=== PATIENT | male | born 1990 | race Caucasian/White ===

== ENCOUNTER 2017-10-03 15:22 | Emergency (ER) | payer OTHER ==
[~2017-10-03] VITALS: Ht 177.8 cm; Wt 64.4 kg
[~2017-10-03 15:22] MED LIST: AMOXICILLIN875 MG PO; AUGMENTIN 875-1 EACH PO; BACTRIM DS TAB1 EACH PO; CLINDAMYCIN HC300 MG PO; IBUPROFEN800 MG PO; KEFLEX500 MG PO; NORCO 5-325 TA1 EACH PO; OMEPRAZOLE20 MG PO; PAXIL20 MG PO
== END 2017-10-03 18:40 | disposition home or self-care (01) ==
LOC: ED 15:22
DX: R44.0 Auditory hallucinations (principal); F15.10 Other stimulant abuse, uncomplicated; F17.200 Nicotine dependence, unspecified, uncomplicated; Z86.19 Personal history of other infectious and parasitic diseases
CPT/HCPCS: 99282

== ENCOUNTER 2018-03-13 03:12 | Emergency (ER) | payer OTHER ==
[~2018-03-13] VITALS: Ht 177.8 cm; Wt 64.4 kg
== END 2018-03-13 04:35 | disposition home or self-care (01) ==
LOC: ED 03:12
DX: L29.9 Pruritus, unspecified (principal); S30.811A Abrasion of abdominal wall, initial encounter; S20.319A Abrasion of unspecified front wall of thorax, initial encounter; S80.812A Abrasion, left lower leg, initial encounter; S80.811A Abrasion, right lower leg, initial encounter; S40.812A Abrasion of left upper arm, initial encounter; S40.811A Abrasion of right upper arm, initial encounter; S30.810A Abrasion of lower back and pelvis, initial encounter; F17.200 Nicotine dependence, unspecified, uncomplicated; W19.XXXA Unspecified fall, initial encounter; Y93.89 Activity, other specified
CPT/HCPCS: 96372; 99282; J1200

== ENCOUNTER 2018-06-21 14:27 | Emergency (ER) | payer OTHER ==
[~2018-06-21] VITALS: Ht 177.8 cm; Wt 58.1 kg
--- OUTSIDE RECORDS SUMMARY | 2018-06-21 15:32 | XMS | Clinical Summary ---
Demographics + + + | Address | [address] | | | [place] [address] | + + + | Home Phone | | + + + | Preferred Language | Unknown | + + + | Marital Status | Single | + + + | Scientology Affiliation | Unknown | + + + | Race | Unknown | + + + | Ethnic Group | Unknown | + + + Author + + + | Author | [facility] | + + + | Organization | [facility] | + + + | Address | Unknown | + + + | Phone | Unavailable | + + + Support + + +---------+ + | Name | Relationship | Address | Phone | + + +---------+ + | Lynne Burrell | ECON | Unknown | | + + +---------+ + Care Team Providers + +------+ + | Care Delivery Rn Name | Role | Phone | + +------+ + | Chelle Nelson VALUE ANALYST | PP | Unavailable | + +------+ + Allergies No Known Allergies Current Medications + + +--------+---------+------+------+-------+ | Prescription | Sig. | Disp. | Refills | Star | End | Statu | | | | | | t | Date | s | | | | | | Date | | | + + +--------+---------+------+------+-------+ | risperiDONE | Take 1 tablet by | 60 | 0 | 06/2 | | Activ | | (RISPERDAL) 0.5 MG | mouth 2 (two) times | tablet | | 2/20 | | e | | tablet | daily. | | | 15 | | | + + +--------+---------+------+------+-------+ Active Problems + + + | Problem | Noted Date | + + + | Chronic hepatitis C virus infection (HCC) | 11/07/2015 | + + + | Elevated liver enzymes | 11/05/2015 | + + + | Substance abuse (HCC) | 11/05/2015 | + + + | Substance induced mood disorder (HCC) | 03/11/2015 | + + + | Substance-induced anxiety disorder | 03/11/2015 | + + + | Drug overdose, intentional, Suicide Attempt | 03/08/2015 | + + + | Depression | 03/08/2015 | + + + | Chronic Alcoholism | 03/08/2015 | + + + | Chronic Polysubstance Abuse, Meth, MJ, Opiates, Benzos | 03/08/2015 | + + + | Acute respiratory failure (HCC) | 03/08/2015 | + + + Resolved Problems + + + + | Problem | Noted | Resolved | | | Date | Date | + + + + | Septic shock (HCC) | 11/04/19 | | | | 16 | 6 | + + + + | NSAID overdose | 03/11/20 | | | | 15 | 5 | + + + + | Tricyclic overdose | 03/08/20 | | | | 15 | 5 | + + + + Immunizations + + + + | Name | Dates Previously Given | Next Due | + + + + | Pneumococcal | 03/11/2015 | | | Polysaccharide | | | | 23-valent | | | + + + + Family History + + +------+ + | Medical History | Relation | Name | Comments | + + +------+ + | Alcohol abuse | Father | | | + + +------+ + | Cancer | Maternal | | | | | Grandfath | | | | | er | | | + + +------+ + | Cancer | Maternal | | | | | Grandmoth | | | | | er | | | + + +------+ + | Alcohol abuse | Mother | | | + + +------+ + + +------+--------+ + | Relation | Name | Status | Comments | + +------+--------+ + | Father | | | | + +------+--------+ + | Maternal Grandfather | | | | + +------+--------+ + | Maternal Grandmother | | | | + +------+--------+ + | Mother | | | | + +------+--------+ + Social History + + + +--------+------+ | Tobacco Use | Types | Packs/Day | Years | Date | | | | | Used | | + + + +--------+------+ | Current Every Day | Cigarettes | 0.5 | 12 | | | Smoker | | | | | + + + +--------+------+ + +---+---+---+ | Smokeless Tobacco: | | | | | Former User | | | | + +---+---+---+ + + | Tobacco Cessation: Ready to Quit: No; Counseling Given: Yes | + + + + +---------+ + | Alcohol Use | Drinks/We | oz/Week | Comments | | | ek | | | + + +---------+ + | Yes | | | "drinks alot of hard alchocol every day" | | | | | per sister | + + +---------+ + + + + | Sex Assigned at | Date Recorded | | | | + + + | Not on file | | + + + Last Filed Vital Signs + + + + | Vital Sign | Reading | Time Taken | + + + + | Blood Pressure | 124/79 | 11/07/2015 3:13 PM PST | + + + + | Pulse | 57 | 11/07/2015 3:13 PM PST | + + + + | Temperature | 36.6 C (97.8 F) | 11/07/2015 3:13 PM PST | + + + + | Respiratory Rate | 16 | 11/07/2015 3:13 PM PST | + + + + | Oxygen Saturation | 98% | 11/07/2015 3:13 PM PST | + + + + | Inhaled Oxygen | - | - | | Concentration | | | + + + + | Weight | 63.5 kg (140 lb) | 11/07/2015 5:03 AM PST | + + + + | Height | 177.8 cm (5' 10") | 11/05/2015 12:15 PM PST | + + + + | Body Mass Index | 20.09 | 11/07/2015 5:03 AM PST | + + + + Plan of Treatment Not on file Results Not on filefrom Last 3 Months Insurance + +--------+ +------+-------+ + | Payer | Benefi | Subscriber | Type | Phone | Address | | | t Plan | ID | | | | | | / | | | | | | | Group | | | | | + +--------+ +------+-------+ + | MEDICAID | [employer] | [id number] | | | [address] | | | N | | | | [place] | | | [place] | | | | [phone] | | | MANAGER INVENTORY MANAGEMENT | | | | | + +--------+ +------+-------+ + + +--------+ +--------+ + + | Guarantor Name | Accoun | Relation to | Date | Phone | Billing Address | | | t Type | Patient | of | | | | | | | | | | + +--------+ +--------+ + + | JASON UBRRELL | Person | Self [birth year] | Home: | [address] | | | [place] | | 1989 | [phone] | [place] | | | [place] | | | [phone] | + +--------+ +--------+ + +
--- OUTSIDE RECORDS SUMMARY | 2018-06-21 15:32 | XMS | Clinical Summary ---
Demographics + + + | Address | [address] | | | [place] [address] | + + + | Home Phone | [email or web address] | + + + | Preferred Language | Unknown | + + + | Marital Status | Single | + + + | Zoroastrian Affiliation | Unknown | + + + | Race | Unknown | + + + | Ethnic Group | Unknown | + + + Author + + + | Author | [facility] | | | and [place] | + + + | Organization | [facility] | | | and [place] | + + + | Address | Unknown | + + + | Phone | Unavailable | + + + Support + + +---------+ + | Name | Relationship | Address | Phone | + + +---------+ + | None,Provided | ECON | Unknown | | + + +---------+ + Care Team Providers + +------+ + | Care Quarryman Name | Role | Phone | + +------+ + | No, Physician | PP | Unavailable | + +------+ + Allergies No Known Allergies Current Medications + + + +---------+------+------+-------+ | Prescription | Sig. | Disp. | Refills | Star | End | Statu | | | | | | t | Date | s | | | | | | Date | | | + + + +---------+------+------+-------+ | benzoyl | Apply to affected | 46.6 g | 5 | 11/0 | | Activ | | peroxide-erythromyci | skin twice daily | | | 3/20 | | e | | n (BENZAMYCIN) | | | | 14 | | | | gelIndications: Acne | | | | | | | + + + +---------+------+------+-------+ | tretinoin | Apply to affected | 45 g | 5 | 11/0 | | Activ | | (RETIN-A) 0.025 % | area nightly | | | 3/20 | | e | | gelIndications: Acne | | | | 14 | | | + + + +---------+------+------+-------+ | triamcinolone | Apply to affected | 30 g | 2 | 11/0 | | Activ | | (KENALOG) 0.1% | skin on hands and | | | 3/20 | | e | | creamIndications: | knees twice daily | | | 14 | | | | Hand dermatitis | | | | | | | + + + +---------+------+------+-------+ Active Problems No known active problems Social History + + + +--------+------+ | Tobacco Use | Types | Packs/Day | Years | Date | | | | | Used | | + + + +--------+------+ | Current Every Day | Cigarettes | 1 | | | | Smoker | | | | | + + + +--------+------+ + + + | Sex Assigned at | Date Recorded | | | | + + + | Not on file | | + + + Last Filed Vital Signs + + + + | Vital Sign | Reading | Time Taken | + + + + | Blood Pressure | 136/76 | 07/23/20141050 PST | + + + + | Pulse | 103 | 07/23/20141050 PST | + + + + | Temperature | 36.2 C (97.2 F) | 07/23/20141050 PST | + + + + | Respiratory Rate | 16 | 07/23/20141050 PST | + + + + | Oxygen Saturation | 100% | 07/23/20141050 PST | + + + + | Inhaled Oxygen | - | - | | Concentration | | | + + + + | Weight | 62 kg (136 lb 11.2 | 07/23/20141050 PST | | | oz) | | + + + + | Height | 177.8 cm (5' 10") | 07/23/20141050 PST | + + + + | Body Mass Index | 19.61 | 07/23/2014 1051 PST | + + + + Plan of Treatment + + + + + | Health Maintenance | Due Date | Last Done | Comments | + + + + + | Vaccine: | | | | | Dtap/Tdap/Td (1 - | 9 | | | | Tdap) | | | | + + + + + | Vaccine: Influenza | | | | | (#1) | 8 | | | + + + + + Results Not on filefrom Last 3 Months
--- OUTSIDE RECORDS SUMMARY | 2018-06-21 15:32 | XMS | Clinical Summary ---
Demographics + + + | Address | [address] | | | [place] [address] | + + + | Home Phone | | + + + | Preferred Language | Unknown | + + + | Marital Status | Single | + + + | Catholic Affiliation | Unknown | + + + | Race | Unknown | + + + | Ethnic Group | Unknown | + + + Author + + + | Author | [facility] | + + + | Organization | [facility] | + + + | Address | Unknown | + + + | Phone | Unavailable | + + + Support + + +---------+ + | Name | Relationship | Address | Phone | + + +---------+ + | Lynne Burrell | ECON | Unknown | | + + +---------+ + Care Team Providers + +------+ + | Care Irrigation District Manager Name | Role | Phone | + +------+ + | Chelle Nelson MIME ARTIST | PP | Unavailable | + +------+ [...] +------+-------+ + | MEDICAID | [employer] | [id number] | | | [address] | | | N | | | | [place] | | | [place] | | | | [phone] | | | RFID SYSTEMS ENGINEER | | | | | + +--------+ +------+-------+ + + +--------+ +--------+ + + | Guarantor Name | Accoun | Relation to | Date | Phone | Billing Address | | | t Type | Patient | of | | | | | | | | | | + +--------+ +--------+ + + | JASON BURRELL | Person | Self | [birth year] | Home: | [address] | | | [place] | | 1989 | [phone] | [place] | | | [place] | | | [phone] | + +--------+ +--------+ + +
--- OUTSIDE RECORDS SUMMARY | 2018-06-21 15:32 | XMS | Clinical Summary ---
Demographics + + + | Address | [address] | | | [place] [address] | + + + | Home Phone | [email or web address] | + + + | Preferred Language | Unknown | + + + | Marital Status | Single | + + + | Voodoo Affiliation | Unknown | + + + | Race | Unknown | + + + | Ethnic Group | Unknown | + + + Author + + + | Author | [facility] | | | and [place] | + + + | Organization | [facility] | | | and [place] | [...] Team Providers + +------+ + | Care Construction Site Manager Name | Role | Phone | [...]
--- OUTSIDE RECORDS SUMMARY | 2018-06-21 17:25 | XMS ---
PreManage Notification: JASON GOODRICH Security Assembly Loader Events No recent Security Events currently on file CRITERIA MET - Group Notification CARE PROVIDERS There are no care providers on record at this time. [place] has no Care Guidelines for this patient. [place] V[facility] COUNT (12 MO.) [facility]Y [facility] TOTAL 4 NOTE: Visits indicate total known visits. ED/[facility] VISIT TRACKING (12 MO.) 06/21/2018 14:27 ARY Regal[place] TYPE: Emergency COMPLAINT: - EAR LACERATION 03/13/2018 03:13 [facility] [place] TYPE: Emergency COMPLAINT: - SKIN PROBLEM DIAGNOSES: - Abrasion of abdominal wall, initial encounter - Activity, other specified - Pruritus, unspecified - Nicotine dependence, unspecified, uncomplicated - Abrasion, right lower leg, initial encounter - Abrasion of right upper arm, initial encounter - Abrasion of left upper arm, initial encounter - Abrasion of unspecified front wall of thorax, initial encounter - Unspecified fall, initial encounter - Abrasion, left lower leg, initial encounter - Abrasion of lower back and pelvis, initial encounter 10/03/2017 15:23 AR[facility] [place] TYPE: Emergency COMPLAINT: - FEVER,ABD PAIN DIAGNOSES: - Other stimulant abuse, uncomplicated - Unspecified abdominal pain - Personal history of other infectious and parasitic diseases - Nicotine dependence, unspecified, uncomplicated - Auditory hallucinations 08/28/2017 15:10 Nikki OLIVA [place] TYPE: Emergency COMPLAINT: - PT STATES SCABIES INPATIENT VISIT TRACKING (12 MO.) No inpatient visits to display in this time frame [email or web address]
== END 2018-06-21 17:25 | disposition home or self-care (01) ==
LOC: ED 14:27
PROC: 0HQ2XZZ Repair Right Ear Skin, External Approach (ICD-10-PCS; principal; 2018-06-21)
DX: S01.311A Laceration without foreign body of right ear, initial encounter (principal); Y04.8XXA Assault by other bodily force, initial encounter
CPT/HCPCS: 12011; 70450; 90471; 90715; 99283; 99406

== ENCOUNTER 2019-09-01 11:13 | Emergency (ER) | payer OTHER ==
[~2019-09-01] VITALS: Ht 177.8 cm; Wt 58.1 kg
--- OUTSIDE RECORDS SUMMARY | ~2019-09-01 | XMS | Encounter Summary ---
Demographics + + + | Address | [address] | | | [place] [address] | + + + | Home Phone | [email or web address] | + + + | Preferred Language | Unknown | + + + | Marital Status | Single | + + + | Roman Catholic Affiliation | Unknown | + + + | Race | Unknown | + + + | Ethnic Group | Unknown | + + + Author + + + | Author | [facility] | | | and [place] | + + + | Organization | [facility] | | | and [place] | + + + | Address | Unknown | + + + | Phone | Unavailable | + + + Support + + +---------+ + | Name | Relationship | Address | Phone | + + +---------+ + | Provided None | ECON | Unknown | | + + +---------+ + Care Team Providers + +------+ + | Care Wafer Production Worker Name | Role | Phone | + +------+ + | No, Physician | PCP | Unavailable | + +------+ + Reason for Visit +--------+ + | Reason | Comments | +--------+ + | Rash | exam 4/ BILAT KNEES/LEFT HAND/BACK X YEARS | +--------+ + Encounter Details +--------+---------+ + + + | Date | Type | Department | Care Team | Description | +--------+---------+ + + + | 07/23/ | Office | [facility] | Everardo Lopez | Acne (Primary Dx); | | 2013 | Visit | CARE [address] | Ziggy Rodriguez MD | Hand dermatitis | | | | [place] | [address] | | | | | [phone] | [place] | | | | | [phone] | [address] | | | | | | | | +--------+---------+ + + + Social History + + + +--------+------+ | Tobacco Use | Types | Packs/Day | Years | Date | | | | | Used | | + + + +--------+------+ | Current Every Day | Cigarettes | 1 | | | | Smoker | | | | | + + + +--------+------+ + + +---------+ + | Alcohol Use | Drinks/Week | oz/Week | Comments | + + +---------+ + | Not Asked | | | | + + +---------+ + + + + | Sex Assigned at | Date Recorded | | | | + + + | Not on file | | + + + + + + + | Job Start Date | Occupation | Industry | + + + + | Not on file | Not on file | Not on file | + + + + + + + + | Travel History | Travel Start | Travel End | + + + + + + | No recent travel history available. | + + documented as of this encounter Last Filed Vital Signs + + + + + | Vital Sign | Reading | Time Taken | Comments | + + + + + | Blood Pressure | 136/76 | 07/23/2014 10:51 AM | | | | | PST | | + + + + + | Pulse | 103 | 07/23/2014 10:51 AM | | | | | PST | | + + + + + | Temperature | 36.2 C (97.2 F) | 07/23/2014 10:51 AM | | | | | PST | | + + + + + | Respiratory Rate | 16 | 07/23/2014 10:51 AM | | | | | PST | | + + + + + | Oxygen Saturation | 100% | 07/23/2014 10:51 AM | | | | | PST | | + + + + + | Inhaled Oxygen | - | - | | | Concentration | | | | + + + + + | Weight | 62 kg (136 lb 11.2 | 07/23/2014 10:51 AM | | | | oz) | PST | | + + + + + | Height | 177.8 cm (5' 10") | 07/23/2014 10:51 AM | | | | | PST | | + + + + + | Body Mass Index | 19.61 | 07/23/2014 10:51 AM | | | | | PST | | + + + + + documented in this encounter Patient Instructions Patient Instructions Everardo Lopez Jr., MD - 07/23/2014 11:34 AM PSTCall tomorrow for blood results Use medication as directed Recheck in 3 weeks if no improvement documented in this encounter Progress Notes Frieda Andrade RN - 07/23/2014 1:48 PM PSTVenipuncture to LAC x 1 with 23 gauge butter fly used. Patient tolerated well.Electronically signed by Frieda Andrade RN at 1:53 PM Everardo Ribera Jr., MD - 07/23/2014 12:48 PM PSTTravis Per Roy resebenezer with a long history of acne on his face and upper back. He was treated with tetracy [place] for over a year orally without any benefit. He has not been on any other prescription medication. He has had intermittent problems with a rash on his kneecap areas as well as t he dorsum of his hands. He is concerned that he may have some internal problem to cause the problems. He has no family history of psoriasis. He has no history of joint pains or kidn ey difficulty. He has not had difficulty with his eyes. Physical exam: No acute distress Face and posterior upper back: Pustular acne with some scarring and pitting Knees: Slight hyperkeratosis and scaling over the kneecaps Hands: Erythema without other lesions of the MCP joints of both hands symmetrically CBC and sed rate: Pending Diagnosis: Acne, hyperkeratosis of the knees documente d in this encounter Plan of Treatment Not on filedocumented as of this encounter Procedures + +--------+ + + + | Procedure Name | Priori | Date/Time | Associated Diagnosis | Comments | | | ty | | | | + +--------+ + + + | SEDIMENTATION RATE | Routin | 07/23/2014 | Hand dermatitis | Results for this | | | e | 11:47 AM | | procedure are in the | | | | PST | | results section. | + +--------+ + + + | CBC WITH | Routin | 07/23/2014 | Acne Hand | Results for this | | DIFFERENTIAL | e | 11:47 AM | dermatitis | procedure are in the | | | | PST | | results section. | + +--------+ + + + documented in this encounter Results Sedimentation Rate (07/23/2014 11:47 AM PST) + +-------+ + + + | Component | Value | Ref Range | Performed | Pathologist | | | | | At | Signature | + +-------+ + + + | ESR | 12 | <15 mm/hr | [facility] | [facility] | | | [facility] - | | | | | | LABORATORY | | + +-------+ + + + + + | Specimen | + + | Blood | + + + + + + + | Performing | Address | City/State/Zipcode | Phone Number | | Organization | | | | + + + + + | [facility] | [address] | [place] | [phone] | | [facility] | | [address] | | | - LABORATORY | | | | + + + + + | [facility] | [address] | [place] | | | [facility] | | [address] | | | - LABORATORY | | | | + + + + + CBC with Differential (07/23/2014 11:47 AM PST) + + + + + + | Component | Value | Ref Range | Performed | Pathologist | | | | | At | Signature | + + + + + + | WBC | 8.1 | 4.0 - 11.0 K/uL | [facility] | | | | | | [facility] | | | | | | [facility] | | | | | | [facility] - | | | | | | LABORATORY | | + + + + + + | RBC | 4.49 | 4.30 - 5.70 | [facility] | | | | | M/uL | [facility] | | | | | | [facility] | | | | | | C[facility] - | | | | | | LABORATORY | | + + + + + + | Hemoglobin | 13.4 (L) | 13.5 - 18.0 | [facility] | | | | | g/dL | [facility] | | | | | | [facility] | | | | | | C[facility] - | | | | | | LABORATORY | | + + + + + + | Hematocrit | 41.1 | 40.0 - 51.0 % | [facility] | | | | | | [facility] | | | | | | [facility] | | | | | | [facility] - | | | | | | LABORATORY | | + + + + + + | MCV | 91.7 | 83.0 - 101.0 fL | [facility] | | | | | | [facility] | | | | | | [facility] | | | | | | [facility] - | | | | | | LABORATORY | | + + + + + + | MCH | 30.0 | 28.0 - 35.0 pg | [facility] | | | | | | [facility] | | | | | | [facility] | | | | | | [facility] - | | | | | | LABORATORY | | + + + + + + | MCHC | 32.7 | 32.0 - 36.0 | [facility] | | | | | g/dL | [facility] | | | | | | [facility] | | | | | | C[facility] - | | | | | | LABORATORY | | + + + + + + | RDW-CV | 13.6 | <15.0 % | [facility] | | | | | | [facility] | | | | | | [facility] | | | | | | [facility] - | | | | | | LABORATORY | | + + + + + + | Platelet | 210 | 140 - 440 K/uL | [facility] | | | Count | | | [facility] | | | | | | [facility]ICAL | | | | | | CENTER - | | | | | | LABORATORY | | + + + + + + | MPV | 7.0 | fL | [facility] | | | | | | [facility] | | | | | | [facility] | | | | | | CENTER - | | | | | | LABORATORY | | + + + + + + | % | 66.0 | 45.0 - 82.0 % | [facility] | | | Neutrophils | | | [facility] | | | | | | MEDICAL | | | | | | CENTER - | | | | | | LABORATORY | | + + + + + + | % | 21.2 | 20.0 - 45.0 % | [facility] | | | Lymphocytes | | | [facility] | | | | | | [facility] | | | | | | CENTER - | | | | | | LABORATORY | | + + + + + + | % Monocytes | 10.1 | 4.0 - 12.0 % | [facility] | | | | | | [facility] | | | | | | [facility]ICAL | | | | | | CENTER - | | | | | | LABORATORY | | + + + + + + | % | 2.1 | 0.0 - 5.0 % | [facility] | | | Eosinophils | | | [facility] | | | | | | [facility] | | | | | | CENTER - | | | | | | LABORATORY | | + + + + + + | % Basophils | 0.6 | 0.0 - 1.0 % | [facility] | | | | | | [facility] | | | | | | [facility]ICAL | | | | | | CENTER - | | | | | | LABORATORY | | + + + + + + | Absolute | 5.30 | 1.80 - 8.50 | [facility] | | | Neutrophils | | K/uL | [facility] | | | | | | [facility]ICAL | | | | | | CENTER - | | | | | | LABORATORY | | + + + + + + | Absolute | 1.70 | 0.60 - 3.20 | [facility] | | | Lymphocytes | | K/uL | [facility] | | | | | | [facility]ICAL | | | | | | CENTER - | | | | | | LABORATORY | | + + + + + + | Absolute | 0.80 | 0.00 - 1.00 | [facility] | | | Monocytes | | K/uL | [facility] | | | | | | [facility]ICAL | | | | | | CENTER - | | | | | | LABORATORY | | + + + + + + | Absolute | 0.20 | 0.00 - 0.40 | [facility] | | | Eosinophils | | K/uL | [facility] | | | | | | [facility]ICAL | | | | | | CENTER - | | | | | | LABORATORY | | + + + + + + | Absolute | 0.00 | 0.00 - 0.10 | [facility] | | | Basophils | | K/uL | [facility] | | | | | | [facility]ICAL | | | | | | CENTER - | | | | | | LABORATORY | | + + + + + + + + | Specimen | + + | Blood | + + + + + + + | Performing | Address | City/State/Zipcode | Phone Number | | Organization | | | | + + + + + | [facility] | [address] | [place] | [phone] | | [facility] | | [address] | | | - LABORATORY | | | | + + + + + | [facility] | [address] | [place] | | | [facility] | | [address] | | | - LABORATORY | | | | + + + + + documented in this encounter Visit Diagnoses + + | Diagnosis | + + | Acne - Primary Other acne | + + | Hand dermatitis Contact dermatitis and other eczema, due to unspecified cause | + + documented in this encounter
--- OUTSIDE RECORDS SUMMARY | ~2019-09-01 | XMS | Clinical Summary ---
Demographics + + + | Address | [address] | | | [place] [address] | + + + | Home Phone | | + + + | Preferred Language | Unknown | + + + | Marital Status | Single | + + + | Mormon Affiliation | Unknown | + + + | Race | Unknown | + + + | Ethnic Group | Unknown | + + + Author + + + | Author | [facility] (Historical as of | | | 05-06-19) | + + + | Organization | [facility] (Historical as of | | | 05-06-19) | + + + | Address | Unknown | + + + | Phone | Unavailable | + + + Support + + +---------+ + | Name | Relationship | Address | Phone | + + +---------+ + | Lynne Burrell | ECON | Unknown | | + + +---------+ + Care Team Providers + +------+ + | Care Environmental Inspector Name | Role | Phone | + +------+ + | Chelle NelsonP | PP | Unavailable | + +------+ [...] +------+-------+ + | MEDICAID | [place] | [id number] | | | [address] | | | N | | | | [place] | | | [place] | | | | [phone] | | | [employer]ING OFFICER | | | | | + +--------+ [...] | [address] | | | al/Matt | | 1989 | [phone] [place] | | | [place] | | | [phone] | + +--------+ +--------+ + +
--- OUTSIDE RECORDS SUMMARY | ~2019-09-01 | XMS | Clinical Summary ---
Demographics + + + | Address | [address] | | | [place] [address] | + + + | Home Phone | | + + + | Preferred Language | Unknown | + + + | Marital Status | Single | + + + | Adventist Affiliation | Unknown | + + + | Race | Unknown | + + + | Ethnic Group | Unknown | + + + Author + + + | Author | [facility] (Historical as of | | | 05-06-19) | + + + | Organization | [facility] (Historical as of | | | 05-06-19) [...] Team Providers + +------+ + | Care Senior Tax Manager Name | Role | Phone | [...] +------+-------+ + | MEDICAID | [place] | [id number] | | | [address] | | | N | | | | [place] | | | [place] | | | | [phone] | | | [employer]FORMING [employer] | | | | | + +--------+ [...] | [place] | | | [phone] | [phone] | + +--------+ +--------+ + +
--- OUTSIDE RECORDS SUMMARY | ~2019-09-01 | XMS | Encounter Summary ---
Demographics + + + | Address | [address] | | | [place] [address] | + + + | Home Phone | [email or web address] | + + + | Preferred Language | Unknown | + + + | Marital Status | Single | + + + | Advent Affiliation | Unknown | + + + | Race | Unknown | + + + | Ethnic Group | Unknown | + + + Author + + + | Author | [facility] | | | and [place] | + + + | Organization | [facility] | | | and [place] [...] Team Providers + +------+ + | Care Carpenter Mate Name | Role | Phone | + +------+ + | No, Physician | PCP | Unavailable | + +------+ + Encounter Details +--------+ + + + + | Date | Type | Department | Care Team | Description | +--------+ + + + + | 11/03/ | Hospital | [facility] | Arnulfo Torres, | Transaminasemia; | | 2016 - | Encounter | [facility]ENTER | MD Luis GIL[place]TTE | Septic shock (HCC); | | | | CLINICAL DECISION | [facility] [place] [address] | Acute renal failure, | | 11/07/ | | [address] | [phone] | unspecified acute | | 2016 | | [place] | | renal failure type | | | | [id number] | | (HCC); Lactic | | | | [phone] | | acidosis; | | | | | | Leukocytosis; RUQ | | | | | | abdominal pain | +--------+ + + + + Social History + + + +--------+------+ | Tobacco Use | Types | Packs/Day | Years | Date | | | | | Used | | + + + +--------+------+ | Current Every Day | Cigarettes | 0.5 | | | | Smoker | | | | | + + + +--------+------+ + + +---------+ + | Alcohol Use | Drinks/Week | oz/Week | Comments | + + +---------+ + | Not Asked | | | Alcoholic | | | | | Drinks/day: "drinks | | | | | alot of hard | | | | | alchocol every day" | | | | [...] | Blood Pressure | 124/79 | 11/07/2015 3:14 PM | | | | | PST | | + + + + + | Pulse | 57 | 11/07/2015 3:14 PM | | | | | PST | | + + + + + | Temperature | 36.6 C (97.8 F) | 11/07/2015 3:14 PM | | | | | PST | | + + + + + | Respiratory Rate | 16 | 11/07/2015 3:14 PM | | | | | PST | | + + + + + | Oxygen Saturation | - | - | | + + + + + | Inhaled Oxygen | - | - | | | Concentration | | | | + + + + + | Weight | 63.5 kg (140 lb) | 11/07/2015 3:14 PM | | | | | PST | | + + + + + | Height | 177.8 cm (5' 10") | 11/07/2015 3:14 PM | | | | | PST | | + + + + + | Body Mass Index | 20.09 | 11/07/2015 3:14 PM | | | | | PST | | + + + + + documented in this encounter Discharge Summaries Isaiah Powell MD - 11/07/2015 12:20 PM PSTFormatting of this note might be different fr om the original. Discharge Summaries by Isaiah Powell MD at 11/07/15 1220 Author: Isaiah Powell MD Service: Hospitalist Author Type: Physician Filed: 11/07/15 6730 Date of Service: 11/07/15 1220 Status: Addendum Architectural Administrative Assistant: Isaiah Powell MD (Physician) Related Notes: Original Note by Isaiah Powell MD (Physician) filed at 11/07/15 1556 [facility] Service: Hospitalist Discharge Summary Date of Admission: 11/03/2015 Date of Discharge: 11/07/15 Discharge Provider: Isaiah Powell MD Treatment Team: Admitting Provider: Arnulfo Torres MD Final Diagnoses: Septic shock, unclear etiology/IV drug abuse/hepatitis C infection Procedures: * No surgery found * Significant Diagnostic Studies: Xr Chest 1 View 11/04/2015 1. Right IJ central venous catheter placement without pneumothorax. Domi grimaldo signed by Cayden Garrison DO on 11/04/2015 7:07 AM Ultrasound Abdomen Limited 11/06/2015 1. Severe diffuse gallbladder wall thickening and striations, similar to the p rior study. This could indicate acute cholecystitis. See differential diagnosis above. 2. N o evidence of bile duct dilatation. 3. Trace ascites and minimal right pleural effusion not ed. Nm Hepatobiliary With Cck 11/04/2015 1. No evidence of cystic duct obstruction. Gallbladder ejection fraction is 68 %. F HISTORY OF PRESENTATION: Jason Burrell is a 25 y.o. male who HOSPITAL COURSE: DISCHARGE DIAGNOSES 1. Septic shock, of unclear etiology, possibly secondary to cotton fever (using cotton swab s during intravenous drug use). 2. Chronic hepatitis C infection. 3. Intravenous drug abuse. HOSPITAL COURSE Mr. Burrell is a 25-year-old male with a history of chronic drug and alcohol abuse. The pat ient was transferred to our facility on November 03, 2015, from [facility] emergency department. The patient indicates that he had been injecting IV methamphetamine a nd had obtained the drug from a new provider. Approximately 4 hours after, he began feeling unwell. He consumed some alcohol, approximately 1 third of a bottle of whisky, then began de veloping generalized myalgias, shivers, shakes, and abdominal discomfort. He presented to [facility] emergency department. He was noted to be hypotensive with systoli c blood pressures in the 70s, leukocytosis, concern for septic shock. He was aggressively hy drated, empirically started on IV antibiotics. Blood cultures were obtained and he was trans ferred to our facility. He was initially admitted to the intensive care unit. Repeat blood cultures were obtained. A procalcitonin level was elevated at greater than 200, elevated serum lactic acid level. He did require initial pressor support, and then over the next 24 hours he had significant imp rovement of his symptoms. Initial concern for sepsis was possibly gallbladder/cholecystitis. He did have CT of the abdomen which shows gallbladder wall thickening, though no stones wer e noted. Initially, general surgery was consulted, recommending a HIDA scan which was negati ve, making cholecystitis less likely. In light of also the patient's dramatic improvement ov er the first 24 hours with improved leukocytosis. Blood cultures continued to be negative. The patient was subsequently transferred to the hospitalist service for further management. The patient's LFTs were elevated. This was thought probably secondary for the patient's und erlying alcoholism. Hepatitis panel was obtained which came back positive for hepatitis C. S ubsequent hepatitis C viral load and genome were sent and are pending at the time of dictati on. The patient was monitored an additional 72 hours. He continued to do well, afebrile, res olved leukocytosis. Procalcitonin level also came down. There was no clear source of his sep sis. The case was discussed over the phone with ID director international, being that there is no source th e cause/differential diagnosis of the patient's acute sepsis and elevated procalcitonin brittany gonzalez may have been related to cotton fever which can occur when IV drugs are filtered through a cotton swab. The patient did confirm using cotton and he was familiar with this term, segun n fever, and indicates that he has had episodes of cotton fever in the past with muscle ache s, chills, though never this extreme. It was felt it would be prudent to continue Augmentin for an additional 7 days in order to finish a total of 10 days antibiotics empirically though no clear source of infection was fo und. On the day of discharge, the patient was doing well. Physical examination was benign. T here was no liver tenderness. Regarding the patient's newly diagnosed hepatitis C, he was st rongly encouraged to stop IV drug use and alcohol which he indicates he is very intent to. Maury quiroz was interested in treatment options for his newly diagnosed hepatitis C. I explained that he needs to be clean from drugs and alcohol prior to being evaluated for a candidate for int erferon treatment. He was instructed to follow up with his PCP and subsequently could schedu le a referral to [facility] ID for evaluation. He again understood that he would need to be clean prior to beginning treatment. He was given information on hepatitis C. He was instructed to return back to the emergency department if he develops worsening symptoms including fevers, chills, worsening weakness, o r any other concerns. At time of D/C pt requested Ativan x his anxiety and assistance for his withdrawal, he inte nds to stop drinking and using drugs. Principal Problem (Resolved): Septic shock (HCC) Active Problems: Chronic Alcoholism Substance-induced anxiety disorder (HCC) Elevated liver enzymes Substance abuse Chronic hepatitis C virus infection (HCC) Past Medical History Diagnosis Date Alcohol abuse Current smoker Drug abuse and dependence (HCC) meth, MJ, opiates, benzo's Hemorrhage of gastrointestinal tract, unspecified Chronic hepatitis C virus infection (HCC) 11/07/2015 History reviewed. No pertinent past surgical history. No Known Allergies Prescriptions prior to admission Medication Sig Dispense Refill Last Dose risperiDONE (RISPERDAL) 0.5 MG tablet Take 1 tablet by mouth 2 (two) times daily. 60 ta blet 0 DISCHARGE EXAM Vital Signs: BP 124/79 mmHg | Pulse 57 | Temp(Src) 97.8 F (36.6 C) (Oral) | Resp 16 | Ht 1.778 m (5' 10") | Wt 63.504 kg (140 lb) | BMI 20.09 kg/m2 | SpO2 98% Temp: [97.8 F (36.6 C)-98.3 F (36.8 C)] 97.8 F (36.6 C) (11/07 1512) BP: (117-124)/(68-81) 124/79 mmHg (11/07 1512) Heart Rate: [51-76] 57 (11/07 1512) Resp: [16] 16 (11/07 1512) SpO2: [97 %-98 %] 98 % (11/07 1512) Weight: [63.504 kg (140 lb)] 63.504 kg (140 lb) (11/07 502) Physical Exam Constitutional: He is oriented to person, place, and time. He appears well-developed and we ll-nourished. No distress. Patient awake, alert, looks well, and living in the hallway. Smiling, pleasant HENT: Mouth/Throat: No oropharyngeal exudate. Cardiovascular: Normal rate and regular rhythm. Pulmonary/Chest: Effort normal and breath sounds normal. Abdominal: Soft. Bowel sounds are normal. He exhibits no distension. There is no tenderness . There is no rebound and no guarding. Abdomen is benign to examination, no right upper quadrant tenderness and noted Musculoskeletal: He exhibits no edema. Neurological: He is alert and oriented to person, place, and time. No cranial nerve deficit . Skin: Skin is warm. No rash noted. He is not diaphoretic. No erythema. Psychiatric: He has a normal mood and affect. His behavior is normal. Nursing note and vitals reviewed. DATA CBC: Lab Results Component Value Date WBC 5.28 11/07/2015 RBC 4.58 11/07/2015 HGB 13.6 11/07/2015 HCT 39.6 11/07/2015 MCV 86.5 11/07/2015 MCH 29.7 11/07/2015 MCHC 34.3 11/07/2015 RDW 41.6 11/07/2015 PLT 161 11/07/2015 MPV 7.3 11/07/2015 DIFFTYPE AUTOMATED 11/07/2015 WBC: Lab Results Component Value Date WBC 5.28 11/07/2015 NEUTABSMAN 15.35* 11/03/2015 NEUTROABS 3.48 11/07/2015 NEUTROMAN 80 11/03/2015 LYMPHOABS 1.53 11/03/2015 LYMPHOMAN 8 11/03/2015 LYMPHSABS 1.23 11/07/2015 LYMPHOPCT 23.19 11/07/2015 MONOABSMAN 0.96* 11/03/2015 MONOMAN 5 11/03/2015 MONOPCT 8.43 11/07/2015 EOSABS 0.08 11/07/2015 EOSPCT 1.53 11/07/2015 BASOSABS 0.05 11/07/2015 BASOPCT 0.87 11/07/2015 PLTEST ADEQUATE 11/03/2015 BANDSPCT 7 11/03/2015 Hepatic Function Panel: Lab Results Component Value Date PROT 6.2* 11/07/2015 ALB 2.8* 11/07/2015 BILITOT 2.4* 11/07/2015 BILIDIR 1.5* 11/07/2015 ALP 111 11/07/2015 AST 240* 11/07/2015 ALT 383* 11/07/2015 Results Procedure Component Value Units Date/Time Blood Culture Set 2 [[id number]] Collected: 11/03/152158 Specimen Information: Blood / Blood Updated: 11/05/15 07 Specimen Description BLOOD SPECIAL REQUESTS LAC SPECIAL REQUESTS Result: Testing performed at [facility];[address] [place] [address] CULTURE NO GROWTH AT THIS TIME Result: Testing performed at [facility], [address] [place] [address] Blood Culture Set 1 [[id number]] Collected: 11/03/152021 Specimen Information: Blood / Blood Updated: 11/05/15 0703 Specimen Description BLOOD SPECIAL REQUESTS RAC SPECIAL REQUESTS Result: Testing performed at [facility];[address] [facility];[place] [address] CULTURE NO GROWTH 2 DAYS Result: Testing performed at [facility], [address] [place] [address] Urine culture [[id number]] Collected: 11/03/152008 Specimen Information: Urine / Urine, Clean Catch Updated: 11/04/151925 Specimen Description URINE,CLEAN CATCH CULTURE NO GROWTH Result: Testing performed at [facility], [address] [place] [address] Disposition: Home Condition: Stable Code Status: Full Code No discharge procedures on file. Follow up: Chelle Nelson, STEPHANIE [address] [place] [address] Follow-up with your family doctor for hepatitis C ( for future referral to [facility] for tr eatment) Medication List START taking these medications amoxicillin-clavulanate 875-125 MG per tablet QTY: 14 tablet Refills: 0 Commonly known as: AUGMENTIN Take 1 tablet by mouth 2 (two) times daily. LORazepam 0.5 MG tablet QTY: 10 tablet Refills: 0 Commonly known as: ATIVAN Take 1 tablet by mouth every 6 (six) hours as needed for Anxiety. CONTINUE taking these medications risperidone 0.5 MG tablet QTY: 60 tablet Refills: 0 Commonly known as: RisperDAL Take 1 tablet by mouth 2 (two) times daily. Notes to Patient: Continue home schedule Where to Get Your Medications These are the prescriptions that you need to burr picker. You may get the following medications from any pharmacy - amoxicillin-clavulanate 875-125 MG per tablet - LORazepam 0.5 MG tablet Discharge took 40 minutes, to include final examination, discussion of admission, and prep aration of prescriptions, instructions for on-going care, follow-up and documentation of dis charge summary. Isaiah Powell MD 11/07/2015 documented in this encounter Medications at Time of Discharge + + + +---------+ + + | Medication | Sig | Dispensed | Refills | Start | End Date | | | | | | Date | | + + + +---------+ + + | benzoyl | Apply to affected | 46.6 g | 5 | 07/23/20 | | | peroxide-erythromyci | skin twice daily | | | 14 | | | n (BENZAMYCIN) | | | | | | | gelIndications: Acne | | | | | | + + + +---------+ + + | tretinoin | Apply to affected | 45 g | 5 | 07/23/20 | | | (RETIN-A) 0.025 % | area nightly | | | 14 | | | gelIndications: Acne | | | | | | + + + +---------+ + + | triamcinolone | Apply to affected | 30 g | 2 | 07/23/20 | | | (KENALOG) 0.1% | skin on hands and | | | 14 | | | creamIndications: | knees twice daily | | | | | | Hand dermatitis | | | | | | + + + +---------+ + + documented as of this encounter Progress Notes Conversion Transaction, Provider Unknown - 11/08/2015 11:15 AM PSTFormatting of this note m ight be different from the original. Progress Notes by Corine Uribe RN at 11/08/15 1115 Author: Corine Uribe RN Service: (none) Author Type: Registered Nurse Filed: 11/08/15 1117 Date of Service: 11/08/15 1115 Status: Signed Architectural Administrative Assistant: Corine Uribe RN (Registered Nurse) Patient case HCV reported to [facility]. Positive serology 11-06-15 onver misty Transaction, Provider Unknown - 11/07/2015 12:32 PM PST Nurse Progress Note by Tamika Ramirez RN at 11/07/15 1232 Author: Tamika Ramirez RN Service: (none) Author Type: Registered Nurse Filed: 11/07/15 1232 Date of Service: 11/07/15 1232 Status: Signed Architectural Administrative Assistant: Tamika Ramirez RN (Registered Nurse) Pt appears stable and ready for discharge. Tamika Calhoun onver misty Transaction, Provider Unknown - 11/06/2015 12:49 PM PST Case Management by Michaela Mckenzie RN at 11/06/15 1355 Author: Michaela Mckenzie RN Service: (none) Author Type: Registered Nurse Filed: 11/06/15 0777 Date of Service: 11/06/15 4709 Status: Signed Architectural Administrative Assistant: Michaela Mckenzie RN (Registered Nurse) Met with patient regarding drug and ETOH cessation and rehab facility resources. Patient s tates he has information regarding rehab facilities and declines additional information at t his time but is aware CM is available if needed. Patient denies additional discharge needs, stating family will provided transportation at d ischarge home to [place]. Isaiah Leung MD - 11/06/2015 12:40 PM PST Progress Notes by Isaiah Powell MD at 11/06/15 1240 Author: Isaiah Powell MD Service: Hospitalist Author Type: Physician Filed: 11/06/15 0313 Date of Service: 11/06/15 1243 Status: Signed Architectural Administrative Assistant: Isaiah Powell MD (Physician) Related Notes: Original Note by Isaiah Powell MD (Physician) filed at 11/06/15 9861 [facility] Service: Hospitalist Progress Note Hospital Day: LOS: 3 days Post-Op Day: * No surgery found * SUBJECTIVE Patient Summary: Per ICUH&P "The patient is a 25 y.o. male with significant past med ical history of Polysubstance abuse (alcohol, cocaine and IV methamphetamine use) presents with abdominal pain radiating to back and right shoulder, accompanied with nausea and vomiti ng. At [facility]'s ED he was afebrile but hypotensive (SBP 70-80) despite 8 liters of IVF. A CT of the abdomen showed periportal fluid and gallbladder fluid collection. An US With com plex fluid collection measuring 15 mm in thickness with multiple septations with concerns fo r infection. The gallbladder wall is mildly thickened and echogenic.Images reviewed with rad iologist director international at [facility]. At outside ED he received 8 liters of fluid and was started on norepinephrine, I was called to evaluate patient, becoming hypotensive with withdrawal of vasopressors. Remarkably labs showed elevated Tbili 1.9, ALT 415, AST 197, AlkP 91, lactate of 2.4 and Cr of 1.4, all whic h represent elevation from previous labs" Events Overnight: Patient seen and examined,denies CP or SOB or abdominal pain,tolera ting his diet,improving LFTs,stable VS, so far negative blood cx. He admits to alcohol abuse and polysubstance abuse. Mr. Burrell is a 25-year-old male with a past medical history of polysubstance abuse, alcoh ol and IV methamphetamine use. He was hospitalized back in February after intentional overdose o f antidepressants and ibuprofen. The patient was transferred from [facility] emergency department on . Limited records are available from [facility]. The patient indicates that he had been clean for approximately 1 to 2 weeks and then on November 03, 2015, he had injected methamphetamine IV. Then a few hours after he began feeling ill, he described the illness a s nausea, lower back pain, chills. He then presented to [facility] emergency depar tment where he was found to be hypotensive with systolic blood pressures in the 70s and 80s. He was aggressively hydrated and subsequently required intubation and pressors. Imaging tomas dies included CT of the abdomen which showed possible periportal fluid and gallbladder fluid collections. As a result he was transferred to our facility to the ICU. Dr. Talley general surgery evaluated the patient recommending a HIDA scan which was negative. The patient did well after the first 48 hours off pressors. Blood cultures from our facilit y did not show any growth. The cause of the patient's sepsis is unclear. No present infectious etiology was noted. Of note he did have a significantly elevated procalcitonin level. Presently the patient is being seen at the bedside. He indicates feeling well. No nausea, n o emesis, no back pain, no abdominal pain. Blood work indicates positive hepatitis C virus. This was shared with the patient. At this point it is unclear the cause of the patient's shock. May have been related to the IV methamphetamine that he used. He did indicate that he had received the methamphetamine fr om an unknown source. He denies any suicide ideation. Scheduled Medications ampicillin-sulbactam 3 g Intravenous Q6H famotidine 20 mg Oral BID heparin (porcine) 5000 unit/0.5mL 5,000 Units Subcutaneous Q12H influenza vaccine quadrivalent 0.5 mL Intramuscular Once Immunization nicotine 1 patch Transdermal Daily multivitamin & minerals w iron/FA 1 tablet Oral Q24H sodium chloride 10 mL Intravenous Q8H thiamine 100 mg Oral Q24H Continuous Infusions lactated ringers 50 mL/hr at 11/06/15 1239 PRN Medications docusate sodium OR docusate, lip moisturizer, LORazepam, magnesium sulfate OR magne sium sulfate OR magnesium sulfate, nystatin, nystatin, ondansetron OR ondansetron, p etrolatum, phosphorus OR sodium phosphate IVPB 15 mmol OR sodium phosphate IVPB 30 m mol, potassium chloride OR potassium chloride OR potassium chloride, traMADol OBJECTIVE Vital Signs: BP 127/60 mmHg | Pulse 59 | Temp(Src) 97.8 F (36.6 C) (Oral) | Resp 16 | Ht 1.778 m (5' 10") | Wt 63.322 kg (139 lb 9.6 oz) | BMI 20.03 kg/m2 | SpO2 98% GEN: awake, alert, oriented x3, NAD NEURO: PERRLA, EOMI, no facial asymmetry, moves all extremities well HEENT: sclerae clear, nonicteric, oral mmm, pink, no exudates NECK: supple, trachea midline HEART: tachycardic, S1/S2, no murmur, rub or gallop LUNGS: clear b/l, no wheezing, rales or rhonchi, symmetric chest expansion, even/unlabored respirations ABD: soft,no tenderness,positive BS EXTR: no edema, clubbing or cyanosis DATA CBC: Lab Results Component Value Date WBC 9.54 11/06/2015 RBC 4.19* 11/06/2015 HGB 12.5* 11/06/2015 HCT 37.1* 11/06/2015 MCV 88.5 11/06/2015 MCH 29.9 11/06/2015 MCHC 33.8 11/06/2015 RDW 42.4 11/06/2015 PLT 111* 11/06/2015 MPV 7.9 11/06/2015 DIFFTYPE AUTOMATED 11/06/2015 CMP: Lab Results Component Value Date NA 138 11/06/2015 K 3.4* 11/06/2015 CL 108 11/06/2015 CO2 24 11/06/2015 ANIONGAP 9 11/06/2015 GLUF 90 11/06/2015 BUN 4* 11/06/2015 CREATININE 0.69* 11/06/2015 BCR 6 11/06/2015 CA 8.1* 11/06/2015 PROT 5.3* 11/06/2015 ALB 3.0* 11/06/2015 GLOB 2.7 11/03/2015 BILITOT 2.2* 11/06/2015 ALP 81 11/06/2015 AST 93* 11/06/2015 ALT 214* 11/06/2015 EGFR >60 11/06/2015 Results for JASON BURRELL ( ) as of 11/05/2015 14:21 Ref. Range 11/04/2015 14:11 Lactate, Levar Latest Range: 0.4-2.0 mmol/L 1.0 Recent Labs Lab 11/06/15 0325 MG 1.5* Lab Results Component Value Date PHOS 3.8 11/06/2015 HIDA scan Impression: 1. No evidence of cystic duct obstruction. Gallbladder ejection fraction is 68%. LEM LIST Principal Problem: Septic shock (HCC) Active Problems: Chronic Alcoholism Substance-induced anxiety disorder (HCC) Elevated liver enzymes Substance abuse ASSESSMENT & PLAN 1. Septic shock of unclear etiology. Initially concern for possible acute cholecystitis tho ugh negative HIDA scan. The patient did present with elevated procalcitonin levels. Presentl y no infectious etiology noted. We will attempt to obtain blood cultures from [facility]. At this point we will empirically continue IV Unasyn. We will recheck a procalcitoni n level in the morning. On the differential diagnosis it may be related to IV drug abuse. Th e patient had injected IV methamphetamine which may have precipitated these episodes. 2. Elevated LFTs. Underlying history of alcoholism and recently diagnosed hepatitis C virus . We will check a hepatitis genome and viral load. The patient also agreeable to HIV testing , history of polysubstance abuse, IV drug abuse. 3. History of alcohol abuse. Presently no active signs of withdrawal. Continue thiamine and folic acid. Disposition: Admitted Code Status: Full Code Isaiah Powell MD 11/06/2015 onversion Transact ion, Provider Unknown - 11/06/2015 7:33 AM PSTFormatting of this note might be different fr om the original. Nurse Progress Note by Graciela Bowie RN at 11/06/1595 Author: Graciela Bowie RN Service: (none) Author Type: Registered Nurse Filed: 11/06/1535 Date of Service: 11/06/15732 Status: Signed Architectural Administrative Assistant: Graciela Bowie RN (Registered Nurse) Patient resting in bed. Vital signs have been stable. He has been afebrile. Patient medicat ed for nausea and pain per MAR, x 1. Phos replaced. No acute changes from previous assessm ent. Patient does not appears open to drug abuse rehab at this time stating 'it doesn't help ". Patient visualized hourly and needs addressed. Graciela Bowie RN 11/06/2015 7:35 AM Azam Boland MD - 11/05/2015 2:08 PM PSTFormatting of this note might be different from the origi nal. Progress Notes by Azam Avilez MD at 11/05/15 1138 Author: Azam Avilez MD Service: Hospitalist Author Type: Physician Filed: 11/05/15 143 Date of Service: 11/05/151407 Status: Addendum Architectural Administrative Assistant: Azam Avilez MD (Physician) Related Notes: Original Note by Azam Avilez MD (Physician) filed at 11/05/15 1432 [facility] Service: Hospitalist Progress Note Hospital Day: LOS: 2 days Post-Op Day: * No surgery found * SUBJECTIVE Patient Summary: Per H&P "The patient is a 25 y.o. male with significant past medical history of Polysubstance abuse (alcohol, cocaine and IV methamphetamine use) presents with abdominal pain radiating to back and right shoulder, accompanied with nausea and vomiting. At [facility] ED he was afebrile but hypotensive (SBP 70-80) despite 8 liters of IVF. A CT of the abdomen showed periportal fluid and gallbladder fluid collection. An US With complex fluid collection measuring 15 mm in thickness with multiple septations with concerns for in fection. The gallbladder wall is mildly thickened and echogenic.Images reviewed with radiolo gist director international at [facility]. At outside ED he received 8 liters of fluid and was started on norepinephrine, I was called to evaluate patient, becoming hypotensive with withdrawal of vasopressors. Remarkably labs showed elevated Tbili 1.9, ALT 415, AST 197, AlkP 91, lactate of 2.4 and Cr of 1.4, all whic h represent elevation from previous labs" Events Overnight: Patient seen and examined,denies CP or SOB or abdominal pain,tolera ting his diet,improving LFTs,stable VS, so far negative blood cx. He admits to alcohol abuse and polysubstance abuse. Scheduled Medications ampicillin-sulbactam 3 g Intravenous Q6H famotidine 20 mg Oral BID folic acid (FOLVITE) IVPB 1 mg Intravenous Q24H heparin (porcine) 5000 unit/0.5mL 5,000 Units Subcutaneous Q12H influenza vaccine quadrivalent 0.5 mL Intramuscular Once Immunization nicotine 1 patch Transdermal Daily sodium chloride 10 mL Intravenous Q8H thiamine (VITAMIN B1) IVPB 100 mg Intravenous Q24H Continuous Infusions lactated ringers 75 mL/hr at 11/05/15 1356 PRN Medications docusate sodium OR docusate, lip moisturizer, magnesium sulfate OR magnesium sulfat e OR magnesium sulfate, nystatin, nystatin, ondansetron OR ondansetron, petrolatum, phosphorus OR sodium phosphate IVPB 15 mmol OR sodium phosphate IVPB 30 mmol, potass ium chloride OR potassium chloride OR potassium chloride OBJECTIVE Vital Signs: BP 115/65 mmHg | Pulse 60 | Temp(Src) 98.1 F (36.7 C) (Oral) | Resp 20 | Ht 1.778 m (5' 10") | Wt 61.4 kg (135 lb 5.8 oz) | BMI 19.42 kg/m2 | SpO2 99% GEN: awake, alert, oriented x3, NAD NEURO: PERRLA, EOMI, no facial asymmetry, moves all extremities well HEENT: sclerae clear, nonicteric, oral mmm, pink, no exudates NECK: supple, trachea midline HEART: tachycardic, S1/S2, no murmur, rub or gallop LUNGS: clear b/l, no wheezing, rales or rhonchi, symmetric chest expansion, even/unlabored respirations ABD: soft,no tenderness,positive BS EXTR: no edema, clubbing or cyanosis DATA CBC: Lab Results Component Value Date WBC 15.90* 11/05/2015 RBC 4.23 11/05/2015 HGB 12.6* 11/05/2015 HCT 37.5* 11/05/2015 MCV 88.6 11/05/2015 MCH 29.6 11/05/2015 MCHC 33.4 11/05/2015 RDW 42.0 11/05/2015 PLT 111* 11/05/2015 MPV 8.0 11/05/2015 DIFFTYPE AUTOMATED 11/05/2015 CMP: Lab Results Component Value Date NA 136 11/05/2015 K 3.4* 11/05/2015 CL 107 11/05/2015 CO2 22* 11/05/2015 ANIONGAP 10 11/05/2015 GLUF 79 11/05/2015 BUN 9 11/05/2015 CREATININE 0.81 11/05/2015 BCR 11 11/05/2015 CA 8.2* 11/05/2015 PROT 5.3* 11/05/2015 ALB 3.0* 11/05/2015 GLOB 2.7 11/03/2015 BILITOT 2.9* 11/05/2015 ALP 88 11/05/2015 AST 128* 11/05/2015 ALT 268* 11/05/2015 EGFR >60 11/05/2015 Results for JASON BURRELL ( ) as of 11/05/2015 14:21 Ref. Range 11/04/2015 14:11 Lactate, Levar Latest Range: 0.4-2.0 mmol/L 1.0 Recent Labs Lab 11/05/15 0345 MG 1.9 Lab Results Component Value Date PHOS 1.7* 11/05/2015 HIDA scan Impression: 1. No evidence of cystic duct obstruction. Gallbladder ejection fraction is 68%. LEM LIST Principal Problem: Septic shock (HCC) Active Problems: Chronic Alcoholism Substance-induced anxiety disorder (HCC) Elevated liver enzymes Substance abuse ASSESSMENT & PLAN Septic shock initially thought due to acute cholecystitis but he had a negative HIDA scan d/w does not feel patient needs surgery should abdominal pain recur he is availabl e to consult.monitor LFTs ,will change abx to IV Unasyn.improving wbc,continue to monitor wb c/fever as well as blood cx.will check hepatitis panel. Acute Kidney injury secondary to septic shock and hypotension decrease IVF,this is improvin g ,avoid nephrotoxins and NSAID's Multiple electrolyte abnormalities replete via electrolyte protocol and monitor Substance abuse per patient he uses anything he can get his hands on and he also IVDU. He i s counseled on cessation Alcohol abuse he denies active alcohol withdrawal will monitor continue folate and thiamine ,counseled on cessation Tobacco use disorder counseled on cessation,nicotine patch offered DVT px HSC and SCDs,monitor PLTs GI px pepcid Remove central line Disposition: Admitted Code Status: Full Code Azam Avilez MD 11/05/2015 onversion Transaction, Provider Unknown - 11/05/2015 12:10 PM PSTFormatting of this note might be different from th e original. Progress Notes by Valerie Cunningham RN at 11/05/15 1210 Author: Valerie Cunningham RN Service: (none) Author Type: Registered Nurse Filed: 11/05/15 1243 Date of Service: 11/05/150 Status: Signed Architectural Administrative Assistant: Valerie Cunningham RN (Registered Nurse) Report called to Lead RN on 3OP. Assessment unchanged at this time. No c/o pain or discomf ort at this time. Pt transferred to [facility] via w/c and accompanied by HUMAN FACTORS ERGONOMIST. VALERIE CUNNINGHAM RN onver misty Transaction, Provider Unknown - 11/05/2015 8:04 AM PST Progress Notes by Rebeca Galindo RPH at 11/05/15 0804 Author: Rebeca Galindo RPH Service: (none) Author Type: Pharmacist Filed: 11/05/15803 Date of Service: 11/05/15803 Status: Signed Architectural Administrative Assistant: Rebeca Galindo RPH (Pharmacist) vancomcyin day 3. Trough before this dose = 8.5. Will increase the dose from 750 mg tid to 1000 mg tid, and we will check a daily level for a patient who is getting vancomycin q8h. SCr improved = 0.8, WBC decreasing = 15.9. Rebeca Galindo onver misty Transaction, Provider Unknown - 11/04/2015 12:50 PM PST Progress Notes by Alexia Harkins RN at 11/04/15 1250 Author: Alexia Harkins RN Service: (none) Author Type: Registered Nurse Filed: 11/04/15 3568 Date of Service: 11/04/151249 Status: Signed Architectural Administrative Assistant: Alexia Harkins RN (Registered Nurse) Currently in nuclear medicine completing hyda scan. Patient's VSS. Levo weaned off at this time. onver misty Transaction, Provider Unknown - 11/04/2015 4:25 AM PST Progress Notes by Freddy Villalpando RPH at 11/04/15424 Author: Freddy Villalpando RPH Service: (none) Author Type: Pharmacist Filed: 11/04/15424 Date of Service: 11/04/15424 Status: Signed Architectural Administrative Assistant: Freddy Villalpando RPH (Pharmacist) Pharmacy vancomycin note 25yo male 63.9kg scr 1.4 ccl 72.9ml/min Received 1000mg 11/03 23 00 Will begin 750mg q8h 0700 and trough prior to dose #5 Am 11/05 Note goal 15-20 for seps is Per protocol and pharmacy will follow rdc 0425 onver misty Transaction, Provider Unknown - 11/04/2015 12:23 AM PST Progress Notes by Freddy Villalpando RPH at 11/04/1522 Author: Freddy Villalpando RPH Service: (none) Author Type: Pharmacist Filed: 11/04/1522 Date of Service: 11/04/1522 Status: Signed Architectural Administrative Assistant: Freddy Villalpando RPH (Pharmacist) Note ccl 72.9ml/min meds reviewed Pharmacy will follow rdc 0023 onver misty Transaction, Provider Unknown - 11/04/2015 12:21 AM PST Progress Notes by Freddy Villalpando RPH at 11/04/1520 Author: Freddy Villalpando RPH Service: (none) Author Type: Pharmacist Filed: 11/04/1520 Date of Service: 11/04/1520 Status: Signed Architectural Administrative Assistant: Freddy Villalpando RPH (Pharmacist) Zosyn Extended Infusion Initial Consult Jason Burrell 25 y.o. male Estimated Creatinine Clearance: 72.9 mL/min (by C-G formula based on Cr of 1.4). NEUTROPHILS ABS Date Value Ref Range Status 03/11/2015 3.72 1.90 - 7.40 K/uL Final Comment: Testing performed at [facility], [address] [place] [address] CREATININE Date Value Ref Range Status 11/03/2015 1.4* 0.70 - 1.30 mg/dL Final Comment: Testing performed at [facility];[address] [facility];[place] [address] Zosyn extended Infusion loading and maintenance dose guidelines Loading Dose 4.5 g IV Over 30 minutes CrCl >20 ml/min 3.375 g IV Q 8 hours Over 4 hours CrCl 10-20 ml/min 3.375 g IV Q 12 hours Over 4 hours CrCl <10, HD, PD Follow [facility] Dosage Adjustments in Renal Dysfunction Protocol Plan per pharmacy protocol: Zosyn 4.5 g IVPB Loading dose over 30 minutes followed by Zosyn 3.375 g IVPB extended infusion over 4 hours Q 8 hours Pharmacy will continue monitoring patient for appropriate dosing per renal function. 11/04/2015 12:21 AM Pharmacist: FREDDY VILLALPANDO onver misty Transaction, Provider Unknown - 11/03/2015 10:10 PM PST Case Management by WOODY Barrow LICSW at 11/03/152209 Author: WOODY Barrow LICSW Service: (none) Author Type: Home Economist Consumer Service Filed: 11/03/152213 Date of Service: 11/03/152209 Status: Signed Architectural Administrative Assistant: WOODY Barrow, RN DOCUMENTATION (Home Economist Consumer Service) 11/03/152206 Discharge Planning Evaluation Admitting Diagnosis Transaminasemia,Septic shock, Acute renal failure, unspecified acute r enal failure type, Lactic acidosis, Leukocytosis Readmission No Living Arrangements Family members Support Systems Family members Type of Residence Private residence House type House-1 story Independent with ADL's Yes Independent with Mobility Yes Home Care Services No Caregiver after Discharge No Mental Status Oriented Power of Personnel Worker No Anticipated Discharge Plan Post Acute Care Needs None at this time Plan communicated to patient/family Yes Resources Financial concerns No Transportation issues No Prescription Plan Yes Name of Pharmacy [facility] in [place] Anticipated Disposition Facility Type Home Met with: patient and discussed discharge planning, Pt is a 25 y.o., male who was life flig hted into [facility] for emergent care. Lynne Burrell, , Patient's PCP is: Chelle Nelson Patient's [place] Coverage concerns:none expressed for medical, but he is concerned about the Life Flight. Medication coverage/concerns:none expressed [facility] Bedside Delivery: Community resources utilized / needed: [facility] Assistance in transportation: No Identification of any specific education / training: TBD Barriers to Discharge / Alternative housing needed: No Anticipated DCP: Home. Jocy Vann docume nted in this encounter Plan of Treatment Not on filedocumented as of this encounter Procedures + +--------+ + + + | Procedure Name | Priori | Date/Time | Associated Diagnosis | Comments | | | ty | | | | + +--------+ + + + | VANCOMYCIN, TROUGH | Routin | 11/07/2015 | | Results for this | | | e | 8:21 AM | | procedure are in the | | | | PST | | results section. | + +--------+ + + + | EXTERNAL LAB: CBC | Routin | 11/07/2015 | | Results for this | | | e | 6:22 AM | | procedure are in the | | | | PST | | results section. | + +--------+ + + + | PROCALCITONIN, SERUM | Routin | 11/07/2015 | | Results for this | | | e | 6:22 AM | | procedure are in the | | | | PST | | results section. | + +--------+ + + + | PHOSPHORUS | Routin | 11/07/2015 | | Results for this | | | e | 6:22 AM | | procedure are in the | | | | PST | | results section. | + +--------+ + + + | MAGNESIUM | Routin | 11/07/2015 | | Results for this | | | e | 6:22 AM | | procedure are in the | | | | PST | | results section. | + +--------+ + + + | HEPATIC FUNCTION | Routin | 11/07/2015 | | Results for this | | PANEL | e | 6:22 AM | | procedure are in the | | | | PST | | results section. | + +--------+ + + + | BASIC METABOLIC | Routin | 11/07/2015 | | Results for this | | PANEL | e | 6:22 AM | | procedure are in the | | | | PST | | results section. | + +--------+ + + + | POTASSIUM | Routin | 11/06/2015 | | Results for this | | | e | 7:49 PM | | procedure are in the | | | | PST | | results section. | + +--------+ + + + | MAGNESIUM | Routin | 11/06/2015 | | Results for this | | | e | 7:49 PM | | procedure are in the | | | | PST | | results section. | + +--------+ + + + | US ABDOMEN LIMITED | Routin | 11/06/2015 | | Results for this | | | e | 6:43 PM | | procedure are in the | | | | PST | | results section. | + +--------+ + + + | HIV 1 TIFFANIE ZULETA | Routin | 11/06/2015 | | Results for this | | | e | 12:33 PM | | procedure are in the | | | | PST | | results section. | + +--------+ + + + | HEPATITIS C | Routin | 11/06/2015 | | Results for this | | GENOTYPING | e | 12:33 PM | | procedure are in the | | | | PST | | results section. | + +--------+ + + + | HEPATITIS C | Routin | 11/06/2015 | | Results for this | | RNA,QUANTITATIVE,PCR | e | 12:33 PM | | procedure are in the | | | | PST | | results section. | + +--------+ + + + | VANCOMYCIN, TROUGH | Routin | 11/06/2015 | | Results for this | | | e | 8:37 AM | | procedure are in the | | | | PST | | results section. | + +--------+ + + + | EXTERNAL LAB: CBC | Routin | 11/06/2015 | | Results for this | | | e | 3:25 AM | | procedure are in the | | | | PST | | results section. | + +--------+ + + + | HEPATITIS PANEL, | Routin | 11/06/2015 | | Results for this | | ACUTE | e | 3:25 AM | | procedure are in the | | | | PST | | results section. | + +--------+ + + + | PHOSPHORUS | Routin | 11/06/2015 | | Results for this | | | e | 3:25 AM | | procedure are in the | | | | PST | | results section. | + +--------+ + + + | MAGNESIUM | Routin | 11/06/2015 | | Results for this | | | e | 3:25 AM | | procedure are in the | | | | PST | | results section. | + +--------+ + + + | HEPATIC FUNCTION | Routin | 11/06/2015 | | Results for this | | PANEL | e | 3:25 AM | | procedure are in the | | | | PST | | results section. | + +--------+ + + + | BASIC METABOLIC | Routin | 11/06/2015 | | Results for this | | PANEL | e | 3:25 AM | | procedure are in the | | | | PST | | results section. | + +--------+ + + + | POTASSIUM | Routin | 11/05/2015 | | Results for this | | | e | 1:24 PM | | procedure are in the | | | | PST | | results section. | + +--------+ + + + | PHOSPHORUS | Routin | 11/05/2015 | | Results for this | | | e | 1:24 PM | | procedure are in the | | | | PST | | results section. | + +--------+ + + + | MAGNESIUM | Routin | 11/05/2015 | | Results for this | | | e | 1:24 PM | | procedure are in the | | | | PST | | results section. | + +--------+ + + + | SOCO BAIG | Routin | 11/05/2015 | | Results for this | | | e | 6:39 AM | | procedure are in the | | | | PST | | results section. | + +--------+ + + + | EXTERNAL LAB: CBC | Routin | 11/05/2015 | | Results for this | | | e | 3:45 AM | | procedure are in the | | | | PST | | results section. | + +--------+ + + + | PHOSPHORUS | Routin | 11/05/2015 | | Results for this | | | e | 3:45 AM | | procedure are in the | | | | PST | | results section. | + +--------+ + + + | MAGNESIUM | Routin | 11/05/2015 | | Results for this | | | e | 3:45 AM | | procedure are in the | | | | PST | | results section. | + +--------+ + + + | HEPATIC FUNCTION | Routin | 11/05/2015 | | Results for this | | PANEL | e | 3:45 AM | | procedure are in the | | | | PST | | results section. | + +--------+ + + + | BASIC METABOLIC | Routin | 11/05/2015 | | Results for this | | PANEL | e | 3:45 AM | | procedure are in the | | | | PST | | results section. | + +--------+ + + + | LACTIC ACID | Routin | 11/04/2015 | | Results for this | | | e | 2:11 PM | | procedure are in the | | | | PST | | results section. | + +--------+ + + + | NM HEPATOBILIARY W | Routin | 11/04/2015 | | Results for this | | CCK | e | 1:28 PM | | procedure are in the | | | | PST | | results section. | + +--------+ + + + | LACTIC ACID | Routin | 11/04/2015 | | Results for this | | | e | 10:10 AM | | procedure are in the | | | | PST | | results section. | + +--------+ + + + | LACTIC ACID | Routin | 11/04/2015 | | Results for this | | | e | 5:32 AM | | procedure are in the | | | | PST | | results section. | + +--------+ + + + | PROTIME INR | Routin | 11/04/2015 | | Results for this | | | e | 5:31 AM | | procedure are in the | | | | PST | | results section. | + +--------+ + + + | PHOSPHORUS | Routin | 11/04/2015 | | Results for this | | | e | 5:31 AM | | procedure are in the | | | | PST | | results section. | + +--------+ + + + | MAGNESIUM | Routin | 11/04/2015 | | Results for this | | | e | 5:31 AM | | procedure are in the | | | | PST | | results section. | + +--------+ + + + | HEPATIC FUNCTION | Routin | 11/04/2015 | | Results for this | | PANEL | e | 5:31 AM | | procedure are in the | | | | PST | | results section. | + +--------+ + + + | LACTIC ACID | Routin | 11/04/2015 | | Results for this | | | e | 2:47 AM | | procedure are in the | | | | PST | | results section. | + +--------+ + + + | XR CHEST 1 VIEW | Routin | 11/04/2015 | | Results for this | | | e | 1:37 AM | | procedure are in the | | | | PST | | results section. | + +--------+ + + + | MRSA NAAT | Timed | 11/03/2015 | | Results for this | | | | 10:00 PM | | procedure are in the | | | | PST | | results section. | + +--------+ + + + | CULTURE, BLOOD, 2ND | STAT | 11/03/2015 | | Results for this | | SPECIMEN (NON-ORD) | | 9:59 PM | | procedure are in the | | | | PST | | results section. | + +--------+ + + + | HISTORICAL LAB PANEL | Routin | 11/03/2015 | | Results for this | | RESULT | e | 8:22 PM | | procedure are in the | | | | PST | | results section. | + +--------+ + + + | PROCALCITONIN, SERUM | Routin | 11/03/2015 | | Results for this | | | e | 8:22 PM | | procedure are in the | | | | PST | | results section. | + +--------+ + + + | CULTURE, BLOOD | STAT | 11/03/2015 | | Results for this | | | | 8:22 PM | | procedure are in the | | | | PST | | results section. | + +--------+ + + + | PHOSPHORUS | Routin | 11/03/2015 | | Results for this | | | e | 8:22 PM | | procedure are in the | | | | PST | | results section. | + +--------+ + + + | MAGNESIUM | Routin | 11/03/2015 | | Results for this | | | e | 8:22 PM | | procedure are in the | | | | PST | | results section. | + +--------+ + + + | LIPASE | Routin | 11/03/2015 | | Results for this | | | e | 8:22 PM | | procedure are in the | | | | PST | | results section. | + +--------+ + + + | LACTIC ACID | Routin | 11/03/2015 | | Results for this | | | e | 8:22 PM | | procedure are in the | | | | PST | | results section. | + +--------+ + + + | CARBOXYHEMOGLOBIN | Routin | 11/03/2015 | | Results for this | | | e | 8:22 PM | | procedure are in the | | | | PST | | results section. | + +--------+ + + + | URINALYSIS, REFLEX | Routin | 11/03/2015 | | Results for this | | MICROSCOPIC AND/OR | e | 8:09 PM | | procedure are in the | | CULTURE | | PST | | results section. | + +--------+ + + + | CULTURE, URINE | STAT | 11/03/2015 | | Results for this | | | | 8:09 PM | | procedure are in the | | | | PST | | results section. | + +--------+ + + + | US ABDOMEN LIMITED | Routin | 11/03/2015 | | Results for this | | | e | 7:54 PM | | procedure are in the | | | | PST | | results section. | + +--------+ + + + | CT ABDOMEN PELVIS W | Routin | 11/03/2015 | | Results for this | | CONTRAST | e | 7:54 PM | | procedure are in the | | | | PST | | results section. | + +--------+ + + + documented in this encounter Results Vancomycin, Trough (11/07/2015 8:21 AM PST) + + + + + + | Component | Value | Ref Range | Performed | Pathologist | | | | | At | Signature | + + + + + + | Vancomycin | <0.8 (L)Comment: 15 to | 10 - 20 ug/mL | EXTERNAL | | | Trough | 20 ug/mL for meningitis, | | LAB | | | | osteomyelitis, | | | | | | endocarditis, sepsis, or | | | | | | healthcare associated | | | | | | pneumonia, or an LATONIA | | | | | | equal to or greater than | | | | | | 1.0 ug/mLTesting | | | | | | performed at [facility] | | | | | | [facility];[place], [place] | | | | | | [id number] | | | | + + + + + + + + | Specimen | + + | Blood specimen | | (specimen) | + + + +---------+ + + | Performing | Address | City/State/Zipcode | Phone Number | | Organization | | | | + +---------+ + + | EXTERNAL LAB | | | | + +---------+ + + Procalcitonin (11/07/2015 6:22 AM PST) + + + + + + | Component | Value | Ref Range | Performed | Pathologist | | | | | At | Signature | + + + + + + | PROCALCITON | 27.70 (H)Comment: | ng/mL | EXTERNAL | | | IN | INTERPRETIVE | | LAB | | | | INFORMATION: | | | | | | PROCALCITONIN PCT <= | | | | | | 0.5 ng/mL: Low risk | | | | | | for progression to | | | | | | severe systemic | | | | | | bacterial infection | | | | | | (severe sepsis/septic | | | | | | shock). Does not | | | | | | exclude an infection, | | | | | | because localized | | | | | | infections may be | | | | | | associated with such low | | | | | | levels. If PCT is | | | | | | measured very early | | | | | | after bacterial | | | | | | challenge (usually <6 | | | | | | hours), results may | | | | | | still be low and | | | | | | should re-assess PCT | | | | | | 6-24 hours later. PCT | | | | | | >0.5 and <= 2 ng/mL: | | | | | | Moderate risk for | | | | | | progression to severe | | | | | | systemic infection | | | | | | (severe sepsis/septic | | | | | | shock). Other | | | | | | conditions are known | | | | | | to elevate PCT, patient | | | | | | should be closely | | | | | | monitored both | | | | | | clinically and by | | | | | | re-assessing PCT | | | | | | within 6-24 hours. PCT > | | | | | | 2 ng/mL: High | | | | | | likelihood for | | | | | | progression to severe | | | | | | systemic bacterial | | | | | | infection (severe | | | | | | sepsis/septic shock). | | | | | | PCT >= 10 ng/mL: | | | | | | High likelihood of | | | | | | severe sepsis or septic | | | | | | shock.Testing performed | | | | | | at [facility];[address] [place] [address] | | | | | | [facility];[place] [address] | | | | + + + + + + + + | Specimen | + + | | + + + +---------+ + + | Performing | Address | City/State/Zipcode | Phone Number | | Organization | | | | + +---------+ + + | EXTERNAL LAB | | | | + +---------+ + + External Lab: CBC (11/07/2015 6:22 AM PST) + + + + + + | Component | Value | Ref Range | Performed | Pathologist | | | | | At | Signature | + + + + + + | WBC | 5.28Comment: Testing | 3.80 - 11.00 | EXTERNAL | | | | performed at [facility];[address] | K/uL | LAB | | | | [address];[place] | | | | | | [address] | | | | + + + + + + | RED CELL | 4.58Comment: Testing | 4.20 - 5.70 | EXTERNAL | | | COUNT | performed at [facility];[address] | M/uL | LAB | | | | [address];[place] | | | | | | [address] | | | | + + + + + + | Hgb | 13.6Comment: Testing | 13.2 - 17.0 | EXTERNAL | | | | performed at [facility];[address] | g/dL | LAB | | | | [address];[place] | | | | | | [address] | | | | + + + + + + | Hematocrit, | 39.6Comment: Testing | 39.0 - 50.0 % | EXTERNAL | | | POC | performed at [facility];[address] | | LAB | | | | [address];[place] | | | | | | [address] | | | | + + + + + + | MCV | 86.5Comment: Testing | 80.0 - 100.0 fl | EXTERNAL | | | | performed at [facility];[address] | | LAB | | | | [address];[place] | | | | | | [address] | | | | + + + + + + | MCH | 29.7Comment: Testing | 27.0 - 34.0 pg | EXTERNAL | | | | performed at [facility];[address] | | LAB | | | | [address];[place] | | | | | | [address] | | | | + + + + + + | MCHC | 34.3Comment: Testing | 32.0 - 35.5 | EXTERNAL | | | | performed at [facility];[address] | g/dL | LAB | | | | [address];[place] | | | | | | [address] | | | | + + + + + + | RDW-CV | 41.6Comment: Testing | 37 - 53 fl | EXTERNAL | | | | performed at [facility];[address] | | LAB | | | | [address];[place] | | | | | | [address] | | | | + + + + + + | Platelet | 161Comment: Testing | 150 - 400 K/uL | EXTERNAL | | | Count | performed at [facility];[address] | | LAB | | | Plasma | [address];[place] | | | | | | [address] | | | | + + + + + + | MPV | 7.3Comment: Testing | fl | EXTERNAL | | | | performed at [facility];[address] | | LAB | | | | [address];[place] | | | | | | [address] | | | | + + + + + + | Differentia | AUTOMATEDComment: | | EXTERNAL | | | l Type | Testing performed at | | LAB | | | | [facility];[address] | | [address];[place] [address] | | | | + + + + + + | % Segmented | 65.98Comment: Testing | % | EXTERNAL | | | | performed at [facility];[address] | | LAB | | | Neutrophils | [address];[place] | | | | | | [address] | | | | + + + + + + | % | 23.19Comment: Testing | % | EXTERNAL | | | Lymphocytes | performed at [facility];[address] | | LAB | | | | [address];[place] | | | | | | [address] | | | | + + + + + + | % Monocytes | 8.43Comment: Testing | % | EXTERNAL | | | | performed at [facility];[address] | | LAB | | | | [address];[place] | | | | | | [address] | | | | + + + + + + | % | 1.53Comment: Testing | % | EXTERNAL | | | Eosinophils | performed at [facility];[address] | | LAB | | | | [address];[place] | | | | | | [address] | | | | + + + + + + | % Basophils | 0.87Comment: Testing | % | EXTERNAL | | | | performed at [facility];[address] | | LAB | | | | [address];[place] | | | | | | [address] | | | | + + + + + + | Absolute | 3.48Comment: Testing | 1.90 - 7.40 | EXTERNAL | | | Segmented | performed at [facility];[address] | K/uL | LAB | | | Neutrophils | [address];[place] | | | | | | [address] | | | | + + + + + + | Absolute | 1.23Comment: Testing | 1.00 - 3.90 | EXTERNAL | | | Lymphocytes | performed at [facility];[address] | K/uL | LAB | | | | [address];[place] | | | | | | [address] | | | | + + + + + + | Absolute | 0.45Comment: Testing | 0.00 - 0.80 | EXTERNAL | | | Monocytes | performed at [facility];[address] | K/uL | LAB | | | | [address];[place] | | | | | | [address] | | | | + + + + + + | Absolute | 0.08Comment: Testing | 0.00 - 0.50 | EXTERNAL | | | Eosinophils | performed at [facility];[address] | K/uL | LAB | | | | [address];[place] | | | | | | [address] | | | | + + + + + + | Absolute | 0.05Comment: Testing | 0.00 - 0.10 | EXTERNAL | | | Basophils | performed at [facility];[address] | K/uL | LAB | | | | [address];[place] | | | | | | [address] | | | | + + + + + + + + | Specimen | + + | Blood specimen | | (specimen) | + + + +---------+ + + | Performing | Address | City/State/Zipcode | Phone Number | | Organization | | | | + +---------+ + + | EXTERNAL LAB | | | | + +---------+ + + Phosphorus (11/07/2015 6:22 AM PST) + + + + + + | Component | Value | Ref Range | Performed | Pathologist | | | | | At | Signature | + + + + + + | PHOSPHORUS | 3.3Comment: Testing | 2.3 - 4.8 mg/dL | EXTERNAL | | | | performed at [facility];[address] | | LAB | | | | [address];[place], [place] | | | | | | [address] | | | | + + + + + + + + | Specimen | + + | Blood specimen | | (specimen) | + + + +---------+ + + | Performing | Address | City/State/Zipcode | Phone Number | | Organization | | | | + +---------+ + + | EXTERNAL LAB | | | | + +---------+ + + Magnesium (11/07/2015 6:22 AM PST) + + + + + + | Component | Value | Ref Range | Performed | Pathologist | | | | | At | Signature | + + + + + + | Magnesium | 1.8Comment: Testing | 1.7 - 2.4 mg/dL | EXTERNAL | | | | performed at [facility];[address] | | LAB | | | | [address];[place], [place] | | | | | | [address] | | | | + + + + + + + + | Specimen | + + | Blood specimen | | (specimen) | + + + +---------+ + + | Performing | Address | City/State/Zipcode | Phone Number | | Organization | | | | + +---------+ + + | EXTERNAL LAB | | | | + +---------+ + + Hepatic Function Panel (11/07/2015 6:22 AM PST) + + + + + + | Component | Value | Ref Range | Performed | Pathologist | | | | | At | Signature | + + + + + + | Protein, | 6.2 (L)Comment: Testing | 6.3 - 8.2 g/dL | EXTERNAL | | | Total | performed at [facility];[address] | | LAB | | | | [address];[place] | | | | | | [address] | | | | + + + + + + | Albumin | 2.8 (L)Comment: Testing | 3.6 - 5.0 g/dL | EXTERNAL | | | | performed at [facility];[address] | | LAB | | | | [address];[place] | | | | | | [address] | | | | + + + + + + | Bilirubin | 2.4 (H)Comment: Testing | 0.1 - 1.5 mg/dL | EXTERNAL | | | Total | performed at [facility];[address] | | LAB | | | | [address];[place] | | | | | | [address] | | | | + + + + + + | Bilirubin | 1.5 (H)Comment: Testing | 0.0 - 0.3 mg/dL | EXTERNAL | | | Direct | performed at [facility];[address] | | LAB | | | | [address];[place] | | | | | | [address] | | | | + + + + + + | ALP, | 111Comment: Testing | 35 - 115 U/L | EXTERNAL | | | External | performed at [facility];[address] | | LAB | | | | [address];[place] | | | | | | [address] | | | | + + + + + + | AST | 240 (H)Comment: Testing | 10 - 45 U/L | EXTERNAL | | | | performed at [facility];[address] | | LAB | | | | [address];[place] | | | | | | [address] | | | | + + + + + + | ALT | 383 (H)Comment: Testing | 10 - 65 U/L | EXTERNAL | | | | performed at [facility];[address] | | LAB | | | | [address];[place], [place] | | | | | | [address] | | | | + + + + + + + + | Specimen | + + | | + + + +---------+ + + | Performing | Address | City/State/Zipcode | Phone Number | | Organization | | | | + +---------+ + + | EXTERNAL LAB | | | | + +---------+ + + Basic Metabolic Panel (11/07/2015 6:22 AM PST) + + + + + + | Component | Value | Ref Range | Performed | Pathologist | | | | | At | Signature | + + + + + + | Na | 140Comment: Testing | 135 - 143 | EXTERNAL | | | | performed at [facility];[address] | mmol/L | LAB | | | | [address];[place] | | | | | | [address] | | | | + + + + + + | K | 3.6Comment: Testing | 3.5 - 4.9 | EXTERNAL | | | | performed at [facility];[address] | mmol/L | LAB | | | | [address];[place] | | | | | | [address] | | | | + + + + + + | Cl | 106Comment: Testing | 99 - 109 mmol/L | EXTERNAL | | | | performed at [facility];[address] | | LAB | | | | [address];[place] | | | | | | [address] | | | | + + + + + + | CO2 | 27Comment: Testing | 23 - 32 mmol/L | EXTERNAL | | | | performed at [facility];[address] | | LAB | | | | [address];[place] | | | | | | [address] | | | | + + + + + + | Anion Gap | 11Comment: Testing | 5 - 20 mmol/L | EXTERNAL | | | | performed at [facility];[address] | | LAB | | | | [address];[place] | | | | | | [address] | | | | + + + + + + | Glucose, | 100 (H)Comment: Testing | 65 - 99 mg/dL | EXTERNAL | | | Fasting | performed at [facility];[address] | | LAB | | | | [address];[place] | | | | | | [address] | | | | + + + + + + | BUN | 5 (L)Comment: Testing | 8 - 25 mg/dL | EXTERNAL | | | | performed at [facility];[address] | | LAB | | | | [address];[place] | | | | | | [address] | | | | + + + + + + | Creatinine | 0.75Comment: Testing | 0.70 - 1.30 | EXTERNAL | | | | performed at [facility];[address] | mg/dL | LAB | | | | [address];[place] | | | | | | [address] | | | | + + + + + + | BUN/Creatin | 6Comment: Testing | | EXTERNAL | | | ine Ratio | performed at [facility];[address] | | LAB | | | | [address];[place] | | | | | | [address] | | | | + + + + + + | Calcium | 7.9 (L)Comment: Testing | 8.5 - 10.5 | EXTERNAL | | | | performed at [facility];[address] | mg/dL | LAB | | | | [address];[place], [place] | | | | | | [address] | | | | + + + + + + | Estimated | >60Comment: GFR <60: | mL/min/1.73m2 | EXTERNAL | | | GFR | CHRONIC KIDNEY DISEASE, | | LAB | | | | IF FOUND OVER A 3 MONTH | | | | | | PERIOD.GFR <15: KIDNEY | | | | | | FAILURE.FOR | | | | | | AMERICANS, MULTIPLY THE | | | | | | CALCULATED GFR BY | | | | | | 1.210.Testing performed | | | | | | at [facility];[address] [place] [address] | | | | | | Blvd;[place] [address] | | | | + + + + + + + + | Specimen | + + | Blood specimen | | (specimen) | + + + +---------+ + + | Performing | Address | City/State/Zipcode | Phone Number | | Organization | | | | + +---------+ + + | EXTERNAL LAB | | | | + +---------+ + + Potassium (11/06/2015 7:49 PM PST) + + + + + + | Component | Value | Ref Range | Performed | Pathologist | | | | | At | Signature | + + + + + + | K | 3.6Comment: Testing | 3.5 - 4.9 | EXTERNAL | | | | performed at [facility], [address] | mmol/L | LAB | | | | [address], | | | | | | [place] [address] | | | | + + + + + + + + | Specimen | + + | Blood specimen | | (specimen) | + + + +---------+ + + | Performing | Address | City/State/Zipcode | Phone Number | | Organization | | | | + +---------+ + + | EXTERNAL LAB | | | | + +---------+ + + Magnesium (11/06/2015 7:49 PM PST) + + + + + + | Component | Value | Ref Range | Performed | Pathologist | | | | | At | Signature | + + + + + + | Magnesium | 1.6 (L)Comment: Testing | 1.7 - 2.4 mg/dL | EXTERNAL | | | | performed at [facility], [address] | | LAB | | | | [address], | | | | | | [place], [place] [address] | | | | + + + + + + + + | Specimen | + + | Blood specimen | | (specimen) | + + + +---------+ + + | Performing | Address | City/State/Zipcode | Phone Number | | Organization | | | | + +---------+ + + | EXTERNAL LAB | | | | + +---------+ + + Abdomen Limited (11/06/2015 6:43 PM PST) + + | Specimen | + + | | + + + + + | Impressions | Performed At | + + + | 1. Severe diffuse gallbladder wall thickening and striations, | | | similar to the prior study. This could indicate acute cholecystitis. | | | See differential diagnosis above. 2. No evidence of bile duct | | | dilatation. 3. Trace ascites and minimal right pleural effusion | | | noted. Electronically signed by Wong Wood MD on | | | 11/06/2015 6:48 PM | | + + + + + + | Narrative | Performed At | + + + | JASON BURRELL US ABDOMEN LIMITED 11/06/2015 6:43 PM HISTORY: | | | Elevated LFTs and right upper quadrant abdominal pain. TECHNIQUE: | | | A right upper quadrant abdominal ultrasound was performed. | | | FINDINGS: Compared with 11/03/2015. No focal liver lesions are | | | identified. Portal vein is patent. Again demonstrated is severe | | | diffuse gallbladder wall thickening with striations. Gallbladder wall | | | thickness is 5.8 mm. No echogenic shadowing gallstones are seen. No | | | sonographic Calhoun sign could be elicited. Differential diagnosis | | | for gallbladder wall thickening includes cholecystitis, low serum | | | protein, CHF, ascites, chronic liver disease. No bile duct dilatation. | | | The CBD diameter is 3.1 mm. Pancreas appeared unremarkable to this | | | technique. There is a trace amount of ascites in the right upper | | | quadrant. Minimal right pleural effusion. | | + + + + + | Procedure Note | + + | Marino, Rad Conversion - 05/04/2019 2:10 PM PDT JASON PORRAS ABDOMEN | | LIMITED11/06/2015 6:43 PM HISTORY:Elevated LFTs and right upper quadrant abdominal pain. | | TECHNIQUE:A right upper quadrant abdominal ultrasound was performed. FINDINGS:Compared | | with 11/03/2015. No focal liver lesions are identified. Portal vein is patent. Again | | demonstrated is severe diffuse gallbladder wall thickening with striations. Gallbladder | | wall thickness is 5.8 mm. No echogenic shadowing gallstones are seen. No sonographic | | Calhoun sign could be elicited. Differential diagnosis for gallbladder wall thickening | | includes cholecystitis, low serum protein, CHF, ascites, chronic liver disease. No bile | | duct dilatation. The CBD diameter is 3.1 mm. Pancreas appeared unremarkable to this | | technique. There is a trace amount of ascites in the right upper quadrant. Minimal right | | pleural effusion. IMPRESSION: 1. Severe diffuse gallbladder wall thickening and | | striations, similar to the prior study. This could indicate acute cholecystitis. See | | differential diagnosis above.2. No evidence of bile duct dilatation.3. Trace ascites | | and minimal right pleural effusion noted. | |could be elicited. Differential diagnosis for gallbladder wall thickening includes cholecys titis, low serum protein, CHF, ascites, chronic liver disease. No bile duct dilatation. The CBD diameter is 3.1 mm. Pancreas appeared unremarkable to this | |technique. There is a trace amount of ascites in the right upper quadrant. Minimal right pl eural effusion. | | | |IMPRESSION: | |1. Severe diffuse gallbladder wall thickening and striations, similar to the prior study. This could indicate acute cholecystitis. See differential diagnosis above. | |2. No evidence of bile duct dilatation. | |3. Trace ascites and minimal right pleural effusion noted. | | | | | + + HIV 1 Screen, Rapid (11/06/2015 12:33 PM PST) + + + + + + | Component | Value | Ref Range | Performed | Pathologist | | | | | At | Signature | + + + + + + | HIV 1 and 2 | NON REACTIVEComment: | | EXTERNAL | | | Ab, Rapid | Testing performed at | | LAB | | | | [facility];[address];[place] [address] | | | | + + + + + + + + | Specimen | + + | | + + + +---------+ + + | Performing | Address | City/State/Zipcode | Phone Number | | Organization | | | | + +---------+ + + | EXTERNAL LAB | | | | + +---------+ + + Hepatitis C Genotyping (11/06/2015 12:33 PM PST) + + + + + + | Component | Value | Ref Range | Performed | Pathologist | | | | | At | Signature | + + + + + + | HCV | TYPE 1BComment: HCV | | EXTERNAL | | | Genotype | GENOTYPE WAS DETERMINED | | LAB | | | | BY RT-PCR AND FERROCENE | | | | | | LABELLED PROBE.THIS | | | | | | ASSAY DETECTS AND | | | | | | DIFFERENTIATES THE 6 | | | | | | MAJOR HCV GENOTYPES | | | | | | ANDTHEIR MOST COMMON | | | | | | SUBTYPES (1A, 1B, 2A/C, | | | | | | 2B, 3, 4, 5, 6).THIS | | | | | | TEST WAS DEVELOPED AND | | | | | | ITS PERFORMANCE | | | | | | CHARACTERISTICS | | | | | | DETERMINEDBY [facility] | | | | | DIVISION OF LABORATORY | | | | | | MEDICINE. IT HAS NOT | | | | | | BEENAPPROVED OR CLEARED | | | | | | BY THE [place] [employer] AND | | | | | | DRUG ADMINISTRATION. | | | | | | THISTEST SHOULD NOT BE | | | | | | REGARDED | | | | | | INVESTIGATIONAL OR FOR | | | | | | RESEARCH USE.Testing | | | | | | performed at [facility], [address] | | | | | | [facility] | | | | | | [place] [address] | | | | + + + + + + + + | Specimen | + + | Blood specimen | | (specimen) | + + + +---------+ + + | Performing | Address | City/State/Zipcode | Phone Number | | Organization | | | | + +---------+ + + | EXTERNAL LAB | | | | + +---------+ + + Hepatitis C RNA, quantitative, PCR (11/06/2015 12:33 PM PST) + + + + + + | Component | Value | Ref Range | Performed | Pathologist | | | | | At | Signature | + + + + + + | HCV-LOG 10 | 7.7 (A)Comment: Testing | Log IU/mL | EXTERNAL | | | | performed at [facility], [address] | | LAB | | | | [place] | | | | | | [place] [address] | | | | + + + + + + | HCV | [id number] (A)Comment: | IU/mL | EXTERNAL | | | Quantitativ | REPORTABLE RANGE HCV RNA | | LAB | | | e | 1.2 TO 8.0 LOG IU/ML | | | | | | (15 TO | | | | | | 100,000,000IU/ML). | | | | | | THIS ASSAY WAS PERFORMED | | | | | | USING THE FDA APPROVED | | | | | | MIKAYLA | | | | | | COBASAMPLIPREP/LYDIA | | | | | | TAQMAN HCV TEST, V2.0. | | | | | | THE LYDIA | | | | | | AMPLIPREP/COBASTAQMAN | | | | | | HCV TEST, V2.0 IS NOT | | | | | | INTENDED FOR USE A | | | | | | SCREENING TEST FORTHE | | | | | | PRESENCE OF HCV IN BLOOD | | | | | | OR BLOOD | | | | | | PRODUCTS.Testing | | | | | | performed at [facility], [address] | | | | | | [facility] | | | | | | [place] [address] | | | | + + + + + + + + | Specimen | + + | Blood specimen | | (specimen) | + + + +---------+ + + | Performing | Address | City/State/Zipcode | Phone Number | | Organization | | | | + +---------+ + + | EXTERNAL LAB | | | | + +---------+ + + Vancomycin, Trough (11/06/2015 8:37 AM PST) + + + + + + | Component | Value | Ref Range | Performed | Pathologist | | | | | At | Signature | + + + + + + | Vancomycin | 1.6 (L)Comment: 15 to 20 | 10 - 20 ug/mL | EXTERNAL | | | Trough | ug/mL for meningitis, | | LAB | | | | osteomyelitis, | | | | | | endocarditis, sepsis, or | | | | | | healthcare associated | | | | | | pneumonia, or an [place]ON[place] | | | | | | equal to or greater than | | | | | | 1.0 ug/mLTesting | | | | | | performed at [facility] | | | | | | [facility];[place], [place] | | | | | | [address] | | | | + + + + + + + + | Specimen | + + | Blood specimen | | (specimen) | + + + +---------+ + + | Performing | Address | City/State/Zipcode | Phone Number | | Organization | | | | + +---------+ + + | EXTERNAL LAB | | | | + +---------+ + + Hepatitis Panel, Acute (11/06/2015 3:25 AM PST) + + + + + + | Component | Value | Ref Range | Performed | Pathologist | | | | | At | Signature | + + + + + + | HEP A IGM | NON REACTIVEComment: | | EXTERNAL | | | | Testing performed at | | LAB | | | | [facility], [address] | | | | | | [place] | | | | | | [address] | | | | + + + + + + | HEP B | NON REACTIVEComment: | | EXTERNAL | | | SURFACE | Testing performed at | | LAB | | | ANTIBODY | [facility], [address] [facility] | | | | | | [place] | | | | | | [address] | | | | + + + + + + | HEP B CORE | NON REACTIVEComment: | | EXTERNAL | | | IgM | Testing performed at | | LAB | | | | [facility], [address] [facility] | | | | | | [place] | | | | | | [address] | | | | + + + + + + | HCV Ab | REACTIVE (A)Comment: | | EXTERNAL | | | | THIS IS A REPORTABLE | | LAB | | | | DISEASE. PLEASE | | | | | | CONTACT YOUR | | | | | | [facility] | | | | | | DEPARTMENT.Testing | | | | | | performed at [facility], [address] | | | | | | [facility] [place], | | | | | | [place] [address] | | | | + + + + + + | Hepatitis | Serology suggests | | EXTERNAL | | | Interp.: | current or past HCV | | LAB | | | | infection, by initial | | | | | | screening, false | | | | | | positive screening | | | | | | reactions are known to | | | | | | occur. No evidence of | | | | | | HAV or HBV | | | | | | infection.Comment: | | | | | | Testing performed at | | | | | | [facility], [address] [facility] | | | | | | [place] | | | | | | [address] | | | | + + + + + + + + | Specimen | + + | Blood specimen | | (specimen) | + + + +---------+ + + | Performing | Address | City/State/Zipcode | Phone Number | | Organization | | | | + +---------+ + + | EXTERNAL LAB | | | | + +---------+ + + External Lab: CBC (11/06/2015 3:25 AM PST) + + + + + + | Component | Value | Ref Range | Performed | Pathologist | | | | | At | Signature | + + + + + + | WBC | 9.54Comment: Testing | 3.80 - 11.00 | EXTERNAL | | | | performed at [facility], [address] | K/uL | LAB | | | | [address], | | | | | | [place] [address] | | | | + + + + + + | RED CELL | 4.19 (L)Comment: Testing | 4.20 - 5.70 | EXTERNAL | | | COUNT | performed at [facility], [address] | M/uL | LAB | | | | [address], | | | | | | [place] [address] | | | | + + + + + + | Hgb | 12.5 (L)Comment: Testing | 13.2 - 17.0 | EXTERNAL | | | | performed at [facility], [address] | g/dL | LAB | | | | [address], | | | | | | [place] [address] | | | | + + + + + + | Hematocrit, | 37.1 (L)Comment: Testing | 39.0 - 50.0 % | EXTERNAL | | | POC | performed at [facility], [address] | | LAB | | | | [address], | | | | | | [place] [address] | | | | + + + + + + | MCV | 88.5Comment: Testing | 80.0 - 100.0 fl | EXTERNAL | | | | performed at [facility], [address] | | LAB | | | | [address], | | | | | | [place] [address] | | | | + + + + + + | MCH | 29.9Comment: Testing | 27.0 - 34.0 pg | EXTERNAL | | | | performed at [facility], [address] | | LAB | | | | [address], | | | | | | [place] [address] | | | | + + + + + + | MCHC | 33.8Comment: Testing | 32.0 - 35.5 | EXTERNAL | | | | performed at [facility], [address] | g/dL | LAB | | | | [address], | | | | | | [place] [address] | | | | + + + + + + | RDW-CV | 42.4Comment: Testing | 37 - 53 fl | EXTERNAL | | | | performed at [facility], [address] | | LAB | | | | [address], | | | | | | [place] [address] | | | | + + + + + + | Platelet | 111 (L)Comment: Testing | 150 - 400 K/uL | EXTERNAL | | | Count | performed at [facility], [address] | | LAB | | | Plasma | [address], | | | | | | [place] [address] | | | | + + + + + + | MPV | 7.9Comment: Testing | fl | EXTERNAL | | | | performed at [facility], [address] | | LAB | | | | [address], | | | | | | [place] [address] | | | | + + + + + + | Differentia | AUTOMATEDComment: | | EXTERNAL | | | l Type | Testing performed at | | LAB | | | | [facility], [address] | | | | | | [place] | | | | | | [address] | | | | + + + + + + | % Segmented | 79.24Comment: Testing | % | EXTERNAL | | | | performed at [facility], [address] | | LAB | | | Neutrophils | [address] [place], | | | | | | [place] [address] | | | | + + + + + + | % | 14.46Comment: Testing | % | EXTERNAL | | | Lymphocytes | performed at [facility], [address] | | LAB | | | | [place], | | | | | | [place] [address] | | | | + + + + + + | % Monocytes | 5.58Comment: Testing | % | EXTERNAL | | | | performed at [facility], [address] | | LAB | | | | [address], | | | | | | [place] [address] | | | | + + + + + + | % | 0.32Comment: Testing | % | EXTERNAL | | | Eosinophils | performed at [facility], [address] | | LAB | | | | [address], | | | | | | [place] [address] | | | | + + + + + + | % Basophils | 0.40Comment: Testing | % | EXTERNAL | | | | performed at [facility], [address] | | LAB | | | | [address], | | | | | | [place] [address] | | | | + + + + + + | Absolute | 7.56 (H)Comment: Testing | 1.90 - 7.40 | EXTERNAL | | | Segmented | performed at [facility], [address] | LAB | | | Neutrophils | [address], | | | | | | [place] [address] | | | | + + + + + + | Absolute | 1.38Comment: Testing | 1.00 - 3.90 | EXTERNAL | | | Lymphocytes | performed at [facility], [address] | LAB | | | | [address], | | | | | | [place] [address] | | | | + + + + + + | Absolute | 0.53Comment: Testing | 0.00 - 0.80 | EXTERNAL | | | Monocytes | performed at [facility], [address] | LAB | | | | [address], | | | | | | [place] [address] | | | | + + + + + + | Absolute | 0.03Comment: Testing | 0.00 - 0.50 | EXTERNAL | | | Eosinophils | performed at [facility], [address] | [address] | LAB | | | | [address], | | | | | | [place] [address] | | | | + + + + + + | Absolute | 0.04Comment: Testing | 0.00 - 0.10 | EXTERNAL | | | Basophils | performed at [facility], [address] | [address] | LAB | | | | [address] [address], | | | | | | [place] [address] | | | | + + + + + + + + | Specimen | + + | Blood specimen | | (specimen) | + + + +---------+ + + | Performing | Address | City/State/Zipcode | Phone Number | | Organization | | | | + +---------+ + + | EXTERNAL LAB | | | | + +---------+ + + Phosphorus (11/06/2015 3:25 AM PST) + + + + + + | Component | Value | Ref Range | Performed | Pathologist | | | | | At | Signature | + + + + + + | PHOSPHORUS | 3.8Comment: Testing | 2.3 - 4.8 mg/dL | EXTERNAL | | | | performed at [facility], [address] | | LAB | | | | [address], | | | | | | [place] [address] | | | | + + + + + + + + | Specimen | + + | Blood specimen | | (specimen) | + + + +---------+ + + | Performing | Address | City/State/Zipcode | Phone Number | | Organization | | | | + +---------+ + + | EXTERNAL LAB | | | | + +---------+ + + Magnesium (11/06/2015 3:25 AM PST) + + + + + + | Component | Value | Ref Range | Performed | Pathologist | | | | | At | Signature | + + + + + + | Magnesium | 1.5 (L)Comment: Testing | 1.7 - 2.4 mg/dL | EXTERNAL | | | | performed at [facility], [address] | | LAB | | | | [address], | | | | | | [place] [address] | | | | + + + + + + + + | Specimen | + + | Blood specimen | | (specimen) | + + + +---------+ + + | Performing | Address | City/State/Zipcode | Phone Number | | Organization | | | | + +---------+ + + | EXTERNAL LAB | | | | + +---------+ + + Hepatic Function Panel (11/06/2015 3:25 AM PST) + + + + + + | Component | Value | Ref Range | Performed | Pathologist | | | | | At | Signature | + + + + + + | Protein, | 5.3 (L)Comment: Testing | 6.3 - 8.2 g/dL | EXTERNAL | | | Total | performed at [facility], [address] | | LAB | | | | [address], | | | | | | [place] [address] | | | | + + + + + + | Albumin | 3.0 (L)Comment: Testing | 3.6 - 5.0 g/dL | EXTERNAL | | | | performed at [facility], [address] | | LAB | | | | [address], | | | | | | [place] [address] | | | | + + + + + + | Bilirubin | 2.2 (H)Comment: Testing | 0.1 - 1.5 mg/dL | EXTERNAL | | | Total | performed at [facility], [address] | | LAB | | | | [address], | | | | | | [place] [address] | | | | + + + + + + | Bilirubin | 1.5 (H)Comment: Testing | 0.0 - 0.3 mg/dL | EXTERNAL | | | Direct | performed at [facility], [address] | | LAB | | | | [address], | | | | | | [place] [address] | | | | + + + + + + | ALP, | 81Comment: Testing | 35 - 115 U/L | EXTERNAL | | | External | performed at [facility], [address] | | LAB | | | | [address], | | | | | | [place] [address] | | | | + + + + + + | AST | 93 (H)Comment: Testing | 10 - 45 U/L | EXTERNAL | | | | performed at [facility], [address] | | LAB | | | | [address], | | | | | | [place] [address] | | | | + + + + + + | ALT | 214 (H)Comment: Testing | 10 - 65 U/L | EXTERNAL | | | | performed at [facility], [address] | | LAB | | | | [address], | | | | | | [place] [address] | | | | + + + + + + + + | Specimen | + + | | + + + +---------+ + + | Performing | Address | City/State/Zipcode | Phone Number | | Organization | | | | + +---------+ + + | EXTERNAL LAB | | | | + +---------+ + + Basic Metabolic Panel (11/06/2015 3:25 AM PST) + + + + + + | Component | Value | Ref Range | Performed | Pathologist | | | | | At | Signature | + + + + + + | Na | 138Comment: Testing | 135 - 143 | EXTERNAL | | | | performed at [facility], [address] | mmol/L | LAB | | | | [address], | | | | | | [place] [address] | | | | + + + + + + | K | 3.4 (L)Comment: Testing | 3.5 - 4.9 | EXTERNAL | | | | performed at [facility], [address] | mmol/L | LAB | | | | [address], | | | | | | [place] [address] | | | | + + + + + + | Cl | 108Comment: Testing | 99 - 109 mmol/L | EXTERNAL | | | | performed at [facility], [address] | | LAB | | | | [address], | | | | | | [place] [address] | | | | + + + + + + | CO2 | 24Comment: Testing | 23 - 32 mmol/L | EXTERNAL | | | | performed at [facility], [address] | | LAB | | | | [address], | | | | | | [place] [address] | | | | + + + + + + | Anion Gap | 9Comment: Testing | 5 - 20 mmol/L | EXTERNAL | | | | performed at [facility], [address] | | LAB | | | | [address], | | | | | | [place] [address] | | | | + + + + + + | Glucose, | 90Comment: Testing | 65 - 99 mg/dL | EXTERNAL | | | Fasting | performed at [facility], [address] | | LAB | | | | [address], | | | | | | [place] [address] | | | | + + + + + + | BUN | 4 (L)Comment: Testing | 8 - 25 mg/dL | EXTERNAL | | | | performed at [facility], [address] | | LAB | | | | [address], | | | | | | [place] [address] | | | | + + + + + + | Creatinine | 0.69 (L)Comment: Testing | 0.70 - 1.30 | EXTERNAL | | | | performed at [facility], [address] | mg/dL | LAB | | | | [address], | | | | | | [place] [address] | | | | + + + + + + | BUN/Creatin | 6Comment: Testing | | EXTERNAL | | | ine Ratio | performed at [facility], [address] | | LAB | | | | [address], | | | | | | [place] [address] | | | | + + + + + + | Calcium | 8.1 (L)Comment: Testing | 8.5 - 10.5 | EXTERNAL | | | | performed at [facility], [address] | mg/dL | LAB | | | | [address], | | | | | | [place] [address] | | | | + + + + + + | Estimated | >60Comment: GFR <60: | mL/min/1.73m2 | EXTERNAL | | | GFR | CHRONIC KIDNEY DISEASE, | | LAB | | | | IF FOUND OVER A 3 MONTH | | | | | | PERIOD.GFR <15: KIDNEY | | | | | | FAILURE.FOR | | | | | | AMERICANS, MULTIPLY THE | | | | | | CALCULATED GFR BY | | | | | | 1.210.Testing performed | | | | | | at [facility], [address] | | | | | | [address], | | | | | | [place] [address] | | | | + + + + + + + + | Specimen | + + | Blood specimen | | (specimen) | + + + +---------+ + + | Performing | Address | City/State/Zipcode | Phone Number | | Organization | | | | + +---------+ + + | EXTERNAL LAB | | | | + +---------+ + + Potassium (11/05/2015 1:24 PM PST) + + + + + + | Component | Value | Ref Range | Performed | Pathologist | | | | | At | Signature | + + + + + + | K | 3.8Comment: Testing | 3.5 - 4.9 | EXTERNAL | | | | performed at [facility], [address] | mmol/L | LAB | | | | [address], | | | | | | [place] [address] | | | | + + + + + + + + | Specimen | + + | Blood specimen | | (specimen) | + + + +---------+ + + | Performing | Address | City/State/Zipcode | Phone Number | | Organization | | | | + +---------+ + + | EXTERNAL LAB | | | | + +---------+ + + Phosphorus (11/05/2015 1:24 PM PST) + + + + + + | Component | Value | Ref Range | Performed | Pathologist | | | | | At | Signature | + + + + + + | PHOSPHORUS | 1.0 (L)Comment: Testing | 2.3 - 4.8 mg/dL | EXTERNAL | | | | performed at [facility], [address] | | LAB | | | | [address], | | | | | | [place] [address] | | | | + + + + + + + + | Specimen | + + | Blood specimen | | (specimen) | + + + +---------+ + + | Performing | Address | City/State/Zipcode | Phone Number | | Organization | | | | + +---------+ + + | EXTERNAL LAB | | | | + +---------+ + + Magnesium (11/05/2015 1:24 PM PST) + + + + + + | Component | Value | Ref Range | Performed | Pathologist | | | | | At | Signature | + + + + + + | Magnesium | 1.8Comment: Testing | 1.7 - 2.4 mg/dL | EXTERNAL | | | | performed at [facility], [address] | | LAB | | | | [address], | | | | | | [place] [address] | | | | + + + + + + + + | Specimen | + + | Blood specimen | | (specimen) | + + + +---------+ + + | Performing | Address | City/State/Zipcode | Phone Number | | Organization | | | | + +---------+ + + | EXTERNAL LAB | | | | + +---------+ + + Vancomycin, Trough (11/05/2015 6:39 AM PST) + + + + + + | Component | Value | Ref Range | Performed | Pathologist | | | | | At | Signature | + + + + + + | Vancomycin | 8.5 (L)Comment: 15 to 20 | 10 - 20 ug/mL | EXTERNAL | | | Trough | ug/mL for meningitis, | | LAB | | | | osteomyelitis, | | | | | | endocarditis, sepsis, or | | | | | | healthcare associated | | | | | | pneumonia, or an [place] | | | | | | equal to or greater than | | | | | | 1.0 ug/mLTesting | | | | | | performed at [facility];[address] | | | | | | [facility];[place], [place] | | | | | | [address] | | | | + + + + + + + + | Specimen | + + | Blood specimen | | (specimen) | + + + +---------+ + + | Performing | Address | City/State/Zipcode | Phone Number | | Organization | | | | + +---------+ + + | EXTERNAL LAB | | | | + +---------+ + + External Lab: CBC (11/05/2015 3:45 AM PST) + + + + + + | Component | Value | Ref Range | Performed | Pathologist | | | | | At | Signature | + + + + + + | WBC | 15.90 (H)Comment: | 3.80 - 11.00 | EXTERNAL | | | | Testing performed at | K/uL | LAB | | | | [facility], [address] | | | | | | [place] | | | | | | [address] | | | | + + + + + + | RED CELL | 4.23Comment: Testing | 4.20 - 5.70 | EXTERNAL | | | COUNT | performed at [facility], [address] | M/uL | LAB | | | | [address], | | | | | | [place] [address] | | | | + + + + + + | Hgb | 12.6 (L)Comment: Testing | 13.2 - 17.0 | EXTERNAL | | | | performed at [facility], [address] | g/dL | LAB | | | | [address], | | | | | | [place] [address] | | | | + + + + + + | Hematocrit, | 37.5 (L)Comment: Testing | 39.0 - 50.0 % | EXTERNAL | | | POC | performed at [facility], [address] | | LAB | | | | [address], | | | | | | [place] [address] | | | | + + + + + + | MCV | 88.6Comment: Testing | 80.0 - 100.0 fl | EXTERNAL | | | | performed at [facility], [address] | | LAB | | | | [address], | | | | | | [place] [address] | | | | + + + + + + | MCH | 29.6Comment: Testing | 27.0 - 34.0 pg | EXTERNAL | | | | performed at [facility], [address] | | LAB | | | | [address], | | | | | | [place] [address] | | | | + + + + + + | MCHC | 33.4Comment: Testing | 32.0 - 35.5 | EXTERNAL | | | | performed at [facility], [address] | g/dL | LAB | | | | [address], | | | | | | [place] [address] | | | | + + + + + + | RDW-CV | 42.0Comment: Testing | 37 - 53 fl | EXTERNAL | | | | performed at [facility], [address] | | LAB | | | | [address], | | | | | | [place] [address] | | | | + + + + + + | Platelet | 111 (L)Comment: Testing | 150 - 400 K/uL | EXTERNAL | | | Count | performed at [facility], [address] | | LAB | | | Plasma | [address], | | | | | | [place] [address] | | | | + + + + + + | MPV | 8.0Comment: Testing | fl | EXTERNAL | | | | performed at [facility], [address] | | LAB | | | | [address], | | | | | | [place] [address] | | | | + + + + + + | Differentia | AUTOMATEDComment: | | EXTERNAL | | | l Type | Testing performed at | | LAB | | | | [facility], [address] | | | | | | [place] | | | | | | [address] | | | | + + + + + + | % Segmented | 82.63Comment: Testing | % | EXTERNAL | | | | performed at [facility], [address] | | LAB | | | Neutrophils | [address], | | | | | | [place] [address] | | | | + + + + + + | % | 9.49Comment: Testing | % | EXTERNAL | | | Lymphocytes | performed at [facility], [address] | | LAB | | | | [address], | | | | | | [place] [address] | | | | + + + + + + | % Monocytes | 6.50Comment: Testing | % | EXTERNAL | | | | performed at [facility], [address] | | LAB | | | | [address], | | | | | | [place] [address] | | | | + + + + + + | % | 1.02Comment: Testing | % | EXTERNAL | | | Eosinophils | performed at [facility], [address] | | LAB | | | | [address], | | | | | | [place] [address] | | | | + + + + + + | % Basophils | 0.36Comment: Testing | % | EXTERNAL | | | | performed at [facility], [address] | | LAB | | | | [address], | | | | | | [place] [address] | | | | + + + + + + | Absolute | 13.13 (H)Comment: | 1.90 - 7.40 | EXTERNAL | | | Segmented | Testing performed at | K/uL | LAB | | | Neutrophils | [facility], [address] | | | | | | [place] | | | | | | [address] | | | | + + + + + + | Absolute | 1.51Comment: Testing | 1.00 - 3.90 | EXTERNAL | | | Lymphocytes | performed at [facility], [address] | K/uL | LAB | | | | [address], | | | | | | [place] [address] | | | | + + + + + + | Absolute | 1.03 (H)Comment: Testing | 0.00 - 0.80 | EXTERNAL | | | Monocytes | performed at [facility], [address] | K/uL | LAB | | | | [address], | | | | | | [place] [address] | | | | + + + + + + | Absolute | 0.16Comment: Testing | 0.00 - 0.50 | EXTERNAL | | | Eosinophils | performed at [facility], [address] | K/uL | LAB | | | | [address], | | | | | | [place] [address] | | | | + + + + + + | Absolute | 0.06Comment: Testing | 0.00 - 0.10 | EXTERNAL | | | Basophils | performed at [facility], [address] | K/uL | LAB | | | | [address], | | | | | | [place] [address] | | | | + + + + + + + + | Specimen | + + | Blood specimen | | (specimen) | + + + +---------+ + + | Performing | Address | City/State/Zipcode | Phone Number | | Organization | | | | + +---------+ + + | EXTERNAL LAB | | | | + +---------+ + + Phosphorus (11/05/2015 3:45 AM PST) + + + + + + | Component | Value | Ref Range | Performed | Pathologist | | | | | At | Signature | + + + + + + | PHOSPHORUS | 1.7 (L)Comment: Testing | 2.3 - 4.8 mg/dL | EXTERNAL | | | | performed at [facility], [address] | | LAB | | | | [address], | | | | | | [place] [address] | | | | + + + + + + + + | Specimen | + + | Blood specimen | | (specimen) | + + + +---------+ + + | Performing | Address | City/State/Zipcode | Phone Number | | Organization | | | | + +---------+ + + | EXTERNAL LAB | | | | + +---------+ + + Magnesium (11/05/2015 3:45 AM PST) + + + + + + | Component | Value | Ref Range | Performed | Pathologist | | | | | At | Signature | + + + + + + | Magnesium | 1.9Comment: Testing | 1.7 - 2.4 mg/dL | EXTERNAL | | | | performed at [facility], [address] | | LAB | | | | [address], | | | | | | [place] [address] | | | | + + + + + + + + | Specimen | + + | Blood specimen | | (specimen) | + + + +---------+ + + | Performing | Address | City/State/Zipcode | Phone Number | | Organization | | | | + +---------+ + + | EXTERNAL LAB | | | | + +---------+ + + Hepatic Function Panel (11/05/2015 3:45 AM PST) + + + + + + | Component | Value | Ref Range | Performed | Pathologist | | | | | At | Signature | + + + + + + | Protein, | 5.3 (L)Comment: Testing | 6.3 - 8.2 g/dL | EXTERNAL | | | Total | performed at [facility], [address] | | LAB | | | | [address], | | | | | | [place] [address] | | | | + + + + + + | Albumin | 3.0 (L)Comment: Testing | 3.6 - 5.0 g/dL | EXTERNAL | | | | performed at [facility], [address] | | LAB | | | | [address], | | | | | | [place] [address] | | | | + + + + + + | Bilirubin | 2.9 (H)Comment: Testing | 0.1 - 1.5 mg/dL | EXTERNAL | | | Total | performed at [facility], [address] | | LAB | | | | [address], | | | | | | [place] [address] | | | | + + + + + + | Bilirubin | 2.0 (H)Comment: Testing | 0.0 - 0.3 mg/dL | EXTERNAL | | | Direct | performed at [facility], [address] | | LAB | | | | [address], | | | | | | [place] [address] | | | | + + + + + + | ALP, | 88Comment: Testing | 35 - 115 U/L | EXTERNAL | | | External | performed at [facility], [address] | | LAB | | | | [address], | | | | | | [place] [address] | | | | + + + + + + | AST | 128 (H)Comment: Testing | 10 - 45 U/L | EXTERNAL | | | | performed at [facility], [address] | | LAB | | | | [address], | | | | | | [place] [address] | | | | + + + + + + | ALT | 268 (H)Comment: Testing | 10 - 65 U/L | EXTERNAL | | | | performed at [facility], [address] | | LAB | | | | [address], | | | | | | [place] [address] | | | | + + + + + + + + | Specimen | + + | | + + + +---------+ + + | Performing | Address | City/State/Zipcode | Phone Number | | Organization | | | | + +---------+ + + | EXTERNAL LAB | | | | + +---------+ + + Basic Metabolic Panel (11/05/2015 3:45 AM PST) + + + + + + | Component | Value | Ref Range | Performed | Pathologist | | | | | At | Signature | + + + + + + | Na | 136Comment: Testing | 135 - 143 | EXTERNAL | | | | performed at [facility], [address] | mmol/L | LAB | | | | [address], | | | | | | [place] [address] | | | | + + + + + + | K | 3.4 (L)Comment: Testing | 3.5 - 4.9 | EXTERNAL | | | | performed at [facility], [address] | mmol/L | LAB | | | | [address], | | | | | | [place] [address] | | | | + + + + + + | Cl | 107Comment: Testing | 99 - 109 mmol/L | EXTERNAL | | | | performed at [facility], [address] | | LAB | | | | [address], | | | | | | [place] [address] | | | | + + + + + + | CO2 | 22 (L)Comment: Testing | 23 - 32 mmol/L | EXTERNAL | | | | performed at [facility], [address] | | LAB | | | | [address], | | | | | | [place] [address] | | | | + + + + + + | Anion Gap | 10Comment: Testing | 5 - 20 mmol/L | EXTERNAL | | | | performed at [facility], [address] | | LAB | | | | [address], | | | | | | [place] [address] | | | | + + + + + + | Glucose, | 79Comment: Testing | 65 - 99 mg/dL | EXTERNAL | | | Fasting | performed at [facility], [address] | | LAB | | | | [address], | | | | | | [place] [address] | | | | + + + + + + | BUN | 9Comment: Testing | 8 - 25 mg/dL | EXTERNAL | | | | performed at [facility], [address] | | LAB | | | | [address], | | | | | | [place] [address] | | | | + + + + + + | Creatinine | 0.81Comment: Testing | 0.70 - 1.30 | EXTERNAL | | | | performed at [facility], [address] | mg/dL | LAB | | | | [address], | | | | | | [place] [address] | | | | + + + + + + | BUN/Creatin | 11Comment: Testing | | EXTERNAL | | | ine Ratio | performed at [facility], [address] | | LAB | | | | [address], | | | | | | [place] [address] | | | | + + + + + + | Calcium | 8.2 (L)Comment: Testing | 8.5 - 10.5 | EXTERNAL | | | | performed at [facility], [address] | mg/dL | LAB | | | | [address], | | | | | | [place] [address] | | | | + + + + + + | Estimated | >60Comment: GFR <60: | mL/min/1.73m2 | EXTERNAL | | | GFR | CHRONIC KIDNEY DISEASE, | | LAB | | | | IF FOUND OVER A 3 MONTH | | | | | | PERIOD.GFR <15: KIDNEY | | | | | | FAILURE.FOR | | | | | | AMERICANS, MULTIPLY THE | | | | | | CALCULATED GFR BY | | | | | | 1.210.Testing performed | | | | | | at [facility], [address] | | | | | | [address], | | | | | | [place] [address] | | | | + + + + + + + + | Specimen | + + | Blood specimen | | (specimen) | + + + +---------+ + + | Performing | Address | City/State/Zipcode | Phone Number | | Organization | | | | + +---------+ + + | EXTERNAL LAB | | | | + +---------+ + + Lactic Acid (11/04/2015 2:11 PM PST) + + + + + + | Component | Value | Ref Range | Performed | Pathologist | | | | | At | Signature | + + + + + + | Lactate | 1.0Comment: Testing | 0.4 - 2.0 | EXTERNAL | | | | performed at [facility];[address] | mmol/L | LAB | | | | [address];[place], [place] | | | | | | [address] | | | | + + + + + + + + | Specimen | + + | Blood specimen | | (specimen) | + + + +---------+ + + | Performing | Address | City/State/Zipcode | Phone Number | | Organization | | | | + +---------+ + + | EXTERNAL LAB | | | | + +---------+ + + NM Hepatobiliary w PHARM (11/04/2015 1:28 PM PST) + + | Specimen | + + | | + + + + + | Impressions | Performed At | + + + | 1. No evidence of cystic duct obstruction. Gallbladder ejection | | | fraction is 68%. | | + + + + + + | Narrative | Performed At | + + + | [facility] WITH CCK 11/04/2015 1:28 PM | | | HISTORY: Right upper quadrant abdominal pain and sepsis. Abnormal | | | gallbladder ultrasound concerning for cholecystitis. TECHNIQUE: | | | The patient was given 5.1 mCi of technetium 99m Choletec IV and that | | | was followed by imaging of the abdomen for one hour. After gallbladder | | | filling was visualized, the patient was given 1.27 mcg of CCK IV and | | | that was followed by further imaging for 45 minutes. FINDINGS: | | | Compared to the ultrasound of 11/03/2015. There is fair uptake by the | | | liver with clearance of the cardiac blood pool at 9 minutes the | | | gallbladder begins to visualize at 45-50 minutes and is partially | | | filled at 60 minutes. The gallbladder ejection fraction is 68%. Gut | | | uptake was noted after CCK administration. | | + + + + + | Procedure Note | + + | Marino, Rad Conversion - 05/04/2019 2:10 PM PDT [facility] | | WITH CCK11/04/2015 1:28 PM HISTORY:Right upper quadrant abdominal pain and sepsis. | | Abnormal gallbladder ultrasound concerning for cholecystitis. TECHNIQUE:The patient was | | given 5.1 mCi of technetium 99m Choletec IV and that was followed by imaging of the | | abdomen for one hour. After gallbladder filling was visualized, the patient was given | | 1.27 mcg of CCK IV and that was followed by further imaging for 45 minutes. | | FINDINGS:Compared to the ultrasound of 11/03/2015. There is fair uptake by the liver with | | clearance of the cardiac blood pool at 9 minutes the gallbladder begins to visualize at | | 45-50 minutes and is partially filled at 60 minutes. The gallbladder ejection fraction | | is 68%. Gut uptake was noted after CCK administration. IMPRESSION: 1. No evidence of | | cystic duct obstruction. Gallbladder ejection fraction is 68%. | |FINDINGS: | |Compared to the ultrasound of 11/03/2015. There is fair uptake by the liver with clearance o f the cardiac blood pool at 9 minutes the gallbladder begins to visualize at 45-50 minutes a nd is partially filled at 60 | |minutes. The gallbladder ejection fraction | | is 68%. Gut uptake was noted after CCK administration. | | | |IMPRESSION: | |1. No evidence of cystic duct obstruction. Gallbladder ejection fraction is 68%. | | | | | + + Lactic Acid (11/04/2015 10:10 AM PST) + + + + + + | Component | Value | Ref Range | Performed | Pathologist | | | | | At | Signature | + + + + + + | Lactate | 1.3Comment: Testing | 0.4 - 2.0 | EXTERNAL | | | | performed at [facility];[address] | mmol/L | LAB | | | | [address];[place], [place] | | | | | | [address] | | | | + + + + + + + + | Specimen | + + | Blood specimen | | (specimen) | + + + +---------+ + + | Performing | Address | City/State/Zipcode | Phone Number | | Organization | | | | + +---------+ + + | EXTERNAL LAB | | | | + +---------+ + + Lactic Acid (11/04/2015 5:32 AM PST) + + + + + + | Component | Value | Ref Range | Performed | Pathologist | | | | | At | Signature | + + + + + + | Lactate | 1.3Comment: Testing | 0.4 - 2.0 | EXTERNAL | | | | performed at [facility];[address] | mmol/L | LAB | | | | [address];[place], [place] | | | | | | [id number] | | | | + + + + + + + + | Specimen | + + | Blood specimen | | (specimen) | + + + +---------+ + + | Performing | Address | City/State/Zipcode | Phone Number | | Organization | | | | + +---------+ + + | EXTERNAL LAB | | | | + +---------+ + + Protime INR (11/04/2015 5:31 AM PST) + + + + + + | Component | Value | Ref Range | Performed | Pathologist | | | | | At | Signature | + + + + + + | INR | 1.5Comment: REFERENCE | | EXTERNAL | | | | RANGE:0.9 - 1.2 | | LAB | | | | NON-ANTICOAGULATED2.0 | | | | | | - 3.0 ALL OTHER | | | | | | THERAPEUTIC | | | | | | INDICATIONS2.5 - 3.5 | | | | | | MECHANICAL HEART VALVES, | | | | | | RECURRENT OR SYSTEMIC | | | | | | EMBOLISMTesting | | | | | | performed at [facility] | | | | | | [address];[place], [place] | | | | | | [id number] | | | | + + + + + + + + | Specimen | + + | Blood specimen | | (specimen) | + + + +---------+ + + | Performing | Address | City/State/Zipcode | Phone Number | | Organization | | | | + +---------+ + + | EXTERNAL LAB | | | | + +---------+ + + Phosphorus (11/04/2015 5:31 AM PST) + + + + + + | Component | Value | Ref Range | Performed | Pathologist | | | | | At | Signature | + + + + + + | PHOSPHORUS | 2.3Comment: Testing | 2.3 - 4.8 mg/dL | EXTERNAL | | | | performed at [facility];[address] | | LAB | | | | [address];[place], [place] | | | | | | [id number] | | | | + + + + + + + + | Specimen | + + | Blood specimen | | (specimen) | + + + +---------+ + + | Performing | Address | City/State/Zipcode | Phone Number | | Organization | | | | + +---------+ + + | EXTERNAL LAB | | | | + +---------+ + + Magnesium (11/04/2015 5:31 AM PST) + + + + + + | Component | Value | Ref Range | Performed | Pathologist | | | | | At | Signature | + + + + + + | Magnesium | 1.2 (L)Comment: Testing | 1.7 - 2.4 mg/dL | EXTERNAL | | | | performed at [facility];[address] | | LAB | | | [address];[place], [place] | | | | | | [address] | | | | + + + + + + + + | Specimen | + + | Blood specimen | | (specimen) | + + + +---------+ + + | Performing | Address | City/State/Zipcode | Phone Number | | Organization | | | | + +---------+ + + | EXTERNAL LAB | | | | + +---------+ + + Hepatic Function Panel (11/04/2015 5:31 AM PST) + + + + + + | Component | Value | Ref Range | Performed | Pathologist | | | | | At | Signature | + + + + + + | Protein, | 5.0 (L)Comment: Testing | 6.3 - 8.2 g/dL | EXTERNAL | | | Total | performed at [facility];[address] | | LAB | | | | [address];[place] | | | | | | [address] | | | | + + + + + + | Albumin | 2.5 (L)Comment: Testing | 3.6 - 5.0 g/dL | EXTERNAL | | | | performed at [facility];[address] | | LAB | | | | [address];[place] | | | | | | [address] | | | | + + + + + + | Bilirubin | 3.0 (H)Comment: Testing | 0.1 - 1.5 mg/dL | EXTERNAL | | | Total | performed at [facility];[address] | | LAB | | | | [address];[place] | | | | | | [address] | | | | + + + + + + | Bilirubin | 2.0 (H)Comment: Testing | 0.0 - 0.3 mg/dL | EXTERNAL | | | Direct | performed at [facility];[address] | | LAB | | | | [address];[place] | | | | | | [address] | | | | + + + + + + | ALP, | 85Comment: Testing | 35 - 115 U/L | EXTERNAL | | | External | performed at [facility];[address] | | LAB | | | | [address];[place] | | | | | | [address] | | | | + + + + + + | AST | 168 (H)Comment: Testing | 10 - 45 U/L | EXTERNAL | | | | performed at [facility];[address] | | LAB | | | | [address];[place] | | | | | | [address] | | | | + + + + + + | ALT | 371 (H)Comment: Testing | 10 - 65 U/L | EXTERNAL | | | | performed at [facility];[address] | | LAB | | | | [address];[place] | | | | | | [address] | | | | + + + + + + + + | Specimen | + + | | + + + +---------+ + + | Performing | Address | City/State/Zipcode | Phone Number | | Organization | | | | + +---------+ + + | EXTERNAL LAB | | | | + +---------+ + + Lactic Acid (11/04/2015 2:47 AM PST) + + + + + + | Component | Value | Ref Range | Performed | Pathologist | | | | | At | Signature | + + + + + + | Lactate | 1.4Comment: Testing | 0.4 - 2.0 | EXTERNAL | | | | performed at [facility];[address] | mmol/L | LAB | | | | [address];[place] | | | | | | [address] | | | | + + + + + + + + | Specimen | + + | Blood specimen | | (specimen) | + + + +---------+ + + | Performing | Address | City/State/Zipcode | Phone Number | | Organization | | | | + +---------+ + + | EXTERNAL LAB | | | | + +---------+ + + XR Chest 1 Vw (11/04/2015 1:37 AM PST) + + | Specimen | + + | | + + + + + | Impressions | Performed At | + + + | 1. Right IJ central venous catheter placement without | | | pneumothorax. Electronically signed by Cayden Garrison DO on | | | 11/04/2015 7:07 AM | | + + + + + + | Narrative | Performed At | + + + | JASON JOLEEN XR CHEST 1 VIEW HISTORY: 25 years. Male. Right | | | IJ central venous catheter placement. TECHNIQUE: Single portable | | | anterior view of the chest was obtained. COMPARISON: 03/08/2015 | | | FINDINGS: The heart is normal in size. No pulmonary vascular | | | congestion. Right IJ central venous catheter tip located in the region | | | of the superior vena cava. No pneumothorax. No focal airspace disease | | | or pleural effusion. | | + + + + + | Procedure Note | + + | Marino, Rad Conversion - 05/04/2019 2:10 PM PDT JASON AMBROSIO CHEST 1 VIEW | | HISTORY:25 years. Male. Right IJ central venous catheter placement. TECHNIQUE:Single | | portable anterior view of the chest was obtained. COMPARISON:03/08/2015 FINDINGS:The | | heart is normal in size. No pulmonary vascular congestion. Right IJ central venous | | catheter tip located in the region of the superior vena cava. No pneumothorax. No focal | | airspace disease or pleural effusion. IMPRESSION: 1. Right IJ central venous catheter | | placement without pneumothorax. | | 7:07 AM | | | |COMPARISON: | |03/08/2015 | | | |FINDINGS: | |The heart is normal in size. No pulmonary vascular congestion. Right IJ central venous cath eter tip located in the region of the superior vena cava. No pneumothorax. No focal airspace disease or pleural effusion. | | | |IMPRESSION: | |1. Right IJ central venous catheter placement without pneumothorax. | | | | | + + MRSA NAAT (11/03/2015 10:00 PM PST) + + | Specimen | + + | | + + + + + | Narrative | Performed At | + + + | SOURCE NARES(NOSE) MRSA | EXTERNAL LAB | | PCR NEGATIVE Testing | | | performed at [facility];[address] [place] [address];[place] [address] | | + + + + +---------+ + + | Performing | Address | City/State/Zipcode | Phone Number | | Organization | | | | + +---------+ + + | EXTERNAL LAB | | | | + +---------+ + + Culture, Blood, 2nd Specimen (11/03/2015 9:59 PM PST) + + | Specimen | + + | Blood specimen | | (specimen) | + + + + + | Narrative | Performed At | + + + | Specimen Description BLOOD SPECIAL | EXTERNAL LAB | | REQUESTS LAC | | | Testing performed at [facility];[address] | [address];[place] [address] CULTURE | | | NO GROWTH 6 DAYS | | | Testing performed at [facility], [address], [place] | | | [address] | | + + + + +---------+ + + | Performing | Address | City/State/Zipcode | Phone Number | | Organization | | | | + +---------+ + + | EXTERNAL LAB | | | | + +---------+ + + Culture, Blood (11/03/2015 8:22 PM PST) + + | Specimen | + + | Blood specimen | | (specimen) | + + + + + | Narrative | Performed At | + + + | Specimen Description BLOOD SPECIAL | EXTERNAL LAB | | REQUESTS RAC | | | Testing performed at [facility];[address] [facility] | | | [address];[place] [address] CULTURE | | | NO GROWTH 6 DAYS | | | Testing performed at [facility], [address], [place] | | | [address] | | + + + + +---------+ + + | Performing | Address | City/State/Zipcode | Phone Number | | Organization | | | | + +---------+ + + | EXTERNAL LAB | | | | + +---------+ + + Lactic Acid (11/03/2015 8:22 PM PST) + + + + + + | Component | Value | Ref Range | Performed | Pathologist | | | | | At | Signature | + + + + + + | Lactate | 2.4 (H)Comment: Testing | 0.4 - 2.0 | EXTERNAL | | | | performed at [facility];[address] | mmol/L | LAB | | | | [address];[place], [place] | | | | | | [address] | | | | + + + + + + + + | Specimen | + + | | + + + +---------+ + + | Performing | Address | City/State/Zipcode | Phone Number | | Organization | | | | + +---------+ + + | EXTERNAL LAB | | | | + +---------+ + + Procalcitonin (11/03/2015 8:22 PM PST) + + + + + + | Component | Value | Ref Range | Performed | Pathologist | | | | | At | Signature | + + + + + + | PROCALCITON | >200.00 (H)Comment: | ng/mL | EXTERNAL | | | IN | INTERPRETIVE | | LAB | | | | INFORMATION: | | | | | | PROCALCITONIN PCT <= | | | | | | 0.5 ng/mL: Low risk | | | | | | for progression to | | | | | | severe systemic | | | | | | bacterial infection | | | | | | (severe sepsis/septic | | | | | | shock). Does not | | | | | | exclude an infection, | | | | | | because localized | | | | | | infections may be | | | | | | associated with such low | | | | | | levels. If PCT is | | | | | | measured very early | | | | | | after bacterial | | | | | | challenge (usually <6 | | | | | | hours), results may | | | | | | still be low and | | | | | | should re-assess PCT | | | | | | 6-24 hours later. PCT | | | | | | >0.5 and <= 2 ng/mL: | | | | | | Moderate risk for | | | | | | progression to severe | | | | | | systemic infection | | | | | | (severe sepsis/septic | | | | | | shock). Other | | | | | | conditions are known | | | | | | to elevate PCT, patient | | | | | | should be closely | | | | | | monitored both | | | | | | clinically and by | | | | | | re-assessing PCT | | | | | | within 6-24 hours. PCT > | | | | | | 2 ng/mL: High | | | | | | likelihood for | | | | | | progression to severe | | | | | | systemic bacterial | | | | | | infection (severe | | | | | | sepsis/septic shock). | | | | | | PCT >= 10 ng/mL: | | | | | | High likelihood of | | | | | | severe sepsis or septic | | | | | | shock.Testing performed | | | | | | at [facility];[address];[place] [address] | | | | + + + + + + + + | Specimen | + + | | + + + +---------+ + + | Performing | Address | City/State/Zipcode | Phone Number | | Organization | | | | + +---------+ + + | EXTERNAL LAB | | | | + +---------+ + + HISTORICAL LAB PANEL RESULT (11/03/2015 8:22 PM PST) + + + + + -+ | Component | Value | Ref Range | Performed | Pathologist | | | | | At | Signature | + + + + + -+ | WBC | 19.18 (H)Comment: | 3.80 - 11.00 | EXTERNAL | | | | Testing performed at | K/uL | LAB | | | | [facility];[address];[place] [address] | | | | + + + + + -+ | RED CELL | 4.42Comment: Testing | 4.20 - 5.70 | EXTERNAL | | | COUNT | performed at [facility];[address] | M/uL | LAB | | | | [address];[place] | | | | | | [address] | | | | + + + + + -+ | Hgb | 12.8 (L)Comment: Testing | 13.2 - 17.0 | EXTERNAL | | | | performed at [facility];[address] | g/dL | LAB | | | | [address];[place] | | | | | | [address] | | | | + + + + + -+ | Hematocrit, | 38.8 (L)Comment: Testing | 39.0 - 50.0 % | EXTERNAL | | | POC | performed at [facility];[address] | | LAB | | | | [address];[place] | | | | | | [address] | | | | + + + + + -+ | MCV | 87.7Comment: Testing | 80.0 - 100.0 fl | EXTERNAL | | | | performed at [facility];[address] | | LAB | | | | [address];[place] | | | | | | [address] | | | | + + + + + -+ | MCH | 29.0Comment: Testing | 27.0 - 34.0 pg | EXTERNAL | | | | performed at [facility];[address] | | LAB | | | | [address];[place] | | | | | | [address] | | | | + + + + + -+ | MCHC | 33.1Comment: Testing | 32.0 - 35.5 | EXTERNAL | | | | performed at [facility];[address] | g/dL | LAB | | | | [address];[place] | | | | | | [address] | | | | + + + + + -+ | RDW-CV | 42.0Comment: Testing | 37 - 53 fl | EXTERNAL | | | | performed at [facility];[address] | | LAB | | | | [address];[place] | | | | | | [address] | | | | + + + + + -+ | Platelet | 138 (L)Comment: Testing | 150 - 400 K/uL | EXTERNAL | | | Count | performed at [facility];[address] | | LAB | | | Plasma | [address];[place] | | | | | | [address] | | | | + + + + + -+ | MPV | 7.0Comment: Testing | fl | EXTERNAL | | | | performed at [facility];[address] | | LAB | | | | [address];[place] | | | | | | [address] | | | | + + + + + -+ | Differentia | MANUALComment: Testing | | EXTERNAL | | | l Type | performed at [facility];[address] | | LAB | | | | [address];[place] | | | | | | [address] | | | | + + + + + -+ | Segmented | 80Comment: Testing | % | EXTERNAL | | | Neutrophils | performed at [facility];[address] | | LAB | | | Manual | [address];[place] | | | | | | [address] | | | | + + + + + -+ | % Bands | 7Comment: Testing | % | EXTERNAL | | | | performed at [facility];[address] | | LAB | | | | [address];[place] | | | | | | [address] | | | | + + + + + -+ | Lymphocytes | 8Comment: Testing | % | EXTERNAL | | | Manual | performed at [facility];[address] | | LAB | | | | [address];[place] | | | | | | [address] | | | | + + + + + -+ | Monocytes | 5Comment: Testing | % | EXTERNAL | | | Manual | performed at [facility];[address] | | LAB | | | | [address];[place] | | | | | | [address] | | | | + + + + + -+ | Absolute | 15.35 (H)Comment: | 1.90 - 7.40 | EXTERNAL | | | Neutrophils | Testing performed at | K/uL | LAB | | | | [facility];[address];[place] [address] | | | | + + + + + -+ | Bands | 1.34 (H)Comment: Testing | 0.00 - 0.20 | EXTERNAL | | | Manual | performed at [facility];[address] | K/uL | LAB | | | | [address];[place] | | | | | | [address] | | | | + + + + + -+ | Absolute | 1.53Comment: Testing | 1.00 - 3.90 | EXTERNAL | | | Lymphocytes | performed at [facility];[address] | K/uL | LAB | | | | [address];[place] | | | | | | [address] | | | | + + + + + -+ | Absolute | 0.96 (H)Comment: Testing | 0.00 - 0.80 | EXTERNAL | | | Monocytes | performed at [facility];[address] | K/uL | LAB | | | | [address];[place] | | | | | | [address] | | | | + + + + + -+ | Platelet | ADEQUATEComment: Testing | | EXTERNAL | | | Estimate | performed at [facility];[address] | | LAB | | | | [address];[place] | | | | | | [address] | | | | + + + + + -+ | RBC | RBC AND PLT MORPHOLOGY | | EXTERNAL | | | Morphology | APPEAR NORMALComment: | | LAB | | | | Testing performed at | | | | | | [facility];[address];[place] [address] | | | | + + + + + -+ | Na | 141Comment: Testing | 135 - 143 | EXTERNAL | | | | performed at [facility];[address] | mmol/L | LAB | | | | [address];[place] | | | | | | [address] | | | | + + + + + -+ | K | 4.3Comment: Testing | 3.5 - 4.9 | EXTERNAL | | | | performed at [facility];[address] | mmol/L | LAB | | | | [address];[place] | | | | | | [address] | | | | + + + + + -+ | Cl | 112 (H)Comment: Testing | 99 - 109 mmol/L | EXTERNAL | | | | performed at [facility];[address] | | LAB | | | | [address];[place] | | | | | | [address] | | | | + + + + + -+ | CO2 | 21 (L)Comment: Testing | 23 - 32 mmol/L | EXTERNAL | | | | performed at [facility];[address] | | LAB | | | | [address];[place] | | | | | | [address] | | | | + + + + + -+ | Anion Gap | 11Comment: Testing | 5 - 20 mmol/L | EXTERNAL | | | | performed at [facility];[address] | | LAB | | | | [address];[place] | | | | | | [address] | | | | + + + + + -+ | Glucose, | 96Comment: Testing | 65 - 99 mg/dL | EXTERNAL | | | Fasting | performed at [facility];[address] | | LAB | | | | [address];[place] | | | | | | [address] | | | | + + + + + -+ | BUN | 17Comment: Testing | 8 - 25 mg/dL | EXTERNAL | | | | performed at [facility];[address] | | LAB | | | | [address];[place] | | | | | | [address] | | | | + + + + + -+ | Creatinine | 1.4 (H)Comment: Testing | 0.70 - 1.30 | EXTERNAL | | | | performed at [facility];[address] | mg/dL | LAB | | | | [address];[place] | | | | | | [address] | | | | + + + + + -+ | BUN/Creatin | 12Comment: Testing | | EXTERNAL | | | ine Ratio | performed at [facility];[address] | | LAB | | | | [address];[place] | | | | | | [address] | | | | + + + + + -+ | Calcium | 6.3 (L)Comment: Testing | 8.5 - 10.5 | EXTERNAL | | | | performed at [facility];[address] | mg/dL | LAB | | | | [address];[place] | | | | | | [address] | | | | + + + + + -+ | Protein, | 5.5 (L)Comment: Testing | 6.3 - 8.2 g/dL | EXTERNAL | | | Total | performed at [facility];[address] | | LAB | | | | [address];[place] | | | | | | [address] | | | | + + + + + -+ | Albumin | 2.7 (L)Comment: Testing | 3.6 - 5.0 g/dL | EXTERNAL | | | | performed at [facility];[address] | | LAB | | | | [address];[place] | | | | | | [address] | | | | + + + + + -+ | Globulin | 2.7Comment: Testing | 1.3 - 4.9 g/dL | EXTERNAL | | | | performed at [facility];[address] | | LAB | | | | [address];[place] | | | | | | [address] | | | | + + + + + -+ | A/G Ratio | 1.0Comment: Testing | 1.0 - 2.4 | EXTERNAL | | | | performed at [facility];[address] | | LAB | | | | [address];[place] | | | | | | [address] | | | | + + + + + -+ | Bilirubin | 1.9 (H)Comment: Testing | 0.1 - 1.5 mg/dL | EXTERNAL | | | Total | performed at [facility];[address] | | LAB | | | | [address];[place] | | | | | | [address] | | | | + + + + + -+ | ALP, | 91Comment: Testing | 35 - 115 U/L | EXTERNAL | | | External | performed at [facility];[address] | | LAB | | | | [address];[place] | | | | | | [address] | | | | + + + + + -+ | AST | 197 (H)Comment: Testing | 10 - 45 U/L | EXTERNAL | | | | performed at [facility];[address] | | LAB | | | | [address];[place] | | | | | | [address] | | | | + + + + + -+ | ALT | 415 (H)Comment: Testing | 10 - 65 U/L | EXTERNAL | | | | performed at [facility];[address] | | LAB | | | | [facility];[place] | | | | | | [address] | | | | + + + + + -+ | Estimated | >60Comment: GFR <60: | mL/min/1.73m2 | EXTERNAL | | | GFR | CHRONIC KIDNEY DISEASE, | | LAB | | | | IF FOUND OVER A 3 MONTH | | | | | | PERIOD.GFR <15: KIDNEY | | | | | | FAILURE.FOR | | | | | | AMERICANS, MULTIPLY THE | | | | | | CALCULATED GFR BY | | | | | | 1.210.Testing performed | | | | | | at [facility];[address] [facility] | | | | | | [address];[place] [address] | | | | + + + + + -+ | CK, Total | 358Comment: Testing | 55 - 400 U/L | EXTERNAL | | | | performed at [facility];[address] | | LAB | | | | [facility];[place] | | | | | | [address] | | | | + + + + + -+ | INR | 1.4Comment: REFERENCE | | EXTERNAL | | | | RANGE:0.9 - 1.2 | | LAB | | | | NON-ANTICOAGULATED2.0 | | | | | | - 3.0 ALL OTHER | | | | | | THERAPEUTIC | | | | | | INDICATIONS2.5 - 3.5 | | | | | | MECHANICAL HEART VALVES, | | | | | | RECURRENT OR SYSTEMIC | | | | | | EMBOLISMTesting | | | | | | performed at [facility];[address] | | | | | [address];[place] | | | | | | [address] | | | | + + + + + -+ | aPTT, | 33 (H)Comment: Testing | 23 - 32 seconds | EXTERNAL | | | Patient | performed at [facility];[address] | | LAB | | | | [address];[place] | | | | | | [address] | | | | + + + + + -+ | CK-MB | 2.4Comment: Testing | 0.5 - 3.6 ng/mL | EXTERNAL | | | | performed at [facility];[address] | | LAB | | | | [address];[place] | | | | | | [address] | | | | + + + + + -+ | CK-MB Index | 0.7Comment: CK INDEX | | EXTERNAL | | | | INTERPRETATION: | | LAB | | | | MMB ng/mL | | | | | | | | | | | |CK INDEX INTERPRETATION: | | | | | | MMB ng/mL | | | | | | | | | | + + + + + -+ + + | Specimen | + + | | + + + +---------+ + + | Performing | Address | City/State/Zipcode | Phone Number | | Organization | | | | + +---------+ + + | EXTERNAL LAB | | | | + +---------+ + + Phosphorus (11/03/2015 8:22 PM PST) + + + + + + | Component | Value | Ref Range | Performed | Pathologist | | | | | At | Signature | + + + + + + | PHOSPHORUS | 3.0Comment: Testing | 2.3 - 4.8 mg/dL | EXTERNAL | | | | performed at [facility] | | LAB | | | | [address] [facility];[place], [place] | | | | | | [address] | | | | + + + + + + + + | Specimen | + + | Blood specimen | | (specimen) | + + + +---------+ + + | Performing | Address | City/State/Zipcode | Phone Number | | Organization | | | | + +---------+ + + | EXTERNAL LAB | | | | + +---------+ + + Magnesium (11/03/2015 8:22 PM PST) + + + + + + | Component | Value | Ref Range | Performed | Pathologist | | | | | At | Signature | + + + + + + | Magnesium | 1.2 (L)Comment: Testing | 1.7 - 2.4 mg/dL | EXTERNAL | | | | performed at [facility];[address] | | LAB | | | | [address];[place] | | | | | | [address] | | | | + + + + + + + + | Specimen | + + | Blood specimen | | (specimen) | + + + +---------+ + + | Performing | Address | City/State/Zipcode | Phone Number | | Organization | | | | + +---------+ + + | EXTERNAL LAB | | | | + +---------+ + + Lipase (11/03/2015 8:22 PM PST) + + + + + + | Component | Value | Ref Range | Performed | Pathologist | | | | | At | Signature | + + + + + + | Lipase | 81Comment: Testing | 73 - 393 U/L | EXTERNAL | | | | performed at [facility];[address] | | LAB | | | | [address];[place], [place] | | | | | | [address] | | | | + + + + + + + + | Specimen | + + | Blood specimen | | (specimen) | + + + +---------+ + + | Performing | Address | City/State/Zipcode | Phone Number | | Organization | | | | + +---------+ + + | EXTERNAL LAB | | | | + +---------+ + + Carboxyhemoglobin (11/03/2015 8:22 PM PST) + + + + + + | Component | Value | Ref Range | Performed | Pathologist | | | | | At | Signature | + + + + + + | Carboxyhemo | 2.0 (H)Comment: | 0.0 - 1.5 | EXTERNAL | | | globin | NON-SMOKER: <1.5% CO | %COSAT | LAB | | | | SATURATIONMODERATE | | | | | | SMOKER: 4-5% CO | | | | | | SATURATIONHEAVY SMOKER: | | | | | | 8-9% CO | | | | | | SATURATIONTesting | | | | | | performed at [facility] | | | | | | [address];[place], [place] | | | | | | [address] | | | | + + + + + + + + | Specimen | + + | Blood specimen | | (specimen) | + + + +---------+ + + | Performing | Address | City/State/Zipcode | Phone Number | | Organization | | | | + +---------+ + + | EXTERNAL LAB | | | | + +---------+ + + Culture, Urine (11/03/2015 8:09 PM PST) + + | Specimen | + + | Urine specimen | | (specimen) | + + + + + | Narrative | Performed At | + + + | Specimen Description URINE,CLEAN CATCH CULTURE | EXTERNAL LAB | | NO GROWTH | | | Testing performed at [facility], [address] | | | [place] [address] | | + + + + +---------+ + + | Performing | Address | City/State/Zipcode | Phone Number | | Organization | | | | + +---------+ + + | EXTERNAL LAB | | | | + +---------+ + + Urinalysis, Reflex Microscopic and/or Culture (11/03/2015 8:09 PM PST) + + + + + + | Component | Value | Ref Range | Performed | Pathologist | | | | | At | Signature | + + + + + + | Color | YELLOWComment: Testing | | EXTERNAL | | | | performed at [facility] | | LAB | | | | [address];[place] | | | | | | [id number] | | | | + + + + + + | Clarity | CLEARComment: Testing | | EXTERNAL | | | | performed at [facility];[address] | | LAB | | | | [address];[place] | | | | | | [phone] | | | | + + + + + + | Specific | 1.017Comment: Testing | 1.002 - 1.030 | EXTERNAL | | | [place] | performed at [facility];[address] | | LAB | | | | [address];[place] | | | | | | [phone] | | | | + + + + + + | Leukocyte | NEGATIVEComment: Testing | | EXTERNAL | | | Esterase, | performed at [facility];[address] | | LAB | | | Urine | [address];[place] | | | | | | [phone] | | | | + + + + + + | Nitrite, | NEGATIVEComment: Testing | | EXTERNAL | | | Urine | performed at [facility];[address] | | LAB | | | | [address];[place] | | | | | | [phone] | | | | + + + + + + | Urobilinoge | NORMALComment: Testing | mg/dL | EXTERNAL | | | n, Urine | performed at [facility];[address] | | LAB | | | | [address];[place] | | | | | | [phone] | | | | + + + + + + | Protein, | NEGATIVEComment: Testing | mg/dL | EXTERNAL | | | Urine | performed at [facility];[address] | | LAB | | | | [address];[place] | | | | | | [phone] | | | | + + + + + + | pH, Urine | 5.0Comment: Testing | 5.0 - 8.0 | EXTERNAL | | | | performed at [facility];[address] | | LAB | | | | [address];[place] | | | | | | [address] | | | | + + + + + + | Blood, | MODERATE (A)Comment: | | EXTERNAL | | | Urine | Testing performed at | | LAB | | | | [facility];[address];[place] [address] | | | | + + + + + + | Ketones | NEGATIVEComment: Testing | mg/dL | EXTERNAL | | | | performed at [facility];[address] | | LAB | | | | [address];[place] | | | | | | [address] | | | | + + + + + + | Bilirubin, | NEGATIVEComment: Testing | | EXTERNAL | | | Urine | performed at [facility];[address] | | LAB | | | | [address];[place] | | | | | | [address] | | | | + + + + + + | Glucose, | NEGATIVEComment: Testing | mg/dL | EXTERNAL | | | Urine | performed at [facility];[address] | | LAB | | | | [address];[place] | | | | | | [address] | | | | + + + + + + | WBC, UA | 0-2Comment: Testing | 0 - 5 /hpf | EXTERNAL | | | | performed at [facility];[address] | | LAB | | | | [address];[place] | | | | | | [address] | | | | + + + + + + | RBC, UA | 0-2Comment: Testing | 0 - 2 /hpf | EXTERNAL | | | | performed at [facility];[address] | | LAB | | | | [address];[place] | | | | | | [address] | | | | + + + + + + | Bacteria, | NONE SEENComment: | | EXTERNAL | | | UA | Testing performed at | | LAB | | | | [facility];[address];[place] [address] | | | | + + + + + + | Epithelial | NONE SEENComment: | /lpf | EXTERNAL | | | Cells | Testing performed at | | LAB | | | | [facility];[address];[place] [address] | | | | + + + + + + | MUCUS UA | 1+Comment: Testing | | EXTERNAL | | | | performed at [facility];[address] | | LAB | | | | [address];[place] | | | | | | [address] | | | | + + + + + + + + | Specimen | + + | | + + + +---------+ + + | Performing | Address | City/State/Zipcode | Phone Number | | Organization | | | | + +---------+ + + | EXTERNAL LAB | | | | + +---------+ + + US Abdomen Limited (11/03/2015 7:54 PM PST) + + | Specimen | + + | | + + + + + | Narrative | Performed At | + + + | This is a non-reportable procedure without a radiologist report and | | | is used for image storage only | | + + + + + | Procedure Note | + + | Didier Pichardo - 05/04/2019 2:10 PM PDT This is a non-reportable procedure | | without a radiologist report and isused for image storage only | + + CT Abdomen Pelvis w Contrast (11/03/2015 7:54 PM PST) + + | Specimen | + + | | + + + + + | Narrative | Performed At | + + + | This is a non-reportable procedure without a radiologist report and | | | is used for image storage only | | + + + + + | Procedure Note | + + | Didier Pichardo - 05/04/2019 2:10 PM PDT This is a non-reportable procedure | | without a radiologist report and isused for image storage only | + + documented in this encounter Visit Diagnoses + + | Diagnosis | + + | Transaminasemia Nonspecific elevation of levels of transaminase or lactic acid | | dehydrogenase (LDH) | + + | Septic shock (HCC) | + + | Acute renal failure, unspecified acute renal failure type (HCC) | + + | Lactic acidosis Acidosis | + + | Leukocytosis Leukocytosis, unspecified | + + | RUQ abdominal pain Abdominal pain, right upper quadrant | + + documented in this encounter
--- OUTSIDE RECORDS SUMMARY | ~2019-09-01 | XMS | Encounter Summary ---
Demographics + + + | Address | [address] | | | [place] [address] | + + + | Home Phone | [email or web address] | + + + | Preferred Language | Unknown | + + + | Marital Status | Single | + + + | Temple Affiliation | Unknown | + + + | Race | Unknown | + + + | Ethnic Group | Unknown | + + + Author + + + | Author | [facility] | | | and [place] | + + + | Organization | [facility] | | | and [...] Team Providers + +------+ + | Care Erecting Engineer Name | Role | Phone | + +------+ + | No, Physician | PCP | Unavailable | + +------+ + Encounter Details +--------+ + + + + | Date | Type | Department | Care Team | Description | +--------+ + + + + | 03/08/ | Emergency | [facility] | | | | 2014 | | [facility]ICAL CENTER | | | | | | EMERGENCY CENTER | | | | | | [address] | | | | | | [place], [place] | | | | | | [address] | | | | | | [phone] | | | +--------+ + + + + Social [...] + + documented as of this encounter Medications at Time of Discharge [...] + + documented as of this encounter Plan of Treatment Not on filedocumented as of this encounter Visit Diagnoses Not on filedocumented in this encounter"
--- OUTSIDE RECORDS SUMMARY | ~2019-09-01 | XMS | Encounter Summary ---
Demographics + + + | Address | [address] | | | [place] [address] | + + + | Home Phone | [email or web address] | + + + | Preferred Language | Unknown | + + + | Marital Status | Single | + + + | Confucianist Affiliation | Unknown | + + + | Race | Unknown | + + + | Ethnic Group | Unknown | + + + Author + + + | Author | [facility] | | | and [place] | + + + | Organization | [facility] | | | and [place] [...] Team Providers + +------+ + | Care Mathematical Statistician Name | Role | Phone | + +------+ + | No, Physician | PCP | Unavailable | + +------+ + Encounter Details +--------+ + + + + | Date | Type | Department | Care Team | Description | +--------+ + + + + | 03/08/ | Emergency | [facility] | | | | 2014 | | [facility]ICAL CENTER | | | | | | EMERGENCY CENTER | | | | | | [address] | | | | | | [place], [place] | | | | | | [address] | | | | | | [phone] | | | +--------+ + + + [...]
--- OUTSIDE RECORDS SUMMARY | ~2019-09-01 | XMS | Clinical Summary ---
Demographics + + + | Address | [address] | | | [place] [address] | + + + | Home Phone | [email or web address] | + + + | Preferred Language | Unknown | + + + | Marital Status | Single | + + + | Taoist Affiliation | Unknown | + + + | Race | Unknown | + + + | Ethnic Group | Unknown | + + + Author + + + | Author | [facility] | | | and [place] | + + + | Organization | [facility] | | | and [place] | [...] Team Providers + +------+ + | Care Cemetery Keeper Name | Role | Phone | + +------+ + | Chelle Nelson MIXING TUMBLER OPERATOR | PCP | | + +------+ + [...] | | | | | (#1) | 9 | | | + + + + + Results Not on filefrom Last 3 Months Advance Directives + + + + + | Type | Date Recorded | Patient | Explanation | | | | Real Estate 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
--- OUTSIDE RECORDS SUMMARY | ~2019-09-01 | XMS | Clinical Summary ---
Demographics + + + | Address | [address] | | | [place] [address] | + + + | Home Phone | [email or web address] | + + + | Preferred Language | Unknown | + + + | Marital Status | Single | + + + | Catholic Affiliation | Unknown | + + + | Race | Unknown | + + + | Ethnic Group | Unknown | + + + Author + + + | Author | [facility] | | | and [place] | + + + | Organization | [facility] | | | and [place] [...] Team Providers + +------+ + | Care Deal Architect Name | Role | Phone | + +------+ + | Chelle Nelson ANATOMIC PATHOLOGIST | PCP | | + +------+ + [...] Patient | Explanation | | | | 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
--- OUTSIDE RECORDS SUMMARY | ~2019-09-01 | XMS | Encounter Summary ---
Demographics + + + | Address | [address] | | | [place] [address] | + + + | Home Phone | [email or web address] | + + + | Preferred Language | Unknown | + + + | Marital Status | Single | + + + | Hoahaoism Affiliation | Unknown | + + + | Race | Unknown | + + + | Ethnic Group | Unknown | + + + Author + + + | Author | [facility] | | | and [place] | + + + | Organization | [facility] | | | and [place] [...] Team Providers + +------+ + | Care Content Coordinator Name | Role | Phone | + +------+ + | No, Physician | PCP | Unavailable | + +------+ + Encounter Details +--------+ + + + + | Date | Type | Department | Care Team | Description | +--------+ + + + + | 03/08/ | Hospital | [facility] | Randal Polanco MD | Acute respiratory | | 2015 - | Encounter | [facility] | [address] | failure, unspecified | | | | CLINICAL DECISION | [place] [id number] | whether with | | 03/11/ | | [address] [facility] | [phone] | hypoxia or | | 2014 | | [place] | | hypercapnia ([facility]); | | | | [phone] | | Drug overdose, | | | | [phone] | | intentional, initial | | | | | | encounter ([facility]); | | | | | | Depression; | | | | | | Substance induced | | | | | | mood disorder (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) | +--------+ + + + + [...] 0020 Date of Service: 03/11/151838 Status: Addendum Furs Salesperson: Kristopher Boo MD (Physician) Related Notes: Original Note by Kristopher Boo MD (Physician) filed at 03/11/15 0251 [facility] Service: Hospitalist Physician Discharge Summary Patient ID: [...] with the ingestion occurring i nh the early childhood special educator hours of March 08Wednesday. His sister reports four years ago he took an overdose of sleeping pills and was hospitalized for that. Then two years ago he cut his wr ists and ended up in the hospital for that. He is from [place] and now lives with his sis Alvarez who runs a home for the disabled in [place]. She says he has had drug and alco hol problems since his early teens. She sent him to [place] to an alcohol treatment program a few years ago but when he goth there he checked out within 24 hours. Both parents had dr howard and alcohol problems and his mother in her 30's as a result. His father is in his 5 0's and is in the chcf in [place]. Lynne went to the ED in [place] and spoke with Chel conner Jason as best as can be estimated toook 86 800 mg ibuprofen last night and an unknown quanity of TCA's. He was not intoxicated when seen on Wednesday by Lynne. No Hx of NVD, FC, SOB or CP or abdominal pain. ".......per Dr. Collin LIMON The patient was admitted to [facility] on March 08, 2015 with the [...] unit be d has been found in [place] and the patient consented voluntarily to be [...] accepted to inpatient psych/crisis response unit in [place] as arr anged by Responding crisis responding unit who interview patient in hospital. Follow up: Chelle Nelson, STEPHANIE [address] [facility] [address] [place] [address] Go on 03/21/2015 Appointment scheduled for March [...] are the prescriptions that you need to product picker. You may get the following medications from any pharmacy - folic acid 1 MG tablet - risperidone 0.5 MG tablet - thiamine 100 MG tablet Kristopher oBo MD 03/11/2015 6:41 PM documented in thi [...] 03/11/152025 Date of Service: 03/11/152025 Status: Signed Furs Salesperson: Jose Angel Garcia RN (Registered Nurse) Discharge [...] 03/11/151940 Date of Service: 03/11/151938 Status: Signed Furs Salesperson: Ting Lopez RN (Registered Nurse) Pt discharge [...] 03/11/151842 Date of Service: 03/11/151832 Status: Signed Furs Salesperson: Ting Lopez RN (Registered Nurse) Pt seen by both psych and crisis. Sitter remains at bedside to provide safety. Plan was to d/c pt tomorrow to transitions at [facility] at 12. Crisis came back and saw pt at 1820 and sta mir that she called and they have a bed at [facility] [address] Boo notified for D/C orders. Pt talked to his sister ~1845 who will come get him and stated that it takes about 1.5 hrs for her to get here. ADC time set for 2029. Per crisis RN or sister needs to call center at when he leaves [facility]. Ting kern RN onver misty Transaction, Provider Unknown - 03/11/2015 12:29 PM PDT Case Management by Treva Canas RN at 03/11/15 1229 Author: Treva Canas RN Service: (none) Author Type: Registered Nurse Filed: 03/11/15 1230 Date of Service: 03/11/15 1229 Status: Signed Furs Salesperson: Treva Canas RN (Registered Nurse) CM Information gathered during rounding with the physician that the patient is interested i n an IP rehab. List of IP rehabs given to patient. onver misty Joeaction, Provider Unknown - 03/11/2015 11:50 AM PDT Progress Notes by Frieda Macias at 03/11/15 1150 Author: Frieda Macias Service: (none) Author Type: [place] Filed: 03/11/15 1152 Date of Service: 03/11/15 115 Status: Signed Furs Salesperson: Frieda Macias I have met with patient regarding establishing with a PCP. Patient wishes to stay in [facility]. I have patient scheduled at [facility] with Chelle Nelson on March 21 at 1:3 0. Gave patient appointment information and clinic information. No further assistance is frank welsh at this time. Kristopher Yanes MD - 03/10/2015 6:50 PM PDTFormatting of this note might be different from hardik quiroz original. Progress Notes by Kristopher Boo MD at 03/10/151849 Author: Kristopher Boo MD Service: Hospitalist Author Type: Physician Filed: 03/11/15 0936 Date of Service: 03/10/151849 Status: Signed Furs Salesperson: Kristopher Boo MD (Physician) Related Notes: Original Note by Kristopher Boo MD (Physician) filed at 03/10/151899 [facility] Service: Hospitalist Progress Note Pt: Jason Burrell AGE/SEX: 25 y.o. male : 1990 ROOM: [address] [place] [address] HISTORY OF PRESENT ILLNESS " The patient is a 25 y.o. male with significant past medical history of chronic drug and a lcohol abuse and depression who presents with a drug overdose with the ingestion occurring i nh the early childhood special educator hours of March 08Wednesday. His sister reports four years ago he took an overdose of sleeping pills and was hospitalized for that. Then two years ago he cut his wr ists and ended up in the hospital for that. He is from [place] and now lives with his sis Alvarez who runs a home for the disabled in [place]. She says he has had drug and alco hol problems since his early teens. She sent him to [place] to an alcohol treatment program a few years ago but when he goth there he checked out within 24 hours. Both parents had dr howard and alcohol problems and his mother in her 30's as a result. His father is in his 5 0's and is in the chcf in [place]. Lynne went to the ED in [place] and spoke with Chel lindquist. Jason as best as can be estimated toook 86 800 mg ibuprofen last night and an unknown quanity of TCA's. He was not intoxicated when seen on Wednesday by Lynne. No Hx of NVD, FC, SOB or CP or abdominal pain."......per admitting publicity expert/Dr. Collin LIMON TODAY'S DATE: 03/10/2015 Hospital Day: [...] n placement. Continue thiamine and folate supplementation. CIAR protocol p.r.n. 4. Chronic polysubstance abuse: methamphetamine, [...] (none) Author Type: Registered Nurse Filed: 03/10/15 6828 Date of Service: 03/10/151801 Status: Signed Furs Salesperson: Ting Lopez RN (Registered Nurse) Pt pleasant [...] Management by Kate Khan RN at 03/10/15 0900 Author: Kate Khan RN Service: (none) Author Type: Registered Nurse Filed: 03/10/1534 Date of Service: 03/10/15933 Status: Signed Furs Salesperson: Kate Khan RN (Registered Nurse) Discharge Planning: [...] 1220 Date of Service: 03/09/151219 Status: Signed Furs Salesperson: Raquel Polanco RD, CD (Registered Dietitian) 03/09/15 [...] Estimated Energy Needs Total Energy Estimated Needs 9580-9456 kcal/day Method for Estimating Needs 30-35 kcal/kg [...] up date 03/15/[address], CD[facility] 03/09/2015 onver misty Transaction, Provider Unknown - 03/09/2015 11:43 AM PDT Progress Notes by Yovanny Galindo RPH at 03/09/15 1143 Author: Yovanny Galindo RPH Service: (none) Author Type: Pharmacist Filed: 03/09/15 1143 Date of Service: 03/09/151142 Status: Signed Furs Salesperson: Yovanny Galindo RPH (Pharmacist) Renal Dosing Monitoring: [...] Author: WOODY Toribio Service: (none) Author Type: Bullet Swaging Machine Operator Filed: 03/09/1546 Date of Service: 03/09/15842 Status: Signed Furs Salesperson: WOODY Toribio (Bullet Swaging Machine Operator) Pt was admitted for an intentional drug overdose. Pt lives with his sister who runs an [employer] family home. Pt's significant other also is [...] from rui bray original. Progress Notes by Vlaerie Campbell MD at 03/09/15334 Author: Valerie Campbell MD Service: Cna Caregiver Author Type: Physician Filed: 03/09/15 0410 Date of Service: 03/09/15334 Status: Signed Furs Salesperson: Valerie Campbell MD (Physician) [facility] Service: Cna Caregiver Progress Note Jason Burrell 25 y.o. Hospital Day: LOS: 1 day Post-Op Day: * No surgery found * Consulting Physicians Treatment Team: Admitting Provider: Randal Polanco MD SUBJECTIVE Patient Summary: The patient is a 25 y.o. male with significant past medical history of chronic drug and alcohol abuse and depression who presents with a drug overdose with the ingestion occurring inh the early childhood special educator hours of March 08Wednesday. His sister reports four years ago he took an overdose of sleeping pills and was hospitalized for that. Then two year s ago he cut his wrists and ended up in the hospital for that. He is from [place] and now lives with his sister Lynne who runs a home for the disabled in [place]. She says he has had drug and alcohol problems since his early teens. She sent him to [place] to an alcohol t reatment program a few years ago but when he goth there he checked out within 24 hours. Both parents had drug and alcohol problems and his mother in her 30's as a result. His [facility] is in his 50's and is in the [facility] in [place]. Lynne went to the ED in [place] and s poke with [place]. Jason as best as can be [...] and is now li berated from the [facility] vent. He has a sitter in his [...] Author: Rakesh Danielson Service: (none) Author Type: Burial Agent Filed: 03/08/151947 Date of Service: 03/08/151946 Status: Signed Furs Salesperson: Rakesh Danielson () Pt intubated and sedated. Stopped in to speak with pt's sister. Sister said she was copin g at this time and did not need the early learning teacher. Chaplain Meredith onver misty Transaction, Provider Unknown - 03/08/2015 4:55 PM PDT Progress Notes by Ernie Lee at 03/08/15 6370 Author: Ernie Lee Service: (none) Author Type: Burial Agent Filed: 03/08/15 1701 Date of Service: 03/08/151654 Status: Signed Furs Salesperson: Ernie Lee ([facility]) Initial contact w/ pt's sister Lynne (age [...] I suggested [facility] [place] [facility], since pt is safe and sedated for [...] 1535 Date of Service: 03/08/151534 Status: Signed Furs Salesperson: Yovanny Galindo RPH (Pharmacist) Renal Dosing Monitoring: [...] EXTERNAL | | | | performed at [facility];[address] | | LAB | | | | [address];[place], [place] | | | | | | [address] | | | | + + + [...] | | | | | [place] [address] | | | | + + + + + + | RED CELL | 4.41Comment: Testing | 4.20 - 5.70 | EXTERNAL | | | COUNT | performed at [facility], [address] | M/uL | LAB | | | [address], | | | | | | [place] [address] | | | | + + + + + + | Hgb | 13.6Comment: Testing | 13.2 - 17.0 | EXTERNAL | | | | performed at [facility], [address] | g/dL | LAB | | | | [address], | | | | | | [place] [address] | | | | + + + + + + | Hematocrit, | 41.1Comment: Testing | 39.0 - 50.0 % | EXTERNAL | | | POC | performed at [facility], [address] | | LAB | | | | [address], | | | | | | [place] [address] | | | | + + + + + + | MCV | 93.0Comment: Testing | 80.0 - 100.0 fl | EXTERNAL | | | | performed at [facility], [address] | | LAB | | | | [address], | | | | | | [place] [address] | | | | + + + + + + | MCH | 30.8Comment: Testing | 27.0 - 34.0 pg | EXTERNAL | | | | performed at [facility], [address] | | LAB | | | | [address], | | | | | | [place] [address] | | | | + + + + + + | MCHC | 33.1Comment: Testing | 32.0 - 35.5 | EXTERNAL | | | | performed at [facility], [address] | g/dL | LAB | | | | [address], | | | | | | [place] [address] | | | | + + + + + + | RDW-CV | 41.6Comment: Testing | 37 - 53 fl | EXTERNAL | | | | performed at [facility], [address] | | LAB | | | | [address], | | | | | | [place] [address] | | | | + + + + + + | Platelet | 166Comment: Testing | 150 - 400 K/uL | EXTERNAL | | | Count | performed at [facility], [address] | | LAB | | | Plasma | [address], | | | | | | [place] [address] | | | | + + + + + + | MPV | 7.1Comment: Testing | fl | EXTERNAL | | | | performed at [facility], [address] | | LAB | | | | [address], | | | | | | [place] [address] | | | | + + + + + + | Differentia | AUTOMATEDComment: | | EXTERNAL | | | l Type | Testing performed at | | LAB | | | | [facility], [address] | | | | | | [place], [place] | | | | | | [address] | | | | + + + + + + | % Segmented | 64.73Comment: Testing | % | EXTERNAL | | | | performed at [facility], [address] | | LAB | | | Neutrophils | [address], | | | | | | [place], [place] [address] | | | | + + + + + + | % | 23.28Comment: Testing | % | EXTERNAL | | | Lymphocytes | performed at [facility], [address] | | LAB | | | | [address], | | | | | | [place], [place] [address] | | | | + + + + + + | % Monocytes | 10.36Comment: Testing | % | EXTERNAL | | | | performed at [facility], [address] | | LAB | | | | [address], | | | | | | [place], [place] [address] | | | | + + + + + + | % | 1.24Comment: Testing | % | EXTERNAL | | | Eosinophils | performed at [facility], [address] | | LAB | | | | [address], | | | | | | [place] [address] | | | | + + + + + + | % Basophils | 0.39Comment: Testing | % | EXTERNAL | | | | performed at [facility], [address] | | LAB | | | | [address], | | | | | | [place] [address] | | | | + + + + + + | Absolute | 3.72Comment: Testing | 1.90 - 7.40 | EXTERNAL | | | Segmented | performed at [facility], [address] | K/uL | LAB | | | Neutrophils | [address], | | | | | | [place] [address] | | | | + + + + + + | Absolute | 1.34Comment: Testing | 1.00 - 3.90 | EXTERNAL | | | Lymphocytes | performed at [facility], [address] | K/uL | LAB | | | | [address], | | | | | | [place] [address] | | | | + + + + + + | Absolute | 0.60Comment: Testing | 0.00 - 0.80 | EXTERNAL | | | Monocytes | performed at [facility], [address] | K/uL | LAB | | | | [address], | | | | | | [place] [address] | | | | + + + + + + | Absolute | 0.07Comment: Testing | 0.00 - 0.50 | EXTERNAL | | | Eosinophils | performed at [facility], [address] | K/uL | LAB | | | | [address], | | | | | | [place] [address] | | | | + + + + + + | Absolute | 0.02Comment: Testing | 0.00 - 0.10 | EXTERNAL | | | Basophils | performed at [facility], [address] | K/uL | LAB | | | | [address], | | | | | | [place] [address] | | | | + + + [...] EXTERNAL | | | | performed at [facility], [address] | | LAB | | | | [address], | | | | | | [place] [address] | | | | + + + [...] EXTERNAL | | | | performed at [facility], [address] | | LAB | | | | [address], | | | | | | [place] [address] | | | | + + + [...] | | | | | [place] [address] | | | | + + + + + + | K | 4.2Comment: Testing | 3.5 - 4.9 | EXTERNAL | | | | performed at [facility], [address] | mmol/L | LAB | | | | [address], | | | | | | [place] [address] | | | | + + + + + + | Cl | 103Comment: Testing | 99 - 109 mmol/L | EXTERNAL | | | | performed at [facility], [address] | | LAB | | | | [address], | | | | | | [place] [address] | | | | + + + + + + | CO2 | 29Comment: Testing | 23 - 32 mmol/L | EXTERNAL | | | | performed at [facility], [address] | | LAB | | | | [address], | | | | | | [place] [address] | | | | + + + + + + | Anion Gap | 9Comment: Testing | 5 - 20 mmol/L | EXTERNAL | | | | performed at [facility], [address] | | LAB | | | | [address], | | | | | | [place] [address] | | | | + + + + + + | Glucose, | 95Comment: Testing | 65 - 99 mg/dL | EXTERNAL | | | Fasting | performed at [facility], [address] | | LAB | | | | [address], | | | | | | [place] [address] | | | | + + + + + + | BUN | 12Comment: Testing | 8 - 25 mg/dL | EXTERNAL | | | | performed at [facility], [address] | | LAB | | | | [address], | | | | | | [place] [address] | | | | + + + + + + | Creatinine | 0.83Comment: Testing | 0.70 - 1.30 | EXTERNAL | | | | performed at [facility], [address] | mg/dL | LAB | | | | [address], | | | | | | [place] [address] | | | | + + + + + + | BUN/Creatin | 14Comment: Testing | | EXTERNAL | | | ine Ratio | performed at [facility], [address] | | LAB | | | | [address], | | | | | | [place] [address] | | | | + + + + + + | Calcium | 8.7Comment: Testing | 8.5 - 10.5 | EXTERNAL | | | | performed at [facility], [address] | mg/dL | LAB | | | | [address], | | | | | | [place] [address] | | | | + + + + + + | Protein, | 6.2 (L)Comment: Testing | 6.3 - 8.2 g/dL | EXTERNAL | | | Total | performed at [facility], [address] | | LAB | | | | [address], | | | | | | [place] [address] | | | | + + + + + + | Albumin | 3.9Comment: Testing | 3.6 - 5.0 g/dL | EXTERNAL | | | | performed at [facility], [address] | | LAB | | | | [address], | | | | | | [place] [address] | | | | + + + + + + | Globulin | 2.3Comment: Testing | 1.3 - 4.9 g/dL | EXTERNAL | | | | performed at [facility], [address] | | LAB | | | | [address], | | | | | | [place] [address] | | | | + + + + + + | A/G Ratio | 1.7Comment: Testing | 1.0 - 2.4 | EXTERNAL | | | | performed at [facility], [address] | | LAB | | | | [address], | | | | | | [place] [address] | | | | + + + + + + | Bilirubin | 0.3Comment: Testing | 0.1 - 1.5 mg/dL | EXTERNAL | | | Total | performed at [facility], [address] | | LAB | | | | [address], | | | | | | [place] [address] | | | | + + + + + + | ALP, | 45Comment: Testing | 35 - 115 U/L | EXTERNAL | | | External | performed at [facility], [address] | | LAB | | | | [address], | | | | | | [place] [address] | | | | + + + + + + | AST | 27Comment: Testing | 10 - 45 U/L | EXTERNAL | | | | performed at [facility], [address] | | LAB | | | | [address], | | | | | | [place] [address] | | | | + + + + + + | ALT | 18Comment: Testing | 10 - 65 U/L | EXTERNAL | | | | performed at [facility], [address] | | LAB | | | | [address], | | | | | | [place] [address] | | | | + + + [...] | | | | | | at [facility], [address] | | | | | | [address], | | | | | | [place] [address] | | | | + + + [...] EXTERNAL | | | | performed at [facility];[address] | mmol/L | LAB | | | | [address];[place], [place] | | | | | | [address] | | | | + + + [...] EXTERNAL | | | | performed at [facility] | | LAB | | | | [address];[place] | | | | | | [address] | | | | + + + [...] | | | | | [place] [address] | | | | + + + + + + | RED CELL | 4.27Comment: Testing | 4.20 - 5.70 | EXTERNAL | | | COUNT | performed at [facility], [address] | M/uL | LAB | | | | [address], | | | | | | [place] [address] | | | | + + + + + + | Hgb | 13.3Comment: Testing | 13.2 - 17.0 | EXTERNAL | | | | performed at [facility], [address] | g/dL | LAB | | | | [address], | | | | | | [place] [address] | | | | + + + + + + | Hematocrit, | 39.6Comment: Testing | 39.0 - 50.0 % | EXTERNAL | | | POC | performed at [facility], [address] | | LAB | | | | [address], | | | | | | [place] [address] | | | | + + + + + + | MCV | 92.7Comment: Testing | 80.0 - 100.0 fl | EXTERNAL | | | | performed at [facility], [address] | | LAB | | | | [address], | | | | | | [place] [address] | | | | + + + + + + | MCH | 31.2Comment: Testing | 27.0 - 34.0 pg | EXTERNAL | | | | performed at [facility], [address] | | LAB | | | | [address], | | | | | | [place] [address] | | | | + + + + + + | MCHC | 33.6Comment: Testing | 32.0 - 35.5 | EXTERNAL | | | | performed at [facility], [address] | g/dL | LAB | | | | [address], | | | | | | [place] [address] | | | | + + + + + + | RDW-CV | 42.0Comment: Testing | 37 - 53 fl | EXTERNAL | | | | performed at [facility], [address] | | LAB | | | | [address], | | | | | | [place] [address] | | | | + + + + + + | Platelet | 190Comment: Testing | 150 - 400 K/uL | EXTERNAL | | | Count | performed at [facility], [address] | | LAB | | | Plasma | [address], | | | | | | [place] [address] | | | | + + + + + + | MPV | 7.0Comment: Testing | fl | EXTERNAL | | | | performed at [facility], [address] | | LAB | | | | [address], | | | | | | [place] [address] | | | | + + + + + + | Differentia | AUTOMATEDComment: | | EXTERNAL | | | l Type | Testing performed at | | LAB | | | | [facility], [address] | | | | | | [place] | | | | | | [address] | | | | + + + + + + | % Segmented | 59.15Comment: Testing | % | EXTERNAL | | | | performed at [facility], [address] | | LAB | | | Neutrophils | [address], | | | | | | [place] [address] | | | | + + + + + + | % | 30.10Comment: Testing | % | EXTERNAL | | | Lymphocytes | performed at [facility], [address] | | LAB | | | | [address], | | | | | | [place] [address] | | | | + + + + + + | % Monocytes | 9.29Comment: Testing | % | EXTERNAL | | | | performed at [facility], [address] | | LAB | | | | [address], | | | | | | [place] [address] | | | | + + + + + + | % | 0.96Comment: Testing | % | EXTERNAL | | | Eosinophils | performed at [facility], [address] | | LAB | | | | [address], | | | | | | [place] [address] | | | | + + + + + + | % Basophils | 0.50Comment: Testing | % | EXTERNAL | | | | performed at [facility], [address] | | LAB | | | | [address], | | | | | | [place] [address] | | | | + + + + + + | Absolute | 3.02Comment: Testing | 1.90 - 7.40 | EXTERNAL | | | Segmented | performed at [facility], [address] | K/uL | LAB | | | Neutrophils | [address], | | | | | | [place] [address] | | | | + + + + + + | Absolute | 1.54Comment: Testing | 1.00 - 3.90 | EXTERNAL | | | Lymphocytes | performed at [facility], [address] | K/uL | LAB | | | | [address], | | | | | | [place] [address] | | | | + + + + + + | Absolute | 0.48Comment: Testing | 0.00 - 0.80 | EXTERNAL | | | Monocytes | performed at [facility], [address] | K/uL | LAB | | | | [address], | | | | | | [place] [address] | | | | + + + + + + | Absolute | 0.05Comment: Testing | 0.00 - 0.50 | EXTERNAL | | | Eosinophils | performed at [facility], [address] | K/uL | LAB | | | | [address], | | | | | | [place] [address] | | | | + + + + + + | Absolute | 0.03Comment: Testing | 0.00 - 0.10 | EXTERNAL | | | Basophils | performed at [facility], [address] | K/uL | LAB | | | | [address], | | | | | | [place] [address] | | | | + + + [...] EXTERNAL | | | | performed at [facility], [address] | | LAB | | | | [address], | | | | | | [place] [address] | | | | + + + [...] | | | | | [place] [address] | | | | + + + [...] | | | Lvl | performed at [facility];[address] | mg/dL | LAB | | | | [address];[place], [place] | | | | | | [address] | | | | + + + [...] | | | | | [place] [address] | | | | + + + + + + | K | 3.5Comment: Testing | 3.5 - 4.9 | EXTERNAL | | | | performed at [facility], [address] | mmol/L | LAB | | | | [address], | | | | | | [place] [address] | | | | + + + + + + | Cl | 105Comment: Testing | 99 - 109 mmol/L | EXTERNAL | | | | performed at [facility], [address] | | LAB | | | | [address], | | | | | | [place] [address] | | | | + + + + + + | CO2 | 25Comment: Testing | 23 - 32 mmol/L | EXTERNAL | | | | performed at [facility], [address] | | LAB | | | | [address], | | | | | | [place] [address] | | | | + + + + + + | Anion Gap | 10Comment: Testing | 5 - 20 mmol/L | EXTERNAL | | | | performed at [facility], [address] | | LAB | | | | [address], | | | | | | [place] [address] | | | | + + + + + + | Glucose, | 100 (H)Comment: Testing | 65 - 99 mg/dL | EXTERNAL | | | Fasting | performed at [facility], [address] | | LAB | | | | [address], | | | | | | [place] [address] | | | | + + + + + + | BUN | 10Comment: Testing | 8 - 25 mg/dL | EXTERNAL | | | | performed at [facility], [address] | | LAB | | | | [address], | | | | | | [place] [address] | | | | + + + + + + | Creatinine | 0.92Comment: Testing | 0.70 - 1.30 | EXTERNAL | | | | performed at [facility], [address] | mg/dL | LAB | | | | [address], | | | | | | [place] [address] | | | | + + + + + + | BUN/Creatin | 11Comment: Testing | | EXTERNAL | | | ine Ratio | performed at [facility], [address] | | LAB | | | | [address], | | | | | | [place] [address] | | | | + + + + + + | Calcium | 8.4 (L)Comment: Testing | 8.5 - 10.5 | EXTERNAL | | | | performed at [facility], [address] | mg/dL | LAB | | | | [address], | | | | | | [place] [address] | | | | + + + + + + | Protein, | 5.7 (L)Comment: Testing | 6.3 - 8.2 g/dL | EXTERNAL | | | Total | performed at [facility], [address] | | LAB | | | | [address], | | | | | | [place] [address] | | | | + + + + + + | Albumin | 3.6Comment: Testing | 3.6 - 5.0 g/dL | EXTERNAL | | | | performed at [facility], [address] | | LAB | | | [address], | | | | | | [place] [address] | | | | + + + + + + | Globulin | 2.1Comment: Testing | 1.3 - 4.9 g/dL | EXTERNAL | | | | performed at [facility], [address] | | LAB | | | | [address], | | | | | | [place] [address] | | | | + + + + + + | A/G Ratio | 1.7Comment: Testing | 1.0 - 2.4 | EXTERNAL | | | | performed at [facility], [address] | | LAB | | | | [address], | | | | | | [place] [address] | | | | + + + + + + | Bilirubin | 0.3Comment: Testing | 0.1 - 1.5 mg/dL | EXTERNAL | | | Total | performed at [facility], [address] | | LAB | | | | [address], | | | | | | [place] [address] | | | | + + + + + + | ALP, | 47Comment: Testing | 35 - 115 U/L | EXTERNAL | | | External | performed at [facility], [address] | | LAB | | | | [address], | | | | | | [place] [address] | | | | + + + + + + | AST | 17Comment: Testing | 10 - 45 U/L | EXTERNAL | | | | performed at [facility], [address] | | LAB | | | | [address], | | | | | | [place] [address] | | | | + + + + + + | ALT | 11Comment: Testing | 10 - 65 U/L | EXTERNAL | | | | performed at [facility], [address] | | LAB | | | | [address], | | | | | | [place] [address] | | | | + + + [...] | | | | | [place] [address] | | | | + + + [...] EXTERNAL | | | | performed at [facility];888 | mmol/L | LAB | | | | [address];[place], [place] | | | | | | [address] | | | | + + + [...] EXTERNAL | | | | performed at [facility], [address] | K/uL | LAB | | | | [address], | | | | | | [place] [address] | | | | + + + + + + | RED CELL | 3.91 (L)Comment: Testing | 4.20 - 5.70 | EXTERNAL | | | COUNT | performed at [facility], [address] | M/uL | LAB | | | | [address], | | | | | | [place] [address] | | | | + + + + + + | Hgb | 12.0 (L)Comment: Testing | 13.2 - 17.0 | EXTERNAL | | | | performed at [facility], [address] | g/dL | LAB | | | | [address], | | | | | | [place] [address] | | | | + + + + + + | Hematocrit, | 36.9 (L)Comment: Testing | 39.0 - 50.0 % | EXTERNAL | | | POC | performed at [facility], [address] | | LAB | | | | [address], | | | | | | [place] [address] | | | | + + + + + + | MCV | 94.2Comment: Testing | 80.0 - 100.0 fl | EXTERNAL | | | | performed at [facility], [address] | | LAB | | | | [address], | | | | | | [place] [address] | | | | + + + + + + | MCH | 30.6Comment: Testing | 27.0 - 34.0 pg | EXTERNAL | | | | performed at [facility], [address] | | LAB | | | | [address], | | | | | | [place] [address] | | | | + + + + + + | MCHC | 32.5Comment: Testing | 32.0 - 35.5 | EXTERNAL | | | | performed at [facility], [address] | g/dL | LAB | | | | [address], | | | | | | [place] [address] | | | | + + + + + + | RDW-CV | 43.8Comment: Testing | 37 - 53 fl | EXTERNAL | | | | performed at [facility], [address] | | LAB | | | | [address], | | | | | | [place] [address] | | | | + + + + + + | Platelet | 165Comment: Testing | 150 - 400 K/uL | EXTERNAL | | | Count | performed at [facility], [address] | | LAB | | | Plasma | [address], | | | | | | [place] [address] | | | | + + + + + + | MPV | 6.9Comment: Testing | fl | EXTERNAL | | | | performed at [facility], [address] | | LAB | | | | [address], | | | | | | [place] [address] | | | | + + + + + + | Differentia | AUTOMATEDComment: | | EXTERNAL | | | l Type | Testing performed at | | LAB | | | | [facility], [address] | | | | | | [place] | | | | | | [address] | | | | + + + + + + | % Segmented | 66.48Comment: Testing | % | EXTERNAL | | | | performed at [facility], [address] | | LAB | | | Neutrophils | [address], | | | | | | [place], [place] [address] | | | | + + + + + + | % | 23.40Comment: Testing | % | EXTERNAL | | | Lymphocytes | performed at [facility], [address] | | LAB | | | | [address], | | | | | | [place], [place] [address] | | | | + + + + + + | % Monocytes | 8.99Comment: Testing | % | EXTERNAL | | | | performed at [facility], [address] | | LAB | | | | [address], | | | | | | [place] [address] | | | | + + + + + + | % | 0.49Comment: Testing | % | EXTERNAL | | | Eosinophils | performed at [facility], [address] | | LAB | | | | [address], | | | | | | [place] [address] | | | | + + + + + + | % Basophils | 0.64Comment: Testing | % | EXTERNAL | | | | performed at [facility], [address] | | LAB | | | | [address], | | | | | | [place] [address] | | | | + + + + + + | Absolute | 4.42Comment: Testing | 1.90 - 7.40 | EXTERNAL | | | Segmented | performed at [facility], [address] | K/uL | LAB | | | Neutrophils | [address], | | | | | | [place] [address] | | | | + + + + + + | Absolute | 1.56Comment: Testing | 1.00 - 3.90 | EXTERNAL | | | Lymphocytes | performed at [facility], [address] | K/uL | LAB | | | | [address], | | | | | | [place] [address] | | | | + + + + + + | Absolute | 0.60Comment: Testing | 0.00 - 0.80 | EXTERNAL | | | Monocytes | performed at [facility], [address] | K/uL | LAB | | | | [address], | | | | | | [place] [address] | | | | + + + + + + | Absolute | 0.03Comment: Testing | 0.00 - 0.50 | EXTERNAL | | | Eosinophils | performed at [facility], [address] | K/uL | LAB | | | | [address], | | | | | | [place] [address] | | | | + + + + + + | Absolute | 0.04Comment: Testing | 0.00 - 0.10 | EXTERNAL | | | Basophils | performed at [facility], [address] | K/uL | LAB | | | | [address], | | | | | | [place] [address] | | | | + + + [...] EXTERNAL | | | | performed at [facility], [address] | | LAB | | | | [address], | | | | | | [place] [address] | | | | + + + [...] EXTERNAL | | | | performed at [facility], [address] | | LAB | | | | [address], | | | | | | [place] [address] | | | | + + + [...] | | | | | [place] [address] | | | | + + + + + + | K | 3.4 (L)Comment: Testing | 3.5 - 4.9 | EXTERNAL | | | | performed at [facility], [address] | mmol/L | LAB | | | | [address], | | | | | | [place] [address] | | | | + + + + + + | Cl | 110 (H)Comment: Testing | 99 - 109 mmol/L | EXTERNAL | | | | performed at [facility], [address] | | LAB | | | | [address], | | | | | | [place] [address] | | | | + + + + + + | CO2 | 19 (L)Comment: Testing | 23 - 32 mmol/L | EXTERNAL | | | | performed at [facility], [address] | | LAB | | | | [address], | | | | | | [place] [address] | | | | + + + + + + | Anion Gap | 10Comment: Testing | 5 - 20 mmol/L | EXTERNAL | | | | performed at [facility], [address] | | LAB | | | | [address], | | | | | | [place] [address] | | | | + + + + + + | Glucose, | 77Comment: Testing | 65 - 99 mg/dL | EXTERNAL | | | Fasting | performed at [facility], [address] | | LAB | | | | [address], | | | | | | [place] [address] | | | | + + + + + + | BUN | 9Comment: Testing | 8 - 25 mg/dL | EXTERNAL | | | | performed at [facility], [address] | | LAB | | | | [address], | | | | | | [place] [address] | | | | + + + + + + | Creatinine | 0.82Comment: Testing | 0.70 - 1.30 | EXTERNAL | | | | performed at [facility], [address] | mg/dL | LAB | | | | [address], | | | | | | [place] [address] | | | | + + + + + + | BUN/Creatin | 11Comment: Testing | | EXTERNAL | | | ine Ratio | performed at [facility], [address] | | LAB | | | | [address], | | | | | | [place] [address] | | | | + + + + + + | Calcium | 6.8 (L)Comment: Testing | 8.5 - 10.5 | EXTERNAL | | | | performed at [facility], [address] | mg/dL | LAB | | | | [address], | | | | | | [place] [address] | | | | + + + [...] [address] | | | | | | [address], | | | | | | [place] [address] | | | | + + + [...] EXTERNAL | | | | performed at [facility];888 | mmol/L | LAB | | | | [address];[place], [place] | | | | | | [address] | | | | + + + [...] EXTERNAL | | | | performed at [facility];[address] | | LAB | | | | [address];[place] | | | | | | [address] | | | | + + + [...] EXTERNAL | | | | performed at [facility];[address] | | LAB | | | | [address];[place] | | | | | | [address] | | | | + + + [...] | | | Total | performed at [facility];[address] | | LAB | | | | [address];[place] | | | | | | [address] | | | | + + + + + + | Albumin | 3.4 (L)Comment: Testing | 3.6 - 5.0 g/dL | EXTERNAL | | | | performed at [facility];[address] | | LAB | | | | [address];[place] | | | | | | [address] | | | | + + + + + + | Bilirubin | 0.4Comment: Testing | 0.1 - 1.5 mg/dL | EXTERNAL | | | Total | performed at [facility];[address] | | LAB | | | | [address];[place] | | | | | | [address] | | | | + + + + + + | Bilirubin | 0.1Comment: Testing | 0.0 - 0.3 mg/dL | EXTERNAL | | | Direct | performed at [facility];[address] | | LAB | | | | [address];[place] | | | | | | [address] | | | | + + + + + + | ALP, | 48Comment: Testing | 35 - 115 U/L | EXTERNAL | | | External | performed at [facility];[address] | | LAB | | | | [address];[place] | | | | | | [address] | | | | + + + + + + | AST | 22Comment: Testing | 10 - 45 U/L | EXTERNAL | | | | performed at [facility];[address] | | LAB | | | | [address];[place] | | | | | | [address] | | | | + + + + + + | ALT | 13Comment: Testing | 10 - 65 U/L | EXTERNAL | | | | performed at [facility];[address] | | LAB | | | | [address];[place] | | | | | | [address] | | | | + + + [...] EXTERNAL | | | | performed at [facility];[address] | K/uL | LAB | | | | [address];[place] | | | | | | [address] | | | | + + + + + + | RED CELL | 4.02 (L)Comment: Testing | 4.20 - 5.70 | EXTERNAL | | | COUNT | performed at [facility];[address] | M/uL | LAB | | | | [address];[place] | | | | | | [address] | | | | + + + + + + | Hgb | 12.5 (L)Comment: Testing | 13.2 - 17.0 | EXTERNAL | | | | performed at [facility];888 | g/dL | LAB | | | | [address];[place] | | | | | | [address] | | | | + + + + + + | Hematocrit, | 37.7 (L)Comment: Testing | 39.0 - 50.0 % | EXTERNAL | | | POC | performed at [facility];[address] | | LAB | | | | [address];[place] | | | | | | [address] | | | | + + + + + + | MCV | 93.6Comment: Testing | 80.0 - 100.0 fl | EXTERNAL | | | | performed at [facility];[address] | | LAB | | | | [address];[place] | | | | | | [address] | | | | + + + + + + | MCH | 31.1Comment: Testing | 27.0 - 34.0 pg | EXTERNAL | | | | performed at [facility];[address] | | LAB | | | | [address];[place] | | | | | | [address] | | | | + + + + + + | MCHC | 33.2Comment: Testing | 32.0 - 35.5 | EXTERNAL | | | | performed at [facility];888 | g/dL | LAB | | | | [address];[place] | | | | | | [address] | | | | + + + + + + | RDW-CV | 42.9Comment: Testing | 37 - 53 fl | EXTERNAL | | | | performed at [facility];[address] | | LAB | | | | [address];[place] | | | | | | [address] | | | | + + + + + + | Platelet | 181Comment: Testing | 150 - 400 K/uL | EXTERNAL | | | Count | performed at [facility];[address] | | LAB | | | Plasma | [address];[place] | | | | | | [address] | | | | + + + + + + | MPV | 6.7Comment: Testing | fl | EXTERNAL | | | | performed at [facility];[address] | | LAB | | | | [address];[place] | | | | | | [address] | | | | + + + + + + | Differentia | AUTOMATEDComment: | | EXTERNAL | | | l Type | Testing performed at | | LAB | | | | [facility];[address];[place] [address] | | | | + + + + + + | % Segmented | 72.32Comment: Testing | % | EXTERNAL | | | | performed at [facility];[address] | | LAB | | | Neutrophils | [address];[place] | | | | | | [address] | | | | + + + + + + | % | 19.13Comment: Testing | % | EXTERNAL | | | Lymphocytes | performed at [facility];[address] | | LAB | | | | [address];[place] | | | | | | [address] | | | | + + + + + + | % Monocytes | 8.07Comment: Testing | % | EXTERNAL | | | | performed at [facility];[address] | | LAB | | | | [address];[place] | | | | | | [address] | | | | + + + + + + | % | 0.04Comment: Testing | % | EXTERNAL | | | Eosinophils | performed at [facility];[address] | | LAB | | | | [address];[place] | | | | | | [address] | | | | + + + + + + | % Basophils | 0.44Comment: Testing | % | EXTERNAL | | | | performed at [facility];[address] | | LAB | | | | [address];[place] | | | | | | [address] | | | | + + + + + + | Absolute | 6.13Comment: Testing | 1.90 - 7.40 | EXTERNAL | | | Segmented | performed at [facility];888 | K/uL | LAB | | | Neutrophils | [address];[place] | | | | | | [address] | | | | + + + + + + | Absolute | 1.62Comment: Testing | 1.00 - 3.90 | EXTERNAL | | | Lymphocytes | performed at [facility];[address] | K/uL | LAB | | | | [address];[place] | | | | | | [address] | | | | + + + + + + | Absolute | 0.68Comment: Testing | 0.00 - 0.80 | EXTERNAL | | | Monocytes | performed at [facility];[address] | K/uL | LAB | | | | [address];[place] | | | | | | [address] | | | | + + + + + + | Absolute | 0.00Comment: Testing | 0.00 - 0.50 | EXTERNAL | | | Eosinophils | performed at [facility];[address] | K/uL | LAB | | | | [address];[place] | | | | | | [address] | | | | + + + + + + | Absolute | 0.04Comment: Testing | 0.00 - 0.10 | EXTERNAL | | | Basophils | performed at [facility];[address] | K/uL | LAB | | | | [address];[place], [place] | | | | | | [address] | | | | + + + [...] EXTERNAL | | | | performed at [facility];[address] | | LAB | | | | [address];[place] | | | | | | [address] | | | | + + + [...] EXTERNAL | | | | performed at [facility];[address] | | LAB | | | | [address];[place] | | | | | | [address] | | | | + + + [...] EXTERNAL | | | | performed at [facility];888 | mmol/L | LAB | | | | [address];[place] | | | | | | [address] | | | | + + + + + + | K | 3.7Comment: Testing | 3.5 - 4.9 | EXTERNAL | | | | performed at [facility];888 | mmol/L | LAB | | | | [address];[place] | | | | | | [address] | | | | + + + + + + | Cl | 116 (H)Comment: Testing | 99 - 109 mmol/L | EXTERNAL | | | | performed at [facility];[address] | | LAB | | | | [address];[place] | | | | | | [address] | | | | + + + + + + | CO2 | 17 (L)Comment: Testing | 23 - 32 mmol/L | EXTERNAL | | | | performed at [facility];[address] | | LAB | | | | [address];[place] | | | | | | [address] | | | | + + + + + + | Anion Gap | 17Comment: Testing | 5 - 20 mmol/L | EXTERNAL | | | | performed at [facility];[address] | | LAB | | | | [address];[place] | | | | | | [address] | | | | + + + + + + | Glucose, | 83Comment: Testing | 65 - 99 mg/dL | EXTERNAL | | | Fasting | performed at [facility];[address] | | LAB | | | | [address];[place] | | | | | | [address] | | | | + + + + + + | BUN | 11Comment: Testing | 8 - 25 mg/dL | EXTERNAL | | | | performed at [facility];[address] | | LAB | | | | [address];[place] | | | | | | [address] | | | | + + + + + + | Creatinine | 0.88Comment: Testing | 0.70 - 1.30 | EXTERNAL | | | | performed at [facility];888 | mg/dL | LAB | | | | [address];[place] | | | | | | [address] | | | | + + + + + + | BUN/Creatin | 13Comment: Testing | | EXTERNAL | | | ine Ratio | performed at [facility];[address] | | LAB | | | | [address];[place] | | | | | | [address] | | | | + + + + + + | Calcium | 6.7 (L)Comment: Testing | 8.5 - 10.5 | EXTERNAL | | | | performed at [facility];888 | mg/dL | LAB | | | | [address];[place] | | | | | | [address] | | | | + + + [...] | | | | | | at [facility];[address];[place] [address] | | | | + + + [...] Conversion - 05/05/2019 9:12 AM PDT JASON BURRELLXR CHEST 1 VIEW03/08/2015 | | 2:44 PM [...] EXTERNAL | | | | performed at [facility];[address] | | LAB | | | | [address];[place] | | | | | | [address] | | | | + + + + + + | Clarity | CLEARComment: Testing | | EXTERNAL | | | | performed at [facility];[address] | | LAB | | | | [address];[place] | | | | | | [address] | | | | + + + + + + | Specific | 1.011Comment: Testing | 1.002 - 1.030 | EXTERNAL | | | [place] | performed at [facility];[address] | | LAB | | | | [address];[place] | | | | | | [address] | | | | + + + + + + | Leukocyte | NEGATIVEComment: Testing | | EXTERNAL | | | Esterase, | performed at [facility];888 | | LAB | | | Urine | [address];[place] | | | | | | [address] | | | | + + + + + + | Nitrite, | NEGATIVEComment: Testing | | EXTERNAL | | | Urine | performed at [facility];[address] | | LAB | | | | [address];[place] | | | | | | [address] | | | | + + + + + + | Urobilinoge | NORMALComment: Testing | mg/dL | EXTERNAL | | | n, Urine | performed at [facility];[address] | | LAB | | | | [address];[place] | | | | | | [address] | | | | + + + + + + | Protein, | NEGATIVEComment: Testing | mg/dL | EXTERNAL | | | Urine | performed at [facility];[address] | | LAB | | | | [address];[place] | | | | | | [address] | | | | + + + + + + | pH, Urine | 5.0Comment: Testing | 5.0 - 8.0 | EXTERNAL | | | | performed at [facility];[address] | | LAB | | | | [address];[place] | | | | | | [address] | | | | + + + + + + | Blood, | SMALL (A)Comment: | | EXTERNAL | | | Urine | Testing performed at | | LAB | | | | [facility];[address];[place] [address] | | | | + + + + + + | Ketones | NEGATIVEComment: Testing | mg/dL | EXTERNAL | | | | performed at [facility];[address] | | LAB | | | | [address];[place] | | | | | | [address] | | | | + + + + + + | Bilirubin, | NEGATIVEComment: Testing | | EXTERNAL | | | Urine | performed at [facility];[address] | | LAB | | | | [address];[place] | | | | | | [address] | | | | + + + + + + | Glucose, | NEGATIVEComment: Testing | mg/dL | EXTERNAL | | | Urine | performed at [facility];[address] | | LAB | | | | [address];[place] | | | | | | [address] | | | | + + + + + + | WBC, UA | 0-2Comment: Testing | 0 - 5 /hpf | EXTERNAL | | | | performed at [facility] [facility];[address] | | LAB | | | | [address];[place] | | | | | | [address] | | | | + + + + + + | RBC, UA | 0-2Comment: Testing | 0 - 2 /hpf | EXTERNAL | | | | performed at [facility] [place];[address] | | LAB | | | | [address];[place] | | | | | | [address] | | | | + + + + + + | Bacteria, | NONE SEENComment: | | EXTERNAL | | | UA | Testing performed at | | LAB | | | | [facility] [place] [facility];[address];[place] [address] | | | | + + + + + + | Epithelial | NONE SEENComment: | /lpf | EXTERNAL | | | Cells | Testing performed at | | LAB | | | | [facility] [place];[address];[place] [address] | | | | + + + + + + | MUCUS UA | 1+Comment: Testing | | EXTERNAL | | | | performed at [facility] [place] [place];[address] | | LAB | | | | [address];[place] | | | | | | [phone] | | | | + + + [...] EXTERNAL LAB | | Testing performed at [facility] [place] [place];[address] [place] [address];[place] [address] MRSA PCR | | | NEGATIVE Testing performed at | | | [address];[place] [address] | | + + + + +---------+ [...]
--- OUTSIDE RECORDS SUMMARY | ~2019-09-01 | XMS | Encounter Summary ---
Demographics + + + | Address | [address] | | | [place] [address] | + + + | Home Phone | [email or web address] | + + + | Preferred Language | Unknown | + + + | Marital Status | Single | + + + | Shinto Affiliation | Unknown | + + + | Race | Unknown | + + + | Ethnic Group | Unknown | + + + Author + + + | Author | [facility] | | | and [place] | + + + | Organization | [facility] | | | and [place] [...] Team Providers + +------+ + | Care Plant Custodian Name | Role | Phone | + [...] [address] | | | | | [address] | [place] | | | | | [phone] | [phone] | | | | | | | [...]
--- OUTSIDE RECORDS SUMMARY | ~2019-09-01 | XMS | Encounter Summary ---
Demographics + + + | Address | [address] | | | [place] [address] | + + + | Home Phone | [email or web address] | + + + | Preferred Language | Unknown | + + + | Marital Status | Single | + + + | Spiritism Affiliation | Unknown | + + + | Race | Unknown | + + + | Ethnic Group | Unknown | + + + Author + + + | Author | [facility] | | | and [place] | + + + | Organization | [facility] | | | and [place] | [...] Team Providers + +------+ + | Care Autism Tutor Name | Role | Phone | + [...] [address] | | | | | [address] | [place] | | | | | [phone] | [phone] | | | | | | | [...]
--- OUTSIDE RECORDS SUMMARY | ~2019-09-01 | XMS | Encounter Summary ---
Demographics + + + | Address | [address] | | | [place] [address] | + + + | Home Phone | [email or web address] | + + + | Preferred Language | Unknown | + + + | Marital Status | Single | + + + | Adventist Affiliation | Unknown | + + + | Race | Unknown | + + + | Ethnic Group | Unknown | + + + Author + + + | Author | [facility] | | | and [place] | + + + | Organization | [facility] | | | and [...] Team Providers + +------+ + | Care Power Bender Operator Name | Role | Phone | [...] + + | 07/23/ | Office | [facility] | Everardo Lopez | Acne (Primary Dx); | | 2013 | Visit | [facility] [address] | Ziggy Rodriguez MD | Hand dermatitis | | | | [place] | [address] | | | | | [phone] | [place] | | | | | [phone] | [id number] | | | | | | | [...] + | [facility] | [address] | [place] | [phone] | | [facility] | | [id number] | | | - LABORATORY | | | | + + + + + | [facility] | [address] | [place] | | | [facility] | | [address] | | | - LABORATORY | | [...] + | [facility] | [address] | [place] | [phone] | | [facility] | | [address] | | | - LABORATORY | | | | + + + + + | [facility] | [address] | [place] | | | [facility] | | [address] | | | - LABORATORY | | | | + + + + + documented in this encounter Visit Diagnoses + + | Diagnosis | + + | Acne - Primary Other acne | + + | Hand dermatitis Contact dermatitis and other eczema, due to unspecified cause | + + documented in this encounter
--- OUTSIDE RECORDS SUMMARY | ~2019-09-01 | XMS | Encounter Summary ---
Demographics + + + | Address | [address] | | | [place] [address] | + + + | Home Phone | [email or web address] | + + + | Preferred Language | Unknown | + + + | Marital Status | Single | + + + | Druze Affiliation | Unknown | + + + | Race | Unknown | + + + | Ethnic Group | Unknown | + + + Author + + + | Author | [facility] | | | and [place] | + + + | Organization | [facility] | | | and [place] [...] Team Providers + +------+ + | Care Museum Docent Name | Role | Phone | + +------+ + | No, Physician | PCP | Unavailable | + +------+ + Encounter Details +--------+ + + + + | Date | Type | Department | Care Team | Description | +--------+ + + + + | 11/03/ | Hospital | [facility] | Arnulfo Torres, | Transaminasemia; | | 2016 - | Encounter | [facility] | MD Luis GILLETTE | Septic shock (HCC); | | | | CLINICAL DECISION | [place] [address] | Acute renal failure, | | 11/07/ | | [address] | [phone] | unspecified acute | | 2016 | | [place] | | renal failure type | | | | [address] | | (HCC); Lactic | | | | [phone] | | acidosis; | | | | [...] Service: Hospitalist Author Type: Physician Filed: 11/07/15 0260 Date of Service: 11/07/15 1220 Status: Addendum Thermostat Mechanic: Isaiah Powell MD (Physician) Related Notes: Original Note by Isaiah Powell MD (Physician) filed at 11/07/15 1556 [facility] Service: Hospitalist Discharge Summary Date of Admission: [...] our facility on November 03, 2015, from [facility] emergency department. The patient indicates that he had been injecting IV methamphetamine a nd had obtained the drug from a new provider. Approximately 4 hours after, he began feeling unwell. He consumed some alcohol, approximately 1 third of a bottle of whisky, then began de veloping generalized myalgias, shivers, shakes, and abdominal discomfort. He presented to [facility] emergency department. He was noted to be [...] was discussed over the phone with ID consulting networking engineer, being that there is no source th [...] subsequently could schedu le a referral to [facility] ID for evaluation. He again understood that [...] Value Units Date/Time Blood Culture Set 2 [[id number]] Collected: 11/03/152158 Specimen Information: Blood / Blood Updated: 11/05/15 07 Specimen Description BLOOD SPECIAL REQUESTS LAC SPECIAL REQUESTS Result: Testing performed at [facility];[address] [place] [address] CULTURE NO GROWTH AT THIS TIME Result: Testing performed at [facility], [address] [place] [address] Blood Culture Set 1 [[id number]] Collected: 11/03/152021 Specimen Information: Blood / Blood Updated: 11/05/15 0703 Specimen Description BLOOD SPECIAL REQUESTS RAC SPECIAL REQUESTS Result: Testing performed at [facility];[address];[place] [address] CULTURE NO GROWTH 2 DAYS Result: Testing performed at [facility], [address] [place] [address] Urine culture [[id number]] Collected: 11/03/152008 Specimen Information: Urine / Urine, Clean Catch Updated: 11/04/151925 Specimen Description URINE,CLEAN CATCH CULTURE NO GROWTH Result: Testing performed at [facility], [address] [place] [address] Disposition: Home Condition: Stable Code Status: Full Code No discharge procedures on file. 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 You may get the following medications from [...] Date of Service: 11/08/15 1115 Status: Signed Thermostat Mechanic: Corine Uribe RN (Registered Nurse) Patient case HCV reported to [facility]. Positive serology 11-06-15 onver misty Transaction, Provider Unknown - 11/07/2015 12:32 PM PST Nurse Progress Note by Tamika Ramirez RN at 11/07/15 1232 Author: Tamika Ramirez RN Service: (none) Author Type: Registered Nurse Filed: 11/07/15 1232 Date of Service: 11/07/15 1232 Status: Signed Thermostat Mechanic: Tamika Ramirez RN (Registered Nurse) Pt appears stable and ready for discharge. Tamika Calhoun onver misty Transaction, Provider Unknown - 11/06/2015 12:49 PM PST Case Management by Michaela Mckenzie RN at 11/06/15 7634 Author: Michaela Mckenzie RN Service: (none) Author Type: Registered Nurse Filed: 11/06/15 2063 Date of Service: 11/06/15 0749 Status: Signed Thermostat Mechanic: Michaela Mckenzie RN (Registered Nurse) Met with patient regarding drug and ETOH cessation and rehab facility resources. Patient s tates he has information regarding rehab facilities and declines additional information at t his time but is aware CM is available if needed. Patient denies additional discharge needs, stating family will provided transportation at d ischarge home to [place]. Isaiah Leung MD - 11/06/2015 12:40 PM PST Progress Notes by Isaiah Powell MD at 11/06/15 1240 Author: Isaiah Powell MD Service: Hospitalist Author Type: Physician Filed: 11/06/15 3653 Date of Service: 11/06/15 1243 Status: Signed Thermostat Mechanic: Isaiah Powell MD (Physician) Related Notes: Original Note by Isaiah Powell MD (Physician) filed at 11/06/15 7885 [facility] Service: Hospitalist Progress Note Hospital Day: LOS: 3 days Post-Op Day: * No surgery found * SUBJECTIVE Patient Summary: Per ICUH&P "The patient is a 25 y.o. male with significant past med ical history of Polysubstance abuse (alcohol, cocaine and IV methamphetamine use) presents with abdominal pain radiating to back and right shoulder, accompanied with nausea and vomiti ng. At [facility] ED he was afebrile but hypotensive (SBP 70-80) despite 8 liters of IVF. A CT of the abdomen showed periportal fluid and gallbladder fluid collection. An US With com plex fluid collection measuring 15 mm in thickness with multiple septations with concerns fo r infection. The gallbladder wall is mildly thickened and echogenic.Images reviewed with rad iologist consulting networking engineer at [facility]. At outside ED he received 8 [...] and ibuprofen. The patient was transferred from [facility] emergency department on . Limited records are available from [facility]. The patient indicates that he had been clean for approximately 1 to 2 weeks and then on November 03, 2015, he had injected methamphetamine IV. Then a few hours after he began feeling ill, he described the illness a s nausea, lower back pain, chills. He then presented to [facility] emergency depar tment where he was [...] attempt to obtain blood cultures from [facility]. At this point we will empirically continue [...] Disposition: Admitted Code Status: Full Code Isaiah Pwoell MD 11/06/2015 onversion Transact ion, Provider Unknown - 11/06/2015 7:33 AM PSTFormatting of this note might be different fr om the original. Nurse Progress Note by Graciela Bowie RN at 11/06/1574 Author: Graciela Bowie RN Service: (none) Author Type: Registered Nurse Filed: 11/06/1535 Date of Service: 11/06/15732 Status: Signed Thermostat Mechanic: Graciela Bowie RN (Registered Nurse) Patient resting [...] Notes by Azam Avilez MD at 11/05/15 7918 Author: Azam Avilez MD Service: Hospitalist Author Type: Physician Filed: 11/05/15 143 Date of Service: 11/05/151407 Status: Addendum Thermostat Mechanic: Azam Avilez MD (Physician) Related Notes: Original Note by Azam Avilez MD (Physician) filed at 11/05/15 1432 [facility] Service: Hospitalist Progress Note Hospital Day: LOS: 2 days Post-Op Day: * No surgery found * SUBJECTIVE Patient Summary: Per H&P "The patient is a 25 y.o. male with significant past medical history of Polysubstance abuse (alcohol, cocaine and IV methamphetamine use) presents with abdominal pain radiating to back and right shoulder, accompanied with nausea and vomiting. At [facility] ED he was afebrile but hypotensive (SBP 70-80) despite 8 liters of IVF. A CT of the abdomen showed periportal fluid and gallbladder fluid collection. An US With complex fluid collection measuring 15 mm in thickness with multiple septations with concerns for in fection. The gallbladder wall is mildly thickened and echogenic.Images reviewed with radiolo gist consulting networking engineer at [facility]. At outside ED he received 8 [...] 1243 Date of Service: 11/05/150 Status: Signed Thermostat Mechanic: Valerie Cunningham RN (Registered Nurse) Report called to Lead RN on 3OP. Assessment unchanged at this time. No c/o pain or discomf ort at this time. Pt transferred to [facility] via w/c and accompanied by CAR CARDER. VALERIE CUNNINGHAM RN onver misty Transaction, Provider Unknown - 11/05/2015 8:04 AM PST Progress Notes by Rebeca Galindo RPH at 11/05/15 0804 Author: Rebeca Galindo RPH Service: (none) Author Type: Pharmacist Filed: 11/05/15803 Date of Service: 11/05/15803 Status: Signed Thermostat Mechanic: Rebeca Galindo RPH (Pharmacist) vancomcyin day 3. [...] (none) Author Type: Registered Nurse Filed: 11/04/15 4677 Date of Service: 11/04/151249 Status: Signed Thermostat Mechanic: Alexia Harkins RN (Registered Nurse) Currently in nuclear medicine completing hyda scan. Patient's VSS. Levo weaned off at this time. onver misty Transaction, Provider Unknown - 11/04/2015 4:25 AM PST Progress Notes by Freddy Villalpando RPH at 11/04/15424 Author: Freddy Villalpando RPH Service: (none) Author Type: Pharmacist Filed: 11/04/15424 Date of Service: 11/04/15424 Status: Signed Thermostat Mechanic: Freddy Villalpando RPH (Pharmacist) Pharmacy vancomycin note [...] 11/04/1522 Date of Service: 11/04/1522 Status: Signed Thermostat Mechanic: Freddy Villalpando RPH (Pharmacist) Note ccl 72.9ml/min meds reviewed Pharmacy will follow rdc 0023 onver misty Transaction, Provider Unknown - 11/04/2015 12:21 AM PST Progress Notes by Freddy Villalpando RPH at 11/04/1520 Author: Freddy Villalpando RPH Service: (none) Author Type: Pharmacist Filed: 11/04/1520 Date of Service: 11/04/1520 Status: Signed Thermostat Mechanic: Freddy Villalpando RPH (Pharmacist) Zosyn Extended Infusion Initial Consult Jason Burrell 25 y.o. male Estimated Creatinine Clearance: 72.9 mL/min (by C-G formula based on Cr of 1.4). NEUTROPHILS ABS Date Value Ref Range Status 03/11/2015 3.72 1.90 - 7.40 K/uL Final Comment: Testing performed at [facility], [address] [place] [address] CREATININE Date Value Ref Range Status 11/03/2015 1.4* 0.70 - 1.30 mg/dL Final Comment: Testing performed at [facility];[address] [facility] [address];[place] [address] Zosyn extended Infusion loading and maintenance dose guidelines Loading Dose 4.5 g IV Over 30 minutes CrCl >20 ml/min 3.375 g IV Q 8 hours Over 4 hours CrCl 10-20 ml/min 3.375 g IV Q 12 hours Over 4 hours CrCl <10, HD, PD Follow [facility] Dosage Adjustments in Renal Dysfunction Protocol [...] WOODY Barrow LICSW Service: (none) Author Type: Refrigerator Mover Filed: 11/03/152213 Date of Service: 11/03/152209 Status: Signed Thermostat Mechanic: WOODY Barrow, FLIGHT ENGINEER MANAGER (Refrigerator Mover) 11/03/152206 Discharge Planning Evaluation Admitting Diagnosis Transaminasemia,Septic shock, Acute renal failure, unspecified acute r enal failure type, Lactic acidosis, Leukocytosis Readmission No Living Arrangements Family members Support Systems Family members Type of Residence Private residence House type House-1 story Independent with ADL's Yes Independent with Mobility Yes Home Care Services No Caregiver after Discharge No Mental Status Oriented Power of Roofer Applicator No Anticipated Discharge Plan Post Acute Care Needs None at this time Plan communicated to patient/family Yes Resources Financial concerns No Transportation issues No Prescription Plan Yes Name of Pharmacy [facility] in [place] Anticipated Disposition Facility Type Home Met with: patient and discussed discharge planning, Pt is a 25 y.o., male who was life flig hted into [facility] for emergent care. Lynne Burrell, , Patient's PCP is: Chelle Nelson Patient's insurance:[place] Coverage concerns:none expressed for medical, but he is concerned about the Life Flight. Medication coverage/concerns:none expressed [facility] Bedside Delivery: Community resources utilized / needed: [...] | | | | | performed at [facility] | | | | | | [facility];[place], [place] | | | | | | [address] | | | | + + + [...] | | | | | | at [facility];[address] [place] [address] | | | | | | [facility];[place] [address] | | | | + + + [...] EXTERNAL | | | | performed at [facility];[address] | K/uL | LAB | | | | [address];[place] | | | | | | [address] | | | | + + + + + + | RED CELL | 4.58Comment: Testing | 4.20 - 5.70 | EXTERNAL | | | COUNT | performed at [facility];[address] | M/uL | LAB | | | | [address];[place] | | | | | | [address] | | | | + + + + + + | Hgb | 13.6Comment: Testing | 13.2 - 17.0 | EXTERNAL | | | | performed at [facility];[address] | g/dL | LAB | | | | [address];[place] | | | | | | [address] | | | | + + + + + + | Hematocrit, | 39.6Comment: Testing | 39.0 - 50.0 % | EXTERNAL | | | POC | performed at [facility];[address] | | LAB | | | | [address];[place] | | | | | | [address] | | | | + + + + + + | MCV | 86.5Comment: Testing | 80.0 - 100.0 fl | EXTERNAL | | | | performed at [facility];[address] | | LAB | | | | [address];[place] | | | | | | [address] | | | | + + + + + + | MCH | 29.7Comment: Testing | 27.0 - 34.0 pg | EXTERNAL | | | | performed at [facility];[address] | | LAB | | | | [address];[place] | | | | | | [address] | | | | + + + + + + | MCHC | 34.3Comment: Testing | 32.0 - 35.5 | EXTERNAL | | | | performed at [facility];[address] | g/dL | LAB | | | | [address];[place] | | | | | | [address] | | | | + + + + + + | RDW-CV | 41.6Comment: Testing | 37 - 53 fl | EXTERNAL | | | | performed at [facility];[address] | | LAB | | | | [address];[place] | | | | | | [address] | | | | + + + + + + | Platelet | 161Comment: Testing | 150 - 400 K/uL | EXTERNAL | | | Count | performed at [facility];[address] | | LAB | | | Plasma | [address];[place] | | | | | | [address] | | | | + + + + + + | MPV | 7.3Comment: Testing | fl | EXTERNAL | | | | performed at [facility];[address] | | LAB | | | | [address];[place] | | | | | | [address] | | | | + + + + + + | Differentia | AUTOMATEDComment: | | EXTERNAL | | | l Type | Testing performed at | | LAB | | | | [facility];[address];[place] [address] | | | | + + + + + + | % Segmented | 65.98Comment: Testing | % | EXTERNAL | | | | performed at [facility];[address] | | LAB | | | Neutrophils | [address];[place] | | | | | | [address] | | | | + + + + + + | % | 23.19Comment: Testing | % | EXTERNAL | | | Lymphocytes | performed at [facility];[address] | | LAB | | | | [address];[place] | | | | | | [address] | | | | + + + + + + | % Monocytes | 8.43Comment: Testing | % | EXTERNAL | | | | performed at [facility];[address] | | LAB | | | | [address];[place] | | | | | | [address] | | | | + + + + + + | % | 1.53Comment: Testing | % | EXTERNAL | | | Eosinophils | performed at [facility];[address] | | LAB | | | | [address];[place] | | | | | | [address] | | | | + + + + + + | % Basophils | 0.87Comment: Testing | % | EXTERNAL | | | | performed at [facility];[address] | | LAB | | | | [address];[place] | | | | | | [address] | | | | + + + + + + | Absolute | 3.48Comment: Testing | 1.90 - 7.40 | EXTERNAL | | | Segmented | performed at [facility];[address] | K/uL | LAB | | | Neutrophils | [address];[place] | | | | | | [address] | | | | + + + + + + | Absolute | 1.23Comment: Testing | 1.00 - 3.90 | EXTERNAL | | | Lymphocytes | performed at [facility];[address] | K/uL | LAB | | | | [address];[place] | | | | | | [address] | | | | + + + + + + | Absolute | 0.45Comment: Testing | 0.00 - 0.80 | EXTERNAL | | | Monocytes | performed at [facility];[address] | K/uL | LAB | | | | [address];[place] | | | | | | [address] | | | | + + + + + + | Absolute | 0.08Comment: Testing | 0.00 - 0.50 | EXTERNAL | | | Eosinophils | performed at [facility];[address] | K/uL | LAB | | | | [address];[place] | | | | | | [address] | | | | + + + + + + | Absolute | 0.05Comment: Testing | 0.00 - 0.10 | EXTERNAL | | | Basophils | performed at [facility];[address] | K/uL | LAB | | | | [address];[place] | | | | | | [address] | | | | + + + [...] EXTERNAL | | | | performed at [facility];[address] | | LAB | | | | [address];[place], [place] | | | | | | [address] | | | | + + + [...] EXTERNAL | | | | performed at [facility];[address] | | LAB | | | | [address];[place], [place] | | | | | | [address] | | | | + + + [...] | | | Total | performed at [facility];[address] | | LAB | | | | [address];[place] | | | | | | [address] | | | | + + + + + + | Albumin | 2.8 (L)Comment: Testing | 3.6 - 5.0 g/dL | EXTERNAL | | | | performed at [facility];[address] | | LAB | | | | [address];[place] | | | | | | [address] | | | | + + + + + + | Bilirubin | 2.4 (H)Comment: Testing | 0.1 - 1.5 mg/dL | EXTERNAL | | | Total | performed at [facility];[address] | | LAB | | | | [address];[place] | | | | | | [address] | | | | + + + + + + | Bilirubin | 1.5 (H)Comment: Testing | 0.0 - 0.3 mg/dL | EXTERNAL | | | Direct | performed at [facility];[address] | | LAB | | | | [address];[place] | | | | | | [address] | | | | + + + + + + | ALP, | 111Comment: Testing | 35 - 115 U/L | EXTERNAL | | | External | performed at [facility];[address] | | LAB | | | | [address];[place] | | | | | | [address] | | | | + + + + + + | AST | 240 (H)Comment: Testing | 10 - 45 U/L | EXTERNAL | | | | performed at [facility];[address] | | LAB | | | | [address];[place] | | | | | | [address] | | | | + + + + + + | ALT | 383 (H)Comment: Testing | 10 - 65 U/L | EXTERNAL | | | | performed at [facility];[address] | | LAB | | | | [address];[place], [place] | | | | | | [address] | | | | + + + [...] EXTERNAL | | | | performed at [facility];[address] | mmol/L | LAB | | | | [address];[place] | | | | | | [address] | | | | + + + + + + | K | 3.6Comment: Testing | 3.5 - 4.9 | EXTERNAL | | | | performed at [facility];[address] | mmol/L | LAB | | | | [address];[place] | | | | | | [address] | | | | + + + + + + | Cl | 106Comment: Testing | 99 - 109 mmol/L | EXTERNAL | | | | performed at [facility];[address] | | LAB | | | | [address];[place] | | | | | | [address] | | | | + + + + + + | CO2 | 27Comment: Testing | 23 - 32 mmol/L | EXTERNAL | | | | performed at [facility];[address] | | LAB | | | | [address];[place] | | | | | | [address] | | | | + + + + + + | Anion Gap | 11Comment: Testing | 5 - 20 mmol/L | EXTERNAL | | | | performed at [facility];[address] | | LAB | | | | [address];[place] | | | | | | [address] | | | | + + + + + + | Glucose, | 100 (H)Comment: Testing | 65 - 99 mg/dL | EXTERNAL | | | Fasting | performed at [facility];[address] | | LAB | | | | [address];[place] | | | | | | [address] | | | | + + + + + + | BUN | 5 (L)Comment: Testing | 8 - 25 mg/dL | EXTERNAL | | | | performed at [facility];[address] | | LAB | | | | [address];[place] | | | | | | [address] | | | | + + + + + + | Creatinine | 0.75Comment: Testing | 0.70 - 1.30 | EXTERNAL | | | | performed at [facility];[address] | mg/dL | LAB | | | | [address];[place] | | | | | | [address] | | | | + + + + + + | BUN/Creatin | 6Comment: Testing | | EXTERNAL | | | ine Ratio | performed at [facility];[address] | | LAB | | | | [address];[place] | | | | | | [address] | | | | + + + + + + | Calcium | 7.9 (L)Comment: Testing | 8.5 - 10.5 | EXTERNAL | | | | performed at [facility];[address] | mg/dL | LAB | | | | [address];[place], [place] | | | | | | [address] | | | | + + + [...] | | | | | | at [facility];[address] [place] [address] | | | | | | Blvd;[place] [address] | | | | + + + [...] EXTERNAL | | | | performed at [facility], [address] | mmol/L | LAB | | | | [address], | | | | | | [place] [address] | | | | + + + [...] [place], | | | | | | [place], [place] [address] | | | | + + + [...] | | LAB | | | | [facility];[address] | [address];[place] [address] | | | | + + + [...] | | | | | | DETERMINEDBY [facility] | | | | | | [facility]ISION [...] | | | | | performed at [facility], [address] | | | | | | [facility] | | | | | | [place] [address] | | | | + + + [...] LAB | | | | [address] | | | | | | [place] [address] | | | | + + + + + + | HCV | [id number] (A)Comment: | IU/mL | EXTERNAL | | [...] | | | | | performed at [facility], [address] | | | | | | [facility] | | | | | | [place] [address] | | | | + + + [...] | | | | | performed at [facility] | | | | | | [facility];[place], [place] | | | | | | [address] | | | | + + + [...] | | | | | | [place] | | | | | | [address] | | | | + + + + + + | HEP B | NON REACTIVEComment: | | EXTERNAL | | | SURFACE | Testing performed at | | LAB | | | ANTIBODY | [facility], [address] [facility] | | | | | | [place] | | | | | | [address] | | | | + + + + + + | HEP B CORE | NON REACTIVEComment: | | EXTERNAL | | | IgM | Testing performed at | | LAB | | | | [facility], [address] [facility] | | | | | | [place] | | | | | | [address] | | | | + + + + + + | HCV Ab | REACTIVE (A)Comment: | | EXTERNAL | | | | THIS IS A REPORTABLE | | LAB | | | | DISEASE. PLEASE | | | | | | CONTACT YOUR | | | | | | [facility] | | | | | | DEPARTMENT.Testing | | | | | | performed at [facility], [address] | | | | | | [facility] [place], | | | | | | [place] [address] | | | | + + + [...] at | | | | | | [facility], [address] [facility] | | | | | | [place] | | | | | | [address] | | | | + + + [...] EXTERNAL | | | | performed at [facility], [address] | K/uL | LAB | | | | [address], | | | | | | [place] [address] | | | | + + + + + + | RED CELL | 4.19 (L)Comment: Testing | 4.20 - 5.70 | EXTERNAL | | | COUNT | performed at [facility], [address] | M/uL | LAB | | | | [address], | | | | | | [place] [address] | | | | + + + + + + | Hgb | 12.5 (L)Comment: Testing | 13.2 - 17.0 | EXTERNAL | | | | performed at [facility], [address] | g/dL | LAB | | | | [address], | | | | | | [place] [address] | | | | + + + + + + | Hematocrit, | 37.1 (L)Comment: Testing | 39.0 - 50.0 % | EXTERNAL | | | POC | performed at [facility], [address] | | LAB | | | | [address], | | | | | | [place] [address] | | | | + + + + + + | MCV | 88.5Comment: Testing | 80.0 - 100.0 fl | EXTERNAL | | | | performed at [facility], [address] | | LAB | | | | [address], | | | | | | [place] [address] | | | | + + + + + + | MCH | 29.9Comment: Testing | 27.0 - 34.0 pg | EXTERNAL | | | | performed at [facility], [address] | | LAB | | | | [address], | | | | | | [place] [address] | | | | + + + + + + | MCHC | 33.8Comment: Testing | 32.0 - 35.5 | EXTERNAL | | | | performed at [facility], [address] | g/dL | LAB | | | | [address], | | | | | | [place] [address] | | | | + + + + + + | RDW-CV | 42.4Comment: Testing | 37 - 53 fl | EXTERNAL | | | | performed at [facility], [address] | | LAB | | | | [address], | | | | | | [place] [address] | | | | + + + + + + | Platelet | 111 (L)Comment: Testing | 150 - 400 K/uL | EXTERNAL | | | Count | performed at [facility], [address] | | LAB | | | Plasma | [address], | | | | | | [place] [address] | | | | + + + + + + | MPV | 7.9Comment: Testing | fl | EXTERNAL | | | | performed at [facility], [address] | | LAB | | | | [address], | | | | | | [place] [address] | | | | + + + + + + | Differentia | AUTOMATEDComment: | | EXTERNAL | | | l Type | Testing performed at | | LAB | | | | [facility], [address] | | | | | | [place] | | | | | | [address] | | | | + + + + + + | % Segmented | 79.24Comment: Testing | % | EXTERNAL | | | | performed at [facility], [address] | | LAB | | | Neutrophils | [address], | | | | | | [place] [address] | | | | + + + + + + | % | 14.46Comment: Testing | % | EXTERNAL | | | Lymphocytes | performed at [facility], [address] | | LAB | | | | [address], | | | | | | [place] [address] | | | | + + + + + + | % Monocytes | 5.58Comment: Testing | % | EXTERNAL | | | | performed at [facility], [address] | | LAB | | | | [address], | | | | | | [place] [address] | | | | + + + + + + | % | 0.32Comment: Testing | % | EXTERNAL | | | Eosinophils | performed at [facility], [address] | | LAB | | | | [address], | | | | | | [place] [address] | | | | + + + + + + | % Basophils | 0.40Comment: Testing | % | EXTERNAL | | | | performed at [facility], [address] | | LAB | | | | [address], | | | | | | [place] [address] | | | | + + + + + + | Absolute | 7.56 (H)Comment: Testing | 1.90 - 7.40 | EXTERNAL | | | Segmented | performed at [facility], [address] | K/uL | LAB | | | Neutrophils | [address], | | | | | | [place] [address] | | | | + + + + + + | Absolute | 1.38Comment: Testing | 1.00 - 3.90 | EXTERNAL | | | Lymphocytes | performed at [facility], [address] | K/uL | LAB | | | | [address], | | | | | | [place] [address] | | | | + + + + + + | Absolute | 0.53Comment: Testing | 0.00 - 0.80 | EXTERNAL | | | Monocytes | performed at [facility], [address] | K/uL | LAB | | | | [address], | | | | | | [place] [address] | | | | + + + + + + | Absolute | 0.03Comment: Testing | 0.00 - 0.50 | EXTERNAL | | | Eosinophils | performed at [facility], [address] | K/uL | LAB | | | | [address], | | | | | | [place] [address] | | | | + + + + + + | Absolute | 0.04Comment: Testing | 0.00 - 0.10 | EXTERNAL | | | Basophils | performed at [facility], [address] | K/uL | LAB | | | | [address], | | | | | | [place] [address] | | | | + + + [...] | | | | | [place] [address] | | | | + + + [...] EXTERNAL | | | | performed at [facility], [address] | | LAB | | | | [address], | | | | | | [place] [address] | | | | + + + [...] | | | | | [place] [address] | | | | + + + + + + | Albumin | 3.0 (L)Comment: Testing | 3.6 - 5.0 g/dL | EXTERNAL | | | | performed at [facility], [address] | | LAB | | | | [address], | | | | | | [place] [address] | | | | + + + + + + | Bilirubin | 2.2 (H)Comment: Testing | 0.1 - 1.5 mg/dL | EXTERNAL | | | Total | performed at [facility], [address] | | LAB | | | | [address], | | | | | | [place] [address] | | | | + + + + + + | Bilirubin | 1.5 (H)Comment: Testing | 0.0 - 0.3 mg/dL | EXTERNAL | | | Direct | performed at [facility], [address] | | LAB | | | | [address], | | | | | | [place] [address] | | | | + + + + + + | ALP, | 81Comment: Testing | 35 - 115 U/L | EXTERNAL | | | External | performed at [facility], [address] | | LAB | | | | [address], | | | | | | [place] [address] | | | | + + + + + + | AST | 93 (H)Comment: Testing | 10 - 45 U/L | EXTERNAL | | | | performed at [facility], [address] | | LAB | | | | [address], | | | | | | [place] [address] | | | | + + + + + + | ALT | 214 (H)Comment: Testing | 10 - 65 U/L | EXTERNAL | | | | performed at [facility], [address] | | LAB | | | [address], | | | | | | [place] [address] | | | | + + + [...] | | | | | [place] [address] | | | | + + + + + + | K | 3.4 (L)Comment: Testing | 3.5 - 4.9 | EXTERNAL | | | | performed at [facility], [address] | mmol/L | LAB | | | | [address], | | | | | | [place] [address] | | | | + + + + + + | Cl | 108Comment: Testing | 99 - 109 mmol/L | EXTERNAL | | | | performed at [facility], [address] | | LAB | | | | [address], | | | | | | [place] [address] | | | | + + + + + + | CO2 | 24Comment: Testing | 23 - 32 mmol/L | EXTERNAL | | | | performed at [facility], [address] | | LAB | | | | [address], | | | | | | [place] [address] | | | | + + + + + + | Anion Gap | 9Comment: Testing | 5 - 20 mmol/L | EXTERNAL | | | | performed at [facility], [address] | | LAB | | | | [address], | | | | | | [place] [address] | | | | + + + + + + | Glucose, | 90Comment: Testing | 65 - 99 mg/dL | EXTERNAL | | | Fasting | performed at [facility], [address] | | LAB | | | | [address], | | | | | | [place] [address] | | | | + + + + + + | BUN | 4 (L)Comment: Testing | 8 - 25 mg/dL | EXTERNAL | | | | performed at [facility], [address] | | LAB | | | | [address], | | | | | | [place] [address] | | | | + + + + + + | Creatinine | 0.69 (L)Comment: Testing | 0.70 - 1.30 | EXTERNAL | | | | performed at [facility], [address] | mg/dL | LAB | | | | [address], | | | | | | [place] [address] | | | | + + + + + + | BUN/Creatin | 6Comment: Testing | | EXTERNAL | | | ine Ratio | performed at [facility], [address] | | LAB | | | | [address], | | | | | | [place] [address] | | | | + + + + + + | Calcium | 8.1 (L)Comment: Testing | 8.5 - 10.5 | EXTERNAL | | | | performed at [facility], [address] | mg/dL | LAB | | | | [address], | | | | | | [place] [address] | | | | + + + [...] | | | | | | at [facility], [address] | | | | | | [address], | | | | | | [place] [address] | | | | + + + [...] | | | | | | [place] [address] | | | | + + + [...] EXTERNAL | | | | performed at [facility], [address] | | LAB | | | | [address], | | | | | | [place] [address] | | | | + + + [...] EXTERNAL | | | | performed at [facility], [address] | | LAB | | | | [address], | | | | | | [place] [address] | | | | + + + [...] | | | | | performed at [facility];[address] | | | | | | [address] [facility];[place], [place] | | | | | | [address] | | | | + + + [...] [place] | | | | | | [address] | | | | + + + + + + | RED CELL | 4.23Comment: Testing | 4.20 - 5.70 | EXTERNAL | | | COUNT | performed at [facility], [address] | M/uL | LAB | | | | [address], | | | | | | [place] [address] | | | | + + + + + + | Hgb | 12.6 (L)Comment: Testing | 13.2 - 17.0 | EXTERNAL | | | | performed at [facility], [address] | g/dL | LAB | | | | [address], | | | | | | [place] [address] | | | | + + + + + + | Hematocrit, | 37.5 (L)Comment: Testing | 39.0 - 50.0 % | EXTERNAL | | | POC | performed at [facility], [address] | | LAB | | | | [address], | | | | | | [place] [address] | | | | + + + + + + | MCV | 88.6Comment: Testing | 80.0 - 100.0 fl | EXTERNAL | | | | performed at [facility], [address] | | LAB | | | | [address], | | | | | | [place] [address] | | | | + + + + + + | MCH | 29.6Comment: Testing | 27.0 - 34.0 pg | EXTERNAL | | | | performed at [facility], [address] | | LAB | | | | [address], | | | | | | [place] [address] | | | | + + + + + + | MCHC | 33.4Comment: Testing | 32.0 - 35.5 | EXTERNAL | | | | performed at [facility], [address] | g/dL | LAB | | | | [address], | | | | | | [place] [address] | | | | + + + + + + | RDW-CV | 42.0Comment: Testing | 37 - 53 fl | EXTERNAL | | | | performed at [facility], [address] | | LAB | | | | [address], | | | | | | [place] [address] | | | | + + + + + + | Platelet | 111 (L)Comment: Testing | 150 - 400 K/uL | EXTERNAL | | | Count | performed at [facility], [address] | | LAB | | | Plasma | [address], | | | | | | [place] [address] | | | | + + + + + + | MPV | 8.0Comment: Testing | fl | EXTERNAL | | | | performed at [facility], [address] | | LAB | | | | [address], | | | | | | [place] [address] | | | | + + + + + + | Differentia | AUTOMATEDComment: | | EXTERNAL | | | l Type | Testing performed at | | LAB | | | | [facility], [address] | | | | | | [place] | | | | | | [address] | | | | + + + + + + | % Segmented | 82.63Comment: Testing | % | EXTERNAL | | | | performed at [facility], [address] | | LAB | | | Neutrophils | [address], | | | | | | [place] [address] | | | | + + + + + + | % | 9.49Comment: Testing | % | EXTERNAL | | | Lymphocytes | performed at [facility], [address] | | LAB | | | | [address], | | | | | | [place] [address] | | | | + + + + + + | % Monocytes | 6.50Comment: Testing | % | EXTERNAL | | | | performed at [facility], [address] | | LAB | | | | [address], | | | | | | [place] [address] | | | | + + + + + + | % | 1.02Comment: Testing | % | EXTERNAL | | | Eosinophils | performed at [facility], [address] | | LAB | | | | [address], | | | | | | [place] [address] | | | | + + + + + + | % Basophils | 0.36Comment: Testing | % | EXTERNAL | | | | performed at [facility], [address] | | LAB | | | | [address], | | | | | | [place] [address] | | | | + + + + + + | Absolute | 13.13 (H)Comment: | 1.90 - 7.40 | EXTERNAL | | | Segmented | Testing performed at | K/uL | LAB | | | Neutrophils | [facility], [address] | | | | | | [place] | | | | | | [address] | | | | + + + + + + | Absolute | 1.51Comment: Testing | 1.00 - 3.90 | EXTERNAL | | | Lymphocytes | performed at [facility], [address] | K/uL | LAB | | | | [address], | | | | | | [place] [address] | | | | + + + + + + | Absolute | 1.03 (H)Comment: Testing | 0.00 - 0.80 | EXTERNAL | | | Monocytes | performed at [facility], [address] | K/uL | LAB | | | | [address], | | | | | | [place] [address] | | | | + + + + + + | Absolute | 0.16Comment: Testing | 0.00 - 0.50 | EXTERNAL | | | Eosinophils | performed at [facility], [address] | K/uL | LAB | | | | [address], | | | | | | [place] [address] | | | | + + + + + + | Absolute | 0.06Comment: Testing | 0.00 - 0.10 | EXTERNAL | | | Basophils | performed at [facility], [address] | K/uL | LAB | | | | [address], | | | | | | [place] [address] | | | | + + + [...] | | | | | [place] [address] | | | | + + + [...] EXTERNAL | | | | performed at [facility], [address] | | LAB | | | | [address], | | | | | | [place] [address] | | | | + + + [...] | | | Total | performed at [facility], [address] | | LAB | | | | [address], | | | | | | [place] [address] | | | | + + + + + + | Albumin | 3.0 (L)Comment: Testing | 3.6 - 5.0 g/dL | EXTERNAL | | | | performed at [facility], [address] | | LAB | | | | [address], | | | | | | [place] [address] | | | | + + + + + + | Bilirubin | 2.9 (H)Comment: Testing | 0.1 - 1.5 mg/dL | EXTERNAL | | | Total | performed at [facility], [address] | | LAB | | | | [address], | | | | | | [place] [address] | | | | + + + + + + | Bilirubin | 2.0 (H)Comment: Testing | 0.0 - 0.3 mg/dL | EXTERNAL | | | Direct | performed at [facility], [address] | | LAB | | | | [address], | | | | | | [place] [address] | | | | + + + + + + | ALP, | 88Comment: Testing | 35 - 115 U/L | EXTERNAL | | | External | performed at [facility], [address] | | LAB | | | | [address], | | | | | | [place] [address] | | | | + + + + + + | AST | 128 (H)Comment: Testing | 10 - 45 U/L | EXTERNAL | | | | performed at [facility], [address] | | LAB | | | | [address], | | | | | | [place] [address] | | | | + + + + + + | ALT | 268 (H)Comment: Testing | 10 - 65 U/L | EXTERNAL | | | | performed at [facility], [address] | | LAB | | | | [address], | | | | | | [place] [address] | | | | + + + [...] | | | | | [place] [address] | | | | + + + + + + | K | 3.4 (L)Comment: Testing | 3.5 - 4.9 | EXTERNAL | | | | performed at [facility], [address] | mmol/L | LAB | | | | [address], | | | | | | [place] [address] | | | | + + + + + + | Cl | 107Comment: Testing | 99 - 109 mmol/L | EXTERNAL | | | | performed at [facility], [address] | | LAB | | | | [address], | | | | | | [place] [address] | | | | + + + + + + | CO2 | 22 (L)Comment: Testing | 23 - 32 mmol/L | EXTERNAL | | | | performed at [facility], [address] | | LAB | | | | [address], | | | | | | [place] [address] | | | | + + + + + + | Anion Gap | 10Comment: Testing | 5 - 20 mmol/L | EXTERNAL | | | | performed at [facility], [address] | | LAB | | | | [address], | | | | | | [place] [address] | | | | + + + + + + | Glucose, | 79Comment: Testing | 65 - 99 mg/dL | EXTERNAL | | | Fasting | performed at [facility], [address] | | LAB | | | | [address], | | | | | | [place] [address] | | | | + + + + + + | BUN | 9Comment: Testing | 8 - 25 mg/dL | EXTERNAL | | | | performed at [facility], [address] | | LAB | | | | [address], | | | | | | [place] [address] | | | | + + + + + + | Creatinine | 0.81Comment: Testing | 0.70 - 1.30 | EXTERNAL | | | | performed at [facility], [address] | mg/dL | LAB | | | | [address], | | | | | | [place] [address] | | | | + + + + + + | BUN/Creatin | 11Comment: Testing | | EXTERNAL | | | ine Ratio | performed at [facility], [address] | | LAB | | | | [address], | | | | | | [place] [address] | | | | + + + + + + | Calcium | 8.2 (L)Comment: Testing | 8.5 - 10.5 | EXTERNAL | | | | performed at [facility], [address] | mg/dL | LAB | | | | [address], | | | | | | [place] [address] | | | | + + + [...] | | | | | | [place] [address] | | | | + + + [...] EXTERNAL | | | | performed at [facility];[address] | mmol/L | LAB | | | | [address];[place], [place] | | | | | | [address] | | | | + + + [...] Conversion - 05/04/2019 2:10 PM PDT JASON BURRELLFL HEPATOBILIARY SCAN | | WITH CCK11/04/2015 1:28 [...] EXTERNAL | | | | performed at [facility];[address] | mmol/L | LAB | | | | [address];[place], [place] | | | | | | [address] | | | | + + + [...] EXTERNAL | | | | performed at [facility];[address] | mmol/L | LAB | | | | [address];[place], [place] | | | | | | [address] | | | | + + + [...] | | | | | performed at [facility] | | | | | | [address];[place], [place] | | | | | | [address] | | | | + + + [...] EXTERNAL | | | | performed at [facility];[address] | | LAB | | | | [address];[place], [place] | | | | | | [address] | | | | + + + [...] EXTERNAL | | | | performed at [facility];[address] | | LAB | | | | [address];[place], [place] | | | | | | [address] | | | | + + + [...] | | | Total | performed at [facility];[address] | | LAB | | | | [address];[place] | | | | | | [address] | | | | + + + + + + | Albumin | 2.5 (L)Comment: Testing | 3.6 - 5.0 g/dL | EXTERNAL | | | | performed at [facility];[address] | | LAB | | | | [address];[place] | | | | | | [address] | | | | + + + + + + | Bilirubin | 3.0 (H)Comment: Testing | 0.1 - 1.5 mg/dL | EXTERNAL | | | Total | performed at [facility];[address] | | LAB | | | | [address];[place] | | | | | | [address] | | | | + + + + + + | Bilirubin | 2.0 (H)Comment: Testing | 0.0 - 0.3 mg/dL | EXTERNAL | | | Direct | performed at [facility];[address] | | LAB | | | | [address];[place] | | | | | | [address] | | | | + + + + + + | ALP, | 85Comment: Testing | 35 - 115 U/L | EXTERNAL | | | External | performed at [facility];[address] | | LAB | | | | [address];[place] | | | | | | [address] | | | | + + + + + + | AST | 168 (H)Comment: Testing | 10 - 45 U/L | EXTERNAL | | | | performed at [facility];[address] | | LAB | | | | [address];[place] | | | | | | [address] | | | | + + + + + + | ALT | 371 (H)Comment: Testing | 10 - 65 U/L | EXTERNAL | | | | performed at [facility];[address] | | LAB | | | | [address];[place] | | | | | | [address] | | | | + + + [...] EXTERNAL | | | | performed at [facility];[address] | mmol/L | LAB | | | | [address];[place] | | | | | | [address] | | | | + + + [...] NEGATIVE Testing | | | performed at [facility];[address] [place] [address];[place] [address] | | + + + + +---------+ [...] LAC | | | Testing performed at [facility];[address] | | [address];[place] [address] CULTURE | | | NO GROWTH 6 DAYS | | | Testing performed at [facility], [address] [place], [place] | | | [address] | | + + + + +---------+ [...] RAC | | | Testing performed at [facility];[address] [facility] | | | Blvd;[place] [address] CULTURE | | | NO GROWTH 6 DAYS | | | Testing performed at [facility], [address], [place] | | | [address] | | + + + + +---------+ [...] EXTERNAL | | | | performed at [facility];[address] | mmol/L | LAB | | | | [address];[place], [place] | | | | | | [address] | | | | + + + [...] | | | | | | at [facility];[address] | | [address];[place] [address] | | | | + + + [...] K/uL | LAB | | | | [facility];[address];[place] [address] | | | | + + + + + -+ | RED CELL | 4.42Comment: Testing | 4.20 - 5.70 | EXTERNAL | | | COUNT | performed at [facility];[address] | M/uL | LAB | | | | [address];[place] | | | | | | [address] | | | | + + + + + -+ | Hgb | 12.8 (L)Comment: Testing | 13.2 - 17.0 | EXTERNAL | | | | performed at [facility];[address] | g/dL | LAB | | | | [address];[place] | | | | | | [address] | | | | + + + + + -+ | Hematocrit, | 38.8 (L)Comment: Testing | 39.0 - 50.0 % | EXTERNAL | | | POC | performed at [facility];[address] | | LAB | | | | [address];[place] | | | | | | [address] | | | | + + + + + -+ | MCV | 87.7Comment: Testing | 80.0 - 100.0 fl | EXTERNAL | | | | performed at [facility];[address] | | LAB | | | | [address];[place] | | | | | | [address] | | | | + + + + + -+ | MCH | 29.0Comment: Testing | 27.0 - 34.0 pg | EXTERNAL | | | | performed at [facility];[address] | | LAB | | | | [address];[place] | | | | | | [address] | | | | + + + + + -+ | MCHC | 33.1Comment: Testing | 32.0 - 35.5 | EXTERNAL | | | | performed at [facility];888 | g/dL | LAB | | | | [address];[place] | | | | | | [address] | | | | + + + + + -+ | RDW-CV | 42.0Comment: Testing | 37 - 53 fl | EXTERNAL | | | | performed at [facility];[address] | | LAB | | | | [address];[place] | | | | | | [address] | | | | + + + + + -+ | Platelet | 138 (L)Comment: Testing | 150 - 400 K/uL | EXTERNAL | | | Count | performed at [facility];[address] | | LAB | | | Plasma | [address];[place] | | | | | | [address] | | | | + + + + + -+ | MPV | 7.0Comment: Testing | fl | EXTERNAL | | | | performed at [facility];[address] | | LAB | | | | [address];[place] | | | | | | [address] | | | | + + + + + -+ | Differentia | MANUALComment: Testing | | EXTERNAL | | | l Type | performed at [facility];[address] | | LAB | | | | [address];[place] | | | | | | [address] | | | | + + + + + -+ | Segmented | 80Comment: Testing | % | EXTERNAL | | | Neutrophils | performed at [facility];[address] | | LAB | | | Manual | [address];[place] | | | | | | [address] | | | | + + + + + -+ | % Bands | 7Comment: Testing | % | EXTERNAL | | | | performed at [facility];[address] | | LAB | | | | [address];[place] | | | | | | [address] | | | | + + + + + -+ | Lymphocytes | 8Comment: Testing | % | EXTERNAL | | | Manual | performed at [facility];[address] | | LAB | | | | [address];[place] | | | | | | [address] | | | | + + + + + -+ | Monocytes | 5Comment: Testing | % | EXTERNAL | | | Manual | performed at [facility];[address] | | LAB | | | | [address];[place] | | | | | | [address] | | | | + + + + + -+ | Absolute | 15.35 (H)Comment: | 1.90 - 7.40 | EXTERNAL | | | Neutrophils | Testing performed at | K/uL | LAB | | | | [facility];[address];[place] [address] | | | | + + + + + -+ | Bands | 1.34 (H)Comment: Testing | 0.00 - 0.20 | EXTERNAL | | | Manual | performed at [facility];[address] | K/uL | LAB | | | | [address];[place] | | | | | | [address] | | | | + + + + + -+ | Absolute | 1.53Comment: Testing | 1.00 - 3.90 | EXTERNAL | | | Lymphocytes | performed at [facility];[address] | K/uL | LAB | | | | [address];[place] | | | | | | [address] | | | | + + + + + -+ | Absolute | 0.96 (H)Comment: Testing | 0.00 - 0.80 | EXTERNAL | | | Monocytes | performed at [facility];[address] | [address] | LAB | | | | [address];[place] | | | | | | [address] | | | | + + + + + -+ | Platelet | ADEQUATEComment: Testing | | EXTERNAL | | | Estimate | performed at [facility];[address] | | LAB | | | | [address];[place] | | | | | | [address] | | | | + + + + + -+ | RBC | RBC AND PLT MORPHOLOGY | | EXTERNAL | | | Morphology | APPEAR NORMALComment: | | LAB | | | | Testing performed at | | | | | | [facility];[address];[place] [address] | | | | + + + + + -+ | Na | 141Comment: Testing | 135 - 143 | EXTERNAL | | | | performed at [facility];888 | mmol/L | LAB | | | | [address];[place] | | | | | | [address] | | | | + + + + + -+ | K | 4.3Comment: Testing | 3.5 - 4.9 | EXTERNAL | | | | performed at [facility];[address] | mmol/L | LAB | | | | [address];[place] | | | | | | [address] | | | | + + + + + -+ | Cl | 112 (H)Comment: Testing | 99 - 109 mmol/L | EXTERNAL | | | | performed at [facility];[address] | | LAB | | | | [address];[place] | | | | | | [address] | | | | + + + + + -+ | CO2 | 21 (L)Comment: Testing | 23 - 32 mmol/L | EXTERNAL | | | | performed at [facility];[address] | | LAB | | | | [address];[place] | | | | | | [address] | | | | + + + + + -+ | Anion Gap | 11Comment: Testing | 5 - 20 mmol/L | EXTERNAL | | | | performed at [facility];[address] | | LAB | | | | [address];[place] | | | | | | [address] | | | | + + + + + -+ | Glucose, | 96Comment: Testing | 65 - 99 mg/dL | EXTERNAL | | | Fasting | performed at [facility];[address] | | LAB | | | | [address];[place] | | | | | | [address] | | | | + + + + + -+ | BUN | 17Comment: Testing | 8 - 25 mg/dL | EXTERNAL | | | | performed at [facility];[address] | | LAB | | | | [address];[place] | | | | | | [address] | | | | + + + + + -+ | Creatinine | 1.4 (H)Comment: Testing | 0.70 - 1.30 | EXTERNAL | | | | performed at [facility];888 | mg/dL | LAB | | | | [address];[place] | | | | | | [address] | | | | + + + + + -+ | BUN/Creatin | 12Comment: Testing | | EXTERNAL | | | ine Ratio | performed at [facility];[address] | | LAB | | | | [address];[place] | | | | | | [address] | | | | + + + + + -+ | Calcium | 6.3 (L)Comment: Testing | 8.5 - 10.5 | EXTERNAL | | | | performed at [facility] [facility];888 | mg/dL | LAB | | | | [address];[place] | | | | | | [address] | | | | + + + + + -+ | Protein, | 5.5 (L)Comment: Testing | 6.3 - 8.2 g/dL | EXTERNAL | | | Total | performed at [facility];888 | | LAB | | | | [address];[place] | | | | | | [address] | | | | + + + + + -+ | Albumin | 2.7 (L)Comment: Testing | 3.6 - 5.0 g/dL | EXTERNAL | | | | performed at [facility];888 | | LAB | | | | [address];[place] | | | | | | [address] | | | | + + + + + -+ | Globulin | 2.7Comment: Testing | 1.3 - 4.9 g/dL | EXTERNAL | | | | performed at [facility];888 | | LAB | | | | [address];[place] | | | | | | [address] | | | | + + + + + -+ | A/G Ratio | 1.0Comment: Testing | 1.0 - 2.4 | EXTERNAL | | | | performed at [facility];888 | | LAB | | | | [address];[place] | | | | | | [address] | | | | + + + + + -+ | Bilirubin | 1.9 (H)Comment: Testing | 0.1 - 1.5 mg/dL | EXTERNAL | | | Total | performed at [facility];888 | | LAB | | | | [address];[place] | | | | | | [address] | | | | + + + + + -+ | ALP, | 91Comment: Testing | 35 - 115 U/L | EXTERNAL | | | External | performed at [facility];888 | | LAB | | | | [address];[place] | | | | | | [address] | | | | + + + + + -+ | AST | 197 (H)Comment: Testing | 10 - 45 U/L | EXTERNAL | | | | performed at [facility];888 | | LAB | | | | [address];[place] | | | | | | [address] | | | | + + + + + -+ | ALT | 415 (H)Comment: Testing | 10 - 65 U/L | EXTERNAL | | | | performed at [facility];888 | | LAB | | | | [facility];[place] | | | | | | [address] | | | | + + + [...] | | | | | | at [facility];[address] [facility] | | | | | | Blvd;[place] [address] | | | | + + + + + -+ | CK, Total | 358Comment: Testing | 55 - 400 U/L | EXTERNAL | | | | performed at [facility];888 | | LAB | | | | [facility];[place] | | | | | | [address] | | | | + + + [...] | | | | | performed at [facility];888 | | | | | | [address];[place] | | | | | | [address] | | | | + + + + + -+ | aPTT, | 33 (H)Comment: Testing | 23 - 32 seconds | EXTERNAL | | | Patient | performed at [facility];888 | | LAB | | | | [address];[place] | | | | | | [address] | | | | + + + + + -+ | CK-MB | 2.4Comment: Testing | 0.5 - 3.6 ng/mL | EXTERNAL | | | | performed at [facility];888 | | LAB | | | | [address];[place] | | | | | | [address] | | | | + + + [...] EXTERNAL | | | | performed at [facility] | | LAB | | | | [address] [facility];[place], [place] | | | | | | [address] | | | | + + + [...] EXTERNAL | | | | performed at [facility];888 | | LAB | | | | [address];[place] | | | | | | [address] | | | | + + + [...] EXTERNAL | | | | performed at [facility];888 | | LAB | | | | [address];[place], [place] | | | | | | [address] | | | | + + + [...] | | | | | performed at [facility] | | | | | | [address];[place], [place] | | | | | | [address] | | | | + + + [...] GROWTH | | | Testing performed at [facility], [address] | | | [place] [address] | | + + + + +---------+ [...] EXTERNAL | | | | performed at [facility] | | LAB | | | | [address];[place] | | | | | | [address] | | | | + + + + + + | Clarity | CLEARComment: Testing | | EXTERNAL | | | | performed at [facility];888 | | LAB | | | | [address];[place] | | | | | | [address] | | | | + + + + + + | Specific | 1.017Comment: Testing | 1.002 - 1.030 | EXTERNAL | | | [place] | performed at [facility];888 | | LAB | | | | [address];[place] | | | | | | [address] | | | | + + + + + + | Leukocyte | NEGATIVEComment: Testing | | EXTERNAL | | | Esterase, | performed at [facility];888 | | LAB | | | Urine | [address];[place] | | | | | | [address] | | | | + + + + + + | Nitrite, | NEGATIVEComment: Testing | | EXTERNAL | | | Urine | performed at [facility];888 | | LAB | | | | [address];[place] | | | | | | [address] | | | | + + + + + + | Urobilinoge | NORMALComment: Testing | mg/dL | EXTERNAL | | | n, Urine | performed at [facility];888 | | LAB | | | | [address];[place] | | | | | | [address] | | | | + + + + + + | Protein, | NEGATIVEComment: Testing | mg/dL | EXTERNAL | | | Urine | performed at [facility];888 | | LAB | | | | [address];[place] | | | | | | [address] | | | | + + + + + + | pH, Urine | 5.0Comment: Testing | 5.0 - 8.0 | EXTERNAL | | | | performed at [facility];888 | | LAB | | | | [address];[place] | | | | | | [address] | | | | + + + + + + | Blood, | MODERATE (A)Comment: | | EXTERNAL | | | Urine | Testing performed at | | LAB | | | | [facility];[address];[place] [address] | | | | + + + + + + | Ketones | NEGATIVEComment: Testing | mg/dL | EXTERNAL | | | | performed at [facility];888 | | LAB | | | | [address];[place] | | | | | | [address] | | | | + + + + + + | Bilirubin, | NEGATIVEComment: Testing | | EXTERNAL | | | Urine | performed at [facility];888 | | LAB | | | | [address];[place] | | | | | | [address] | | | | + + + + + + | Glucose, | NEGATIVEComment: Testing | mg/dL | EXTERNAL | | | Urine | performed at [facility];888 | | LAB | | | | [address];[place] | | | | | | [address] | | | | + + + + + + | WBC, UA | 0-2Comment: Testing | 0 - 5 /hpf | EXTERNAL | | | | performed at [facility];888 | | LAB | | | | [address];[place] | | | | | | [address] | | | | + + + + + + | RBC, UA | 0-2Comment: Testing | 0 - 2 /hpf | EXTERNAL | | | | performed at [facility];888 | | LAB | | | | [address];[place] | | | | | | [address] | | | | + + + + + + | Bacteria, | NONE SEENComment: | | EXTERNAL | | | UA | Testing performed at | | LAB | | | | [facility];[address];[place] [address] | | | | + + + + + + | Epithelial | NONE SEENComment: | /lpf | EXTERNAL | | | Cells | Testing performed at | | LAB | | | | [facility];[address];[place] [address] | | | | + + + + + + | MUCUS UA | 1+Comment: Testing | | EXTERNAL | | | | performed at [facility];888 | | LAB | | | | [address];[place] | | | | | | [address] | | | | + + + [...]
--- OUTSIDE RECORDS SUMMARY | ~2019-09-01 | XMS | Encounter Summary ---
Demographics + + + | Address | [address] | | | [place] [address] | + + + | Home Phone | [email or web address] | + + + | Preferred Language | Unknown | + + + | Marital Status | Single | + + + | Scientology Affiliation | Unknown | + + + | Race | Unknown | + + + | Ethnic Group | Unknown | + + + Author + + + | Author | [facility] | | | and [place] | + + + | Organization | [facility] | | | and [place] [...] Providers + +------+ + | Care Content Designer Name | Role | Phone | + +------+ + | No, Physician | PCP | Unavailable | + +------+ + Encounter Details +--------+ + + + + | Date | Type | Department | Care Team | Description | +--------+ + + + + | 03/08/ | Hospital | [facility] | Randal Polanco MD | Acute respiratory | | 2015 - | Encounter | [facility] | [address] | failure, unspecified | | | | CLINICAL DECISION | [place] [id number] | whether with | | 03/11/ | | [facility] | [phone] | hypoxia or | | 2014 | | [place] | | hypercapnia ([facility]); | | | | [phone] | | Drug overdose, | | | | [phone] | | intentional, initial | | | | | | encounter ([facility]); | | | | | | Depression; | | | | | | Substance induced | | | | | | mood disorder ([facility]); | | | | | | 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 His sister reports four years ago he took an overdose of sleeping pills and was hospitalized for that. Then two years ago he cut his wr ists and ended up in the hospital for that. He is from [facility] and now lives with his sis Alvarez who runs a home for the disabled in [place] [facility] [place]. She says he has had drug and alco hol problems since his early teens. She sent him to [place] to an alcohol treatment program a few years ago but when he goth there he checked out within 24 hours. Both parents had dr howard and alcohol problems and his mother in her 30's as a result. His father is in his 5 0's and is in the senior living in [place]. Lynne went to the ED in [facility] and spoke with Chel conner Jason as best as can be estimated toook 86 800 mg ibuprofen last night and an unknown quanity of TCA's. He was not intoxicated when seen on Wednesday by Lynne. No Hx of NVD, FC, SOB or CP or abdominal pain. ".......per Dr. Collin LIMON The patient was admitted to on March 08, 2015 with the diagno [...] unit be d has been found in [place] and the patient consented voluntarily to be [...] accepted to inpatient psych/crisis response unit in [place] as arr anged by Responding crisis responding unit who interview patient in hospital. Follow up: Chelle Nelson, STEPHANIE [address] [facility] [address] [place] [address] Go on 03/21/2015 Appointment scheduled for March [...] are the prescriptions that you need to black pickler. You may get the following medications from [...] 03/11/152025 Date of Service: 03/11/152025 Status: Signed Windows Security Analyst: Jose Angel Garcia RN (Registered Nurse) Discharge [...] 03/11/151940 Date of Service: 03/11/151938 Status: Signed Windows Security Analyst: Ting Lopez RN (Registered Nurse) Pt discharge [...] 03/11/151842 Date of Service: 03/11/151832 Status: Signed Windows Security Analyst: Ting Lopez RN (Registered Nurse) Pt seen by both psych and crisis. Sitter remains at bedside to provide safety. Plan was to d/c pt tomorrow to transitions at [facility] at 12. Crisis came back and saw pt at 1820 and sta mir that she called and they have a bed at [facility] [address] Boo notified for D/C orders. Pt talked to his sister ~1845 who will come get him and stated that it takes about 1.5 hrs for her to get here. ADC time set for 2029. Per crisis RN or sister needs to call center at [facility]. Ting kern RN onver misty Transaction, Provider Unknown - 03/11/2015 12:29 PM PDT Case Management by Treva Canas RN at 03/11/15 1229 Author: Treva Canas RN Service: (none) Author Type: Registered Nurse Filed: 03/11/15 1230 Date of Service: 03/11/15 1229 Status: Signed Windows Security Analyst: Treva Canas RN (Registered Nurse) CM Information gathered during rounding with the physician that the patient is interested i n an IP rehab. List of IP rehabs given to patient. onver misty Joeaction, Provider Unknown - 03/11/2015 11:50 AM PDT Progress Notes by Frieda Macias at 03/11/15 1150 Author: Frieda Macias Service: (none) Author Type: Tell Filed: 03/11/15 1152 Date of Service: 03/11/15 115 Status: Signed Windows Security Analyst: Frieda Macias I have met with patient regarding establishing with a PCP. Patient wishes to stay in [facility]. I have patient scheduled at [place] [facility] with Chelle Nelson on March 21 [...] 0936 Date of Service: 03/10/151849 Status: Signed Windows Security Analyst: Kristopher Boo MD (Physician) Related Notes: Original Note by Kristopher Boo MD (Physician) filed at 03/10/151899 Service: Hospitalist Progress Note Pt: Jason Burrell AGE/SEX: 25 y.o. male : 1990 ROOM: [address] [place] [address] HISTORY OF PRESENT ILLNESS " The patient is a 25 y.o. male with significant past medical history of chronic drug and a lcohol abuse and depression who presents with a drug overdose with the ingestion occurring i nh the art gallery director hours of March 08Wednesday. His sister reports four years ago he took an overdose of sleeping pills and was hospitalized for that. Then two years ago he cut his wr ists and ended up in the hospital for that. He is from [facility] and now lives with his sis Alvarez who runs a home for the disabled in [facility]. She says he has had drug and alco hol problems since his early teens. She sent him to [place] to an alcohol treatment program a few years ago but when he goth there he checked out within 24 hours. Both parents had dr howard and alcohol problems and his mother in her 30's as a result. His father is in his 5 0's and is in the senior living in [place]. Lynne went to the ED in [facility] and spoke with Chel lindquist. Jason as best as can be estimated toook 86 800 mg ibuprofen last night and an unknown quanity of TCA's. He was not intoxicated when seen on Wednesday by Lynne. No Hx of NVD, FC, SOB or CP or abdominal pain."......per admitting boat engines installer/Dr. Collin LIMON TODAY'S DATE: 03/10/2015 Hospital Day: [...] n placement. Continue thiamine and folate supplementation. CINC protocol p.r.n. 4. Chronic polysubstance abuse: methamphetamine, [...] (none) Author Type: Registered Nurse Filed: 03/10/15 3765 Date of Service: 03/10/151801 Status: Signed Windows Security Analyst: Ting Lopez RN (Registered Nurse) Pt pleasant [...] Management by Kate Khan RN at 03/10/15 0998 Author: Kate Khan RN Service: (none) Author Type: Registered Nurse Filed: 03/10/1534 Date of Service: 03/10/15933 Status: Signed Windows Security Analyst: Kate Khan RN (Registered Nurse) Discharge Planning: [...] 1220 Date of Service: 03/09/151219 Status: Signed Windows Security Analyst: Raquel Polanco RD, CD (Registered Dietitian) 03/09/15 [...] Estimated Energy Needs Total Energy Estimated Needs 3990-1059 kcal/day Method for Estimating Needs 30-35 kcal/kg [...] up date 03/15/[address], CD, [facility] 03/09/2015 onver misty Transaction, Provider Unknown - 03/09/2015 11:43 AM PDT Progress Notes by Yovanny Galindo RPH at 03/09/15 1143 Author: Yovanny Galindo RPH Service: (none) Author Type: Pharmacist Filed: 03/09/15 1143 Date of Service: 03/09/151142 Status: Signed Windows Security Analyst: Yovanny Galindo RPH (Pharmacist) Renal Dosing Monitoring: [...] Author: WOODY Toribio Service: (none) Author Type: Light Adjuster Filed: 03/09/1546 Date of Service: 03/09/15842 Status: Signed Windows Security Analyst: WOODY Toribio (Light Adjuster) Pt was admitted for an intentional drug overdose. Pt lives with his sister who runs an [employer] family home. Pt's significant other also is [...] at 03/09/15334 Author: Valerie Campbell MD Service: Tank Officer Author Type: Physician Filed: 03/09/15 0410 Date of Service: 03/09/15334 Status: Signed Windows Security Analyst: Valerie Campbell MD (Physician) Service: Tank Officer Progress Note Jason Burrell 25 y.o. Hospital Day: LOS: 1 day Post-Op Day: * No surgery found * Consulting Physicians Treatment Team: Admitting Provider: Randal Polanco MD SUBJECTIVE Patient Summary: The patient is a 25 y.o. male with significant past medical history of chronic drug and alcohol abuse and depression who presents with a drug overdose with the ingestion occurring inh the art gallery director hours of March 08Wednesday. His sister reports four years ago he took an overdose of sleeping pills and was hospitalized for that. Then two year s ago he cut his wrists and ended up in the hospital for that. He is from [facility] and now lives with his sister Lynne who runs a home for the disabled in [facility]. She says he has had drug and alcohol problems since his early teens. She sent him to [place] to an alcohol t reatment program a few years ago but when he goth there he checked out within 24 hours. Both parents had drug and alcohol problems and his mother in her 30's as a result. His [facility] er is in his 50's and is in the senior living in [place]. Lynne went to the ED in [facility] and s poke with [place]. Jason as best as can be estimated [...] and is now li berated from the [facility] vent. He has a sitter in [...] Author: Rakesh Danielson Service: (none) Author Type: Tick Eradicator Filed: 03/08/151947 Date of Service: 03/08/151946 Status: Signed Windows Security Analyst: Rakesh Danielson () Pt intubated and sedated. Stopped in to speak with pt's sister. Sister said she was copin g at this time and did not need the media center specialist. Chaplain Meredith onver misty Transaction, Provider Unknown - 03/08/2015 4:55 PM PDT Progress Notes by Ernie Lee at 03/08/15 7272 Author: Ernie Lee Service: (none) Author Type: Tick Eradicator Filed: 03/08/15 1701 Date of Service: 03/08/151654 Status: Signed Windows Security Analyst: Ernie Lee ([facility]) Initial contact w/ pt's sister Lynne (age [...] I suggested she rest [facility] [place] [facility] [place], since pt is safe and [...] 1535 Date of Service: 03/08/151534 Status: Signed Windows Security Analyst: Yovanny Galindo RPH (Pharmacist) Renal Dosing Monitoring: [...] | | | | performed at [facility];[address] | | LAB | | | | [address];[place], [place] | | | | | | [address] | | | | + + + [...] | | | | | [place] [address] | | | | + + + + + + | RED CELL | 4.41Comment: Testing | 4.20 - 5.70 | EXTERNAL | | | COUNT | performed at [facility], [address] | M/uL | LAB | | | | [address], | | | | | | [place] [address] | | | | + + + + + + | Hgb | 13.6Comment: Testing | 13.2 - 17.0 | EXTERNAL | | | | performed at [facility], [address] | g/dL | LAB | | | | [address], | | | | | | [place] [address] | | | | + + + + + + | Hematocrit, | 41.1Comment: Testing | 39.0 - 50.0 % | EXTERNAL | | | POC | performed at [facility], [address] | | LAB | | | | [address], | | | | | | [place] [address] | | | | + + + + + + | MCV | 93.0Comment: Testing | 80.0 - 100.0 fl | EXTERNAL | | | | performed at [facility], [address] | | LAB | | | | [address], | | | | | | [place] [address] | | | | + + + + + + | MCH | 30.8Comment: Testing | 27.0 - 34.0 pg | EXTERNAL | | | | performed at [facility], [address] | | LAB | | | | [address], | | | | | | [place] [address] | | | | + + + + + + | MCHC | 33.1Comment: Testing | 32.0 - 35.5 | EXTERNAL | | | | performed at [facility], [address] | g/dL | LAB | | | | [address], | | | | | | [place] [address] | | | | + + + + + + | RDW-CV | 41.6Comment: Testing | 37 - 53 fl | EXTERNAL | | | | performed at [facility], [address] | | LAB | | | | [address], | | | | | | [place] [address] | | | | + + + + + + | Platelet | 166Comment: Testing | 150 - 400 K/uL | EXTERNAL | | | Count | performed at [facility], [address] | | LAB | | | Plasma | [address], | | | | | | [place] [address] | | | | + + + + + + | MPV | 7.1Comment: Testing | fl | EXTERNAL | | | | performed at [facility], [address] | | LAB | | | | [address], | | | | | | [place] [address] | | | | + + + + + + | Differentia | AUTOMATEDComment: | | EXTERNAL | | | l Type | Testing performed at | | LAB | | | | [facility], [address] | | | | | | [place], [place] | | | | | | [address] | | | | + + + + + + | % Segmented | 64.73Comment: Testing | % | EXTERNAL | | | | performed at [facility], [address] | | LAB | | | Neutrophils | [address], | | | | | | [place], [place] [address] | | | | + + + + + + | % | 23.28Comment: Testing | % | EXTERNAL | | | Lymphocytes | performed at [facility], [address] | | LAB | | | | [address], | | | | | | [place], [place] [address] | | | | + + + + + + | % Monocytes | 10.36Comment: Testing | % | EXTERNAL | | | | performed at [facility], [address] | | LAB | | | | [address], | | | | | | [place], [place] [address] | | | | + + + + + + | % | 1.24Comment: Testing | % | EXTERNAL | | | Eosinophils | performed at [facility], [address] | | LAB | | | | [address], | | | | | | [place] [address] | | | | + + + + + + | % Basophils | 0.39Comment: Testing | % | EXTERNAL | | | | performed at [facility], [address] | | LAB | | | | [address], | | | | | | [place] [address] | | | | + + + + + + | Absolute | 3.72Comment: Testing | 1.90 - 7.40 | EXTERNAL | | | Segmented | performed at [facility], [address] | K/uL | LAB | | | Neutrophils | [address], | | | | | | [place] [address] | | | | + + + + + + | Absolute | 1.34Comment: Testing | 1.00 - 3.90 | EXTERNAL | | | Lymphocytes | performed at [facility], [address] | K/uL | LAB | | | | [address], | | | | | | [place] [address] | | | | + + + + + + | Absolute | 0.60Comment: Testing | 0.00 - 0.80 | EXTERNAL | | | Monocytes | performed at [facility], [address] | K/uL | LAB | | | | [address], | | | | | | [place] [address] | | | | + + + + + + | Absolute | 0.07Comment: Testing | 0.00 - 0.50 | EXTERNAL | | | Eosinophils | performed at [facility], [address] | K/uL | LAB | | | | [address], | | | | | | [place] [address] | | | | + + + + + + | Absolute | 0.02Comment: Testing | 0.00 - 0.10 | EXTERNAL | | | Basophils | performed at [facility], [address] | K/uL | LAB | | | | [address], | | | | | | [place] [address] | | | | + + + [...] | | | | | [place] [address] | | | | + + + [...] EXTERNAL | | | | performed at [facility], [address] | | LAB | | | | [address], | | | | | | [place] [address] | | | | + + + [...] | | | | | [place] [address] | | | | + + + + + + | K | 4.2Comment: Testing | 3.5 - 4.9 | EXTERNAL | | | | performed at [facility], [address] | mmol/L | LAB | | | | [address], | | | | | | [place] [address] | | | | + + + + + + | Cl | 103Comment: Testing | 99 - 109 mmol/L | EXTERNAL | | | | performed at [facility], [address] | | LAB | | | | [address], | | | | | | [place] [address] | | | | + + + + + + | CO2 | 29Comment: Testing | 23 - 32 mmol/L | EXTERNAL | | | | performed at [facility], [address] | | LAB | | | | [address], | | | | | | [place] [address] | | | | + + + + + + | Anion Gap | 9Comment: Testing | 5 - 20 mmol/L | EXTERNAL | | | | performed at [facility], [address] | | LAB | | | | [address], | | | | | | [place] [address] | | | | + + + + + + | Glucose, | 95Comment: Testing | 65 - 99 mg/dL | EXTERNAL | | | Fasting | performed at [facility], [address] | | LAB | | | | [address], | | | | | | [place] [address] | | | | + + + + + + | BUN | 12Comment: Testing | 8 - 25 mg/dL | EXTERNAL | | | | performed at [facility], [address] | | LAB | | | | [address], | | | | | | [place] [address] | | | | + + + + + + | Creatinine | 0.83Comment: Testing | 0.70 - 1.30 | EXTERNAL | | | | performed at [facility], [address] | mg/dL | LAB | | | | [address], | | | | | | [place] [address] | | | | + + + + + + | BUN/Creatin | 14Comment: Testing | | EXTERNAL | | | ine Ratio | performed at [facility], [address] | | LAB | | | | [address], | | | | | | [place] [address] | | | | + + + + + + | Calcium | 8.7Comment: Testing | 8.5 - 10.5 | EXTERNAL | | | | performed at [facility], [address] | mg/dL | LAB | | | | [address], | | | | | | [place] [address] | | | | + + + + + + | Protein, | 6.2 (L)Comment: Testing | 6.3 - 8.2 g/dL | EXTERNAL | | | Total | performed at [facility], [address] | | LAB | | | | [address], | | | | | | [place] [address] | | | | + + + + + + | Albumin | 3.9Comment: Testing | 3.6 - 5.0 g/dL | EXTERNAL | | | | performed at [facility], [address] | | LAB | | | | [address], | | | | | | [place] [address] | | | | + + + + + + | Globulin | 2.3Comment: Testing | 1.3 - 4.9 g/dL | EXTERNAL | | | | performed at [facility], [address] | | LAB | | | | [address], | | | | | | [place] [address] | | | | + + + + + + | A/G Ratio | 1.7Comment: Testing | 1.0 - 2.4 | EXTERNAL | | | | performed at [facility], [address] | | LAB | | | | [address], | | | | | | [place] [address] | | | | + + + + + + | Bilirubin | 0.3Comment: Testing | 0.1 - 1.5 mg/dL | EXTERNAL | | | Total | performed at [facility], [address] | | LAB | | | | [address], | | | | | | [place] [address] | | | | + + + + + + | ALP, | 45Comment: Testing | 35 - 115 U/L | EXTERNAL | | | External | performed at [facility], [address] | | LAB | | | | [address], | | | | | | [place] [address] | | | | + + + + + + | AST | 27Comment: Testing | 10 - 45 U/L | EXTERNAL | | | | performed at [facility], [address] | | LAB | | | | [address], | | | | | | [place] [address] | | | | + + + + + + | ALT | 18Comment: Testing | 10 - 65 U/L | EXTERNAL | | | | performed at [facility], [address] | | LAB | | | | [address], | | | | | | [place] [address] | | | | + + + [...] | | | | | | at [facility], [address] | | | | | | [address], | | | | | | [place] [address] | | | | + + + [...] | | | | performed at [facility];[address] | mmol/L | LAB | | | | [address];[place], [place] | | | | | | [address] | | | | + + + [...] | | | | performed at [facility] | | LAB | | | | [address];[place] | | | | | | [address] | | | | + + + [...] | | | | | [place] [address] | | | | + + + + + + | RED CELL | 4.27Comment: Testing | 4.20 - 5.70 | EXTERNAL | | | COUNT | performed at [facility], [address] | M/uL | LAB | | | | [address], | | | | | | [place] [address] | | | | + + + + + + | Hgb | 13.3Comment: Testing | 13.2 - 17.0 | EXTERNAL | | | | performed at [facility], [address] | g/dL | LAB | | | | [address], | | | | | | [place] [address] | | | | + + + + + + | Hematocrit, | 39.6Comment: Testing | 39.0 - 50.0 % | EXTERNAL | | | POC | performed at [facility], [address] | | LAB | | | | [address], | | | | | | [place] [address] | | | | + + + + + + | MCV | 92.7Comment: Testing | 80.0 - 100.0 fl | EXTERNAL | | | | performed at [facility], [address] | | LAB | | | | [address], | | | | | | [place] [address] | | | | + + + + + + | MCH | 31.2Comment: Testing | 27.0 - 34.0 pg | EXTERNAL | | | | performed at [facility], [address] | | LAB | | | | [address], | | | | | | [place] [address] | | | | + + + + + + | MCHC | 33.6Comment: Testing | 32.0 - 35.5 | EXTERNAL | | | | performed at [facility], [address] | g/dL | LAB | | | | [address], | | | | | | [place] [address] | | | | + + + + + + | RDW-CV | 42.0Comment: Testing | 37 - 53 fl | EXTERNAL | | | | performed at [facility], [address] | | LAB | | | | [address], | | | | | | [place] [address] | | | | + + + + + + | Platelet | 190Comment: Testing | 150 - 400 K/uL | EXTERNAL | | | Count | performed at [facility], [address] | | LAB | | | Plasma | [address], | | | | | | [place] [address] | | | | + + + + + + | MPV | 7.0Comment: Testing | fl | EXTERNAL | | | | performed at [facility], [address] | | LAB | | | | [address], | | | | | | [place] [address] | | | | + + + + + + | Differentia | AUTOMATEDComment: | | EXTERNAL | | | l Type | Testing performed at | | LAB | | | | [facility], [address] | | | | | | [place] | | | | | | [address] | | | | + + + + + + | % Segmented | 59.15Comment: Testing | % | EXTERNAL | | | | performed at [facility], [address] | | LAB | | | Neutrophils | [address], | | | | | | [place] [address] | | | | + + + + + + | % | 30.10Comment: Testing | % | EXTERNAL | | | Lymphocytes | performed at [facility], [address] | | LAB | | | | [address], | | | | | | [place] [address] | | | | + + + + + + | % Monocytes | 9.29Comment: Testing | % | EXTERNAL | | | | performed at [facility], [address] | | LAB | | | | [address], | | | | | | [place] [address] | | | | + + + + + + | % | 0.96Comment: Testing | % | EXTERNAL | | | Eosinophils | performed at [facility], [address] | | LAB | | | | [address], | | | | | | [place] [address] | | | | + + + + + + | % Basophils | 0.50Comment: Testing | % | EXTERNAL | | | | performed at [facility], [address] | | LAB | | | | [address], | | | | | | [place] [address] | | | | + + + + + + | Absolute | 3.02Comment: Testing | 1.90 - 7.40 | EXTERNAL | | | Segmented | performed at [facility], [address] | K/uL | LAB | | | Neutrophils | [address], | | | | | | [place] [address] | | | | + + + + + + | Absolute | 1.54Comment: Testing | 1.00 - 3.90 | EXTERNAL | | | Lymphocytes | performed at [facility], [address] | K/uL | LAB | | | | [address], | | | | | | [place] [address] | | | | + + + + + + | Absolute | 0.48Comment: Testing | 0.00 - 0.80 | EXTERNAL | | | Monocytes | performed at [facility], [address] | K/uL | LAB | | | | [address], | | | | | | [place] [address] | | | | + + + + + + | Absolute | 0.05Comment: Testing | 0.00 - 0.50 | EXTERNAL | | | Eosinophils | performed at [facility], [address] | K/uL | LAB | | | | [address], | | | | | | [place] [address] | | | | + + + + + + | Absolute | 0.03Comment: Testing | 0.00 - 0.10 | EXTERNAL | | | Basophils | performed at [facility], [address] | K/uL | LAB | | | | [address], | | | | | | [place] [address] | | | | + + + [...] EXTERNAL | | | | performed at [facility], [address] | | LAB | | | | [address], | | | | | | [place] [address] | | | | + + + [...] | | | | | [place] [address] | | | | + + + [...] | | Lvl | performed at [facility];[address] | mg/dL | LAB | | | | [address];[place], [place] | | | | | | [address] | | | | + + + [...] | | | | | [place] [address] | | | | + + + + + + | K | 3.5Comment: Testing | 3.5 - 4.9 | EXTERNAL | | | | performed at [facility], [address] | mmol/L | LAB | | | | [address], | | | | | | [place] [address] | | | | + + + + + + | Cl | 105Comment: Testing | 99 - 109 mmol/L | EXTERNAL | | | | performed at [facility], [address] | | LAB | | | | [address], | | | | | | [place] [address] | | | | + + + + + + | CO2 | 25Comment: Testing | 23 - 32 mmol/L | EXTERNAL | | | | performed at [facility], [address] | | LAB | | | | [address], | | | | | | [place] [address] | | | | + + + + + + | Anion Gap | 10Comment: Testing | 5 - 20 mmol/L | EXTERNAL | | | | performed at [facility], [address] | | LAB | | | | [address], | | | | | | [place] [address] | | | | + + + + + + | Glucose, | 100 (H)Comment: Testing | 65 - 99 mg/dL | EXTERNAL | | | Fasting | performed at [facility], [address] | | LAB | | | | [address], | | | | | | [place] [address] | | | | + + + + + + | BUN | 10Comment: Testing | 8 - 25 mg/dL | EXTERNAL | | | | performed at [facility], [address] | | LAB | | | | [address], | | | | | | [place] [address] | | | | + + + + + + | Creatinine | 0.92Comment: Testing | 0.70 - 1.30 | EXTERNAL | | | | performed at [facility], [address] | mg/dL | LAB | | | | [address], | | | | | | [place] [address] | | | | + + + + + + | BUN/Creatin | 11Comment: Testing | | EXTERNAL | | | ine Ratio | performed at [facility], [address] | | LAB | | | | [address], | | | | | | [place] [address] | | | | + + + + + + | Calcium | 8.4 (L)Comment: Testing | 8.5 - 10.5 | EXTERNAL | | | | performed at [facility], [address] | mg/dL | LAB | | | | [address], | | | | | | [place] [address] | | | | + + + + + + | Protein, | 5.7 (L)Comment: Testing | 6.3 - 8.2 g/dL | EXTERNAL | | | Total | performed at [facility], [address] | | LAB | | | | [address], | | | | | | [place] [address] | | | | + + + + + + | Albumin | 3.6Comment: Testing | 3.6 - 5.0 g/dL | EXTERNAL | | | | performed at [facility], [address] | | LAB | | | [address], | | | | | | [place] [address] | | | | + + + + + + | Globulin | 2.1Comment: Testing | 1.3 - 4.9 g/dL | EXTERNAL | | | | performed at [facility], [address] | | LAB | | | | [address], | | | | | | [place] [address] | | | | + + + + + + | A/G Ratio | 1.7Comment: Testing | 1.0 - 2.4 | EXTERNAL | | | | performed at [facility], [address] | | LAB | | | | [address], | | | | | | [place] [address] | | | | + + + + + + | Bilirubin | 0.3Comment: Testing | 0.1 - 1.5 mg/dL | EXTERNAL | | | Total | performed at [facility], [address] | | LAB | | | | [address], | | | | | | [place] [address] | | | | + + + + + + | ALP, | 47Comment: Testing | 35 - 115 U/L | EXTERNAL | | | External | performed at [facility], [address] | | LAB | | | | [address], | | | | | | [place] [address] | | | | + + + + + + | AST | 17Comment: Testing | 10 - 45 U/L | EXTERNAL | | | | performed at [facility], [address] | | LAB | | | | [address], | | | | | | [place] [address] | | | | + + + + + + | ALT | 11Comment: Testing | 10 - 65 U/L | EXTERNAL | | | | performed at [facility], [address] | | LAB | | | | [address], | | | | | | [place] [address] | | | | + + + [...] | | | | | [place] [address] | | | | + + + [...] | | | | performed at [facility];888 | mmol/L | LAB | | | | [address];[place], [place] | | | | | | [address] | | | | + + + [...] EXTERNAL | | | | performed at [facility], [address] | K/uL | LAB | | | | [address], | | | | | | [place] [address] | | | | + + + + + + | RED CELL | 3.91 (L)Comment: Testing | 4.20 - 5.70 | EXTERNAL | | | COUNT | performed at [facility], [address] | M/uL | LAB | | | | [address], | | | | | | [place] [address] | | | | + + + + + + | Hgb | 12.0 (L)Comment: Testing | 13.2 - 17.0 | EXTERNAL | | | | performed at [facility], [address] | g/dL | LAB | | | | [address], | | | | | | [place] [address] | | | | + + + + + + | Hematocrit, | 36.9 (L)Comment: Testing | 39.0 - 50.0 % | EXTERNAL | | | POC | performed at [facility], [address] | | LAB | | | | [address], | | | | | | [place] [address] | | | | + + + + + + | MCV | 94.2Comment: Testing | 80.0 - 100.0 fl | EXTERNAL | | | | performed at [facility], [address] | | LAB | | | | [address], | | | | | | [place] [address] | | | | + + + + + + | MCH | 30.6Comment: Testing | 27.0 - 34.0 pg | EXTERNAL | | | | performed at [facility], [address] | | LAB | | | | [address], | | | | | | [place] [address] | | | | + + + + + + | MCHC | 32.5Comment: Testing | 32.0 - 35.5 | EXTERNAL | | | | performed at [facility], [address] | g/dL | LAB | | | | [address], | | | | | | [place] [address] | | | | + + + + + + | RDW-CV | 43.8Comment: Testing | 37 - 53 fl | EXTERNAL | | | | performed at [facility], [address] | | LAB | | | | [address], | | | | | | [place] [address] | | | | + + + + + + | Platelet | 165Comment: Testing | 150 - 400 K/uL | EXTERNAL | | | Count | performed at [facility], [address] | | LAB | | | Plasma | [address], | | | | | | [place] [address] | | | | + + + + + + | MPV | 6.9Comment: Testing | fl | EXTERNAL | | | | performed at [facility], [address] | | LAB | | | | [address], | | | | | | [place] [address] | | | | + + + + + + | Differentia | AUTOMATEDComment: | | EXTERNAL | | | l Type | Testing performed at | | LAB | | | | [facility], [address] | | | | | | [place] | | | | | | [address] | | | | + + + + + + | % Segmented | 66.48Comment: Testing | % | EXTERNAL | | | | performed at [facility], [address] | | LAB | | | Neutrophils | [address], | | | | | | [place], [place] [address] | | | | + + + + + + | % | 23.40Comment: Testing | % | EXTERNAL | | | Lymphocytes | performed at [facility], [address] | | LAB | | | | [address], | | | | | | [place], [place] [address] | | | | + + + + + + | % Monocytes | 8.99Comment: Testing | % | EXTERNAL | | | | performed at [facility], [address] | | LAB | | | | [address], | | | | | | [place] [address] | | | | + + + + + + | % | 0.49Comment: Testing | % | EXTERNAL | | | Eosinophils | performed at [facility], [address] | | LAB | | | | [address], | | | | | | [place] [address] | | | | + + + + + + | % Basophils | 0.64Comment: Testing | % | EXTERNAL | | | | performed at [facility], [address] | | LAB | | | | [address], | | | | | | [place] [address] | | | | + + + + + + | Absolute | 4.42Comment: Testing | 1.90 - 7.40 | EXTERNAL | | | Segmented | performed at [facility], [address] | K/uL | LAB | | | Neutrophils | [address], | | | | | | [place] [address] | | | | + + + + + + | Absolute | 1.56Comment: Testing | 1.00 - 3.90 | EXTERNAL | | | Lymphocytes | performed at [facility], [address] | K/uL | LAB | | | | [address], | | | | | | [place] [address] | | | | + + + + + + | Absolute | 0.60Comment: Testing | 0.00 - 0.80 | EXTERNAL | | | Monocytes | performed at [facility], [address] | K/uL | LAB | | | | [address], | | | | | | [place] [address] | | | | + + + + + + | Absolute | 0.03Comment: Testing | 0.00 - 0.50 | EXTERNAL | | | Eosinophils | performed at [facility], [address] | K/uL | LAB | | | | [address], | | | | | | [place] [address] | | | | + + + + + + | Absolute | 0.04Comment: Testing | 0.00 - 0.10 | EXTERNAL | | | Basophils | performed at [facility], [address] | K/uL | LAB | | | | [address], | | | | | | [place] [address] | | | | + + + [...] EXTERNAL | | | | performed at [facility], [address] | | LAB | | | | [address], | | | | | | [place] [address] | | | | + + + [...] EXTERNAL | | | | performed at [facility], [address] | | LAB | | | | [address], | | | | | | [place] [address] | | | | + + + [...] | | | | | [place] [address] | | | | + + + + + + | K | 3.4 (L)Comment: Testing | 3.5 - 4.9 | EXTERNAL | | | | performed at [facility], [address] | mmol/L | LAB | | | | [address], | | | | | | [place] [address] | | | | + + + + + + | Cl | 110 (H)Comment: Testing | 99 - 109 mmol/L | EXTERNAL | | | | performed at [facility], [address] | | LAB | | | | [address], | | | | | | [place] [address] | | | | + + + + + + | CO2 | 19 (L)Comment: Testing | 23 - 32 mmol/L | EXTERNAL | | | | performed at [facility], [address] | | LAB | | | | [address], | | | | | | [place] [address] | | | | + + + + + + | Anion Gap | 10Comment: Testing | 5 - 20 mmol/L | EXTERNAL | | | | performed at [facility], [address] | | LAB | | | | [address], | | | | | | [place] [address] | | | | + + + + + + | Glucose, | 77Comment: Testing | 65 - 99 mg/dL | EXTERNAL | | | Fasting | performed at [facility], [address] | | LAB | | | | [address], | | | | | | [place] [address] | | | | + + + + + + | BUN | 9Comment: Testing | 8 - 25 mg/dL | EXTERNAL | | | | performed at [facility], [address] | | LAB | | | | [address], | | | | | | [place] [address] | | | | + + + + + + | Creatinine | 0.82Comment: Testing | 0.70 - 1.30 | EXTERNAL | | | | performed at [facility], [address] | mg/dL | LAB | | | | [address], | | | | | | [place] [address] | | | | + + + + + + | BUN/Creatin | 11Comment: Testing | | EXTERNAL | | | ine Ratio | performed at [facility], [address] | | LAB | | | | [address], | | | | | | [place] [address] | | | | + + + + + + | Calcium | 6.8 (L)Comment: Testing | 8.5 - 10.5 | EXTERNAL | | | | performed at [facility], [address] | mg/dL | LAB | | | | [address], | | | | | | [place] [address] | | | | + + + [...] | | | | | [place] [address] | | | | + + + [...] | | | | performed at [facility];[address] | mmol/L | LAB | | | | [address];[place], [place] | | | | | | [address] | | | | + + + [...] | | | | performed at [facility];[address] | | LAB | | | | [address];[place] | | | | | | [address] | | | | + + + [...] | | | | performed at [facility];[address] | | LAB | | | | [address];[place] | | | | | | [address] | | | | + + + [...] | | Total | performed at [facility];[address] | | LAB | | | | [address];[place] | | | | | | [address] | | | | + + + + + + | Albumin | 3.4 (L)Comment: Testing | 3.6 - 5.0 g/dL | EXTERNAL | | | | performed at [facility];[address] | | LAB | | | | [address];[place] | | | | | | [address] | | | | + + + + + + | Bilirubin | 0.4Comment: Testing | 0.1 - 1.5 mg/dL | EXTERNAL | | | Total | performed at [facility];[address] | | LAB | | | | [address];[place] | | | | | | [address] | | | | + + + + + + | Bilirubin | 0.1Comment: Testing | 0.0 - 0.3 mg/dL | EXTERNAL | | | Direct | performed at [facility];[address] | | LAB | | | | [address];[place] | | | | | | [address] | | | | + + + + + + | ALP, | 48Comment: Testing | 35 - 115 U/L | EXTERNAL | | | External | performed at [facility];[address] | | LAB | | | | [address];[place] | | | | | | [address] | | | | + + + + + + | AST | 22Comment: Testing | 10 - 45 U/L | EXTERNAL | | | | performed at [facility];[address] | | LAB | | | | [address];[place] | | | | | | [address] | | | | + + + + + + | ALT | 13Comment: Testing | 10 - 65 U/L | EXTERNAL | | | | performed at [facility];[address] | | LAB | | | | [address];[place] | | | | | | [address] | | | | + + + [...] | | | | performed at [facility];[address] | K/uL | LAB | | | | [address];[place] | | | | | | [address] | | | | + + + + + + | RED CELL | 4.02 (L)Comment: Testing | 4.20 - 5.70 | EXTERNAL | | | COUNT | performed at [facility];888 | M/uL | LAB | | | | [address];[place] | | | | | | [address] | | | | + + + + + + | Hgb | 12.5 (L)Comment: Testing | 13.2 - 17.0 | EXTERNAL | | | | performed at [facility];888 | g/dL | LAB | | | | [address];[place] | | | | | | [address] | | | | + + + + + + | Hematocrit, | 37.7 (L)Comment: Testing | 39.0 - 50.0 % | EXTERNAL | | | POC | performed at [facility];[address] | | LAB | | | | [address];[place] | | | | | | [address] | | | | + + + + + + | MCV | 93.6Comment: Testing | 80.0 - 100.0 fl | EXTERNAL | | | | performed at [facility];[address] | | LAB | | | | [address];[place] | | | | | | [address] | | | | + + + + + + | MCH | 31.1Comment: Testing | 27.0 - 34.0 pg | EXTERNAL | | | | performed at [facility];[address] | | LAB | | | | [address];[place] | | | | | | [address] | | | | + + + + + + | MCHC | 33.2Comment: Testing | 32.0 - 35.5 | EXTERNAL | | | | performed at [facility];888 | g/dL | LAB | | | | [address];[place] | | | | | | [address] | | | | + + + + + + | RDW-CV | 42.9Comment: Testing | 37 - 53 fl | EXTERNAL | | | | performed at [facility];[address] | | LAB | | | | [address];[place] | | | | | | [address] | | | | + + + + + + | Platelet | 181Comment: Testing | 150 - 400 K/uL | EXTERNAL | | | Count | performed at [facility];[address] | | LAB | | | Plasma | [address];[place] | | | | | | [address] | | | | + + + + + + | MPV | 6.7Comment: Testing | fl | EXTERNAL | | | | performed at [facility];[address] | | LAB | | | | [address];[place] | | | | | | [address] | | | | + + + + + + | Differentia | AUTOMATEDComment: | | EXTERNAL | | | l Type | Testing performed at | | LAB | | | | [facility];[address];[place] [address] | | | | + + + + + + | % Segmented | 72.32Comment: Testing | % | EXTERNAL | | | | performed at [facility];[address] | | LAB | | | Neutrophils | [address];[place] | | | | | | [address] | | | | + + + + + + | % | 19.13Comment: Testing | % | EXTERNAL | | | Lymphocytes | performed at [facility];[address] | | LAB | | | | [address];[place] | | | | | | [address] | | | | + + + + + + | % Monocytes | 8.07Comment: Testing | % | EXTERNAL | | | | performed at [facility];[address] | | LAB | | | | [address];[place] | | | | | | [address] | | | | + + + + + + | % | 0.04Comment: Testing | % | EXTERNAL | | | Eosinophils | performed at [facility];[address] | | LAB | | | | [address];[place] | | | | | | [address] | | | | + + + + + + | % Basophils | 0.44Comment: Testing | % | EXTERNAL | | | | performed at [facility];[address] | | LAB | | | | [address];[place] | | | | | | [address] | | | | + + + + + + | Absolute | 6.13Comment: Testing | 1.90 - 7.40 | EXTERNAL | | | Segmented | performed at [facility];888 | K/uL | LAB | | | Neutrophils | [address];[place] | | | | | | [address] | | | | + + + + + + | Absolute | 1.62Comment: Testing | 1.00 - 3.90 | EXTERNAL | | | Lymphocytes | performed at [facility];[address] | K/uL | LAB | | | | [address];[place] | | | | | | [address] | | | | + + + + + + | Absolute | 0.68Comment: Testing | 0.00 - 0.80 | EXTERNAL | | | Monocytes | performed at [facility];[address] | K/uL | LAB | | | | [address];[place] | | | | | | [address] | | | | + + + + + + | Absolute | 0.00Comment: Testing | 0.00 - 0.50 | EXTERNAL | | | Eosinophils | performed at [facility];[address] | K/uL | LAB | | | | [address];[place] | | | | | | [address] | | | | + + + + + + | Absolute | 0.04Comment: Testing | 0.00 - 0.10 | EXTERNAL | | | Basophils | performed at [facility];[address] | K/uL | LAB | | | | [address];[place], [place] | | | | | | [address] | | | | + + + [...] | | | | performed at [facility];[address] | | LAB | | | | [address];[place] | | | | | | [address] | | | | + + + [...] | | | | performed at [facility];[address] | | LAB | | | | [address];[place] | | | | | | [address] | | | | + + + [...] | | | | performed at [facility];888 | mmol/L | LAB | | | | [address];[place] | | | | | | [address] | | | | + + + + + + | K | 3.7Comment: Testing | 3.5 - 4.9 | EXTERNAL | | | | performed at [facility];888 | mmol/L | LAB | | | | [address];[place] | | | | | | [address] | | | | + + + + + + | Cl | 116 (H)Comment: Testing | 99 - 109 mmol/L | EXTERNAL | | | | performed at [facility];[address] | | LAB | | | | [address];[place] | | | | | | [address] | | | | + + + + + + | CO2 | 17 (L)Comment: Testing | 23 - 32 mmol/L | EXTERNAL | | | | performed at [facility];[address] | | LAB | | | | [address];[place] | | | | | | [address] | | | | + + + + + + | Anion Gap | 17Comment: Testing | 5 - 20 mmol/L | EXTERNAL | | | | performed at [facility];[address] | | LAB | | | | [address];[place] | | | | | | [address] | | | | + + + + + + | Glucose, | 83Comment: Testing | 65 - 99 mg/dL | EXTERNAL | | | Fasting | performed at [facility];[address] | | LAB | | | | [address];[place] | | | | | | [address] | | | | + + + + + + | BUN | 11Comment: Testing | 8 - 25 mg/dL | EXTERNAL | | | | performed at [facility];[address] | | LAB | | | | [address];[place] | | | | | | [address] | | | | + + + + + + | Creatinine | 0.88Comment: Testing | 0.70 - 1.30 | EXTERNAL | | | | performed at [facility];888 | mg/dL | LAB | | | | [address];[place] | | | | | | [address] | | | | + + + + + + | BUN/Creatin | 13Comment: Testing | | EXTERNAL | | | ine Ratio | performed at [facility];[address] | | LAB | | | | [address];[place] | | | | | | [address] | | | | + + + + + + | Calcium | 6.7 (L)Comment: Testing | 8.5 - 10.5 | EXTERNAL | | | | performed at [facility];888 | mg/dL | LAB | | | | [address];[place] | | | | | | [address] | | | | + + + [...] | | | | | at [facility];[address];[place] [address] | | | | + + + [...] | | | | performed at [facility];[address] | | LAB | | | | [address];[place] | | | | | | [address] | | | | + + + + + + | Clarity | CLEARComment: Testing | | EXTERNAL | | | | performed at [facility];[address] | | LAB | | | | [address];[place] | | | | | | [address] | | | | + + + + + + | Specific | 1.011Comment: Testing | 1.002 - 1.030 | EXTERNAL | | | [place] | performed at [facility];[address] | | LAB | | | | [address];[place] | | | | | | [address] | | | | + + + + + + | Leukocyte | NEGATIVEComment: Testing | | EXTERNAL | | | Esterase, | performed at [facility];888 | | LAB | | | Urine | [address];[place] | | | | | | [address] | | | | + + + + + + | Nitrite, | NEGATIVEComment: Testing | | EXTERNAL | | | Urine | performed at [facility];[address] | | LAB | | | | [address];[place] | | | | | | [address] | | | | + + + + + + | Urobilinoge | NORMALComment: Testing | mg/dL | EXTERNAL | | | n, Urine | performed at [facility];[address] | | LAB | | | | [address];[place] | | | | | | [address] | | | | + + + + + + | Protein, | NEGATIVEComment: Testing | mg/dL | EXTERNAL | | | Urine | performed at [facility];[address] | | LAB | | | | [address];[place] | | | | | | [address] | | | | + + + + + + | pH, Urine | 5.0Comment: Testing | 5.0 - 8.0 | EXTERNAL | | | | performed at [facility];[address] | | LAB | | | | [address];[place] | | | | | | [address] | | | | + + + + + + | Blood, | SMALL (A)Comment: | | EXTERNAL | | | Urine | Testing performed at | | LAB | | | | [facility];[address];[place] [address] | | | | + + + + + + | Ketones | NEGATIVEComment: Testing | mg/dL | EXTERNAL | | | | performed at [facility];[address] | | LAB | | | | [address];[place] | | | | | | [address] | | | | + + + + + + | Bilirubin, | NEGATIVEComment: Testing | | EXTERNAL | | | Urine | performed at [facility];[address] | | LAB | | | | [address];[place] | | | | | | [address] | | | | + + + + + + | Glucose, | NEGATIVEComment: Testing | mg/dL | EXTERNAL | | | Urine | performed at [facility];[address] | | LAB | | | | [address];[place] | | | | | | [address] | | | | + + + + + + | WBC, UA | 0-2Comment: Testing | 0 - 5 /hpf | EXTERNAL | | | | performed at [facility];[address] | | LAB | | | | [address];[place] | | | | | | [address] | | | | + + + + + + | RBC, UA | 0-2Comment: Testing | 0 - 2 /hpf | EXTERNAL | | | | performed at [facility];[address] | | LAB | | | | [address];[place] | | | | | | [address] | | | | + + + + + + | Bacteria, | NONE SEENComment: | | EXTERNAL | | | UA | Testing performed at | | LAB | | | | [facility];[address];[place] [address] | | | | + + + + + + | Epithelial | NONE SEENComment: | /lpf | EXTERNAL | | | Cells | Testing performed at | | LAB | | | | [facility];[address];[place] [address] | | | | + + + + + + | MUCUS UA | 1+Comment: Testing | | EXTERNAL | | | | performed at [facility];[address] | | LAB | | | | [address];[place] | | | | | | [id number] | | | | + + + [...] LAB | | Testing performed at [facility];[address] [place] [address];[place] [address] MRSA PCR | | | NEGATIVE Testing performed at | | | [address];[place] [address] | | + + + + +---------+ [...]
[~2019-09-01 11:13] MED LIST changes: +VISTARIL50 MG PO
--- OUTSIDE RECORDS SUMMARY | 2019-09-01 11:18 | XMS ---
PreManage Notification: JASON GOODRICH Security Taproom Attendant Events No recent Security Events currently on file CRITERIA MET - Group Notification - [facility] - Has Care Guidelines CARE PROVIDERS IRISH PARR Physician Sheet Metal Worker Apprentice 06/28/2018-Current PHONE: [phone] [place] has no Care Guidelines for this patient. Care History Medical/Surgical 04/11/2019 [facility] - NO CONTACT NUMBER LISTED FOR PATIENT. - PLEASE REFER PATIENT TO THE WALK IN CLINIC TO ESTABLISH CARE WITH A PROVIDER. PATIENT DOES HAVE [employer]ANCE. - SENT PATIENT NO PCP LETTER. E.D. VISIT COUNT (12 MO.) 5 [facility] TOTAL 5 NOTE: Visits indicate total known visits. ED/UCC VISIT TRACKING (12 MO.) 09/01/2019 11:15 ARY [facility] [place] TYPE: Emergency COMPLAINT: - MEDICAL CLEARANCE 04/10/2019 23:59 ARY Reg[facility] [place] TYPE: Emergency COMPLAINT: - FOOT ISSUES/ NO INJURY DIAGNOSES: - Nicotine dependence, unspecified, uncomplicated - Pain in left foot - Erythematous condition, unspecified - Pain in right foot 04/08/2019 21:03 ARY Reg[facility] [place] TYPE: Emergency COMPLAINT: - FOOT PAIN DIAGNOSES: - Pain in left foot - Pain in right foot - Nicotine dependence, unspecified, uncomplicated 04/03/2019 04:30 ARY Reg[facility] [place] TYPE: Emergency COMPLAINT: - ABD PAIN,RASH DIAGNOSES: - Unspecified abdominal pain - Headache - Rash and other nonspecific skin eruption - Nicotine dependence, unspecified, uncomplicated - Other chronic pain - Patient's noncompliance w ot medical treatment and regimen - Pruritus, unspecified 09/09/2018 03:35 AR[facility] [place] TYPE: Emergency COMPLAINT: - SKIN PROBLEM DIAGNOSES: - Homelessness - Nicotine dependence, unspecified, uncomplicated - Pruritus, unspecified INPATIENT VISIT TRACKING (12 MO.) No inpatient visits to display in this time frame [id number]
[2019-09-04] MEDS ORDERED: KEFLEX500 MG PO (08:48)
[2019-09-04] MEDS ORDERED: BACTRIM DS TAB1 EACH PO (08:48)
== END 2019-09-01 11:56 | disposition home or self-care (01) ==
LOC: ED 11:13
DX: Z00.8 Encounter for other general examination (principal); Z59.0 Homelessness; F17.200 Nicotine dependence, unspecified, uncomplicated
CPT/HCPCS: 99282

== ENCOUNTER 2019-09-30 05:29 | Emergency (ER) | payer OTHER ==
[~2019-09-30] VITALS: Ht 177.8 cm; Wt 58.1 kg
== END 2019-09-30 06:05 | disposition home or self-care (01) ==
LOC: ED 05:29
DX: L29.9 Pruritus, unspecified (principal); F17.200 Nicotine dependence, unspecified, uncomplicated; Z59.0 Homelessness
CPT/HCPCS: 99282; Q0163

== ENCOUNTER 2019-10-13 20:20 | Emergency (ER) | payer OTHER ==
[~2019-10-13] VITALS: Ht 177.8 cm; Wt 58.1 kg
--- OUTSIDE RECORDS SUMMARY | 2019-10-13 20:24 | XMS ---
PreManage Notification: JASON GOODRICH Security Rim Buster Events No recent Security Events currently on file CRITERIA MET - Group Notification - [facility] - Has Care Guidelines - History of Sepsis Dx - 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 Care History Medical/Surgical 09/04/2019 [facility] - PLEASE CONTACT [employer]\T\amp;D SERVICES- IF PATIENT ACCEPTS SERVICES- . - [facility] A\T\amp;D SERVICES CAN PROVIDE PATIENT WITH POST ANESTHESIA CARE UNIT NURSE AND HELP WITH COMMUNITY RESOURCES. 04/11/2019 [facility] - NO CONTACT NUMBER LISTED FOR PATIENT. - PLEASE REFER PATIENT TO THE WALK IN CLINIC TO ESTABLISH CARE WITH A PROVIDER. PATIENT DOES HAVE [employer] INSURANCE. - SENT PATIENT NO PCP LETTER. E.D. VISIT COUNT (12 MO.) 7 [facility]. TOTAL 7 NOTE: Visits indicate total known visits. ED/UCC VISIT TRACKING (12 MO.) 10/13/2019 20:21 [facility] [place] TYPE: Emergency COMPLAINT: - SKIN PROBLEM 09/30/2019 05:29 [facility] [place] TYPE: Emergency COMPLAINT: - SKIN PROBLEM DIAGNOSES: - Nicotine dependence, unspecified, uncomplicated - Homelessness - Rash and other nonspecific skin eruption - Pruritus, unspecified 09/04/2019 08:18 [facility] [place] [facility] [place] TYPE: Emergency COMPLAINT: - FOOT PN DIAGNOSES: - Nicotine dependence, unspecified, uncomplicated - Homelessness - Cellulitis of left lower limb - Pain in left foot 09/01/2019 11:15 [facility] [place] [facility] [place] TYPE: Emergency COMPLAINT: - MEDICAL CLEARANCE DIAGNOSES: - Homelessness - Encounter for other general examination - Nicotine dependence, unspecified, uncomplicated [facility]2019 [facility] COMPLAINT: - FOOT ISSUES/ NO INJURY DIAGNOSES: - Nicotine dependence, unspecified, uncomplicated - Pain in left foot - Erythematous condition, unspecified - Pain in right foot 04/08/2019 21:03 [facility] [place] [facility] [place] TYPE: Emergency COMPLAINT: - FOOT PAIN DIAGNOSES: - Pain in left foot - Pain in right foot - Nicotine dependence, unspecified, uncomplicated 04/03/2019 04:30 [facility] [place] TYPE: Emergency COMPLAINT: - ABD PAIN,RASH DIAGNOSES: - Unspecified abdominal pain - Headache - Rash and other nonspecific skin eruption - Nicotine dependence, unspecified, uncomplicated - Other chronic pain - Patient's noncompliance w oth medical treatment and regimen - Pruritus, unspecified INPATIENT VISIT TRACKING (12 MO.) No inpatient visits to display in this time frame [email or web address]
[2019-10-13] MEDS ORDERED: DOXYCYCLINE MO100 MG PO (20:31)
[2019-10-13] MEDS ORDERED: VISTARIL25 MG PO (20:46)
== END 2019-10-13 21:01 | disposition home or self-care (01) ==
LOC: ED 20:20
DX: L30.9 Dermatitis, unspecified (principal); F17.200 Nicotine dependence, unspecified, uncomplicated; Z59.0 Homelessness; Z79.899 Other long term (current) drug therapy
CPT/HCPCS: 99282

== ENCOUNTER 2019-10-21 22:24 | Emergency (ER) | payer OTHER ==
[~2019-10-21] VITALS: Ht 177.8 cm; Wt 58.1 kg
[~2019-10-21 22:24] MED LIST changes: +DOXYCYCLINE MO100 MG PO; +VISTARIL25 MG PO
--- OUTSIDE RECORDS SUMMARY | 2019-10-21 22:26 | XMS ---
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 Care History Medical/Surgical 09/04/2019 [facility] - PLEASE CONTACT [employer]\T\amp;D SERVICES- IF PATIENT ACCEPTS SERVICES- . - [facility] A\T\amp;D SERVICES CAN PROVIDE PATIENT WITH MEDICINE ASSISTANT AND HELP WITH COMMUNITY RESOURCES. 04/11/2019 [facility] - NO CONTACT NUMBER LISTED FOR PATIENT. - PLEASE REFER PATIENT TO THE WALK IN CLINIC TO ESTABLISH CARE WITH A PROVIDER. PATIENT DOES HAVE [employer] INSURANCE. - SENT PATIENT NO PCP LETTER. E.D. VISIT COUNT (12 MO.) 8 [facility]. TOTAL 8 NOTE: Visits indicate total known visits. ED/UCC VISIT TRACKING (12 MO.) 10/21/2019 22:25 [facility] [place] TYPE: Emergency COMPLAINT: - EAR PROBLEM 10/13/2019 20:21 [facility] [place] TYPE: Emergency COMPLAINT: - SKIN PROBLEM DIAGNOSES: - Other nursing home (current) drug therapy - Homelessness - Dermatitis, unspecified - Nicotine dependence, unspecified, uncomplicated 09/30/2019 05:29 [facility]ra [facility] [place] TYPE: Emergency COMPLAINT: - SKIN PROBLEM DIAGNOSES: - Nicotine dependence, unspecified, uncomplicated - Homelessness - Rash and other nonspecific skin eruption - Pruritus, unspecified 09/04/2019 08:18 [facility] Mcfadden [facility] [place] TYPE: Emergency COMPLAINT: - FOOT PN DIAGNOSES: - Nicotine dependence, unspecified, uncomplicated - Homelessness - Cellulitis of left lower limb - Pain in left foot 09/01/2019 11:15 [facility] [place] TYPE: Emergency COMPLAINT: - MEDICAL CLEARANCE DIAGNOSES: - Homelessness - Encounter for other general examination - Nicotine dependence, unspecified, uncomplicated 04/10/2019 23:59 ARY Barrettsabra [facility]am [facility] [place] TYPE: Emergency COMPLAINT: - FOOT [...] visits to display in this time frame [id number]
== END 2019-10-21 23:13 | disposition home or self-care (01) ==
LOC: ED 22:24
DX: R20.2 Paresthesia of skin (principal); F15.10 Other stimulant abuse, uncomplicated; F17.200 Nicotine dependence, unspecified, uncomplicated; Z59.0 Homelessness
CPT/HCPCS: 99282

== ENCOUNTER 2019-11-01 06:15 | Emergency (ER) | payer OTHER ==
[~2019-11-01] VITALS: Ht 175.3 cm; Wt 63.5 kg
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
[2019-11-01] MEDS ORDERED: HYDROXYZINE PAM25 MG PO (06:37)
== END 2019-11-01 07:50 | disposition home or self-care (01) ==
LOC: ED 06:15
DX: K62.5 Hemorrhage of anus and rectum (principal); Z59.0 Homelessness; F17.200 Nicotine dependence, unspecified, uncomplicated
CPT/HCPCS: 80053; 83690; 85025; 96360; 99284-25; J7030

== ENCOUNTER 2019-11-30 00:56 | Emergency (ER) | payer OTHER ==
[~2019-11-30] VITALS: Ht 175.3 cm; Wt 63.5 kg
[~2019-11-30 00:56] MED LIST changes: +HYDROXYZINE PAM25 MG PO
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
[2019-11-30] MEDS ORDERED: PERMETHRIN60 GM TOP (01:34)
[2019-11-30] MEDS ORDERED: ONDANSETRON ODT4 MG PO (01:50)
[2019-11-30] MEDS ORDERED: ELIMITE60 GM TOP (01:50)
== END 2019-11-30 02:30 | disposition home or self-care (01) ==
LOC: ED 00:56
DX: R23.8 Other skin changes (principal); Z59.0 Homelessness; F17.200 Nicotine dependence, unspecified, uncomplicated; Z79.899 Other long term (current) drug therapy
CPT/HCPCS: 99282

== ENCOUNTER 2019-12-24 17:33 | Emergency (ER) | payer SELFPAY ==
[~2019-12-24] VITALS: Ht 175.3 cm; Wt 63.5 kg
[~2019-12-24 17:33] MED LIST changes: +ELIMITE60 GM TOP; +ONDANSETRON ODT4 MG PO; +PERMETHRIN60 GM TOP
--- OUTSIDE RECORDS SUMMARY | 2019-12-24 17:36 | XMS ---
PreManage Notification: JASON GOODRICH Security Entomology Professor Events No recent Security Events currently on file CRITERIA MET - Group Notification - 6 ED Visits in 6 Months - [facility] - Has Care Guidelines - History of Sepsis Dx - [facility] - 2 Visits in 30 Days CARE PROVIDERS IRISH PARR Physician Installation Engineer 06/28/2018-Current PHONE: [phone] [place] has no Care Guidelines for this patient. Care History Medical/Surgical 11/30/2019 [facility] - CHW IS UNABLE TO CONTACT PATIENT DUE TO NO NUMBER AND OR PHONE LISTED- - PLEASE ASK PATIENT IF HE WOULD LIKE HELP WITH ALCOHOL AND OR DRUG TREATMENT- IF SO PLEASE CONTACT [employer] A\T\amp;D SERVICES. 09/04/2019 [facility] - PLEASE CONTACT [employer] A\T\amp;D SERVICES- IF PATIENT ACCEPTS SERVICES- . - [employer] A\T\amp;D SERVICES CAN PROVIDE PATIENT WITH MONKEY BREEDER AND HELP WITH COMMUNITY RESOURCES. 04/11/2019 [facility] - NO CONTACT NUMBER LISTED FOR PATIENT. - PLEASE REFER PATIENT TO THE WALK IN CLINIC TO ESTABLISH CARE WITH A PROVIDER. [facility]. - SENT PATIENT NO PCP LETTER. E.D. VISIT COUNT (12 MO.) 11 ARY Bowen TOTAL 11 NOTE: Visits indicate total known visits. ED/UCC VISIT TRACKING (12 MO.) 12/24/2019 17:34 [facility] [place] TYPE: Emergency COMPLAINT: - BOWEL ISSUE 11/30/2019 00:57 [facility] Regalado [place] TYPE: Emergency COMPLAINT: - VOMITING DIAGNOSES: - Homelessness - Rash and other nonspecific skin eruption - Nicotine dependence, unspecified, uncomplicated - Other manager intermediate (current) drug therapy - Other skin changes 11/01/2019 06:15 [facility] [place] TYPE: Emergency COMPLAINT: - RECTAL BLEEDING, ABD PAIN DIAGNOSES: - Unspecified abdominal pain - Hemorrhage of anus and rectum - Homelessness - Nicotine dependence, unspecified, uncomplicated 10/21/2019 22:25 [facility] [place] TYPE: Emergency COMPLAINT: - EAR PROBLEM DIAGNOSES: - Paresthesia of skin - Nicotine dependence, unspecified, uncomplicated - Homelessness - Other stimulant abuse, uncomplicated 10/13/2019 20:[address] [facility] [address] [facility] [place] TYPE: Emergency COMPLAINT: - SKIN PROBLEM DIAGNOSES: - Other residential (current) drug therapy - Homelessness - Dermatitis, [...] - Pain in left foot 09/01/2019 11:[address] [facility] [address] [facility] [place] TYPE: Emergency COMPLAINT: - MEDICAL CLEARANCE DIAGNOSES: - Homelessness - Encounter for other general examination - Nicotine dependence, unspecified, uncomplicated 04/10/2019 23:[address] [facility] [address] [facility] [place] TYPE: Emergency COMPLAINT: - FOOT [...] - Other chronic pain - Patient's noncompliance with other medical treatment and [place] - Pruritus, unspecified INPATIENT VISIT TRACKING (12 MO.) No inpatient visits to display in this time frame [id number]
== END 2019-12-24 18:45 | disposition short-term general hospital (02) ==
LOC: ED 17:33
DX: R19.5 Other fecal abnormalities (principal); F17.200 Nicotine dependence, unspecified, uncomplicated; Z79.899 Other long term (current) drug therapy
CPT/HCPCS: 99284

== ENCOUNTER 2020-02-06 04:19 | Emergency (ER) | payer SELFPAY ==
[~2020-02-06] VITALS: Ht 175.3 cm; Wt 63.5 kg
--- OUTSIDE RECORDS SUMMARY | ~2020-02-06 | XMS | Encounter Summary ---
Demographics + + + | Address | [address] | | | [place] [address] | + + + | Home Phone | [email or web address] | + + + | Preferred Language | Unknown | + + + | Marital Status | Single | + + + | Taoism Affiliation | Unknown | + + + | Race | Unknown | + + + | Ethnic Group | Unknown | + + + Author + + + | Author | [facility] | | | and [place] | + + + | Organization | [facility] | | | and [place] [...] Team Providers + +------+ + | Care Glue Jointer Operator Name | Role | Phone | + +------+ + | No, Physician | PCP | Unavailable | + +------+ + Encounter Details +--------+ + + + + | Date | Type | Department | Care Team | Description | +--------+ + + + + | 03/08/ | Hospital | [facility] | Randal Polanco MD | Acute respiratory | | 2015 - | Encounter | [facility] | [address] | failure, unspecified | | | | CLINICAL DECISION | [place] [id number] | whether with | | 03/11/ | | [address] [facility] | [phone] | hypoxia or | | 2014 | | ANTHONY GUNDERSON | | hypercapnia ([facility]); | | | | [phone] | | Drug overdose, | | | | [phone] | | intentional, initial | | | | | | encounter ([facility]); | | | | | | Depression; | | | | | | Substance induced | | | | | | mood disorder ([facility]); | | | | | | Substance-induced | | | | | | anxiety disorder | | | | | | ([facility]) | +--------+ + + + + Social [...] + + documented as of this encounter Discharge Summaries Kristopher Kaiser MD - 03/11/2015 6:39 PM PDT Discharge Summaries by Kristopher Boo MD at 03/11/151838 Author: Kristopher Boo MD Service: Hospitalist Author Type: Physician Filed: 03/12/15 0020 Date of Service: 03/11/151838 Status: Addendum Chain Maker Machine: Kristopher Boo MD (Physician) Related Notes: Original Note by Kristopher Boo MD (Physician) filed at 03/11/15 4810 [facility] Service: Hospitalist Physician Discharge Summary Patient ID: Jason Burrell 1990 25 y.o. Admit date: 03/08/2015 Discharge date: 03/11/2015 Admitting Physician: Randal Polanco MD Discharge Physician: Kristopher Boo MD Consultants: Treatment Team: Admitting Provider: Randal Polanco MD Primary Discharge Diagnoses: Principal Problem: Drug overdose, intentional, Suicide Attempt Active Problems: Depression Chronic Alcoholism Chronic Polysubstance Abuse, Meth, MJ, Opiates, Benzos Acute respiratory failure (HCC) Substance induced mood disorder (HCC) Substance-induced anxiety disorder (HCC) Resolved Problems: Tricyclic overdose NSAID overdose HPI and Hospital Course: HISTORY OF PRESENT ILLNESS " The patient is a 25 y.o. 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 His sister reports four years ago he took an overdose of sleeping pills and was hospitalized for that. Then two years ago he cut his wr ists and ended up in the hospital for that. He is from [place], [place] and now lives with his sis Alvarez who runs a home for the disabled in [place], [place]. She says he has had drug and alco hol problems since his early teens. She sent him to [place] to an alcohol treatment program a few years ago but when he goth there he checked out within 24 hours. Both parents had dr howard and alcohol problems and his mother in her 30's as a result. His father is in his 5 0's and is in the fci in [place]. Lynne went to the ED in [place], [place] and spoke with Chel conner Jason as best as can be estimated toook 86 800 mg ibuprofen last night and an unknown quanity of TCA's. He was not intoxicated when seen on Wednesday by Lynne. No Hx of NVD, FC, SOB or CP or abdominal pain. ".......per Dr. Collin LIMON The patient was admitted to [facility] on March 08, 2015 with the diagno sis of ibuprofen and tricyclic overdose in the context of alcoholism and polysubstance abuse . Please see Dr. Polanco's H and P for presentation detail. The patient was admitted to the intensive care unit. He was monitored overnight and subsequently transferred out of intensiv e care unit on March 09, 2015 in much improved condition. He was maintained on judicious IV f luids. He was initiated on Risperdal 0.5 mg p.o. b.i.d. as recommended by our psychiatry consultan t. Drug rehabilitation was recommended but subsequently, the patient was also seen by crisis response unit, who recommended inpatient transitional/mental health unit stay. That unit be d has been found in [place] and the patient consented voluntarily to be hospitalized there at the facility. His sister will be transporting him. The patient was medically cleared for discharge on March 11, 2015. His vitals were stable. Maury quiroz was afebrile. His labs reveal normal CBC and CMP at the time of discharge. I strongly recommended to Mr. Burrell to consider inpatient drug and alcohol rehabilitatio n as soon as he is cleared by mental health services. Past Medical History: Past Medical History Diagnosis Date Alcohol abuse Current smoker Drug abuse and dependence (HCC) meth, MJ, opiates, benzo's Hemorrhage of gastrointestinal tract, unspecified History reviewed. No pertinent past surgical history. Discharged Condition: Stable for discharge as stated above. Significant Diagnostic Studies: Xr Chest 1 View 03/08/2015 JASON BURRELL XR CHEST 1 VIEW 03/08/2015 2:44 PM HISTORY: 25 years. Male. En dotracheal tube placement. Central line placement. TECHNIQUE: 1 view of the chest obtained at 1442 hours. COMPARISON: None. FINDINGS: The endotracheal tube tip is 6.4 cm above the mark. The tip of the right-sided central line is 4.2 cm below the mark at the cavoatria l junction. Overlying EKG leads are noted. A nasogastric tube is seen with its tip in the stomach. The heart is normal in size. The lungs are normally expanded. The pulmonary vascu lar pattern is normal. No acute airspace disease, parenchymal nodule, mass, pleural effusio n or pneumothorax is noted. No hilar adenopathy is seen. The osseous structures are intact . 03/08/2015 1. Endotracheal tube, nasogastric tube and right-sided central line are in sat isfactory position. 2. No acute findings in the chest. Discharge Vitals: Filed Vitals: 03/11/15 0431 03/11/15 0747 03/11/15 1147 03/11/15 1501 BP: 128/68 122/73 145/82 131/73 Pulse: 70 66 61 67 Temp: 97.9 F (36.6 C) 98 F (36.7 C) 98.5 F (36.9 C) 98.1 F (36.7 C) TempSrc: Oral Oral Oral Oral Resp: 16 16 16 16 Height: Weight: 60.601 kg (133 lb 9.6 oz) SpO2: 100% 100% 96% Discharge Exam: Physical Exam Constitutional: He appears well-developed. No distress. HENT: Head: Normocephalic. Mouth/Throat: Oropharynx is clear and moist. Eyes: EOM are normal. Pupils are equal, round, and reactive to light. Left eye exhibits no discharge. No scleral icterus. Neck: Normal range of motion. Cardiovascular: Normal rate and regular rhythm. Pulmonary/Chest: Effort normal and breath sounds normal. No respiratory distress. He has no wheezes. Abdominal: Soft. Bowel sounds are normal. He exhibits no distension. There is no tenderness . Musculoskeletal: Normal range of motion. He exhibits no tenderness. Neurological: He is alert. He has normal reflexes. No cranial nerve deficit. Coordination n ormal. Skin: Skin is warm and dry. No rash noted. No erythema. No pallor. Psychiatric: He has a normal mood and affect. His behavior is normal. LABS: Recent Labs Lab 03/11/15 0531 03/10/15 0435 03/09/15 0121 WBC 5.74 5.11 6.66 HGB 13.6 13.3 12.0* HCT 41.1 39.6 36.9* PLT 166 190 165 NEUTOPHILPCT 64.73 59.15 66.48 MONOPCT 10.36 9.29 8.99 Recent Labs Lab 03/11/15 0531 03/10/15 1430 03/10/15 0435 03/09/15 0121 03/08/15 1512 NA 137 -- 136 -- 136 -- K 4.2 4.1 3.5 < > 3.4* -- CL 103 -- 105 -- 110* -- CO2 29 -- 25 -- 19* -- BUN 12 -- 10 -- 9 -- CREATININE 0.83 -- 0.92 -- 0.82 -- PROT 6.2* -- 5.7* -- -- 5.6* BILITOT 0.3 -- 0.3 -- -- 0.4 ALT 18 -- 11 -- -- 13 AST 27 -- 17 -- -- 22 < > = values in this interval not displayed. Phosphorus: Recent Labs Lab 03/11/15 0531 PHOS 3.7 Recent Labs Lab 03/11/15 1237 03/11/15 0531 03/10/15 1430 MG 2.6* 1.8 2.1 Recent Labs Lab 03/08/15 1511 AMYLASE 44 Recent Labs Lab 03/08/15 1511 LIPASE 72* Disposition: Patient was accepted to inpatient psych/crisis response unit in [place] as arr anged by Responding crisis responding unit who interview patient in hospital. Follow up: Chelle Nelson, STEPHANIE [address] [facility] [address] [place] [address] Go on 03/21/2015 Appointment scheduled for March 21 at 1:30 , To establish care., For hospital follow up, priv ate transport. Medication List START taking these medications folic acid 1 MG tablet QTY: 30 tablet Refills: 1 Commonly known as: FOLVITE Take 1 tablet by mouth daily. risperidone 0.5 MG tablet QTY: 60 tablet Refills: 0 Commonly known as: RisperDAL Take 1 tablet by mouth 2 (two) times daily. thiamine 100 MG tablet QTY: 30 tablet Refills: 1 Commonly known as: VITAMIN B-1 Take 1 tablet by mouth daily. Where to Get Your Medications These are the prescriptions that you need to grain picker. You may get the following medications from any pharmacy - folic acid 1 MG tablet - risperidone 0.5 MG tablet - thiamine 100 MG tablet Kristopher Boo MD 03/11/2015 6:41 PM documented in thi s encounter Medications at Time of Discharge + [...] documented as of this encounter Progress Notes Dom Joe Provider Unknown - 03/11/2015 8:26 PM PDTFormatting of this note m ight be different from the original. Nurse Progress Note by Jose Angel Garcia RN at 03/11/152025 Author: Jose Angel Garcia RN Service: (none) Author Type: Registered Nurse Filed: 03/11/152025 Date of Service: 03/11/152025 Status: Signed Chain Maker Machine: Jose Angel Garcia RN (Registered Nurse) Discharge instructions explained to patient. Medication instructions given to patient. Al l questions answered and patient stated understanding. Patient discharged via ambulatory to private residence via private vehicle. onver misty Transaction, Provider Unknown - 03/11/2015 7:39 PM PDT Nurse Progress Note by Ting Lopez RN at 03/11/151938 Author: Ting Lopez RN Service: (none) Author Type: Registered Nurse Filed: 03/11/151940 Date of Service: 03/11/151938 Status: Signed Chain Maker Machine: Ting Lopez RN (Registered Nurse) Pt discharge instructions and medications explained to pt. Pt VSS and no complaints of pain . Pt appears to be in good spirits about being discharged to crisis bed. Pt currently denyin g suicidal thoughts. No acute changes from previous assessment. Pt denies any concerns of qu estions at this time. Ting Lopez RN onver misty Transaction, Provider Unknown - 03/11/2015 6:33 PM PDT Nurse Progress Note by Ting Lopez RN at 03/11/151832 Author: Ting Lopez RN Service: (none) Author Type: Registered Nurse Filed: 03/11/151842 Date of Service: 03/11/151832 Status: Signed Chain Maker Machine: Ting Lopez RN (Registered Nurse) Pt seen by both psych and crisis. Sitter remains at bedside to provide safety. Plan was to d/c pt tomorrow to transitions at [facility] at 12. Crisis came back and saw pt at 1820 and sta mir that she called and they have a bed at [facility] Boo notified for D/C orders. Pt talked to his sister ~1845 who will come get him and stated that it takes about 1.5 hrs for her to get here. ADC time set for 2029. Per crisis RN or sister needs to call center at when he leaves [facility]. Ting kern RN onver misty Transaction, Provider Unknown - 03/11/2015 12:29 PM PDT Case Management by Treva Canas RN at 03/11/15 1229 Author: Treva Canas RN Service: (none) Author Type: Registered Nurse Filed: 03/11/15 1230 Date of Service: 03/11/15 1229 Status: Signed Chain Maker Machine: Treva Canas RN (Registered Nurse) CM Information gathered during rounding with the physician that the patient is interested i n an IP rehab. List of IP rehabs given to patient. onver misty Joeaction, Provider Unknown - 03/11/2015 11:50 AM PDT Progress Notes by Frieda Macias at 03/11/15 1150 Author: Frieda Macias Service: (none) Author Type: [place] Filed: 03/11/15 1152 Date of Service: 03/11/15 115 Status: Signed Chain Maker Machine: Frieda Macias I have met with patient regarding establishing with a PCP. Patient wishes to stay in [facility]. I have patient scheduled at [place] [facility] with Chelle Nelson on March 21 at 1:3 0. Gave patient appointment information and clinic information. No further assistance is frank welsh at this time. Kristopher Yanes MD - 03/10/2015 6:50 PM PDTFormatting of this note might be different from hardik quiroz original. Progress Notes by Kristophre Boo MD at 03/10/151849 Author: Kristopher Boo MD Service: Hospitalist Author Type: Physician Filed: 03/11/15 0936 Date of Service: 03/10/151849 Status: Signed Chain Maker Machine: Kristopher Boo MD (Physician) Related Notes: Original Note by Kristopher Boo MD (Physician) filed at 03/10/151899 [facility] Service: Hospitalist Progress Note Pt: Jason Burrell AGE/SEX: 25 y.o. male : 1990 ROOM: [address] [place] [address] HISTORY OF PRESENT ILLNESS " The patient is a 25 y.o. 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 His sister reports four years ago he took an overdose of sleeping pills and was hospitalized for that. Then two years ago he cut his wr ists and ended up in the hospital for that. He is from [place], [place] and now lives with his sis Alvarez who runs a home for the disabled in [place], [place]. She says he has had drug and alco hol problems since his early teens. She sent him to [place] to an alcohol treatment program a few years ago but when he goth there he checked out within 24 hours. Both parents had dr howard and alcohol problems and his mother in her 30's as a result. His father is in his 5 0's and is in the [place]ci in [place]. Lynne went to the ED in [place], [place] and spoke with Chel lindquist. Jason as best as can be estimated toook 86 800 mg ibuprofen last night and an unknown quanity of TCA's. He was not intoxicated when seen on Wednesday by Lynne. No Hx of NVD, FC, SOB or CP or abdominal pain."......per admitting distribution accounting clerk/Dr. Collin LIMON TODAY'S DATE: 03/10/2015 Hospital Day: LOS: 2 days SUBJECTIVE: The patient did well after transfer from intensive care unit. He continues to b e under suicide watch. Oriented to self, place and time at present. He is inquiring from me whether or not the amount of medications that he took was a lethal enough dose. Continues to have suicidal thoughts. Review of Systems: Review of Systems Constitutional: Negative for fever and chills. HENT: Negative for hearing loss, sore throat and tinnitus. Eyes: Negative for blurred vision, double vision, photophobia and redness. Respiratory: Negative for cough, hemoptysis, wheezing and stridor. Cardiovascular: Negative for chest pain, palpitations, orthopnea and PND. Gastrointestinal: Negative for heartburn, nausea, vomiting, abdominal pain, blood in stool and melena. Genitourinary: Negative for dysuria, urgency, hematuria and flank pain. Musculoskeletal: Negative for myalgias and neck pain. Skin: Negative for itching. Neurological: Negative for dizziness, tingling, tremors, focal weakness, seizures, loss of consciousness, weakness and headaches. Endo/Heme/Allergies: Negative for polydipsia. Psychiatric/Behavioral: Positive for depression, suicidal ideas and substance abuse. Negati ve for hallucinations. The patient is not nervous/anxious. Scheduled Medications folic acid (FOLVITE) IVPB 1 mg Intravenous Daily Or multivitamin & minerals w iron/FA 1 tablet Oral Daily heparin (porcine) 5000 unit/0.5mL 5,000 Units Subcutaneous Q8H pantoprazole 40 mg Oral BID AC thiamine (VITAMIN B1) IVPB 100 mg Intravenous Q24H Or thiamine 100 mg Oral Q24H Continuous Infusions lactated ringers 110 mL/hr at 03/10/15 0607 PRN Medications acetaminophen OR acetaminophen, diazepam, diazepam OR diazepam, magnesium sulfate * *OR magnesium sulfate OR magnesium sulfate OR [DISCONTINUED] magnesium sulfate, on dansetron OR ondansetron, phosphorus OR sodium phosphate IVPB 15 mmol OR sodium phosphate IVPB 30 mmol, potassium chloride OR potassium chloride OR potassium chlori de Allergy: No Known Allergies OBJECTIVE Vitals: Patient Vitals for the past 24 hrs: BP Temp Temp src Pulse Resp SpO2 Weight 03/10/15 1531 135/72 mmHg 98.3 F (36.8 C) Oral 55 16 100 % - 03/10/15 1045 122/65 mmHg 98.6 F (37 C) Oral 68 16 99 % - 03/10/15 0739 108/70 mmHg 98.1 F (36.7 C) Oral 75 16 100 % - 03/10/15 0357 120/67 mmHg 98.3 F (36.8 C) Oral 83 16 100 % 60.51 kg (133 lb 6.4 oz) 03/09/15 2255 118/70 mmHg 98.1 F (36.7 C) Axillary 79 16 99 % - 03/09/15 1953 119/69 mmHg 98.8 F (37.1 C) Oral 69 16 100 % - I&O Detailed Table: Intake/Output Summary (Last 24 hours) at 03/10/15 1850 Last data filed at 03/10/15 1729 Gross per 24 hour Intake 1146 ml Output 775 ml Net 371 ml Patient Vitals for the past 96 hrs: Weight 03/10/15 0357 60.51 kg (133 lb 6.4 oz) 03/09/15 1220 60.827 kg (134 lb 1.6 oz) 03/09/15 0430 63.6 kg (140 lb 3.4 oz) 03/08/15 1520 63.4 kg (139 lb 12.4 oz) 03/08/15 1400 63.4 kg (139 lb 12.4 oz) Hemodynamics Last 24hrs: Examination: Physical Exam Constitutional: He is oriented to person, place, and time. He appears well-developed. No di stress. HENT: Head: Normocephalic. Mouth/Throat: Oropharynx is clear and moist. No oropharyngeal exudate. Eyes: EOM are normal. Pupils are equal, round, and reactive to light. No scleral icterus. Neck: Normal range of motion. Neck supple. No JVD present. Cardiovascular: Normal rate and regular rhythm. No murmur heard. Pulmonary/Chest: Effort normal and breath sounds normal. No respiratory distress. He has no wheezes. He has no rales. Abdominal: Soft. Bowel sounds are normal. He exhibits no distension. There is no tenderness . Musculoskeletal: Normal range of motion. He exhibits no edema or tenderness. Neurological: He is alert and oriented to person, place, and time. He has normal reflexes. He displays normal reflexes. No cranial nerve deficit. Coordination normal. Skin: Skin is warm and dry. No rash noted. No erythema. Psychiatric: He has a normal mood and affect. His behavior is normal. LABS: Recent Labs Lab 03/10/15 0435 03/09/15 0121 03/08/15 1511 WBC 5.11 6.66 8.48 HGB 13.3 12.0* 12.5* HCT 39.6 36.9* 37.7* PLT 190 165 181 NEUTOPHILPCT 59.15 66.48 72.32 MONOPCT 9.29 8.99 8.07 Recent Labs Lab 03/10/15 1430 03/10/15 0435 03/09/15 1158 03/09/15 0121 03/08/15 1512 03/08/15 1511 NA -- 136 -- 136 -- 147* K 4.1 3.5 3.9 3.4* -- 3.7 CL -- 105 -- 110* -- 116* CO2 -- 25 -- 19* -- 17* BUN -- 10 -- 9 -- 11 CREATININE -- 0.92 -- 0.82 -- 0.88 PROT -- 5.7* -- -- 5.6* -- BILITOT -- 0.3 -- -- 0.4 -- ALT -- 11 -- -- 13 -- AST -- 17 -- -- 22 -- Phosphorus: Recent Labs Lab 03/10/15 0435 PHOS 3.1 Recent Labs Lab 03/10/15 1430 03/10/15 0435 03/09/15 0121 MG 2.1 1.9 2.1 Recent Labs Lab 03/08/15 1511 AMYLASE 44 Recent Labs Lab 03/08/15 1511 LIPASE 72* Diagnostic: Xr Chest 1 View 03/08/2015 JASON BURRELL XR CHEST 1 VIEW 03/08/2015 2:44 PM HISTORY: 25 years. Male. En dotracheal tube placement. Central line placement. TECHNIQUE: 1 view of the chest obtained at 1442 hours. COMPARISON: None. FINDINGS: The endotracheal tube tip is 6.4 cm above the mark. The tip of the right-sided central line is 4.2 cm below the mark at the cavoatria l junction. Overlying EKG leads are noted. A nasogastric tube is seen with its tip in the stomach. The heart is normal in size. The lungs are normally expanded. The pulmonary vascu lar pattern is normal. No acute airspace disease, parenchymal nodule, mass, pleural effusio n or pneumothorax is noted. No hilar adenopathy is seen. The osseous structures are intact . 03/08/2015 1. Endotracheal tube, nasogastric tube and right-sided central line are in sat isfactory position. 2. No acute findings in the chest. Past Medical History Diagnosis Date Alcohol abuse Current smoker Drug abuse and dependence (HCC) meth, MJ, opiates, benzo's Hemorrhage of gastrointestinal tract, unspecified History reviewed. No pertinent past surgical history. PROBLEM LIST Principal Problem: Drug overdose, intentional, Suicide Attempt Active Problems: Depression Chronic Alcoholism Chronic Polysubstance Abuse, Meth, MJ, Opiates, Benzos Acute respiratory failure (HCC) Tricyclic overdose ASSESSMENT & PLAN 25-year-old male with the followin. Drug overdose/intentional suicide attempt. Continue suicide watch. Psychiatric consultat ion. Crisis evaluation tomorrow as well. 2. Depression: To be further addressed by psychiatry. 3. Chronic alcoholism. Case management to discover possibilities of inpatient rehabilitatio n placement. Continue thiamine and folate supplementation. CICT protocol p.r.n. 4. Chronic polysubstance abuse: methamphetamine, opiates, marijuana, and benzodiazepines. A gain, inpatient rehabilitation would be recommended. Case management will be consulted for t his purpose. 5. Acute respiratory failure, status post extubation. Saturating well on room air. No signs or symptoms of pneumonia. 6. Tricyclic overdose: Improved with supportive care in intensive care unit. 7. DVT prophylaxis: Subcutaneous heparin. 8. GI prophylaxis: Continue PPI therapy. Kristopher Boo MD 03/10/2015 6:50 PM onversion Transa ction, Provider Unknown - 03/10/2015 6:02 PM PDT Nurse Progress Note by Ting Lopez RN at 03/10/151801 Author: Ting Lopez RN Service: (none) Author Type: Registered Nurse Filed: 03/10/15 6033 Date of Service: 03/10/151801 Status: Signed Chain Maker Machine: Ting Lopez RN (Registered Nurse) Pt pleasant and cooperative all day. Pt slept most of shift. VSS, with no complaints of shellie n. Pt CIWA scored q4hrs with a score of 0 all day. Sitter remains at bedside to provide safe ty. No other acute changes from previous assessment. Ting Lopez RN onver misty Transaction, Provider Unknown - 03/10/2015 9:34 AM PDT Case Management by Kate Khan RN at 03/10/15 0901 Author: Kate Khan RN Service: (none) Author Type: Registered Nurse Filed: 03/10/1534 Date of Service: 03/10/15933 Status: Signed Chain Maker Machine: Kate Kahn RN (Registered Nurse) Discharge Planning: Per chart, pt does not have a PCP. Msg sent to GPS to assist pt with establishing care with a PCP. Kate Khan 03/10/2015 9:34 AM onver misty Transaction, Provider Unknown - 03/09/2015 12:20 PM PDT Progress Notes by Raquel Polanco RD, CD at 03/09/15 1220 Author: Raquel Polanco RD, CD Service: (none) Author Type: Registered Dietitian Filed: 03/09/15 1220 Date of Service: 03/09/151219 Status: Signed Chain Maker Machine: Raquel Polanco RD, CD (Registered Dietitian) 03/09/15 1112 Subjective Timepoint Admit (low wt/ht) Pt c/o Pt was admitted s/p intentional drug OD. Has been extubated to room air. Currently s leeping. Sitter is in the room and states that pt reported earlier that he is not hungry. Diet Experience Self-selected diet(s) followed Pt reports that he typically does not eat a lot. Usually soria s not have regular meals but snacks throughout the day. Suspect intake prior to admit is sub optimal due to hx of drug and alcohol abuse. Fluid / Beverage Intake Oral Fluids Amount None yet. Food Intake Amount of Food None yet, but pt is willing to have lunch. Ordered a cheeseburger, etc. for pt. Type of Food / Meals General diet. Parenteral Nutrition Intake Rate/Solution On IV fluids of LR at 110 mL/hr. Micronutrient Intake Vitamin Intake Thiamin;Folate Nutrition-Focused Physical Findings Overall Appearance Appears quite thin but otherwise well-nourished. Skin Intact. Anthropometrics Weight change BMI of 19.5 is WNL, however pt is 81% of his IBW. Pt reports that he has not lost any wt recently, has always been thin. Biochemical data, medical tests, and procedures reviewed Biochemical data, medical tests, and procedures reviewed K+ 3.4 (L), electrolyte replacemen t protocol ordered. BG has been WNL. Estimated Energy Needs Total Energy Estimated Needs 3321-2097 kcal/day Method for Estimating Needs 30-35 kcal/kg admit wt Estimated Protein Needs Total Protein Estimated Needs 76-95 g protein/day Method for Estimating Needs 1.2-1.5 g protein/kg admit wt Recommendations Recommended energy needs Continue general diet as ordered. Will arrange for house diet to b e sent to ensure pt receives meals on a consistent basis. Pt may order preferred foods from the menu if desired. Will monitor adequacy of PO intake. Emphasized the importance of consis tent meals. Supplements available if needed. Will follow. Nutritional Risk Nutritional risk Low / moderate Follow up date 03/15/[address], CD, [facility] 03/09/2015 onver misty Transaction, Provider Unknown - 03/09/2015 11:43 AM PDT Progress Notes by Yovanny Galindo RPH at 03/09/15 1143 Author: Yovanny Galindo RPH Service: (none) Author Type: Pharmacist Filed: 03/09/15 1143 Date of Service: 03/09/151142 Status: Signed Chain Maker Machine: Yovanny Galindo RPH (Pharmacist) Renal Dosing Monitoring: Jason Burrell 25 y.o. male Pharmacy dosing for renal function per Dr. Polanco SCr = 0.82, est CrCl >100 Plan per protocol: Based on current values, medications do not need to be adjusted for renal function. Pharmacy will continue monitoring patient for appropriate dosing per renal function. 03/09/2015 11:42 AM Pharmacist: Yovanny Galindo >> YOVANNY GALINDO 03/09/2015 11:40 CrCl >100, no changes needed. Yovanny Galindo >> YOVANNY GALINDO 03/08/2015 15:35 Renal Dosing Monitoring: Jason Burrell 25 y.o. male Pharmacy dosing for renal function per Dr. Polanco No Scr available yet. Plan per protocol: Unable to calculate CrCl. No medications require adjustment at present. Pharmacy will continue monitoring patient for appropriate dosing per renal function. 03/08/2015 3:34 PM Pharmacist: Yovanny Galindo onver misty Diazaction, Provider Unknown - 03/09/2015 8:43 AM PDT Case Management by WOODY Toribio at 03/09/15842 Author: WOODY Toribio Service: (none) Author Type: Foreign Clerk Filed: 03/09/1546 Date of Service: 03/09/15842 Status: Signed Chain Maker Machine: WOODY Toribio (Foreign Clerk) Pt was admitted for an intentional drug overdose. Pt lives with his sister who runs an [employer] family home. Pt's significant other also is involved with pt. A Psych-consult has been ord ered. Pt was asleep when CM tried to meet with him. CM will re-attempt at a later time. 03/09/15841 Discharge Planning Evaluation Admitting Diagnosis Drug overdose Readmission No Living Arrangements Family members Support Systems Family members;Spouse/significant other Type of Residence Adult family home Bathrooms on 1st Floor 1-Full Caregiver after Discharge Yes Relationship to Patient Sister & significant other Anticipated Discharge Plan Post Acute Care Needs Other (comment) (Psychiatric serives) Resources Financial concerns No Transportation issues No Patient/Family concerns No Prescription Plan Yes Anticipated Disposition Facility Type (Possible Psychiatric placement) Met with: Patient and discussed discharge planning, Pt is a 25 y.o., male Patient's PCP is: PER PT NONE Patient's insurance: Medicaid Coverage concerns: None Medication coverage/concerns: None Community resources utilized / needed: None Assistance in transportation: Not needed. Identification of any specific education / training: None Barriers to Discharge / Alternative housing needed: None Anticipated DCP: Home alerie Sung MD - 03/09/2015 3:35 AM PDTFormatting of this note might be different from rui bray original. Progress Notes by Valerie Campbell MD at 03/09/15334 Author: Valerie Campbell MD Service: Sort Line Author Type: Physician Filed: 03/09/15 0410 Date of Service: 03/09/15334 Status: Signed Chain Maker Machine: Valerie Campbell MD (Physician) [facility] Service: Sort Line Progress Note Jason Burrell 25 y.o. Hospital Day: LOS: 1 day Post-Op Day: * No surgery found * Consulting Physicians Treatment Team: Admitting Provider: Randal Polanco MD SUBJECTIVE Patient Summary: The patient is a 25 y.o. 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 His sister reports four years ago he took an overdose of sleeping pills and was hospitalized for that. Then two year s ago he cut his wrists and ended up in the hospital for that. He is from [place], [place] and now lives with his sister Lynne who runs a home for the disabled in [place], [place]. She says he has had drug and alcohol problems since his early teens. She sent him to [place] to an alcohol t reatment program a few years ago but when he goth there he checked out within 24 hours. Both parents had drug and alcohol problems and his mother in her 30's as a result. His [facility] is in his 50's and is in the [facility] [place]. Lynne went to the ED in [place], [place] and s poke with [place]. Jason as best as can be estimated toook 86 800 mg ibuprofen last night an d an unknown quanity of TCA's. He was not intoxicated when seen on Wednesday by Lynne. No Hx of NVD, FC, SOB or CP or abdominal pain. ICU Timeline: 03/08/15: Intubated, R subclavian inserted. Extubated after 6 hours on the ventilator. No episodes of torsades, or seizures. Events Overnight: Extubated successfully. Still wants to . Hemodynamically stable, and not in respiratory distress. SCHEDULED MEDICATIONS chlorhexidine gluconate 15 mL Mouth/Throat Q12H docusate sodium 100 mg Oral BID Or docusate 100 mg Per OG Tube BID folic acid (FOLVITE) IVPB 1 mg Intravenous Daily Or multivitamin & minerals w iron/FA 1 tablet Oral Daily heparin (porcine) 5000 unit/0.5mL 5,000 Units Subcutaneous Q8H pantoprazole 40 mg Intravenous BID thiamine (VITAMIN B1) IVPB 100 mg Intravenous Q24H Or thiamine 100 mg Oral Q24H CONTINUOUS INFUSIONS dexmedetomidine in NS lactated ringers 110 mL/hr at 03/09/15 0224 sodium bicarbonate drip 100 mEq/1000 mL 50 mL/hr at 03/09/15 0329 OBJECTIVE VITAL SIGNS Temp: [97.3 F (36.3 C)-98.1 F (36.7 C)] 98.1 F (36.7 C) Heart Rate: [72-104] 86 Resp: [8-28] 15 BP: (93-127)/(50-79) 105/64 mmHg FiO2 : [30 %-41 %] 30 % CVP (mean): [2 mmHg-26 mmHg] 7 mmHg (03/09 0100) PA catheter wave form: [-] Intake/Output Summary (Last 24 hours) at 03/09/15 0335 Last data filed at 03/09/15 0043 Gross per 24 hour Intake 969.97 ml Output 2375 ml Net -1405.03 ml EXAM GEN: drowsy but awake and is oriented, answers questions, not in distress NEURO: PERRLA, EOMI, no facial asymmetry, moves all extremities well GCS: 15 HEENT: puffy eyelids, sclerae clear, nonicteric, oral mmm, pink, no exudates NECK: supple, trachea midline HEART: RRR, S1/S2, no murmur, rub or gallop LUNGS: Normal effort, equal expansion, clear breath sounds ABD: soft, nondistended, nontender to palpation, no masses, no hepatosplenomegaly EXTR: no edema, clubbing or cyanosis SKIN: warm, dry, no rash or mottling; no e/o skin breakdown over the occiput, scapulae, elb ows, sacrum or heels LINES/TUBES: R CVC DATA Recent Labs Lab 03/09/15 0121 03/08/15 1511 WBC 6.66 8.48 RBC 3.91* 4.02* HGB 12.0* 12.5* HCT 36.9* 37.7* MCV 94.2 93.6 MCH 30.6 31.1 MCHC 32.5 33.2 RDW 43.8 42.9 PLT 165 181 MPV 6.9 6.7 NEUTROABS 4.42 6.13 LYMPHSABS 1.56 1.62 MONOSABS 0.60 0.68 BASOSABS 0.04 0.04 EOSABS 0.03 0.00 Recent Labs Lab 03/09/15 0121 03/08/15 1533 03/08/15 1512 03/08/15 1511 NA 136 -- -- 147* K 3.4* -- -- 3.7 CL 110* -- -- 116* CO2 19* -- -- 17* ANIONGAP 10 -- -- 17 GLUF 77 -- -- 83 BUN 9 -- -- 11 CREATININE 0.82 -- -- 0.88 BCR 11 -- -- 13 CA PENDING -- -- 6.7* ALB -- -- 3.4* -- PROT -- -- 5.6* -- BILITOT -- -- 0.4 -- ALT -- -- 13 -- AST -- -- 22 -- EGFR >60 -- -- >60 PHOS 2.9 2.0* -- -- MG 2.1 1.9 -- -- No results for input(s): INR in the last 168 hours. IMAGING Xr Chest 1 View 03/08/2015 1. Endotracheal tube, nasogastric tube and right-sided central line are in sat isfactory position. 2. No acute findings in the chest. LEM LIST Principal Problem: Drug overdose, intentional, Suicide Attempt Active Problems: Depression Chronic Alcoholism Chronic Polysubstance Abuse, Meth, MJ, Opiates, Benzos Acute respiratory failure (HCC) Tricyclic overdose ASSESSMENT & PLAN NEURO: Suicide attempt with polysubstance overdose. He has had a long history of suicide attemp ts, and this is reportedly his third. He took 86 800 mg Ibuprofen pills, and unknown number of tricyclic antidepressant. He was initially intubated for airway protection, and is now li berated from the the [facility] vent. He has a sitter in his room at all times. He needs a Psych/Crisi s response evaluation today to determine potential placement into a Psychiatric facility giv en his active suicidal ideations (he wanted me to stop "everything" and "pull the plug" so t hat he can ) and recent attempt. Will stop NaHCO3 gtt this morning. No prolongation of QT for now. Polysubstance abuse. Has had chronic alcohol and polysubstance abuse. Watch out for alco hol withdrawal. Folic acid and Thiamine. CV: Hypotension. Resolved. Likely from sedation effect. PULM: Acute respiratory failure secondary to depressed level of consciousness. Now extubated a nd protecting his airway. GI/NUTRITION: Will start a regular diet. Liver enzymes are normal. RENAL/LYTES: Renal function is normal. UO is good. Continue monitoring renal function closely. Hypokalemia. Replace K accordingly. May also be a NaHCO3 effect. ID: No signs of acute infection. HEME: Mild iron deficiency anemia. May be nutritional vs effect of chronic alcoholism. ENDO: POC glucose prn. MUSC/SKIN: No acute skin of muscular issues. PROPHYLAXIS: Stress ulcer prophylaxis: IV Protonix BID. Will switch to po. DVT prophylaxis: Heparin SQ Disposition: ICU care as above. Psych evaluation today. Code Status: Full Code *Please bill 45 minutes of critical care time spent evaluating the patient, reviewing the d álvaro and formulating a plan exclusive of all other procedures. Valerie Campbell MD 03/09/2015 3:35 AM onversion Trans action, Provider Unknown - 03/08/2015 7:47 PM PDT Progress Notes by Rakesh Danielson at 03/08/151946 Author: Rakesh Danielson Service: (none) Author Type: Emergency Medicine Specialist Filed: 03/08/151947 Date of Service: 03/08/151946 Status: Signed Chain Maker Machine: Rakesh Danielson () Pt intubated and sedated. Stopped in to speak with pt's sister. Sister said she was copin g at this time and did not need the marina porter. Chaplain Meredith onver misty Transaction, Provider Unknown - 03/08/2015 4:55 PM PDT Progress Notes by Ernie Lee at 03/08/15 4677 Author: Ernie Lee Service: (none) Author Type: Emergency Medicine Specialist Filed: 03/08/15 1701 Date of Service: 03/08/151654 Status: Signed Chain Maker Machine: Ernie Lee ([facility]) Initial contact w/ pt's sister Lynne (age 27) who provided this information. Pt intubated & sedated. Pt is single, w/ no children. Extremely addicted to illegal drugs (> 5 yrs), p elbert several previous suicide attempts, including this admission. Of note, pt & sister have had a very difficult childhood, including murder of their mother by their father (now in [place] son) over a decade ago. Both had extensive counseling & support from their grandparents (wh o have since ). Pt had one brief stint of addiction rehab but left after a few days. Sister was not sure what to do next, so I suggested she [facility], since pt is safe and sedated for now; this will better equip her for the next few days if de cisions are needed on behalf of pt or if pt does poorly. onver misty Joe, Provider Unknown - 03/08/2015 3:35 PM PDT Progress Notes by Yovanny Galindo RPH at 03/08/15 153 Author: Yovanny Galindo RPH Service: (none) Author Type: Pharmacist Filed: 03/08/15 1535 Date of Service: 03/08/151534 Status: Signed Chain Maker Machine: Yovanny Galindo RPH (Pharmacist) Renal Dosing Monitoring: Jason Burrell 25 y.o. male Pharmacy dosing for renal function per Dr. Polanco No Scr available yet. Plan per protocol: Unable to calculate CrCl. No medications require adjustment at present. Pharmacy will continue monitoring patient for appropriate dosing per renal function. 03/08/2015 3:34 PM Pharmacist: Yovanny Galindo docume nted in this encounter Plan of Treatment Not on filedocumented as of this encounter Procedures + +--------+ + + + | Procedure Name | Priori | Date/Time | Associated Diagnosis | Comments | | | ty | | | | + +--------+ + + + | MAGNESIUM | Routin | 03/11/2015 | | Results for this | | | e | 12:37 PM | | procedure are in the | | | | PDT | | results section. | + +--------+ + + + | EXTERNAL LAB: CBC | Routin | 03/11/2015 | | Results for this | | | e | 5:31 AM | | procedure are in the | | | | PDT | | results section. | + +--------+ + + + | PHOSPHORUS | Routin | 03/11/2015 | | Results for this | | | e | 5:31 AM | | procedure are in the | | | | PDT | | results section. | + +--------+ + + + | MAGNESIUM | Routin | 03/11/2015 | | Results for this | | | e | 5:31 AM | | procedure are in the | | | | PDT | | results section. | + +--------+ + + + | COMPREHENSIVE | Routin | 03/11/2015 | | Results for this | | METABOLIC PANEL | e | 5:31 AM | | procedure are in the | | | | PDT | | results section. | + +--------+ + + + | POTASSIUM | Routin | 03/10/2015 | | Results for this | | | e | 2:30 PM | | procedure are in the | | | | PDT | | results section. | + +--------+ + + + | MAGNESIUM | Routin | 03/10/2015 | | Results for this | | | e | 2:30 PM | | procedure are in the | | | | PDT | | results section. | + +--------+ + + + | EXTERNAL LAB: CBC | Routin | 03/10/2015 | | Results for this | | | e | 4:35 AM | | procedure are in the | | | | PDT | | results section. | + +--------+ + + + | PHOSPHORUS | Routin | 03/10/2015 | | Results for this | | | e | 4:35 AM | | procedure are in the | | | | PDT | | results section. | + +--------+ + + + | MAGNESIUM | Routin | 03/10/2015 | | Results for this | | | e | 4:35 AM | | procedure are in the | | | | PDT | | results section. | + +--------+ + + + | SALICYLATE LEVEL | Routin | 03/10/2015 | | Results for this | | | e | 4:35 AM | | procedure are in the | | | | PDT | | results section. | + +--------+ + + + | COMPREHENSIVE | Routin | 03/10/2015 | | Results for this | | METABOLIC PANEL | e | 4:35 AM | | procedure are in the | | | | PDT | | results section. | + +--------+ + + + | POTASSIUM | Routin | 03/09/2015 | | Results for this | | | e | 11:58 AM | | procedure are in the | | | | PDT | | results section. | + +--------+ + + + | EXTERNAL LAB: CBC | Routin | 03/09/2015 | | Results for this | | | e | 1:21 AM | | procedure are in the | | | | PDT | | results section. | + +--------+ + + + | PHOSPHORUS | Routin | 03/09/2015 | | Results for this | | | e | 1:21 AM | | procedure are in the | | | | PDT | | results section. | + +--------+ + + + | MAGNESIUM | Routin | 03/09/2015 | | Results for this | | | e | 1:21 AM | | procedure are in the | | | | PDT | | results section. | + +--------+ + + + | BASIC METABOLIC | Routin | 03/09/2015 | | Results for this | | PANEL | e | 1:21 AM | | procedure are in the | | | | PDT | | results section. | + +--------+ + + + | LACTIC ACID | Routin | 03/08/2015 | | Results for this | | | e | 8:09 PM | | procedure are in the | | | | PDT | | results section. | + +--------+ + + + | PHOSPHORUS | Routin | 03/08/2015 | | Results for this | | | e | 3:33 PM | | procedure are in the | | | | PDT | | results section. | + +--------+ + + + | MAGNESIUM | Routin | 03/08/2015 | | Results for this | | | e | 3:33 PM | | procedure are in the | | | | PDT | | results section. | + +--------+ + + + | HEPATIC FUNCTION | Routin | 03/08/2015 | | Results for this | | PANEL | e | 3:12 PM | | procedure are in the | | | | PDT | | results section. | + +--------+ + + + | EXTERNAL LAB: CBC | Routin | 03/08/2015 | | Results for this | | | e | 3:11 PM | | procedure are in the | | | | PDT | | results section. | + +--------+ + + + | LIPASE | Routin | 03/08/2015 | | Results for this | | | e | 3:11 PM | | procedure are in the | | | | PDT | | results section. | + +--------+ + + + | AMYLASE | Routin | 03/08/2015 | | Results for this | | | e | 3:11 PM | | procedure are in the | | | | PDT | | results section. | + +--------+ + + + | BASIC METABOLIC | Routin | 03/08/2015 | | Results for this | | PANEL | e | 3:11 PM | | procedure are in the | | | | PDT | | results section. | + +--------+ + + + | XR CHEST 1 VIEW | Routin | 03/08/2015 | | Results for this | | | e | 2:44 PM | | procedure are in the | | | | PDT | | results section. | + +--------+ + + + | MRSA NAAT | Routin | 03/08/2015 | | Results for this | | | e | 2:15 PM | | procedure are in the | | | | PDT | | results section. | + +--------+ + + + | URINALYSIS, REFLEX | Routin | 03/08/2015 | | Results for this | | MICROSCOPIC AND/OR | e | 2:15 PM | | procedure are in the | | CULTURE | | PDT | | results section. | + +--------+ + + + | ECG 12 LEAD | Routin | 03/08/2015 | | Results for this | | | e | 1:41 PM | | procedure are in the | | | | PDT | | results section. | + +--------+ + + + documented in this encounter Results Magnesium (03/11/2015 12:37 PM PDT) + + + + + + | Component | Value | Ref Range | Performed | Pathologist | | | | | At | Signature | + + + + + + | Magnesium | 2.6 (H)Comment: Testing | 1.7 - 2.4 mg/dL | EXTERNAL | | | | performed at [facility];[address] | | LAB | | | | [facility];[place], [place] | | | | | | [address] | | | | + + + [...] + +---------+ + + External Lab: CBC (03/11/2015 5:31 AM PDT) + + + + + + | Component | Value | Ref Range | Performed | Pathologist | | | | | At | Signature | + + + + + + | WBC | 5.74Comment: Testing | 3.80 - 11.00 | EXTERNAL | | | | performed at [facility], [address] | K/uL | LAB | | | | [address], | | | | | | [place] [address] | | | | + + + + + + | Red Blood | 4.41Comment: Testing | 4.20 - 5.70 | EXTERNAL | | | Cells | performed at [facility], [address] | M/uL | LAB | | | Counted | [address], | | | | | | [place] [address] | | | | + + + + + + | Hemoglobin | 13.6Comment: Testing | 13.2 - 17.0 | EXTERNAL | | | | performed at [facility], [address] | g/dL | LAB | | | | [address], | | | | | | [place] [address] | | | | + + + + + + | Hematocrit, | 41.1Comment: Testing | 39.0 - 50.0 % | EXTERNAL | | | POC | performed at [facility], [address] | | LAB | | | | [address], | | | | | | [place] [address] | | | | + + + + + + | MCV | 93.0Comment: Testing | 80.0 - 100.0 fl | EXTERNAL | | | | performed at [facility], [address] | | LAB | | | | [address], | | | | | | [place] [address] | | | | + + + + + + | MCH | 30.8Comment: Testing | 27.0 - 34.0 pg | EXTERNAL | | | | performed at [facility], [address] | | LAB | | | | [address], | | | | | | [place] [address] | | | | + + + + + + | MCHC | 33.1Comment: Testing | 32.0 - 35.5 | EXTERNAL | | | | performed at [facility], [address] | g/dL | LAB | | | | [address], | | | | | | [place] [address] | | | | + + + + + + | RDW-CV | 41.6Comment: Testing | 37 - 53 fl | EXTERNAL | | | | performed at [facility], [address] | | LAB | | | | [address], | | | | | | [place] [address] | | | | + + + + + + | Platelet | 166Comment: Testing | 150 - 400 K/uL | EXTERNAL | | | Count | performed at [facility], [address] | | LAB | | | Plasma | [address], | | | | | | [place] [address] | | | | + + + + + + | MPV | 7.1Comment: Testing | fl | EXTERNAL | | | | performed at [facility], [address] | | LAB | | | | [address], | | | | | | [place] [address] | | | | + + + + + + | Differentia | AUTOMATEDComment: | | EXTERNAL | | | l Type | Testing performed at | | LAB | | | | [facility], [address], [place], [place] | | | | | | [address] | | | | + + + + + + | % Segmented | 64.73Comment: Testing | % | EXTERNAL | | | | performed at [facility], [address] | | LAB | | | Neutrophils | [address], | | | | | | [place] [address] | | | | + + + + + + | % | 23.28Comment: Testing | % | EXTERNAL | | | Lymphocytes | performed at [facility], [address] | | LAB | | | | [address], | | | | | | [place] [address] | | | | + + + + + + | % Monocytes | 10.36Comment: Testing | % | EXTERNAL | | | | performed at [facility], [address] | | LAB | | | | [address], | | | | | | [place] [address] | | | | + + + + + + | % | 1.24Comment: Testing | % | EXTERNAL | | | Eosinophils | performed at [facility], [address] | | LAB | | | | [address], | | | | | | [place] [address] | | | | + + + + + + | % Basophils | 0.39Comment: Testing | % | EXTERNAL | | | | performed at [facility], [address] | | LAB | | | | [address], | | | | | | [place] [address] | | | | + + + + + + | Absolute | 3.72Comment: Testing | 1.90 - 7.40 | EXTERNAL | | | Segmented | performed at [facility], [address] | K/uL | LAB | | | Neutrophils | [address], | | | | | | [place] [address] | | | | + + + + + + | Absolute | 1.34Comment: Testing | 1.00 - 3.90 | EXTERNAL | | | Lymphocytes | performed at [facility], [address] | K/uL | LAB | | | | [address], | | | | | | [place] [address] | | | | + + + + + + | Absolute | 0.60Comment: Testing | 0.00 - 0.80 | EXTERNAL | | | Monocytes | performed at [facility], [address] | K/uL | LAB | | | | [address], | | | | | | [place] [address] | | | | + + + + + + | Absolute | 0.07Comment: Testing | 0.00 - 0.50 | EXTERNAL | | | Eosinophils | performed at [facility], [address] | K/uL | LAB | | | | [address], | | | | | | [place] [address] | | | | + + + + + + | Absolute | 0.02Comment: Testing | 0.00 - 0.10 | EXTERNAL | | | Basophils | performed at [facility], [address] | K/uL | LAB | | | | [address], | | | | | | [place] [address] | | | | + + + + + + + + | Specimen | + + | Blood specimen | | (specimen) | + + + +---------+ + + | Performing | Address | City/State/Zipcode | Phone Number | | Organization | | | | + +---------+ + + | EXTERNAL LAB | | | | + +---------+ + + Phosphorus (03/11/2015 5:31 AM PDT) + + + + + + | Component | Value | Ref Range | Performed | Pathologist | | | | | At | Signature | + + + + + + | PHOSPHORUS | 3.7Comment: Testing | 2.3 - 4.8 mg/dL | EXTERNAL | | | | performed at [facility], [address] | | LAB | | | | [address], | | | | | | [place] [address] | | | | + + + + + + + + | Specimen | + + | Blood specimen | | (specimen) | + + + +---------+ + + | Performing | Address | City/State/Zipcode | Phone Number | | Organization | | | | + +---------+ + + | EXTERNAL LAB | | | | + +---------+ + + Magnesium (03/11/2015 5:31 AM PDT) + + + + + + | Component | Value | Ref Range | Performed | Pathologist | | | | | At | Signature | + + + + + + | Magnesium | 1.8Comment: Testing | 1.7 - 2.4 mg/dL | EXTERNAL | | | | performed at [facility], [address] | | LAB | | | | [address], | | | | | | [place] [address] | | | | + + + + + + + + | Specimen | + + | Blood specimen | | (specimen) | + + + +---------+ + + | Performing | Address | City/State/Zipcode | Phone Number | | Organization | | | | + +---------+ + + | EXTERNAL LAB | | | | + +---------+ + + Comprehensive Metabolic Panel (03/11/2015 5:31 AM PDT) + + + + + + | Component | Value | Ref Range | Performed | Pathologist | | | | | At | Signature | + + + + + + | Na | 137Comment: Testing | 135 - 143 | EXTERNAL | | | | performed at [facility], [address] | mmol/L | LAB | | | | [address], | | | | | | [place] [address] | | | | + + + + + + | K | 4.2Comment: Testing | 3.5 - 4.9 | EXTERNAL | | | | performed at [facility], [address] | mmol/L | LAB | | | | [address], | | | | | | [place] [address] | | | | + + + + + + | Cl | 103Comment: Testing | 99 - 109 mmol/L | EXTERNAL | | | | performed at [facility], [address] | | LAB | | | | [address], | | | | | | [place] [address] | | | | + + + + + + | CO2 | 29Comment: Testing | 23 - 32 mmol/L | EXTERNAL | | | | performed at [facility], [address] | | LAB | | | | [address], | | | | | | [place] [address] | | | | + + + + + + | Anion Gap | 9Comment: Testing | 5 - 20 mmol/L | EXTERNAL | | | | performed at [facility], [address] | | LAB | | | | [address], | | | | | | [place] [address] | | | | + + + + + + | Glucose, | 95Comment: Testing | 65 - 99 mg/dL | EXTERNAL | | | Fasting | performed at [facility], [address] | | LAB | | | | [address], | | | | | | [place] [address] | | | | + + + + + + | BUN | 12Comment: Testing | 8 - 25 mg/dL | EXTERNAL | | | | performed at [facility], [address] | | LAB | | | | [address], | | | | | | [place] [address] | | | | + + + + + + | Creatinine | 0.83Comment: Testing | 0.70 - 1.30 | EXTERNAL | | | | performed at [facility], [address] | mg/dL | LAB | | | | [address], | | | | | | [place] [address] | | | | + + + + + + | BUN/Creatin | 14Comment: Testing | | EXTERNAL | | | ine Ratio | performed at [facility], [address] | | LAB | | | | [address], | | | | | | [place] [address] | | | | + + + + + + | Calcium | 8.7Comment: Testing | 8.5 - 10.5 | EXTERNAL | | | | performed at [facility], [address] | mg/dL | LAB | | | | [address], | | | | | | [place] [address] | | | | + + + + + + | Protein, | 6.2 (L)Comment: Testing | 6.3 - 8.2 g/dL | EXTERNAL | | | Total | performed at [facility], [address] | | LAB | | | | [address], | | | | | | [place] [address] | | | | + + + + + + | Albumin | 3.9Comment: Testing | 3.6 - 5.0 g/dL | EXTERNAL | | | | performed at [facility], [address] | | LAB | | | | [address], | | | | | | [place] [address] | | | | + + + + + + | Globulin | 2.3Comment: Testing | 1.3 - 4.9 g/dL | EXTERNAL | | | | performed at [facility], [address] | | LAB | | | | [address], | | | | | | [place] [address] | | | | + + + + + + | A/G Ratio | 1.7Comment: Testing | 1.0 - 2.4 | EXTERNAL | | | | performed at [facility], [address] | | LAB | | | | [address], | | | | | | [place] [address] | | | | + + + + + + | Bilirubin | 0.3Comment: Testing | 0.1 - 1.5 mg/dL | EXTERNAL | | | Total | performed at [facility], [address] | | LAB | | | | [address], | | | | | | [place] [address] | | | | + + + + + + | ALP, | 45Comment: Testing | 35 - 115 U/L | EXTERNAL | | | External | performed at [facility], [address] | | LAB | | | | [address], | | | | | | [place] [address] | | | | + + + + + + | AST | 27Comment: Testing | 10 - 45 U/L | EXTERNAL | | | | performed at [facility], [address] | | LAB | | | | [address], | | | | | | [place] [address] | | | | + + + + + + | ALT | 18Comment: Testing | 10 - 65 U/L | EXTERNAL | | | | performed at [facility], [address] | | LAB | | | | [address] [facility], | | | | | | [place] [address] | | | | + + + [...] W | | | | | | [facility], | | | | | | [place] [address] | | | | + + + + + + + + | Specimen | + + | Blood specimen | | (specimen) | + + + +---------+ + + | Performing | Address | City/State/Zipcode | Phone Number | | Organization | | | | + +---------+ + + | EXTERNAL LAB | | | | + +---------+ + + Potassium (03/10/2015 2:30 PM PDT) + + + + + + | Component | Value | Ref Range | Performed | Pathologist | | | | | At | Signature | + + + + + + | K | 4.1Comment: Testing | 3.5 - 4.9 | EXTERNAL | | | | performed at [facility];888 | mmol/L | LAB | | | | [address];[place] | | | | | | [address] | | | | + + + + + + + + | Specimen | + + | Blood specimen | | (specimen) | + + + +---------+ + + | Performing | Address | City/State/Zipcode | Phone Number | | Organization | | | | + +---------+ + + | EXTERNAL LAB | | | | + +---------+ + + Magnesium (03/10/2015 2:30 PM PDT) + + + + + + | Component | Value | Ref Range | Performed | Pathologist | | | | | At | Signature | + + + + + + | Magnesium | 2.1Comment: Testing | 1.7 - 2.4 mg/dL | EXTERNAL | | | | performed at [facility];888 | | LAB | | | | [address];[place], [place] | | | | | | [address] | | | | + + + [...] + +---------+ + + External Lab: CBC (03/10/2015 4:35 AM PDT) + + + + + + | Component | Value | Ref Range | Performed | Pathologist | | | | | At | Signature | + + + + + + | WBC | 5.11Comment: Testing | 3.80 - 11.00 | EXTERNAL | | | | performed at [facility], [address] | K/uL | LAB | | | | [address], | | | | | | [place] [address] | | | | + + + + + + | Red Blood | 4.27Comment: Testing | 4.20 - 5.70 | EXTERNAL | | | Cells | performed at [facility], [address] | M/uL | LAB | | | Counted | [address], | | | | | | [place] [address] | | | | + + + + + + | Hemoglobin | 13.3Comment: Testing | 13.2 - 17.0 | EXTERNAL | | | | performed at [facility], [address] | g/dL | LAB | | | | [address], | | | | | | [place] [address] | | | | + + + + + + | Hematocrit, | 39.6Comment: Testing | 39.0 - 50.0 % | EXTERNAL | | | POC | performed at [facility], [address] | | LAB | | | | [address], | | | | | | [place] [address] | | | | + + + + + + | MCV | 92.7Comment: Testing | 80.0 - 100.0 fl | EXTERNAL | | | | performed at [facility], [address] | | LAB | | | | [address], | | | | | | [place] [address] | | | | + + + + + + | MCH | 31.2Comment: Testing | 27.0 - 34.0 pg | EXTERNAL | | | | performed at [facility], [address] | | LAB | | | | [address], | | | | | | [place] [address] | | | | + + + + + + | MCHC | 33.6Comment: Testing | 32.0 - 35.5 | EXTERNAL | | | | performed at [facility], [address] | g/dL | LAB | | | | [address], | | | | | | [place] [address] | | | | + + + + + + | RDW-CV | 42.0Comment: Testing | 37 - 53 fl | EXTERNAL | | | | performed at [facility], [address] | | LAB | | | | [address], | | | | | | [place] [address] | | | | + + + + + + | Platelet | 190Comment: Testing | 150 - 400 K/uL | EXTERNAL | | | Count | performed at [facility], [address] | | LAB | | | Plasma | [address], | | | | | | [place] [address] | | | | + + + + + + | MPV | 7.0Comment: Testing | fl | EXTERNAL | | | | performed at [facility], [address] | | LAB | | | | [address], | | | | | | [place] [address] | | | | + + + + + + | Differentia | AUTOMATEDComment: | | EXTERNAL | | | l Type | Testing performed at | | LAB | | | | [facility], [address] | | | | | | [place] | | | | | | [address] | | | | + + + + + + | % Segmented | 59.15Comment: Testing | % | EXTERNAL | | | | performed at [facility], [address] | | LAB | | | Neutrophils | [address], | | | | | | [place] [address] | | | | + + + + + + | % | 30.10Comment: Testing | % | EXTERNAL | | | Lymphocytes | performed at [facility], [address] | | LAB | | | | [address], | | | | | | [place], [place] [address] | | | | + + + + + + | % Monocytes | 9.29Comment: Testing | % | EXTERNAL | | | | performed at [facility], [address] | | LAB | | | | [address], | | | | | | [place], [place] [address] | | | | + + + + + + | % | 0.96Comment: Testing | % | EXTERNAL | | | Eosinophils | performed at [facility], [address] | | LAB | | | | [address], | | | | | | [place] [address] | | | | + + + + + + | % Basophils | 0.50Comment: Testing | % | EXTERNAL | | | | performed at [facility], [address] | | LAB | | | | [address], | | | | | | [place] [address] | | | | + + + + + + | Absolute | 3.02Comment: Testing | 1.90 - 7.40 | EXTERNAL | | | Segmented | performed at [facility], [address] | K/uL | LAB | | | Neutrophils | [address], | | | | | | [place] [address] | | | | + + + + + + | Absolute | 1.54Comment: Testing | 1.00 - 3.90 | EXTERNAL | | | Lymphocytes | performed at [facility], [address] | K/uL | LAB | | | | [address], | | | | | | [place] [address] | | | | + + + + + + | Absolute | 0.48Comment: Testing | 0.00 - 0.80 | EXTERNAL | | | Monocytes | performed at [facility], [address] | K/uL | LAB | | | | [address], | | | | | | [place] [address] | | | | + + + + + + | Absolute | 0.05Comment: Testing | 0.00 - 0.50 | EXTERNAL | | | Eosinophils | performed at [facility], [address] | K/uL | LAB | | | | [address], | | | | | | [place] [address] | | | | + + + + + + | Absolute | 0.03Comment: Testing | 0.00 - 0.10 | EXTERNAL | | | Basophils | performed at [facility], [address] | K/uL | LAB | | | | [address], | | | | | | [place] [address] | | | | + + + + + + + + | Specimen | + + | Blood specimen | | (specimen) | + + + +---------+ + + | Performing | Address | City/State/Zipcode | Phone Number | | Organization | | | | + +---------+ + + | EXTERNAL LAB | | | | + +---------+ + + Phosphorus (03/10/2015 4:35 AM PDT) + + + + + + | Component | Value | Ref Range | Performed | Pathologist | | | | | At | Signature | + + + + + + | PHOSPHORUS | 3.1Comment: Testing | 2.3 - 4.8 mg/dL | EXTERNAL | | | | performed at [facility], [address] | | LAB | | | | [address], | | | | | | [place] [address] | | | | + + + + + + + + | Specimen | + + | Blood specimen | | (specimen) | + + + +---------+ + + | Performing | Address | City/State/Zipcode | Phone Number | | Organization | | | | + +---------+ + + | EXTERNAL LAB | | | | + +---------+ + + Magnesium (03/10/2015 4:35 AM PDT) + + + + + + | Component | Value | Ref Range | Performed | Pathologist | | | | | At | Signature | + + + + + + | Magnesium | 1.9Comment: Testing | 1.7 - 2.4 mg/dL | EXTERNAL | | | | performed at [facility], [address] | | LAB | | | | [address], | | | | | | [place] [address] | | | | + + + + + + + + | Specimen | + + | Blood specimen | | (specimen) | + + + +---------+ + + | Performing | Address | City/State/Zipcode | Phone Number | | Organization | | | | + +---------+ + + | EXTERNAL LAB | | | | + +---------+ + + Salicylate Level (03/10/2015 4:35 AM PDT) + + + + + + | Component | Value | Ref Range | Performed | Pathologist | | | | | At | Signature | + + + + + + | Salicylate | <1.7 (L)Comment: Testing | 2.8 - 20.0 | EXTERNAL | | | Lvl | performed at [facility];[address] | mg/dL | LAB | | | | [address];[place] | | | | | | [address] | | | | + + + + + + + + | Specimen | + + | Blood specimen | | (specimen) | + + + +---------+ + + | Performing | Address | City/State/Zipcode | Phone Number | | Organization | | | | + +---------+ + + | EXTERNAL LAB | | | | + +---------+ + + Comprehensive Metabolic Panel (03/10/2015 4:35 AM PDT) + + + + + + | Component | Value | Ref Range | Performed | Pathologist | | | | | At | Signature | + + + + + + | Na | 136Comment: Testing | 135 - 143 | EXTERNAL | | | | performed at [facility], [address] | mmol/L | LAB | | | | [address], | | | | | | [place] [address] | | | | + + + + + + | K | 3.5Comment: Testing | 3.5 - 4.9 | EXTERNAL | | | | performed at [facility], [address] | mmol/L | LAB | | | | [address], | | | | | | [place] [address] | | | | + + + + + + | Cl | 105Comment: Testing | 99 - 109 mmol/L | EXTERNAL | | | | performed at [facility], [address] | | LAB | | | | [address], | | | | | | [place] [address] | | | | + + + + + + | CO2 | 25Comment: Testing | 23 - 32 mmol/L | EXTERNAL | | | | performed at [facility], [address] | | LAB | | | | [address], | | | | | | [place] [address] | | | | + + + + + + | Anion Gap | 10Comment: Testing | 5 - 20 mmol/L | EXTERNAL | | | | performed at [facility], [address] | | LAB | | | | [address], | | | | | | [place] [address] | | | | + + + + + + | Glucose, | 100 (H)Comment: Testing | 65 - 99 mg/dL | EXTERNAL | | | Fasting | performed at [facility], [address] | | LAB | | | | [address], | | | | | | [place] [address] | | | | + + + + + + | BUN | 10Comment: Testing | 8 - 25 mg/dL | EXTERNAL | | | | performed at [facility], [address] | | LAB | | | | [address], | | | | | | [place] [address] | | | | + + + + + + | Creatinine | 0.92Comment: Testing | 0.70 - 1.30 | EXTERNAL | | | | performed at [facility], [address] | mg/dL | LAB | | | | [address], | | | | | | [place] [address] | | | | + + + + + + | BUN/Creatin | 11Comment: Testing | | EXTERNAL | | | ine Ratio | performed at [facility], [address] | | LAB | | | | [address], | | | | | | [place] [address] | | | | + + + + + + | Calcium | 8.4 (L)Comment: Testing | 8.5 - 10.5 | EXTERNAL | | | | performed at [facility], [address] | mg/dL | LAB | | | | [address], | | | | | | [place] [address] | | | | + + + + + + | Protein, | 5.7 (L)Comment: Testing | 6.3 - 8.2 g/dL | EXTERNAL | | | Total | performed at [facility], [address] | | LAB | | | | [address], | | | | | | [place] [address] | | | | + + + + + + | Albumin | 3.6Comment: Testing | 3.6 - 5.0 g/dL | EXTERNAL | | | | performed at [facility], [address] | | LAB | | | | [address], | | | | | | [place] [address] | | | | + + + + + + | Globulin | 2.1Comment: Testing | 1.3 - 4.9 g/dL | EXTERNAL | | | | performed at [facility], [address] | | LAB | | | | [address], | | | | | | [place] [address] | | | | + + + + + + | A/G Ratio | 1.7Comment: Testing | 1.0 - 2.4 | EXTERNAL | | | | performed at [facility], [address] | | LAB | | | | [address], | | | | | | [place] [address] | | | | + + + + + + | Bilirubin | 0.3Comment: Testing | 0.1 - 1.5 mg/dL | EXTERNAL | | | Total | performed at [facility], [address] | | LAB | | | | [address], | | | | | | [place], [place] [address] | | | | + + + + + + | ALP, | 47Comment: Testing | 35 - 115 U/L | EXTERNAL | | | External | performed at [facility], [address] | | LAB | | | | [address], | | | | | | [place], [place] [address] | | | | + + + + + + | AST | 17Comment: Testing | 10 - 45 U/L | EXTERNAL | | | | performed at [facility], [address] | | LAB | | | | [address], | | | | | | [place] [address] | | | | + + + + + + | ALT | 11Comment: Testing | 10 - 65 U/L | EXTERNAL | | | | performed at [facility], [address] | | LAB | | | | [address], | | | | | | [place] [address] | | | | + + + [...] | | | | | | at [facility], [address] | | | | | | [address], | | | | | | [place] [address] | | | | + + + + + + + + | Specimen | + + | Blood specimen | | (specimen) | + + + +---------+ + + | Performing | Address | City/State/Zipcode | Phone Number | | Organization | | | | + +---------+ + + | EXTERNAL LAB | | | | + +---------+ + + Potassium (03/09/2015 11:58 AM PDT) + + + + + + | Component | Value | Ref Range | Performed | Pathologist | | | | | At | Signature | + + + + + + | K | 3.9Comment: Testing | 3.5 - 4.9 | EXTERNAL | | | | performed at [facility];888 | mmol/L | LAB | | | | [address];[place], [place] | | | | | | [address] | | | | + + + [...] + +---------+ + + External Lab: CBC (03/09/2015 1:21 AM PDT) + + + + + + | Component | Value | Ref Range | Performed | Pathologist | | | | | At | Signature | + + + + + + | WBC | 6.66Comment: Testing | 3.80 - 11.00 | EXTERNAL | | | | performed at [facility], [address] | K/uL | LAB | | | | [address], | | | | | | [place] [address] | | | | + + + + + + | Red Blood | 3.91 (L)Comment: Testing | 4.20 - 5.70 | EXTERNAL | | | Cells | performed at [facility], [address] | M/uL | LAB | | | Counted | [address], | | | | | | [place] [address] | | | | + + + + + + | Hemoglobin | 12.0 (L)Comment: Testing | 13.2 - 17.0 | EXTERNAL | | | | performed at [facility], [address] | g/dL | LAB | | | | [address], | | | | | | [place] [address] | | | | + + + + + + | Hematocrit, | 36.9 (L)Comment: Testing | 39.0 - 50.0 % | EXTERNAL | | | POC | performed at [facility], [address] | LAB | | | | [address], | | | | | | [place] [address] | | | | + + + + + + | MCV | 94.2Comment: Testing | 80.0 - 100.0 fl | EXTERNAL | | | | performed at [facility], [address] | | LAB | | | | [address], | | | | | | [place] [address] | | | | + + + + + + | MCH | 30.6Comment: Testing | 27.0 - 34.0 pg | EXTERNAL | | | | performed at [facility], [address] | | LAB | | | | [address], | | | | | | [place] [address] | | | | + + + + + + | MCHC | 32.5Comment: Testing | 32.0 - 35.5 | EXTERNAL | | | | performed at [facility], [address] | g/dL | LAB | | | | [address], | | | | | | [place] [address] | | | | + + + + + + | RDW-CV | 43.8Comment: Testing | 37 - 53 fl | EXTERNAL | | | | performed at [facility], [address] | | LAB | | | | [address], | | | | | | [place] [address] | | | | + + + + + + | Platelet | 165Comment: Testing | 150 - 400 K/uL | EXTERNAL | | | Count | performed at [facility], [address] | | LAB | | | Plasma | [address], | | | | | | [place] [address] | | | | + + + + + + | MPV | 6.9Comment: Testing | fl | EXTERNAL | | | | performed at [facility], [address] | | LAB | | | | [address], | | | | | | [place] [address] | | | | + + + + + + | Differentia | AUTOMATEDComment: | | EXTERNAL | | | l Type | Testing performed at | | LAB | | | | [facility], [address], [place], [place] | | | | | | [address] | | | | + + + + + + | % Segmented | 66.48Comment: Testing | % | EXTERNAL | | | | performed at [facility], [address] | | LAB | | | Neutrophils | [address], | | | | | | [place] [address] | | | | + + + + + + | % | 23.40Comment: Testing | % | EXTERNAL | | | Lymphocytes | performed at [facility], [address] | | LAB | | | | [address], | | | | | | [place] [address] | | | | + + + + + + | % Monocytes | 8.99Comment: Testing | % | EXTERNAL | | | | performed at [facility], [address] | | LAB | | | | [address], | | | | | | [place] [address] | | | | + + + + + + | % | 0.49Comment: Testing | % | EXTERNAL | | | Eosinophils | performed at [facility], [address] | | LAB | | | | [address], | | | | | | [place] [address] | | | | + + + + + + | % Basophils | 0.64Comment: Testing | % | EXTERNAL | | | | performed at [facility], [address] | | LAB | | | | [address], | | | | | | [place] [address] | | | | + + + + + + | Absolute | 4.42Comment: Testing | 1.90 - 7.40 | EXTERNAL | | | Segmented | performed at [facility], [address] | K/uL | LAB | | | Neutrophils | [address], | | | | | | [place] [address] | | | | + + + + + + | Absolute | 1.56Comment: Testing | 1.00 - 3.90 | EXTERNAL | | | Lymphocytes | performed at [facility], [address] | K/uL | LAB | | | | [address], | | | | | | [place] [address] | | | | + + + + + + | Absolute | 0.60Comment: Testing | 0.00 - 0.80 | EXTERNAL | | | Monocytes | performed at [facility], [address] | K/uL | LAB | | | | [address], | | | | | | [place] [address] | | | | + + + + + + | Absolute | 0.03Comment: Testing | 0.00 - 0.50 | EXTERNAL | | | Eosinophils | performed at [facility], [address] | K/uL | LAB | | | | [address], | | | | | | [place] [address] | | | | + + + + + + | Absolute | 0.04Comment: Testing | 0.00 - 0.10 | EXTERNAL | | | Basophils | performed at [facility], [address] | K/uL | LAB | | | | [address], | | | | | | [place] [address] | | | | + + + + + + + + | Specimen | + + | Blood specimen | | (specimen) | + + + +---------+ + + | Performing | Address | City/State/Zipcode | Phone Number | | Organization | | | | + +---------+ + + | EXTERNAL LAB | | | | + +---------+ + + Phosphorus (03/09/2015 1:21 AM PDT) + + + + + + | Component | Value | Ref Range | Performed | Pathologist | | | | | At | Signature | + + + + + + | PHOSPHORUS | 2.9Comment: Testing | 2.3 - 4.8 mg/dL | EXTERNAL | | | | performed at [facility], [address] | | LAB | | | | [address], | | | | | | [place] [address] | | | | + + + + + + + + | Specimen | + + | Blood specimen | | (specimen) | + + + +---------+ + + | Performing | Address | City/State/Zipcode | Phone Number | | Organization | | | | + +---------+ + + | EXTERNAL LAB | | | | + +---------+ + + Magnesium (03/09/2015 1:21 AM PDT) + + + + + + | Component | Value | Ref Range | Performed | Pathologist | | | | | At | Signature | + + + + + + | Magnesium | 2.1Comment: Testing | 1.7 - 2.4 mg/dL | EXTERNAL | | | | performed at [facility], [address] | | LAB | | | | [address], | | | | | | [place] [address] | | | | + + + [...] + +---------+ + + Basic Metabolic Panel (03/09/2015 1:21 AM PDT) + + + + + + | Component | Value | Ref Range | Performed | Pathologist | | | | | At | Signature | + + + + + + | Na | 136Comment: Testing | 135 - 143 | EXTERNAL | | | | performed at [facility], [address] | mmol/L | LAB | | | | [address], | | | | | | [place] [address] | | | | + + + + + + | K | 3.4 (L)Comment: Testing | 3.5 - 4.9 | EXTERNAL | | | | performed at [facility], [address] | mmol/L | LAB | | | | [address], | | | | | | [place] [address] | | | | + + + + + + | Cl | 110 (H)Comment: Testing | 99 - 109 mmol/L | EXTERNAL | | | | performed at [facility], [address] | | LAB | | | | [address], | | | | | | [place] [address] | | | | + + + + + + | CO2 | 19 (L)Comment: Testing | 23 - 32 mmol/L | EXTERNAL | | | | performed at [facility], [address] | | LAB | | | | [address], | | | | | | [place] [address] | | | | + + + + + + | Anion Gap | 10Comment: Testing | 5 - 20 mmol/L | EXTERNAL | | | | performed at [facility], [address] | | LAB | | | | [address], | | | | | | [place] [address] | | | | + + + + + + | Glucose, | 77Comment: Testing | 65 - 99 mg/dL | EXTERNAL | | | Fasting | performed at [facility], [address] | | LAB | | | | [address], | | | | | | [place] [address] | | | | + + + + + + | BUN | 9Comment: Testing | 8 - 25 mg/dL | EXTERNAL | | | | performed at [facility], [address] | | LAB | | | | [address], | | | | | | [place] [address] | | | | + + + + + + | Creatinine | 0.82Comment: Testing | 0.70 - 1.30 | EXTERNAL | | | | performed at [facility], [address] | mg/dL | LAB | | | | [address], | | | | | | [place] [address] | | | | + + + + + + | BUN/Creatin | 11Comment: Testing | | EXTERNAL | | | ine Ratio | performed at [facility], [address] | | LAB | | | | [address], | | | | | | [place] [address] | | | | + + + + + + | Calcium | 6.8 (L)Comment: Testing | 8.5 - 10.5 | EXTERNAL | | | | performed at [facility], [address] | mg/dL | LAB | | | | [address], | | | | | | [place] [address] | | | | + + + [...] | | | | | | [address], | | | | | | [place] [address] | | | | + + + + + + + + | Specimen | + + | Blood specimen | | (specimen) | + + + +---------+ + + | Performing | Address | City/State/Zipcode | Phone Number | | Organization | | | | + +---------+ + + | EXTERNAL LAB | | | | + +---------+ + + Lactic Acid (03/08/2015 8:09 PM PDT) + + + + + + | Component | Value | Ref Range | Performed | Pathologist | | | | | At | Signature | + + + + + + | Lactate | 0.5Comment: Testing | 0.4 - 2.0 | EXTERNAL | | | | performed at [facility];[address] | mmol/L | LAB | | | | [address];[place], [place] | | | | | | [address] | | | | + + + + + + + + | Specimen | + + | Blood specimen | | (specimen) | + + + +---------+ + + | Performing | Address | City/State/Zipcode | Phone Number | | Organization | | | | + +---------+ + + | EXTERNAL LAB | | | | + +---------+ + + Phosphorus (03/08/2015 3:33 PM PDT) + + + + + + | Component | Value | Ref Range | Performed | Pathologist | | | | | At | Signature | + + + + + + | PHOSPHORUS | 2.0 (L)Comment: Testing | 2.3 - 4.8 mg/dL | EXTERNAL | | | | performed at [facility];[address] | | LAB | | | | [address];[place], [place] | | | | | | [address] | | | | + + + + + + + + | Specimen | + + | Blood specimen | | (specimen) | + + + +---------+ + + | Performing | Address | City/State/Zipcode | Phone Number | | Organization | | | | + +---------+ + + | EXTERNAL LAB | | | | + +---------+ + + Magnesium (03/08/2015 3:33 PM PDT) + + + + + + | Component | Value | Ref Range | Performed | Pathologist | | | | | At | Signature | + + + + + + | Magnesium | 1.9Comment: Testing | 1.7 - 2.4 mg/dL | EXTERNAL | | | | performed at [facility] | | LAB | | | | [address];[place] | | | | | | [address] | | | | + + + [...] + +---------+ + + Hepatic Function Panel (03/08/2015 3:12 PM PDT) + + + + + + | Component | Value | Ref Range | Performed | Pathologist | | | | | At | Signature | + + + + + + | Protein, | 5.6 (L)Comment: Testing | 6.3 - 8.2 g/dL | EXTERNAL | | | Total | performed at [facility];[address] | | LAB | | | | [address];[place] | | | | | | [address] | | | | + + + + + + | Albumin | 3.4 (L)Comment: Testing | 3.6 - 5.0 g/dL | EXTERNAL | | | | performed at [facility];[address] | | LAB | | | | [address];[place] | | | | | | [address] | | | | + + + + + + | Bilirubin | 0.4Comment: Testing | 0.1 - 1.5 mg/dL | EXTERNAL | | | Total | performed at [facility];[address] | | LAB | | | | [address];[place] | | | | | | [address] | | | | + + + + + + | Bilirubin | 0.1Comment: Testing | 0.0 - 0.3 mg/dL | EXTERNAL | | | Direct | performed at [facility];[address] | | LAB | | | | [address];[place] | | | | | | [address] | | | | + + + + + + | ALP, | 48Comment: Testing | 35 - 115 U/L | EXTERNAL | | | External | performed at [facility];[address] | | LAB | | | | [address];[place] | | | | | | [address] | | | | + + + + + + | AST | 22Comment: Testing | 10 - 45 U/L | EXTERNAL | | | | performed at [facility];[address] | | LAB | | | | [address];[place] | | | | | | [address] | | | | + + + + + + | ALT | 13Comment: Testing | 10 - 65 U/L | EXTERNAL | | | | performed at [facility];888 | | LAB | | | | [address];[place], [place] | | | | | | [address] | | | | + + + [...] + +---------+ + + External Lab: CBC (03/08/2015 3:11 PM PDT) + + + + + + | Component | Value | Ref Range | Performed | Pathologist | | | | | At | Signature | + + + + + + | WBC | 8.48Comment: Testing | 3.80 - 11.00 | EXTERNAL | | | | performed at [facility];888 | K/uL | LAB | | | | [address];[place] | | | | | | [address] | | | | + + + + + + | Red Blood | 4.02 (L)Comment: Testing | 4.20 - 5.70 | EXTERNAL | | | Cells | performed at [facility];888 | M/uL | LAB | | | Counted | [address];[place] | | | | | | [address] | | | | + + + + + + | Hemoglobin | 12.5 (L)Comment: Testing | 13.2 - 17.0 | EXTERNAL | | | | performed at [facility];888 | g/dL | LAB | | | | [address];[place] | | | | | | [address] | | | | + + + + + + | Hematocrit, | 37.7 (L)Comment: Testing | 39.0 - 50.0 % | EXTERNAL | | | POC | performed at [facility];888 | | LAB | | | | [address];[place] | | | | | | [address] | | | | + + + + + + | MCV | 93.6Comment: Testing | 80.0 - 100.0 fl | EXTERNAL | | | | performed at [facility];888 | | LAB | | | | [address];[place] | | | | | | [address] | | | | + + + + + + | MCH | 31.1Comment: Testing | 27.0 - 34.0 pg | EXTERNAL | | | | performed at [facility];888 | | LAB | | | | [address];[place] | | | | | | [address] | | | | + + + + + + | MCHC | 33.2Comment: Testing | 32.0 - 35.5 | EXTERNAL | | | | performed at [facility];888 | g/dL | LAB | | | | [address];[place] | | | | | | [address] | | | | + + + + + + | RDW-CV | 42.9Comment: Testing | 37 - 53 fl | EXTERNAL | | | | performed at [facility];[address] | | LAB | | | | [address];[place] | | | | | | [address] | | | | + + + + + + | Platelet | 181Comment: Testing | 150 - 400 K/uL | EXTERNAL | | | Count | performed at [facility];888 | | LAB | | | Plasma | [address];[place] | | | | | | [address] | | | | + + + + + + | MPV | 6.7Comment: Testing | fl | EXTERNAL | | | | performed at [facility];[address] | | LAB | | | | [address];[place] | | | | | | [address] | | | | + + + + + + | Differentia | AUTOMATEDComment: | | EXTERNAL | | | l Type | Testing performed at | | LAB | | | | [facility];[address];[place] [address] | | | | + + + + + + | % Segmented | 72.32Comment: Testing | % | EXTERNAL | | | | performed at [facility];888 | | LAB | | | Neutrophils | [address];[place] | | | | | | [address] | | | | + + + + + + | % | 19.13Comment: Testing | % | EXTERNAL | | | Lymphocytes | performed at [facility];[address] | | LAB | | | | [address];[place] | | | | | | [address] | | | | + + + + + + | % Monocytes | 8.07Comment: Testing | % | EXTERNAL | | | | performed at [facility];[address] | | LAB | | | | [address];[place] | | | | | | [address] | | | | + + + + + + | % | 0.04Comment: Testing | % | EXTERNAL | | | Eosinophils | performed at [facility];[address] | | LAB | | | | [address];[place] | | | | | | [address] | | | | + + + + + + | % Basophils | 0.44Comment: Testing | % | EXTERNAL | | | | performed at [facility];[address] | | LAB | | | | [address];[place] | | | | | | [address] | | | | + + + + + + | Absolute | 6.13Comment: Testing | 1.90 - 7.40 | EXTERNAL | | | Segmented | performed at [facility];888 | K/uL | LAB | | | Neutrophils | [address];[place] | | | | | | [address] | | | | + + + + + + | Absolute | 1.62Comment: Testing | 1.00 - 3.90 | EXTERNAL | | | Lymphocytes | performed at [facility];[address] | K/uL | LAB | | | | [address];[place] | | | | | | [address] | | | | + + + + + + | Absolute | 0.68Comment: Testing | 0.00 - 0.80 | EXTERNAL | | | Monocytes | performed at [facility];[address] | K/uL | LAB | | | | [address];[place] | | | | | | [address] | | | | + + + + + + | Absolute | 0.00Comment: Testing | 0.00 - 0.50 | EXTERNAL | | | Eosinophils | performed at [facility];[address] | K/uL | LAB | | | | [address];[place] | | | | | | [address] | | | | + + + + + + | Absolute | 0.04Comment: Testing | 0.00 - 0.10 | EXTERNAL | | | Basophils | performed at [facility];888 | K/uL | LAB | | | | [address];[place] | | | | | | [address] | | | | + + + + + + + + | Specimen | + + | Blood specimen | | (specimen) | + + + +---------+ + + | Performing | Address | City/State/Zipcode | Phone Number | | Organization | | | | + +---------+ + + | EXTERNAL LAB | | | | + +---------+ + + Lipase (03/08/2015 3:11 PM PDT) + + + + + + | Component | Value | Ref Range | Performed | Pathologist | | | | | At | Signature | + + + + + + | Lipase | 72 (L)Comment: Testing | 73 - 393 U/L | EXTERNAL | | | | performed at [facility];[address] | | LAB | | | | [address];[place] | | | | | | [address] | | | | + + + + + + + + | Specimen | + + | Blood specimen | | (specimen) | + + + +---------+ + + | Performing | Address | City/State/Zipcode | Phone Number | | Organization | | | | + +---------+ + + | EXTERNAL LAB | | | | + +---------+ + + Amylase (03/08/2015 3:11 PM PDT) + + + + + + | Component | Value | Ref Range | Performed | Pathologist | | | | | At | Signature | + + + + + + | Amylase | 44Comment: Testing | 25 - 115 U/L | EXTERNAL | | | | performed at [facility];[address] | | LAB | | | | [address];[place] | | | | | | [address] | | | | + + + [...] + +---------+ + + Basic Metabolic Panel (03/08/2015 3:11 PM PDT) + + + + + + | Component | Value | Ref Range | Performed | Pathologist | | | | | At | Signature | + + + + + + | Na | 147 (H)Comment: Testing | 135 - 143 | EXTERNAL | | | | performed at [facility];888 | mmol/L | LAB | | | | [address];[place] | | | | | | [address] | | | | + + + + + + | K | 3.7Comment: Testing | 3.5 - 4.9 | EXTERNAL | | | | performed at [facility];888 | mmol/L | LAB | | | | [address];[place] | | | | | | [address] | | | | + + + + + + | Cl | 116 (H)Comment: Testing | 99 - 109 mmol/L | EXTERNAL | | | | performed at [facility];[address] | | LAB | | | | [address];[place] | | | | | | [address] | | | | + + + + + + | CO2 | 17 (L)Comment: Testing | 23 - 32 mmol/L | EXTERNAL | | | | performed at [facility];[address] | | LAB | | | | [address];[place] | | | | | | [address] | | | | + + + + + + | Anion Gap | 17Comment: Testing | 5 - 20 mmol/L | EXTERNAL | | | | performed at [facility];[address] | | LAB | | | | [address];[place] | | | | | | [address] | | | | + + + + + + | Glucose, | 83Comment: Testing | 65 - 99 mg/dL | EXTERNAL | | | Fasting | performed at [facility];[address] | | LAB | | | | [address];[place] | | | | | | [address] | | | | + + + + + + | BUN | 11Comment: Testing | 8 - 25 mg/dL | EXTERNAL | | | | performed at [facility];[address] | | LAB | | | | [address];[place] | | | | | | [address] | | | | + + + + + + | Creatinine | 0.88Comment: Testing | 0.70 - 1.30 | EXTERNAL | | | | performed at [facility];888 | mg/dL | LAB | | | | [address];[place] | | | | | | [address] | | | | + + + + + + | BUN/Creatin | 13Comment: Testing | | EXTERNAL | | | ine Ratio | performed at [facility];[address] | | LAB | | | | [address];[place] | | | | | | [address] | | | | + + + + + + | Calcium | 6.7 (L)Comment: Testing | 8.5 - 10.5 | EXTERNAL | | | | performed at [facility];888 | mg/dL | LAB | | | | [address];[place] | | | | | | [address] | | | | + + + [...] | | | | | | at [facility];[address] [place] [address] | | | | | | [facility];[place] [address] | | | | + + + [...] +---------+ + + XR Chest 1 Vw (03/08/2015 2:44 PM PDT) + + | Specimen | + + | | + + + + + | Impressions | Performed At | + + + | 1. Endotracheal tube, nasogastric tube and right-sided central | | | line are in satisfactory position. 2. No acute findings in the | | | chest. | | | 3:24 PM | | + + + + + + | Narrative | Performed At | + + + | JASON BURRELL XR CHEST 1 VIEW 03/08/2015 2:44 PM HISTORY: 25 | | | years. Male. Endotracheal tube placement. Central line | | | placement. TECHNIQUE: 1 view of the chest obtained at 1442 hours. | | | COMPARISON: None. FINDINGS: The endotracheal tube tip is | | | 6.4 cm above the mark. The tip of the right-sided central line is | | | 4.2 cm below the mark at the cavoatrial junction. Overlying EKG | | | leads are noted. A nasogastric tube is seen with its tip in the | | | stomach. The heart is normal in size. The lungs are normally | | | expanded. The pulmonary vascular pattern is normal. No acute | | | airspace disease, parenchymal nodule, mass, pleural effusion or | | | pneumothorax is noted. No hilar adenopathy is seen. The osseous | | | structures are intact. | | + + + + + | Procedure Note | + + | Didier Pichardo Conversion - 05/05/2019 9:12 AM PDT JASON AMBROSIO CHEST 1 VIEW03/08/2015 | | 2:44 PM HISTORY:25 years. Male. Endotracheal tube placement. Central line placement. | | TECHNIQUE:1 view of the chest obtained at 1442 hours. COMPARISON:None. FINDINGS:The | | endotracheal tube tip is 6.4 cm above the mark. The tip of the right-sided central | | line is 4.2 cm below the mark at the cavoatrial junction. Overlying EKG leads are | | noted. A nasogastric tube is seen with its tip in the stomach.The heart is normal in | | size. The lungs are normally expanded. The pulmonary vascular pattern is normal. No | | acute airspace disease, parenchymal nodule, mass, pleural effusion or pneumothorax is | | noted. No hilar adenopathy is seen. The osseous structures are intact. IMPRESSION: 1. | | Endotracheal tube, nasogastric tube and right-sided central line are in satisfactory | | position.2. No acute findings in the chest. | | | |FINDINGS: | |The endotracheal tube tip is 6.4 cm above the mark. The tip of the right-sided central l ine is 4.2 cm below the mark at the cavoatrial junction. Overlying EKG leads are noted. A nasogastric tube is seen with its tip in the stomach. | |The heart is normal in size. The lungs are normally expanded. The pulmonary vascular kendrick alta is normal. No acute airspace disease, parenchymal nodule, mass, pleural effusion or pne umothorax is noted. No hilar adenopathy is seen. The osseous | |structures are intact. | | | |IMPRESSION: | |1. Endotracheal tube, nasogastric tube and right-sided central line are in satisfactory po sition. | |2. No acute findings in the chest. | | | | | + + Urinalysis, Reflex Microscopic and/or Culture (03/08/2015 2:15 PM PDT) + + + + + + | Component | Value | Ref Range | Performed | Pathologist | | | | | At | Signature | + + + + + + | Color | STRAWComment: Testing | | EXTERNAL | | | | performed at [facility];[address] | | LAB | | | | [address];[place], [place] | | | | | | [address] | | | | + + + + + + | Clarity | CLEARComment: Testing | | EXTERNAL | | | | performed at [facility];[address] | | LAB | | | | [address];[place], [place] | | | | | | [address] | | | | + + + + + + | Specific | 1.011Comment: Testing | 1.002 - 1.030 | EXTERNAL | | | [place], | performed at [facility];[address] | | LAB | | | Urine | [address];[place] | | | | | | [address] | | | | + + + + + + | Leukocyte | NEGATIVEComment: Testing | | EXTERNAL | | | Esterase, | performed at [facility];[address] | | LAB | | | Urine | [address];[place] | | | | | | [address] | | | | + + + + + + | Nitrite, | NEGATIVEComment: Testing | | EXTERNAL | | | Urine | performed at [facility];[address] | | LAB | | | | [address];[place] | | | | | | [address] | | | | + + + + + + | Urobilinoge | NORMALComment: Testing | mg/dL | EXTERNAL | | | n, Urine | performed at [facility];[address] | | LAB | | | | [address];[place] | | | | | | [address] | | | | + + + + + + | Protein, | NEGATIVEComment: Testing | mg/dL | EXTERNAL | | | Urine | performed at [facility];[address] | | LAB | | | | [address];[place] | | | | | | [address] | | | | + + + + + + | pH, Urine | 5.0Comment: Testing | 5.0 - 8.0 | EXTERNAL | | | | performed at [facility];[address] | | LAB | | | | [address];[place] | | | | | | [address] | | | | + + + + + + | Blood, | SMALL (A)Comment: | | EXTERNAL | | | Urine | Testing performed at | | LAB | | | | [facility];[address] | | | | | [address];[place] [address] | | | | + + + + + + | Ketones | NEGATIVEComment: Testing | mg/dL | EXTERNAL | | | | performed at [facility];[address] | | LAB | | | | [address];[place] | | | | | | [address] | | | | + + + + + + | Bilirubin, | NEGATIVEComment: Testing | | EXTERNAL | | | Urine | performed at [facility];[address] | | LAB | | | | [address];[place] | | | | | | [address] | | | | + + + + + + | Glucose, | NEGATIVEComment: Testing | mg/dL | EXTERNAL | | | Urine | performed at [facility];[address] | | LAB | | | | [address];[place] | | | | | | [address] | | | | + + + + + + | WBC, UA | 0-2Comment: Testing | 0 - 5 /hpf | EXTERNAL | | | | performed at [facility];[address] | | LAB | | | | [address];[place] | | | | | | [address] | | | | + + + + + + | RBC, UA | 0-2Comment: Testing | 0 - 2 /hpf | EXTERNAL | | | | performed at [facility];[address] | | LAB | | | | [address];[place] | | | | | | [address] | | | | + + + + + + | Bacteria, | NONE SEENComment: | | EXTERNAL | | | UA | Testing performed at | | LAB | | | | [facility];[address];[place] [address] | | | | + + + + + + | Epithelial | NONE SEENComment: | /lpf | EXTERNAL | | | Cells | Testing performed at | | LAB | | | | [facility];[address];[place] [address] | | | | + + + + + + | Mucus, | 1+Comment: Testing | | EXTERNAL | | | Urine | performed at [facility];[address] | | LAB | | | | [address];[place], [place] | | | | | | [address] | | | | + + + + + + + + | Specimen | + + | | + + + +---------+ + + | Performing | Address | City/State/Zipcode | Phone Number | | Organization | | | | + +---------+ + + | EXTERNAL LAB | | | | + +---------+ + + MRSA NAAT (03/08/2015 2:15 PM PDT) + + | Specimen | + + | | + + + + + | Narrative | Performed At | + + + | [facility](NOSE) | EXTERNAL LAB | | Testing performed at [address];[place] [address] MRSA PCR | | | NEGATIVE Testing performed at | | | [address];[place] [address] | | + + + + +---------+ + + | Performing | Address | City/State/Zipcode | Phone Number | | Organization | | | | + +---------+ + + | EXTERNAL LAB | | | | + +---------+ + + ECG 12 lead (03/08/2015 1:41 PM PDT) + + + + + + | Component | Value | Ref Range | Performed | Pathologist | | | | | At | Signature | + + + + + + | DIAGNOSIS: | Normal sinus rhythmrSr' | | EXTERNAL | | | | in V2 , probably normal | | LAB | | | | variantPoor | | | | | | R-Progression | | | | | | V2-T2Szpyzseed | | | | | | QTAbnormal ECGNo | | | | | | previous ECGs | | | | | | availableConfirmed by | | | | | | Ronny Castanon ([id number]) on | | | | | | 03/09/2015 4:18:56 PM | | | | + + + + + + + + | Specimen | + + | | + + + + + | Narrative | Performed At | + + + | Historically converted procedure from [facility] Epic environment | EXTERNAL LAB | + + + + +---------+ + + | Performing | Address | City/State/Zipcode | Phone Number | | Organization | | | | + +---------+ + + | EXTERNAL LAB | | | | + +---------+ + + documented in this encounter Visit Diagnoses + + | Diagnosis | + + | Acute respiratory failure, unspecified whether with hypoxia or hypercapnia (HCC) | + + | Drug overdose, intentional, initial encounter (HCC) | + + | Depression Depressive disorder, not elsewhere classified | + + | 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
--- OUTSIDE RECORDS SUMMARY | ~2020-02-06 | XMS | Clinical Summary ---
Demographics + + + | Address | [address] | | | [place] [address] | + + + | Home Phone | [email or web address] | + + + | Preferred Language | Unknown | + + + | Marital Status | Single | + + + | Taoist Affiliation | Unknown | + + + | Race | Unknown | + + + | Ethnic Group | Unknown | + + + Author + + + | Author | [facility] | | | and [place] | + + + | Organization | [facility] | | | and [place] | [...] Team Providers + +------+ + | Care Brim Setter Name | Role | Phone | + +------+ + | Chelle Nelson TECHNICAL SPECIALIST CYTOGENETICS | PCP | | + +------+ + Allergies No Known Allergies Medications + + + +---------+------+------+-------+ | Medication | Sig | Dispensed | Refills | Star | End | [...] +---------+------+------+-------+ Active Problems No known active problems Immunizations + + + + | Name | Administration Dates | Next Due | + + + + | PNEUMOCOCCAL | 03/11/2015 | | | POLYSACCHARIDE | | | | 23-VALENT (PPSV23) | | | + + + + [...] recent travel history available. | + + Last Filed Vital Signs + [...] | | + + + + + Plan of Treatment + + + + + | Health Maintenance | Due Date | Last Done | Comments | + + + + + | Vaccine: | | | | | Dtap/Tdap/Td (1 - | 1 | | | | Tdap) | | | | + + + + + | Vaccine: Influenza | | | | | (Season Ended) | 0 | | | + + + + + Results Not on filefrom Last 3 Months Advance Directives + + + + + | Type | Date Recorded | Patient | Explanation | | | | Meat Stringer | | + + + + + | Power of | | | | | Air Conditioning Unit Assembler | | | | + + + + + | Advance | | | | | Directive | | | | + + + + +
--- OUTSIDE RECORDS SUMMARY | ~2020-02-06 | XMS | Clinical Summary ---
Demographics + + + | Address | [address] | | | [place] [address] | + + + | Home Phone | | + + + | Preferred Language | Unknown | + + + | Marital Status | Single | + + + | Gnosticist Affiliation | Unknown | + + + | Race | Unknown | + + + | Ethnic Group | Unknown | + + + Author + + + | Author | [facility] (Historical as of | | | 05-06-19) | + + + | Organization | [facility] (Historical as of | | | 05-06-19) [...] Team Providers + +------+ + | Care Printing Plate Setter Name | Role | Phone | + +------+ + | Chelle NelosnP | PP | Unavailable | + +------+ [...] +------+-------+ + | MEDICAID | [place] | [id number] | | | [address] | | | [address] | | | | [place] | | | [place] | | | | [address] | | | [employer]OCERY BU[employer]ER | | | | | + +--------+ [...] | [place] | | | [phone] | [phone] | + +--------+ +--------+ + +
--- OUTSIDE RECORDS SUMMARY | ~2020-02-06 | XMS | Encounter Summary ---
Demographics + + + | Address | [address] | | | [place] [address] | + + + | Home Phone | [email or web address] | + + + | Preferred Language | Unknown | + + + | Marital Status | Single | + + + | Moravian Affiliation | Unknown | + + + | Race | Unknown | + + + | Ethnic Group | Unknown | + + + Author + + + | Author | [facility] | | | and [place] | + + + | Organization | [facility] | | | and [...] Team Providers + +------+ + | Care Fire Pilot Name | Role | Phone | + +------+ + | No, Physician | PCP | Unavailable | + +------+ + Encounter Details +--------+ + + + + | Date | Type | Department | Care Team | Description | +--------+ + + + + | 03/08/ | Emergency | [facility] | | | | 2014 | | MEDICAL CENTER | | | | | | EMERGENCY CENTER | | | | | | [address] | | | | | | [place], [place] | | | | | | [address] | | | | | | [phone] | | | +--------+ + + + [...]
--- OUTSIDE RECORDS SUMMARY | ~2020-02-06 | XMS | Encounter Summary ---
Demographics + + + | Address | [address] | | | [place] [address] | + + + | Home Phone | [email or web address] | + + + | Preferred Language | Unknown | + + + | Marital Status | Single | + + + | Worship Affiliation | Unknown | + + + | Race | Unknown | + + + | Ethnic Group | Unknown | + + + Author + + + | Author | [facility] | | | and [place] | + + + | Organization | [facility] | | | and [place] [...] Team Providers + +------+ + | Care Dye Weigher Helper Name | Role | Phone | + +------+ + | No, Physician | PCP | Unavailable | + +------+ + Encounter Details +--------+ + + + + | Date | Type | Department | Care Team | Description | +--------+ + + + + | 03/08/ | Emergency | [facility] | | | | 2014 | | MEDICAL CENTER | | | | | | EMERGENCY CENTER | | | | | | [address] | | | | | | [place], [place] | | | | | | [address] | | | | | | [phone] | | | +--------+ + + + [...]
--- OUTSIDE RECORDS SUMMARY | ~2020-02-06 | XMS | Encounter Summary ---
Demographics + + + | Address | [address] | | | [place] [address] | + + + | Home Phone | [email or web address] | + + + | Preferred Language | Unknown | + + + | Marital Status | Single | + + + | Evangelical Affiliation | Unknown | + + + | Race | Unknown | + + + | Ethnic Group | Unknown | + + + Author + + + | Author | [facility] | | | and [place] | + + + | Organization | [facility] | | | and [place] [...] Team Providers + +------+ + | Care Application Technical Designer Name | Role | Phone | + +------+ + | No, Physician | PCP | Unavailable | + +------+ + Reason for Visit +---------+ + | Reason | Comments | +---------+ + | Results | | +---------+ + Encounter Details +--------+ + + + + | Date | Type | Department | Care Team | Description | +--------+ + + + + | 07/24/ | Telephone | [facility] | Everardo Lopez | Results | | 2014 | | [facility] [address] | Ziggy Rodriguez MD | | | | | [place] | [address] | | | | | [address] | [place] | | | | | [phone] | [address] | | | | | | | | +--------+ + + + [...]
--- OUTSIDE RECORDS SUMMARY | ~2020-02-06 | XMS | Encounter Summary ---
Demographics + + + | Address | [address] | | | [place] [address] | + + + | Home Phone | [email or web address] | + + + | Preferred Language | Unknown | + + + | Marital Status | Single | + + + | Yarsani Affiliation | Unknown | + + + | Race | Unknown | + + + | Ethnic Group | Unknown | + + + Author + + + | Author | [facility] | | | and [place] | + + + | Organization | [facility] | | | and [place] [...] Team Providers + +------+ + | Care Stewarding Supervisor Name | Role | Phone | + +------+ + | No, Physician | PCP | Unavailable | + +------+ + Encounter Details +--------+ + + + + | Date | Type | Department | Care Team | Description | +--------+ + + + + | 03/08/ | Hospital | [facility] | Randal Polanco MD | Acute respiratory | | 2015 - | Encounter | [facility] | [address] | failure, unspecified | | | | CLINICAL DECISION | [place] [id number] | whether with | | 03/11/ | | [facility] | [phone] | hypoxia or | | 2014 | | [place] | | hypercapnia ([facility]); | | | | [phone] | | Drug overdose, | | | | [phone] | | intentional, initial | | | | | | encounter ([facility]); | | | | | | Depression; | | | | | | Substance induced | | | | | | mood disorder ([facility]); | | | | | | 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 His sister reports four years ago he took an overdose of sleeping pills and was hospitalized for that. Then two years ago he cut his wr ists and ended up in the hospital for that. He is from [facility] and now lives with his sis Alvarez who runs a home for the disabled in [facility]. She says he has had drug and alco hol problems since his early teens. She sent him to [place] to an alcohol treatment program a few years ago but when he goth there he checked out within 24 hours. Both parents had dr howard and alcohol problems and his mother in her 30's as a result. His father is in his 5 0's and is in the correction in [place]. Lynne went to the ED in [facility] and spoke with Chel conner Jason as best as can be estimated toook 86 800 mg ibuprofen last night and an unknown quanity of TCA's. He was not intoxicated when seen on Wednesday by Lynne. No Hx of NVD, FC, SOB or CP or abdominal pain. ".......per Dr. Collin LIMON The patient was admitted to [facility] on March 08, 2015 with the [...] unit be d has been found in [place] and the patient consented voluntarily to be [...] accepted to inpatient psych/crisis response unit in [place] as arr anged by Responding crisis responding unit who interview patient in hospital. Follow up: Chelle Nelson, STEPHANIE [address] [facility] [address] [place] [address] Go on 03/21/2015 Appointment scheduled for March [...] are the prescriptions that you need to leaf size picker. You may get the following medications [...] 03/11/152025 Date of Service: 03/11/152025 Status: Signed Electron Tube Assembler: Jose Angel Garcia RN (Registered Nurse) Discharge [...] 03/11/151940 Date of Service: 03/11/151938 Status: Signed Electron Tube Assembler: Ting Lopez RN (Registered Nurse) Pt discharge [...] 03/11/151842 Date of Service: 03/11/151832 Status: Signed Electron Tube Assembler: Ting Lopez RN (Registered Nurse) Pt seen by both psych and crisis. Sitter remains at bedside to provide safety. Plan was to d/c pt tomorrow to transitions at [facility] at 12. Crisis came back and saw pt at 1820 and sta mir that she called and they have a bed at [facility] Boo notified for D/C orders. Pt talked to his sister ~1845 who will come get him and stated that it takes about 1.5 hrs for her to get here. ADC time set for 2029. Per crisis RN or sister needs to call center at [facility]. Ting kern RN onver misty Transaction, Provider Unknown - 03/11/2015 12:29 PM PDT Case Management by Treva Canas RN at 03/11/15 1229 Author: Treva Canas RN Service: (none) Author Type: Registered Nurse Filed: 03/11/15 1230 Date of Service: 03/11/15 1229 Status: Signed Electron Tube Assembler: Treva Canas RN (Registered Nurse) CM Information gathered during rounding with the physician that the patient is interested i n an IP rehab. List of IP rehabs given to patient. onver misty Joeaction, Provider Unknown - 03/11/2015 11:50 AM PDT Progress Notes by Frieda Macias at 03/11/15 1150 Author: Frieda Macias Service: (none) Author Type: [place] Filed: 03/11/15 1152 Date of Service: 03/11/15 115 Status: Signed Electron Tube Assembler: Frieda Macias I have met with patient regarding establishing with a PCP. Patient wishes to stay in [facility]. I have patient scheduled at [place] [facility] with Chelle Nelson on March 21 at 1:3 0. Gave patient appointment information and clinic information. No further assistance is frank welsh at this time. Kristopher Yanes MD - 03/10/2015 6:50 PM PDTFormatting of this note might be different from hardik quiroz original. Progress Notes by Kristopher Boo MD at 03/10/151849 Author: Kristopher oBo MD Service: Hospitalist Author Type: Physician Filed: 03/11/15 0936 Date of Service: 03/10/151849 Status: Signed Electron Tube Assembler: Kristopher Boo MD (Physician) Related Notes: Original Note by Kristopher Boo MD (Physician) filed at 03/10/151899 [facility] Service: Hospitalist Progress Note Pt: Jason Burrell AGE/SEX: 25 y.o. male : 1990 ROOM: [address] [place] [address] HISTORY OF PRESENT ILLNESS " The patient is a 25 y.o. male with significant past medical history of chronic drug and a lcohol abuse and depression who presents with a drug overdose with the ingestion occurring i nh the osteopathy doctor hours of March 08Wednesday. His sister reports four years ago he took an overdose of sleeping pills and was hospitalized for that. Then two years ago he cut his wr ists and ended up in the hospital for that. He is from [facility] and now lives with his sis Alvarez who runs a home for the disabled in [facility]. She says he has had drug and alco hol problems since his early teens. She sent him to [place] to an alcohol treatment program a few years ago but when he goth there he checked out within 24 hours. Both parents had dr howard and alcohol problems and his mother in her 30's as a result. His father is in his 5 0's and is in the correction in [place]. Lynne went to the ED in [facility] and spoke with Chel lindquist. Jason as best as can be estimated toook 86 800 mg ibuprofen last night and an unknown quanity of TCA's. He was not intoxicated when seen on Wednesday by Lynne. No Hx of NVD, FC, SOB or CP or abdominal pain."......per admitting reproduction technician/Dr. Collin LIMON TODAY'S DATE: 03/10/2015 Hospital Day: [...] n placement. Continue thiamine and folate supplementation. CIND protocol p.r.n. 4. Chronic polysubstance abuse: methamphetamine, [...] (none) Author Type: Registered Nurse Filed: 03/10/15 3477 Date of Service: 03/10/151801 Status: Signed Electron Tube Assembler: Ting Lopez RN (Registered Nurse) Pt pleasant [...] Management by Kate Khan RN at 03/10/15 0947 Author: Kate Khan RN Service: (none) Author Type: Registered Nurse Filed: 03/10/1534 Date of Service: 03/10/15933 Status: Signed Electron Tube Assembler: Kate Khan RN (Registered Nurse) Discharge Planning: Per chart, [...] 1220 Date of Service: 03/09/151219 Status: Signed Electron Tube Assembler: Raquel Polanco RD, CD (Registered Dietitian) 03/09/15 [...] Estimated Energy Needs Total Energy Estimated Needs 3658-3349 kcal/day Method for Estimating Needs 30-35 kcal/kg [...] up date 03/15/[address], CD, [facility] 03/09/2015 onver misty Transaction, Provider Unknown - 03/09/2015 11:43 AM PDT Progress Notes by Yovanny Galindo RPH at 03/09/15 1143 Author: Yovanny Galindo RPH Service: (none) Author Type: Pharmacist Filed: 03/09/15 1143 Date of Service: 03/09/151142 Status: Signed Electron Tube Assembler: Yovanny Galindo RPH (Pharmacist) Renal Dosing Monitoring: Jsaon Burrell 25 y.o. male Pharmacy dosing for [...] Author: WOODY Toribio Service: (none) Author Type: Scale Shooter Filed: 03/09/1546 Date of Service: 03/09/15842 Status: Signed Electron Tube Assembler: WOODY Toribio (Scale Shooter) Pt was admitted for an intentional drug overdose. Pt lives with his sister who runs an [employer] family home. Pt's significant other also is [...] at 03/09/15334 Author: Valerie Campbell MD Service: Beam Saw Operator Author Type: Physician Filed: 03/09/15 0410 Date of Service: 03/09/15334 Status: Signed Electron Tube Assembler: Valerie Campbell MD (Physician) [facility] Service: Beam Saw Operator Progress Note Jason Burrell 25 y.o. Hospital Day: LOS: 1 day Post-Op Day: * No surgery found * Consulting Physicians Treatment Team: Admitting Provider: Randal Polanco MD SUBJECTIVE Patient Summary: The patient is a 25 y.o. male with significant past medical history of chronic drug and alcohol abuse and depression who presents with a drug overdose with the ingestion occurring inh the osteopathy doctor hours of March 08Wednesday. His sister reports four years ago he took an overdose of sleeping pills and was hospitalized for that. Then two year s ago he cut his wrists and ended up in the hospital for that. He is from [facility] and now lives with his sister Lynne who runs a home for the disabled in [facility]. She says he has had drug and alcohol problems since his early teens. She sent him to [place] to an alcohol t reatment program a few years ago but when he goth there he checked out within 24 hours. Both parents had drug and alcohol problems and his mother in her 30's as a result. His [facility] er is in his 50's and is in the correction in [place]. Lynne went to the ED in [facility] and s poke with [place]. Jason as best as can be estimated [...] and is now li berated from the [facility] vent. He has a sitter in his [...] Author: Rakesh Danielson Service: (none) Author Type: Tanker Driver Filed: 03/08/151947 Date of Service: 03/08/151946 Status: Signed Electron Tube Assembler: Rakesh Danielson () Pt intubated and sedated. Stopped in to speak with pt's sister. Sister said she was copin g at this time and did not need the director speech. Chaplain Meredith onver misty Transaction, Provider Unknown - 03/08/2015 4:55 PM PDT Progress Notes by Ernie Lee at 03/08/15 3374 Author: Ernie Lee Service: (none) Author Type: Tanker Driver Filed: 03/08/15 1701 Date of Service: 03/08/151654 Status: Signed Electron Tube Assembler: Ernie Lee ([facility]) Initial contact w/ pt's sister Lynne [...] I suggested she [facility] at [facility], since pt is safe and sedated [...] 1535 Date of Service: 03/08/151534 Status: Signed Electron Tube Assembler: Yovanny Galindo RPH (Pharmacist) Renal Dosing Monitoring: [...] EXTERNAL | | | | performed at [facility];[address] | | LAB | | | | [facility];[place], [place] | | | | | | [address] | | | | + + + [...] EXTERNAL | | | | performed at [facility], [address] | K/uL | LAB | | | | [address], | | | | | | [place] [address] | | | | + + + + + + | Red Blood | 4.41Comment: Testing | 4.20 - 5.70 | EXTERNAL | | | Cells | performed at [facility], [address] | M/uL | LAB | | | Counted | [address], | | | | | | [place] [address] | | | | + + + + + + | Hemoglobin | 13.6Comment: Testing | 13.2 - 17.0 | EXTERNAL | | | | performed at [facility], [address] | g/dL | LAB | | | | [address], | | | | | | [place] [address] | | | | + + + + + + | Hematocrit, | 41.1Comment: Testing | 39.0 - 50.0 % | EXTERNAL | | | POC | performed at [facility], [address] | | LAB | | | | [address], | | | | | | [place] [address] | | | | + + + + + + | MCV | 93.0Comment: Testing | 80.0 - 100.0 fl | EXTERNAL | | | | performed at [facility], [address] | | LAB | | | | [address], | | | | | | [place] [address] | | | | + + + + + + | MCH | 30.8Comment: Testing | 27.0 - 34.0 pg | EXTERNAL | | | | performed at [facility], [address] | | LAB | | | | [address], | | | | | | [place] [address] | | | | + + + + + + | MCHC | 33.1Comment: Testing | 32.0 - 35.5 | EXTERNAL | | | | performed at [facility], [address] | g/dL | LAB | | | | [address], | | | | | | [place] [address] | | | | + + + + + + | RDW-CV | 41.6Comment: Testing | 37 - 53 fl | EXTERNAL | | | | performed at [facility], [address] | | LAB | | | | [address], | | | | | | [place] [address] | | | | + + + + + + | Platelet | 166Comment: Testing | 150 - 400 K/uL | EXTERNAL | | | Count | performed at [facility], [address] | | LAB | | | Plasma | [address], | | | | | | [place] [address] | | | | + + + + + + | MPV | 7.1Comment: Testing | fl | EXTERNAL | | | | performed at [facility], [address] | | LAB | | | | [address], | | | | | | [place] [address] | | | | + + + + + + | Differentia | AUTOMATEDComment: | | EXTERNAL | | | l Type | Testing performed at | | LAB | | | | [facility], [address], [place], [place] | | | | | | [address] | | | | + + + + + + | % Segmented | 64.73Comment: Testing | % | EXTERNAL | | | | performed at [facility], [address] | | LAB | | | Neutrophils | [address], | | | | | | [place] [address] | | | | + + + + + + | % | 23.28Comment: Testing | % | EXTERNAL | | | Lymphocytes | performed at [facility], [address] | | LAB | | | | [address], | | | | | | [place] [address] | | | | + + + + + + | % Monocytes | 10.36Comment: Testing | % | EXTERNAL | | | | performed at [facility], [address] | | LAB | | | | [address], | | | | | | [place] [address] | | | | + + + + + + | % | 1.24Comment: Testing | % | EXTERNAL | | | Eosinophils | performed at [facility], [address] | | LAB | | | | [address], | | | | | | [place] [address] | | | | + + + + + + | % Basophils | 0.39Comment: Testing | % | EXTERNAL | | | | performed at [facility], [address] | | LAB | | | | [address], | | | | | | [place] [address] | | | | + + + + + + | Absolute | 3.72Comment: Testing | 1.90 - 7.40 | EXTERNAL | | | Segmented | performed at [facility], [address] | K/uL | LAB | | | Neutrophils | [address], | | | | | | [place] [address] | | | | + + + + + + | Absolute | 1.34Comment: Testing | 1.00 - 3.90 | EXTERNAL | | | Lymphocytes | performed at [facility], [address] | K/uL | LAB | | | | [address], | | | | | | [place] [address] | | | | + + + + + + | Absolute | 0.60Comment: Testing | 0.00 - 0.80 | EXTERNAL | | | Monocytes | performed at [facility], [address] | K/uL | LAB | | | | [address], | | | | | | [place] [address] | | | | + + + + + + | Absolute | 0.07Comment: Testing | 0.00 - 0.50 | EXTERNAL | | | Eosinophils | performed at [facility], [address] | K/uL | LAB | | | | [address], | | | | | | [place] [address] | | | | + + + + + + | Absolute | 0.02Comment: Testing | 0.00 - 0.10 | EXTERNAL | | | Basophils | performed at [facility], [address] | K/uL | LAB | | | | [address], | | | | | | [place] [address] | | | | + + + [...] EXTERNAL | | | | performed at [facility], [address] | | LAB | | | | [address], | | | | | | [place] [address] | | | | + + + [...] EXTERNAL | | | | performed at [facility], [address] | | LAB | | | | [address], | | | | | | [place] [address] | | | | + + + [...] | | | | | [place] [address] | | | | + + + + + + | K | 4.2Comment: Testing | 3.5 - 4.9 | EXTERNAL | | | | performed at [facility], [address] | mmol/L | LAB | | | | [address], | | | | | | [place] [address] | | | | + + + + + + | Cl | 103Comment: Testing | 99 - 109 mmol/L | EXTERNAL | | | | performed at [facility], [address] | | LAB | | | | [address], | | | | | | [place] [address] | | | | + + + + + + | CO2 | 29Comment: Testing | 23 - 32 mmol/L | EXTERNAL | | | | performed at [facility], [address] | | LAB | | | | [address], | | | | | | [place] [address] | | | | + + + + + + | Anion Gap | 9Comment: Testing | 5 - 20 mmol/L | EXTERNAL | | | | performed at [facility], [address] | | LAB | | | | [address], | | | | | | [place] [address] | | | | + + + + + + | Glucose, | 95Comment: Testing | 65 - 99 mg/dL | EXTERNAL | | | Fasting | performed at [facility], [address] | | LAB | | | | [address], | | | | | | [place] [address] | | | | + + + + + + | BUN | 12Comment: Testing | 8 - 25 mg/dL | EXTERNAL | | | | performed at [facility], [address] | | LAB | | | | [address], | | | | | | [place] [address] | | | | + + + + + + | Creatinine | 0.83Comment: Testing | 0.70 - 1.30 | EXTERNAL | | | | performed at [facility], [address] | mg/dL | LAB | | | | [address], | | | | | | [place] [address] | | | | + + + + + + | BUN/Creatin | 14Comment: Testing | | EXTERNAL | | | ine Ratio | performed at [facility], [address] | | LAB | | | | [address], | | | | | | [place] [address] | | | | + + + + + + | Calcium | 8.7Comment: Testing | 8.5 - 10.5 | EXTERNAL | | | | performed at [facility], [address] | mg/dL | LAB | | | | [address], | | | | | | [place] [address] | | | | + + + + + + | Protein, | 6.2 (L)Comment: Testing | 6.3 - 8.2 g/dL | EXTERNAL | | | Total | performed at [facility], [address] | | LAB | | | | [address], | | | | | | [place] [address] | | | | + + + + + + | Albumin | 3.9Comment: Testing | 3.6 - 5.0 g/dL | EXTERNAL | | | | performed at [facility], [address] | | LAB | | | | [address], | | | | | | [place] [address] | | | | + + + + + + | Globulin | 2.3Comment: Testing | 1.3 - 4.9 g/dL | EXTERNAL | | | | performed at [facility], [address] | | LAB | | | | [address], | | | | | | [place] [address] | | | | + + + + + + | A/G Ratio | 1.7Comment: Testing | 1.0 - 2.4 | EXTERNAL | | | | performed at [facility], [address] | | LAB | | | | [address], | | | | | | [place] [address] | | | | + + + + + + | Bilirubin | 0.3Comment: Testing | 0.1 - 1.5 mg/dL | EXTERNAL | | | Total | performed at [facility], [address] | | LAB | | | | [address], | | | | | | [place] [address] | | | | + + + + + + | ALP, | 45Comment: Testing | 35 - 115 U/L | EXTERNAL | | | External | performed at [facility], [address] | | LAB | | | | [address], | | | | | | [place] [address] | | | | + + + + + + | AST | 27Comment: Testing | 10 - 45 U/L | EXTERNAL | | | | performed at [facility], [address] | | LAB | | | | [address], | | | | | | [place] [address] | | | | + + + + + + | ALT | 18Comment: Testing | 10 - 65 U/L | EXTERNAL | | | | performed at [facility], [address] | | LAB | | | | [facility], | | | | | | [place] [address] | | | | + + + [...] W | | | | | | [facility], | | | | | | [place] [address] | | | | + + + [...] EXTERNAL | | | | performed at [facility];[address] | mmol/L | LAB | | | | [address];[place] | | | | | | [address] | | | | + + + [...] EXTERNAL | | | | performed at [facility];[address] | | LAB | | | | [address];[place], [place] | | | | | | [address] | | | | + + + [...] | | | | | [place] [address] | | | | + + + + + + | Red Blood | 4.27Comment: Testing | 4.20 - 5.70 | EXTERNAL | | | Cells | performed at [facility], [address] | M/uL | LAB | | | Counted | [address], | | | | | | [place] [address] | | | | + + + + + + | Hemoglobin | 13.3Comment: Testing | 13.2 - 17.0 | EXTERNAL | | | | performed at [facility], [address] | g/dL | LAB | | | | [address], | | | | | | [place] [address] | | | | + + + + + + | Hematocrit, | 39.6Comment: Testing | 39.0 - 50.0 % | EXTERNAL | | | POC | performed at [facility], [address] | | LAB | | | | [address], | | | | | | [place] [address] | | | | + + + + + + | MCV | 92.7Comment: Testing | 80.0 - 100.0 fl | EXTERNAL | | | | performed at [facility], [address] | | LAB | | | | [address], | | | | | | [place] [address] | | | | + + + + + + | MCH | 31.2Comment: Testing | 27.0 - 34.0 pg | EXTERNAL | | | | performed at [facility], [address] | | LAB | | | | [address], | | | | | | [place] [address] | | | | + + + + + + | MCHC | 33.6Comment: Testing | 32.0 - 35.5 | EXTERNAL | | | | performed at [facility], [address] | g/dL | LAB | | | | [address], | | | | | | [place] [address] | | | | + + + + + + | RDW-CV | 42.0Comment: Testing | 37 - 53 fl | EXTERNAL | | | | performed at [facility], [address] | | LAB | | | | [address], | | | | | | [place] [address] | | | | + + + + + + | Platelet | 190Comment: Testing | 150 - 400 K/uL | EXTERNAL | | | Count | performed at [facility], [address] | | LAB | | | Plasma | [address], | | | | | | [place] [address] | | | | + + + + + + | MPV | 7.0Comment: Testing | fl | EXTERNAL | | | | performed at [facility], [address] | | LAB | | | | [address], | | | | | | [place] [address] | | | | + + + + + + | Differentia | AUTOMATEDComment: | | EXTERNAL | | | l Type | Testing performed at | | LAB | | | | [facility], [address] | | | | | | [place] | | | | | | [address] | | | | + + + + + + | % Segmented | 59.15Comment: Testing | % | EXTERNAL | | | | performed at [facility], [address] | | LAB | | | Neutrophils | [address], | | | | | | [place] [address] | | | | + + + + + + | % | 30.10Comment: Testing | % | EXTERNAL | | | Lymphocytes | performed at [facility], [address] | | LAB | | | | [address], | | | | | | [place], [place] [address] | | | | + + + + + + | % Monocytes | 9.29Comment: Testing | % | EXTERNAL | | | | performed at [facility], [address] | | LAB | | | | [address], | | | | | | [place], [place] [address] | | | | + + + + + + | % | 0.96Comment: Testing | % | EXTERNAL | | | Eosinophils | performed at [facility], [address] | | LAB | | | | [address], | | | | | | [place] [address] | | | | + + + + + + | % Basophils | 0.50Comment: Testing | % | EXTERNAL | | | | performed at [facility], [address] | | LAB | | | | [address], | | | | | | [place] [address] | | | | + + + + + + | Absolute | 3.02Comment: Testing | 1.90 - 7.40 | EXTERNAL | | | Segmented | performed at [facility], [address] | K/uL | LAB | | | Neutrophils | [address], | | | | | | [place] [address] | | | | + + + + + + | Absolute | 1.54Comment: Testing | 1.00 - 3.90 | EXTERNAL | | | Lymphocytes | performed at [facility], [address] | K/uL | LAB | | | | [address], | | | | | | [place] [address] | | | | + + + + + + | Absolute | 0.48Comment: Testing | 0.00 - 0.80 | EXTERNAL | | | Monocytes | performed at [facility], [address] | K/uL | LAB | | | | [address], | | | | | | [place] [address] | | | | + + + + + + | Absolute | 0.05Comment: Testing | 0.00 - 0.50 | EXTERNAL | | | Eosinophils | performed at [facility], [address] | K/uL | LAB | | | | [address], | | | | | | [place] [address] | | | | + + + + + + | Absolute | 0.03Comment: Testing | 0.00 - 0.10 | EXTERNAL | | | Basophils | performed at [facility], [address] | K/uL | LAB | | | | [address], | | | | | | [place] [address] | | | | + + + [...] | | | | | [place] [address] | | | | + + + [...] EXTERNAL | | | | performed at [facility], [address] | | LAB | | | | [address], | | | | | | [place] [address] | | | | + + + [...] | | | Lvl | performed at [facility];[address] | mg/dL | LAB | | | | [address];[place] | | | | | | [address] | | | | + + + [...] | | | | | [place] [address] | | | | + + + + + + | K | 3.5Comment: Testing | 3.5 - 4.9 | EXTERNAL | | | | performed at [facility], [address] | mmol/L | LAB | | | | [address], | | | | | | [place] [address] | | | | + + + + + + | Cl | 105Comment: Testing | 99 - 109 mmol/L | EXTERNAL | | | | performed at [facility], [address] | | LAB | | | | [address], | | | | | | [place] [address] | | | | + + + + + + | CO2 | 25Comment: Testing | 23 - 32 mmol/L | EXTERNAL | | | | performed at [facility], [address] | | LAB | | | | [address], | | | | | | [place] [address] | | | | + + + + + + | Anion Gap | 10Comment: Testing | 5 - 20 mmol/L | EXTERNAL | | | | performed at [facility], [address] | | LAB | | | | [address], | | | | | | [place] [address] | | | | + + + + + + | Glucose, | 100 (H)Comment: Testing | 65 - 99 mg/dL | EXTERNAL | | | Fasting | performed at [facility], [address] | | LAB | | | | [address], | | | | | | [place] [address] | | | | + + + + + + | BUN | 10Comment: Testing | 8 - 25 mg/dL | EXTERNAL | | | | performed at [facility], [address] | | LAB | | | | [address], | | | | | | [place] [address] | | | | + + + + + + | Creatinine | 0.92Comment: Testing | 0.70 - 1.30 | EXTERNAL | | | | performed at [facility], [address] | mg/dL | LAB | | | | [address], | | | | | | [place] [address] | | | | + + + + + + | BUN/Creatin | 11Comment: Testing | | EXTERNAL | | | ine Ratio | performed at [facility], [address] | | LAB | | | | [address], | | | | | | [place] [address] | | | | + + + + + + | Calcium | 8.4 (L)Comment: Testing | 8.5 - 10.5 | EXTERNAL | | | | performed at [facility], [address] | mg/dL | LAB | | | | [address], | | | | | | [place] [address] | | | | + + + + + + | Protein, | 5.7 (L)Comment: Testing | 6.3 - 8.2 g/dL | EXTERNAL | | | Total | performed at [facility], [address] | | LAB | | | | [address], | | | | | | [place] [address] | | | | + + + + + + | Albumin | 3.6Comment: Testing | 3.6 - 5.0 g/dL | EXTERNAL | | | | performed at [facility], [address] | | LAB | | | [address], | | | | | | [place] [address] | | | | + + + + + + | Globulin | 2.1Comment: Testing | 1.3 - 4.9 g/dL | EXTERNAL | | | | performed at [facility], [address] | | LAB | | | | [address], | | | | | | [place] [address] | | | | + + + + + + | A/G Ratio | 1.7Comment: Testing | 1.0 - 2.4 | EXTERNAL | | | | performed at [facility], [address] | | LAB | | | | [address], | | | | | | [place] [address] | | | | + + + + + + | Bilirubin | 0.3Comment: Testing | 0.1 - 1.5 mg/dL | EXTERNAL | | | Total | performed at [facility], [address] | | LAB | | | | [address], | | | | | | [place], [place] [address] | | | | + + + + + + | ALP, | 47Comment: Testing | 35 - 115 U/L | EXTERNAL | | | External | performed at [facility], [address] | | LAB | | | | [address], | | | | | | [place], [place] [address] | | | | + + + + + + | AST | 17Comment: Testing | 10 - 45 U/L | EXTERNAL | | | | performed at [facility], [address] | | LAB | | | | [address], | | | | | | [place] [address] | | | | + + + + + + | ALT | 11Comment: Testing | 10 - 65 U/L | EXTERNAL | | | | performed at [facility], [address] | | LAB | | | | [address], | | | | | | [place] [address] | | | | + + + [...] | | | | | | at [facility], [address] | | | | | | [address], | | | | | | [place] [address] | | | | + + + [...] EXTERNAL | | | | performed at [facility];[address] | mmol/L | LAB | | | | [address];[place], [place] | | | | | | [address] | | | | + + + [...] EXTERNAL | | | | performed at [facility], [address] | K/uL | LAB | | | | [address], | | | | | | [place] [address] | | | | + + + + + + | Red Blood | 3.91 (L)Comment: Testing | 4.20 - 5.70 | EXTERNAL | | | Cells | performed at [facility], [address] | M/uL | LAB | | | Counted | [address], | | | | | | [place] [address] | | | | + + + + + + | Hemoglobin | 12.0 (L)Comment: Testing | 13.2 - 17.0 | EXTERNAL | | | | performed at [facility], [address] | g/dL | LAB | | | | [address], | | | | | | [place] [address] | | | | + + + + + + | Hematocrit, | 36.9 (L)Comment: Testing | 39.0 - 50.0 % | EXTERNAL | | | POC | performed at [facility], [address] | | LAB | | | | [address], | | | | | | [place] [address] | | | | + + + + + + | MCV | 94.2Comment: Testing | 80.0 - 100.0 fl | EXTERNAL | | | | performed at [facility], [address] | | LAB | | | | [address], | | | | | | [place] [address] | | | | + + + + + + | MCH | 30.6Comment: Testing | 27.0 - 34.0 pg | EXTERNAL | | | | performed at [facility], [address] | | LAB | | | | [address], | | | | | | [place] [address] | | | | + + + + + + | MCHC | 32.5Comment: Testing | 32.0 - 35.5 | EXTERNAL | | | | performed at [facility], [address] | g/dL | LAB | | | | [address], | | | | | | [place] [address] | | | | + + + + + + | RDW-CV | 43.8Comment: Testing | 37 - 53 fl | EXTERNAL | | | | performed at [facility], [address] | | LAB | | | | [address], | | | | | | [place] [address] | | | | + + + + + + | Platelet | 165Comment: Testing | 150 - 400 K/uL | EXTERNAL | | | Count | performed at [facility], [address] | | LAB | | | Plasma | [address], | | | | | | [place] [address] | | | | + + + + + + | MPV | 6.9Comment: Testing | fl | EXTERNAL | | | | performed at [facility], [address] | | LAB | | | | [address], | | | | | | [place] [address] | | | | + + + + + + | Differentia | AUTOMATEDComment: | | EXTERNAL | | | l Type | Testing performed at | | LAB | | | | [facility], [address], [place], [place] | | | | | | [address] | | | | + + + + + + | % Segmented | 66.48Comment: Testing | % | EXTERNAL | | | | performed at [facility], [address] | | LAB | | | Neutrophils | [address], | | | | | | [place] [address] | | | | + + + + + + | % | 23.40Comment: Testing | % | EXTERNAL | | | Lymphocytes | performed at [facility], [address] | | LAB | | | | [address], | | | | | | [place] [address] | | | | + + + + + + | % Monocytes | 8.99Comment: Testing | % | EXTERNAL | | | | performed at [facility], [address] | | LAB | | | | [address], | | | | | | [place] [address] | | | | + + + + + + | % | 0.49Comment: Testing | % | EXTERNAL | | | Eosinophils | performed at [facility], [address] | | LAB | | | | [address], | | | | | | [place] [address] | | | | + + + + + + | % Basophils | 0.64Comment: Testing | % | EXTERNAL | | | | performed at [facility], [address] | | LAB | | | | [address], | | | | | | [place] [address] | | | | + + + + + + | Absolute | 4.42Comment: Testing | 1.90 - 7.40 | EXTERNAL | | | Segmented | performed at [facility], [address] | K/uL | LAB | | | Neutrophils | [address], | | | | | | [place] [address] | | | | + + + + + + | Absolute | 1.56Comment: Testing | 1.00 - 3.90 | EXTERNAL | | | Lymphocytes | performed at [facility], [address] | K[address]uL | LAB | | | [address], | | | | | | [place] [address] | | | | + + + + + + | Absolute | 0.60Comment: Testing | 0.00 - 0.80 | EXTERNAL | | | Monocytes | performed at [facility], [address] | K/uL | LAB | | | | [address], | | | | | | [place] [address] | | | | + + + + + + | Absolute | 0.03Comment: Testing | 0.00 - 0.50 | EXTERNAL | | | Eosinophils | performed at [facility], [address] | K/uL | LAB | | | | [address], | | | | | | [place] [address] | | | | + + + + + + | Absolute | 0.04Comment: Testing | 0.00 - 0.10 | EXTERNAL | | | Basophils | performed at [facility], [address] | K/uL | LAB | | | | [address], | | | | | | [place] [address] | | | | + + + [...] EXTERNAL | | | | performed at [facility], [address] | | LAB | | | | [address], | | | | | | [place] [address] | | | | + + + [...] EXTERNAL | | | | performed at [facility], [address] | | LAB | | | | [address], | | | | | | [place] [address] | | | | + + + [...] | | | | | [place] [address] | | | | + + + + + + | K | 3.4 (L)Comment: Testing | 3.5 - 4.9 | EXTERNAL | | | | performed at [facility], [address] | mmol/L | LAB | | | | [address], | | | | | | [place] [address] | | | | + + + + + + | Cl | 110 (H)Comment: Testing | 99 - 109 mmol/L | EXTERNAL | | | | performed at [facility], [address] | | LAB | | | | [address], | | | | | | [place] [address] | | | | + + + + + + | CO2 | 19 (L)Comment: Testing | 23 - 32 mmol/L | EXTERNAL | | | | performed at [facility], [address] | | LAB | | | | [address], | | | | | | [place] [address] | | | | + + + + + + | Anion Gap | 10Comment: Testing | 5 - 20 mmol/L | EXTERNAL | | | | performed at [facility], [address] | | LAB | | | | [address], | | | | | | [place] [address] | | | | + + + + + + | Glucose, | 77Comment: Testing | 65 - 99 mg/dL | EXTERNAL | | | Fasting | performed at [facility], [address] | | LAB | | | | [address], | | | | | | [place] [address] | | | | + + + + + + | BUN | 9Comment: Testing | 8 - 25 mg/dL | EXTERNAL | | | | performed at [facility], [address] | | LAB | | | | [address], | | | | | | [place] [address] | | | | + + + + + + | Creatinine | 0.82Comment: Testing | 0.70 - 1.30 | EXTERNAL | | | | performed at [facility], [address] | mg/dL | LAB | | | | [address], | | | | | | [place] [address] | | | | + + + + + + | BUN/Creatin | 11Comment: Testing | | EXTERNAL | | | ine Ratio | performed at [facility], [address] | | LAB | | | | [address], | | | | | | [place] [address] | | | | + + + + + + | Calcium | 6.8 (L)Comment: Testing | 8.5 - 10.5 | EXTERNAL | | | | performed at [facility], [address] | mg/dL | LAB | | | | [address], | | | | | | [place] [address] | | | | + + + [...] [address], | | | | | | [place] [address] | | | | + + + [...] EXTERNAL | | | | performed at [facility];[address] | mmol/L | LAB | | | | [address];[place], [place] | | | | | | [address] | | | | + + + [...] EXTERNAL | | | | performed at [facility];8 | | LAB | | | | [address];[place], [place] | | | | | | [address] | | | | + + + [...] EXTERNAL | | | | performed at [facility] | | LAB | | | | [address];[place] | | | | | | [address] | | | | + + + [...] | | | Total | performed at [facility];[address] | | LAB | | | | [address];[place] | | | | | | [address] | | | | + + + + + + | Albumin | 3.4 (L)Comment: Testing | 3.6 - 5.0 g/dL | EXTERNAL | | | | performed at [facility];[address] | | LAB | | | | [address];[place] | | | | | | [address] | | | | + + + + + + | Bilirubin | 0.4Comment: Testing | 0.1 - 1.5 mg/dL | EXTERNAL | | | Total | performed at [facility];[address] | | LAB | | | | [address];[place] | | | | | | [address] | | | | + + + + + + | Bilirubin | 0.1Comment: Testing | 0.0 - 0.3 mg/dL | EXTERNAL | | | Direct | performed at [facility];[address] | | LAB | | | | [address];[place] | | | | | | [address] | | | | + + + + + + | ALP, | 48Comment: Testing | 35 - 115 U/L | EXTERNAL | | | External | performed at [facility];[address] | | LAB | | | | [address];[place] | | | | | | [address] | | | | + + + + + + | AST | 22Comment: Testing | 10 - 45 U/L | EXTERNAL | | | | performed at [facility];[address] | | LAB | | | | [address];[place] | | | | | | [address] | | | | + + + + + + | ALT | 13Comment: Testing | 10 - 65 U/L | EXTERNAL | | | | performed at [facility];[address] | | LAB | | | | [address];[place], [place] | | | | | | [address] | | | | + + + [...] EXTERNAL | | | | performed at [facility];[address] | K/uL | LAB | | | | [address];[place] | | | | | | [address] | | | | + + + + + + | Red Blood | 4.02 (L)Comment: Testing | 4.20 - 5.70 | EXTERNAL | | | Cells | performed at [facility];[address] | M/uL | LAB | | | Counted | [address];[place] | | | | | | [address] | | | | + + + + + + | Hemoglobin | 12.5 (L)Comment: Testing | 13.2 - 17.0 | EXTERNAL | | | | performed at [facility];888 | g/dL | LAB | | | | [address];[place] | | | | | | [address] | | | | + + + + + + | Hematocrit, | 37.7 (L)Comment: Testing | 39.0 - 50.0 % | EXTERNAL | | | POC | performed at [facility];[address] | | LAB | | | | [address];[place] | | | | | | [address] | | | | + + + + + + | MCV | 93.6Comment: Testing | 80.0 - 100.0 fl | EXTERNAL | | | | performed at [facility];[address] | | LAB | | | | [address];[place] | | | | | | [address] | | | | + + + + + + | MCH | 31.1Comment: Testing | 27.0 - 34.0 pg | EXTERNAL | | | | performed at [facility];[address] | | LAB | | | | [address];[place] | | | | | | [address] | | | | + + + + + + | MCHC | 33.2Comment: Testing | 32.0 - 35.5 | EXTERNAL | | | | performed at [facility];888 | g/dL | LAB | | | | [address];[place] | | | | | | [address] | | | | + + + + + + | RDW-CV | 42.9Comment: Testing | 37 - 53 fl | EXTERNAL | | | | performed at [facility];[address] | | LAB | | | | [address];[place] | | | | | | [address] | | | | + + + + + + | Platelet | 181Comment: Testing | 150 - 400 K/uL | EXTERNAL | | | Count | performed at [facility];[address] | | LAB | | | Plasma | [address];[place] | | | | | | [address] | | | | + + + + + + | MPV | 6.7Comment: Testing | fl | EXTERNAL | | | | performed at [facility];[address] | | LAB | | | | [address];[place] | | | | | | [address] | | | | + + + + + + | Differentia | AUTOMATEDComment: | | EXTERNAL | | | l Type | Testing performed at | | LAB | | | | [facility];[address];[place] [address] | | | | + + + + + + | % Segmented | 72.32Comment: Testing | % | EXTERNAL | | | | performed at [facility];[address] | | LAB | | | Neutrophils | [address];[place] | | | | | | [address] | | | | + + + + + + | % | 19.13Comment: Testing | % | EXTERNAL | | | Lymphocytes | performed at [facility];[address] | | LAB | | | | [address];[place] | | | | | | [address] | | | | + + + + + + | % Monocytes | 8.07Comment: Testing | % | EXTERNAL | | | | performed at [facility];[address] | | LAB | | | | [address];[place] | | | | | | [address] | | | | + + + + + + | % | 0.04Comment: Testing | % | EXTERNAL | | | Eosinophils | performed at [facility];[address] | | LAB | | | | [address];[place] | | | | | | [address] | | | | + + + + + + | % Basophils | 0.44Comment: Testing | % | EXTERNAL | | | | performed at [facility];[address] | | LAB | | | | [address];[place] | | | | | | [address] | | | | + + + + + + | Absolute | 6.13Comment: Testing | 1.90 - 7.40 | EXTERNAL | | | Segmented | performed at [facility];[address] | K/uL | LAB | | | Neutrophils | [address];[place] | | | | | | [address] | | | | + + + + + + | Absolute | 1.62Comment: Testing | 1.00 - 3.90 | EXTERNAL | | | Lymphocytes | performed at [facility];[address] | K/uL | LAB | | | | [address];[place] | | | | | | [address] | | | | + + + + + + | Absolute | 0.68Comment: Testing | 0.00 - 0.80 | EXTERNAL | | | Monocytes | performed at [facility];[address] | K/uL | LAB | | | | [address];[place] | | | | | | [address] | | | | + + + + + + | Absolute | 0.00Comment: Testing | 0.00 - 0.50 | EXTERNAL | | | Eosinophils | performed at [facility];[address] | K/uL | LAB | | | | [address];[place] | | | | | | [address] | | | | + + + + + + | Absolute | 0.04Comment: Testing | 0.00 - 0.10 | EXTERNAL | | | Basophils | performed at [facility];[address] | K/uL | LAB | | | | [address];[place] | | | | | | [address] | | | | + + + [...] EXTERNAL | | | | performed at [facility];[address] | | LAB | | | | [address];[place] | | | | | | [address] | | | | + + + [...] EXTERNAL | | | | performed at [facility];[address] | | LAB | | | | [address];[place] | | | | | | [address] | | | | + + + [...] EXTERNAL | | | | performed at [facility];888 | mmol/L | LAB | | | | [address];[place] | | | | | | [address] | | | | + + + + + + | K | 3.7Comment: Testing | 3.5 - 4.9 | EXTERNAL | | | | performed at [facility];888 | mmol/L | LAB | | | | [address];[place] | | | | | | [address] | | | | + + + + + + | Cl | 116 (H)Comment: Testing | 99 - 109 mmol/L | EXTERNAL | | | | performed at [facility];[address] | | LAB | | | | [address];[place] | | | | | | [address] | | | | + + + + + + | CO2 | 17 (L)Comment: Testing | 23 - 32 mmol/L | EXTERNAL | | | | performed at [facility];[address] | | LAB | | | | [address];[place] | | | | | | [address] | | | | + + + + + + | Anion Gap | 17Comment: Testing | 5 - 20 mmol/L | EXTERNAL | | | | performed at [facility];[address] | | LAB | | | | [address];[place] | | | | | | [address] | | | | + + + + + + | Glucose, | 83Comment: Testing | 65 - 99 mg/dL | EXTERNAL | | | Fasting | performed at [facility];[address] | | LAB | | | | [address];[place] | | | | | | [address] | | | | + + + + + + | BUN | 11Comment: Testing | 8 - 25 mg/dL | EXTERNAL | | | | performed at [facility];[address] | | LAB | | | | [address];[place] | | | | | | [address] | | | | + + + + + + | Creatinine | 0.88Comment: Testing | 0.70 - 1.30 | EXTERNAL | | | | performed at [facility];888 | mg/dL | LAB | | | | [address];[place] | | | | | | [address] | | | | + + + + + + | BUN/Creatin | 13Comment: Testing | | EXTERNAL | | | ine Ratio | performed at [facility];[address] | | LAB | | | | [address];[place] | | | | | | [address] | | | | + + + + + + | Calcium | 6.7 (L)Comment: Testing | 8.5 - 10.5 | EXTERNAL | | | | performed at [facility];888 | mg/dL | LAB | | | | [address];[place] | | | | | | [address] | | | | + + + [...] | | | | | | at [facility];[address] [place] [address] | | | | | | [facility];[place] [address] | | | | + + + [...] EXTERNAL | | | | performed at [facility];[address] | | LAB | | | | [address];[place], [place] | | | | | | [address] | | | | + + + + + + | Clarity | CLEARComment: Testing | | EXTERNAL | | | | performed at [facility];[address] | | LAB | | | | [address];[place], [place] | | | | | | [address] | | | | + + + + + + | Specific | 1.011Comment: Testing | 1.002 - 1.030 | EXTERNAL | | | [place], | performed at [facility];[address] | | LAB | | | Urine | [address];[place] | | | | | | [address] | | | | + + + + + + | Leukocyte | NEGATIVEComment: Testing | | EXTERNAL | | | Esterase, | performed at [facility];[address] | | LAB | | | Urine | [address];[place] | | | | | | [address] | | | | + + + + + + | Nitrite, | NEGATIVEComment: Testing | | EXTERNAL | | | Urine | performed at [facility];[address] | | LAB | | | | [address];[place] | | | | | | [address] | | | | + + + + + + | Urobilinoge | NORMALComment: Testing | mg/dL | EXTERNAL | | | n, Urine | performed at [facility];[address] | | LAB | | | | [address];[place] | | | | | | [address] | | | | + + + + + + | Protein, | NEGATIVEComment: Testing | mg/dL | EXTERNAL | | | Urine | performed at [facility];[address] | | LAB | | | | [address];[place] | | | | | | [address] | | | | + + + + + + | pH, Urine | 5.0Comment: Testing | 5.0 - 8.0 | EXTERNAL | | | | performed at [facility];[address] | | LAB | | | | [address];[place] | | | | | | [address] | | | | + + + + + + | Blood, | SMALL (A)Comment: | | EXTERNAL | | | Urine | Testing performed at | | LAB | | | | [facility];[address] | | | | | [address];[place] [address] | | | | + + + + + + | Ketones | NEGATIVEComment: Testing | mg/dL | EXTERNAL | | | | performed at [facility];[address] | | LAB | | | | [address];[place] | | | | | | [address] | | | | + + + + + + | Bilirubin, | NEGATIVEComment: Testing | | EXTERNAL | | | Urine | performed at [facility];[address] | | LAB | | | | [address];[place] | | | | | | [address] | | | | + + + + + + | Glucose, | NEGATIVEComment: Testing | mg/dL | EXTERNAL | | | Urine | performed at [facility];[address] | | LAB | | | | [address];[place] | | | | | | [address] | | | | + + + + + + | WBC, UA | 0-2Comment: Testing | 0 - 5 /hpf | EXTERNAL | | | | performed at [facility];[address] | | LAB | | | | [address];[place] | | | | | | [address] | | | | + + + + + + | RBC, UA | 0-2Comment: Testing | 0 - 2 /hpf | EXTERNAL | | | | performed at [facility];[address] | | LAB | | | | [address];[place] | | | | | | [address] | | | | + + + + + + | Bacteria, | NONE SEENComment: | | EXTERNAL | | | UA | Testing performed at | | LAB | | | | [facility];[address];[place] [address] | | | | + + + + + + | Epithelial | NONE SEENComment: | /lpf | EXTERNAL | | | Cells | Testing performed at | | LAB | | | | [facility];[address];[place] [address] | | | | + + + + + + | Mucus, | 1+Comment: Testing | | EXTERNAL | | | Urine | performed at [facility];[address] | | LAB | | | | [address];[place], [place] | | | | | | [address] | | | | + + + [...] EXTERNAL LAB | | Testing performed at [address];[place] [address] MRSA PCR | | | NEGATIVE Testing performed at | | | [address];[place] [address] | | + + + + +---------+ [...] R-Progression | | | | | | [id number] | | | | | | QTAbnormal [...] + + | Historically converted procedure from [facility] Epic environment | EXTERNAL LAB | [...]
--- OUTSIDE RECORDS SUMMARY | ~2020-02-06 | XMS | Encounter Summary ---
Demographics + + + | Address | [address] | | | [place] [address] | + + + | Home Phone | [email or web address] | + + + | Preferred Language | Unknown | + + + | Marital Status | Single | + + + | Yazidi Affiliation | Unknown | + + + | Race | Unknown | + + + | Ethnic Group | Unknown | + + + Author + + + | Author | [facility] | | | and [place] | + + + | Organization | [facility] | | | and [...] Team Providers + +------+ + | Care Licensed Nurse Practitioner Name | Role | Phone | + [...] + + | 07/23/ | Office | [facility] | Everardo Lopez | Acne (Primary Dx); | | 2013 | Visit | [facility] [address] | Ziggy Rodriguez MD | Hand dermatitis | | | | [place] | [address] | | | | | [address] | [place] | | | | | [phone] | [address] | | | | | | | [...] | + +-------+ + + + | Erythrocyte | 12 | <15 mm/hr | [facility] | | | | | | [facility] | | | [facility] | | | [facility] | | | on Rate | | | CENTER - | | | | | | LABORATORY | | + +-------+ + + + + + | Specimen | + + | Blood | + + + + + + + | Performing | Address | City/State/Zipcode | Phone Number | | Organization | | | | + + + + + | [facility] | [address] | [place] | [phone] | | [facility] | | [address] | | | - LABORATORY | | | | + + + + + | [facility] | [address] | [place], [place] | | | [facility] | | [id number] [place] [address] | | | - LABORATORY | | [...] | | Eosinophils | | | [facility] | | [...] | Neutrophils | | K/uL | [facility] | | | | | | MEDICAL | | | | | | CENTER - | | | | | | LABORATORY | | + + + + + + | Absolute | 1.70 | 0.60 - 3.20 | [facility] | | | Lymphocytes | | K/uL | [facility] | | | | | | MEDICAL | | | | | | CENTER - | | | | | | LABORATORY | | + + + + + + | Absolute | 0.80 | 0.00 - 1.00 | [facility] | | | Monocytes | | K/uL | [facility] | | | | | | MEDICAL | | | | | | CENTER - | | | | | | LABORATORY | | + + + + + + | Absolute | 0.20 | 0.00 - 0.40 | [facility] | | | Eosinophils | | K/uL | [facility] | | | | | | MEDICAL | | | | | | CENTER - | | | | | | LABORATORY | | + + + + + + | Absolute | 0.00 | 0.00 - 0.10 | [facility] | | | Basophils | | K/uL | [facility] | | | | | | MEDICAL [...] + | [facility] | [address] | [place] | [phone] | | [facility] | | [address] | | | - LABORATORY | | | | + + + + + | [facility] | [address] | [place] | | | [facility] | | [id number] | | | - LABORATORY | | | | + + + + + documented in this encounter Visit Diagnoses + + | Diagnosis | + + | Acne - Primary Other acne | + + | Hand dermatitis Contact dermatitis and other eczema, due to unspecified cause | + + documented in this encounter
--- OUTSIDE RECORDS SUMMARY | ~2020-02-06 | XMS | Encounter Summary ---
Demographics + + + | Address | [address] | | | [place] [address] | + + + | Home Phone | [email or web address] | + + + | Preferred Language | Unknown | + + + | Marital Status | Single | + + + | Christianity Affiliation | Unknown | + + + | Race | Unknown | + + + | Ethnic Group | Unknown | + + + Author + + + | Author | [facility] | | | and [place] | + + + | Organization | [facility] | | | and [...] Team Providers + +------+ + | Care Box Press Operator Name | Role | Phone | [address] | | | | | [address] | [place] | | | | | [phone] | [address] | | | | | | | [...]
--- OUTSIDE RECORDS SUMMARY | ~2020-02-06 | XMS | Encounter Summary ---
Demographics + + + | Address | [address] | | | [place] [address] | + + + | Home Phone | [email or web address] | + + + | Preferred Language | Unknown | + + + | Marital Status | Single | + + + | Mandaeism Affiliation | Unknown | + + + | Race | Unknown | + + + | Ethnic Group | Unknown | + + + Author + + + | Author | [facility] | | | and [place] | + + + | Organization | [facility] | | [...] Team Providers + +------+ + | Care Collar Baster Jumpbasting Name | Role | Phone | + +------+ + | No, Physician | PCP | Unavailable | + +------+ + Encounter Details +--------+ + + + + | Date | Type | Department | Care Team | Description | +--------+ + + + + | 11/03/ | Hospital | [facility] | Arnulfo Torres, | Transaminasemia; | | 2016 - | Encounter | [facility] | MD Luis GILLETTE | Septic shock (HCC); | | | | CLINICAL DECISION | [facility] [place] [address] | Acute renal failure, | | 11/07/ | | [address] | [phone] | unspecified acute | | 2016 | | [place] | | renal failure type | | | | [id number] | | (HCC); Lactic | | | | [phone] | | acidosis; | | | | [...] Service: Hospitalist Author Type: Physician Filed: 11/07/15 7576 Date of Service: 11/07/15 1220 Status: Addendum Felt Carbonizer: Isaiah Powell MD (Physician) Related Notes: Original Note by Isaiah Powell MD (Physician) filed at 11/07/15 1556 [facility]: Hospitalist Discharge Summary Date of Admission: [...] our facility on November 03, 2015, from [facility] emergency department. The patient indicates that he had been injecting IV methamphetamine a nd had obtained the drug from a new provider. Approximately 4 hours after, he began feeling unwell. He consumed some alcohol, approximately 1 third of a bottle of whisky, then began de veloping generalized myalgias, shivers, shakes, and abdominal discomfort. He presented to [facility] emergency department. He was [...] was discussed over the phone with ID transportation equipment painter, being that there is no source th [...] subsequently could schedu le a referral to [facility] for evaluation. He again understood that [...] Value Units Date/Time Blood Culture Set 2 [[id number]] Collected: 11/03/152158 Specimen Information: Blood / Blood Updated: 11/05/15 07 Specimen Description BLOOD SPECIAL REQUESTS LAC SPECIAL REQUESTS Result: Testing performed at [facility];[address] [place] [address] CULTURE NO GROWTH AT THIS TIME Result: Testing performed at [facility], [address] [place] [address] Blood Culture Set 1 [[id number]] Collected: 11/03/152021 Specimen Information: Blood / Blood Updated: 11/05/15 0703 Specimen Description BLOOD SPECIAL REQUESTS RAC SPECIAL REQUESTS Result: Testing performed at [facility];[address] [facility];[place] [address] CULTURE NO GROWTH 2 DAYS Result: Testing performed at [facility], [address] [place] [address] Urine culture [[id number]] Collected: 11/03/152008 Specimen Information: Urine / Urine, Clean Catch Updated: 11/04/151925 Specimen Description URINE,CLEAN CATCH CULTURE NO GROWTH Result: Testing performed at [facility], [address] [place] [address] Disposition: Home Condition: Stable Code Status: Full Code No discharge procedures on file. 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 You may get the following medications from [...] Date of Service: 11/08/15 1115 Status: Signed Felt Carbonizer: Corine Uribe RN (Registered Nurse) Patient case HCV reported to [facility]. Positive serology 11-06-15 onver misty Transaction, Provider Unknown - 11/07/2015 12:32 PM PST Nurse Progress Note by Tamika Ramirez RN at 11/07/15 1232 Author: Tamika Ramirez RN Service: (none) Author Type: Registered Nurse Filed: 11/07/15 1232 Date of Service: 11/07/15 1232 Status: Signed Felt Carbonizer: Tamika Ramirez RN (Registered Nurse) Pt appears stable and ready for discharge. Tamika Calhoun onver misty Transaction, Provider Unknown - 11/06/2015 12:49 PM PST Case Management by Michaela Mckenzie RN at 11/06/15 4937 Author: Michaela Mckenzie RN Service: (none) Author Type: Registered Nurse Filed: 11/06/15 0378 Date of Service: 11/06/15 6769 Status: Signed Felt Carbonizer: Michaela Mckenzie RN (Registered Nurse) Met with patient regarding drug and ETOH cessation and rehab facility resources. Patient s tates he has information regarding rehab facilities and declines additional information at t his time but is aware CM is available if needed. Patient denies additional discharge needs, stating family will provided transportation at d ischarge home to [place]. Isaiah Leung MD - 11/06/2015 12:40 PM PST Progress Notes by Isaiah Powell MD at 11/06/15 1240 Author: Isaiah Powell MD Service: Hospitalist Author Type: Physician Filed: 11/06/15 8128 Date of Service: 11/06/15 1246 Status: Signed Felt Carbonizer: Isaiah Powell MD (Physician) Related Notes: Original Note by Isaiah Powell MD (Physician) filed at 11/06/15 4974 [facility]: Hospitalist Progress Note Hospital Day: LOS: 3 days Post-Op Day: * No surgery found * SUBJECTIVE Patient Summary: Per ICUH&P "The patient is a 25 y.o. male with significant past med ical history of Polysubstance abuse (alcohol, cocaine and IV methamphetamine use) presents with abdominal pain radiating to back and right shoulder, accompanied with nausea and vomiti ng. At [facility]'s ED he was afebrile but hypotensive (SBP 70-80) despite 8 liters of IVF. A CT of the abdomen showed periportal fluid and gallbladder fluid collection. An US With com plex fluid collection measuring 15 mm in thickness with multiple septations with concerns fo r infection. The gallbladder wall is mildly thickened and echogenic.Images reviewed with rad iologist transportation equipment painter at [facility]. At outside ED he received 8 [...] and ibuprofen. The patient was transferred from [facility] emergency department on . Limited records are available from [facility]. The patient indicates that he had been clean for approximately 1 to 2 weeks and then on November 03, 2015, he had injected methamphetamine IV. Then a few hours after he began feeling ill, he described the illness a s nausea, lower back pain, chills. He then presented to [facility] emergency depar tment where he was found [...] will attempt to obtain blood cultures from [facility]. At this point we will empirically [...] Progress Note by Graciela Bowie RN at 11/06/1508 Author: Graciela Bowie RN Service: (none) Author Type: Registered Nurse Filed: 11/06/1535 Date of Service: 11/06/15732 Status: Signed Felt Carbonizer: Graciela Bowie RN (Registered Nurse) Patient resting [...] Notes by Azam Avilez MD at 11/05/15 7718 Author: Azam Avilez MD Service: Hospitalist Author Type: Physician Filed: 11/05/15 143 Date of Service: 11/05/151407 Status: Addendum Felt Carbonizer: Azam Avilez MD (Physician) Related Notes: Original Note by Azam Avilez MD (Physician) filed at 11/05/15 1432 [facility]: Hospitalist Progress Note Hospital Day: LOS: 2 days Post-Op Day: * No surgery found * SUBJECTIVE Patient Summary: Per H&P "The patient is a 25 y.o. male with significant past medical history of Polysubstance abuse (alcohol, cocaine and IV methamphetamine use) presents with abdominal pain radiating to back and right shoulder, accompanied with nausea and vomiting. At [facility] ED he was afebrile but hypotensive (SBP 70-80) despite 8 liters of IVF. A CT of the abdomen showed periportal fluid and gallbladder fluid collection. An US With complex fluid collection measuring 15 mm in thickness with multiple septations with concerns for in fection. The gallbladder wall is mildly thickened and echogenic.Images reviewed with radiolo gist transportation equipment painter at [facility]. At outside ED he received 8 [...] 1243 Date of Service: 11/05/150 Status: Signed Felt Carbonizer: Vaelrie Cunningham RN (Registered Nurse) Report called to Lead RN on 3OP. Assessment unchanged at this time. No c/o pain or discomf ort at this time. Pt transferred to [facility] via w/c and accompanied by SKILLED HELPER. VALERIE CUNNINGHAM RN onver misty Transaction, Provider Unknown - 11/05/2015 8:04 AM PST Progress Notes by Rebeca Galindo RPH at 11/05/15 0804 Author: Rebeca Galindo RPH Service: (none) Author Type: Pharmacist Filed: 11/05/15803 Date of Service: 11/05/15803 Status: Signed Felt Carbonizer: Rebeca Galindo RPH (Pharmacist) vancomcyin day 3. [...] (none) Author Type: Registered Nurse Filed: 11/04/15 3465 Date of Service: 11/04/151249 Status: Signed Felt Carbonizer: Alexia Harkins RN (Registered Nurse) Currently in nuclear medicine completing hyda scan. Patient's VSS. Levo weaned off at this time. onver misty Transaction, Provider Unknown - 11/04/2015 4:25 AM PST Progress Notes by Freddy Villalpando RPH at 11/04/15424 Author: Freddy Villalpando RPH Service: (none) Author Type: Pharmacist Filed: 11/04/15424 Date of Service: 11/04/15424 Status: Signed Felt Carbonizer: Freddy Villalpando RPH (Pharmacist) Pharmacy vancomycin note [...] 11/04/1522 Date of Service: 11/04/1522 Status: Signed Felt Carbonizer: Freddy Villalpando RPH (Pharmacist) Note ccl 72.9ml/min meds reviewed Pharmacy will follow rdc 0023 onver misty Transaction, Provider Unknown - 11/04/2015 12:21 AM PST Progress Notes by Freddy Villalpando RPH at 11/04/1520 Author: Freddy Villalpando RPH Service: (none) Author Type: Pharmacist Filed: 11/04/1520 Date of Service: 11/04/1520 Status: Signed Felt Carbonizer: Freddy Villalpando RPH (Pharmacist) Zosyn Extended Infusion Initial Consult Jason Burrell 25 y.o. male Estimated Creatinine Clearance: 72.9 mL/min (by C-G formula based on Cr of 1.4). NEUTROPHILS ABS Date Value Ref Range Status 03/11/2015 3.72 1.90 - 7.40 K/uL Final Comment: Testing performed at [facility], [address] [place] [address] CREATININE Date Value Ref Range Status 11/03/2015 1.4* 0.70 - 1.30 mg/dL Final Comment: Testing performed at [facility];[address] [facility];[place] [address] Zosyn extended Infusion loading and maintenance dose guidelines Loading Dose 4.5 g IV Over 30 minutes CrCl >20 ml/min 3.375 g IV Q 8 hours Over 4 hours CrCl 10-20 ml/min 3.375 g IV Q 12 hours Over 4 hours CrCl <10, HD, PD Follow [facility] Dosage Adjustments in Renal Dysfunction Protocol [...] WOODY Barrow LICSW Service: (none) Author Type: Correctional Cook Filed: 11/03/152213 Date of Service: 11/03/152209 Status: Signed Felt Carbonizer: WOODY Barrow, DERRICK BOAT RUNNER (Correctional Cook) 11/03/152206 Discharge Planning Evaluation Admitting Diagnosis Transaminasemia,Septic shock, Acute renal failure, unspecified acute r enal failure type, Lactic acidosis, Leukocytosis Readmission No Living Arrangements Family members Support Systems Family members Type of Residence Private residence House type House-1 story Independent with ADL's Yes Independent with Mobility Yes Home Care Services No Caregiver after Discharge No Mental Status Oriented Power of Sap Basis Consultant No Anticipated Discharge Plan Post Acute Care Needs None at this time Plan communicated to patient/family Yes Resources Financial concerns No Transportation issues No Prescription Plan Yes Name of Pharmacy [facility] in [place] Anticipated Disposition Facility Type Home Met with: patient and discussed discharge planning, Pt is a 25 y.o., male who was life flig hted into [facility] for emergent care. Lynne Burrell, , Patient's PCP is: Chelle Nelson Patient's [place] Coverage concerns:none expressed for medical, but he is concerned about the Life Flight. Medication coverage/concerns:none expressed [facility] Bedside Delivery: Community resources utilized / [...] | ECG 12 LEAD | Routin | 11/03/2015 | | Results for this | | | e | 7:57 PM | | procedure are in the [...] + + documented in this encounter Results Soco Baig (11/07/2015 8:21 AM PST) + + + [...] | | | | | performed at [facility] | | | | | | [facility];[place], [place] | | | | | | [address] | | | | + + + [...] | | | | | | at [facility];[address] [place] [address] | | | | | | [facility];[place] [address] | | | | + + + [...] EXTERNAL | | | | performed at [facility];[address] | K/uL | LAB | | | | [address];[place] | | | | | | [address] | | | | + + + + + + | Red Blood | 4.58Comment: Testing | 4.20 - 5.70 | EXTERNAL | | | Cells | performed at [facility];[address] | M/uL | LAB | | | Counted | [address];[place] | | | | | | [address] | | | | + + + + + + | Hemoglobin | 13.6Comment: Testing | 13.2 - 17.0 | EXTERNAL | | | | performed at [facility];[address] | g/dL | LAB | | | | [address];[place] | | | | | | [address] | | | | + + + + + + | Hematocrit, | 39.6Comment: Testing | 39.0 - 50.0 % | EXTERNAL | | | POC | performed at [facility];[address] | | LAB | | | | [address];[place] | | | | | | [address] | | | | + + + + + + | MCV | 86.5Comment: Testing | 80.0 - 100.0 fl | EXTERNAL | | | | performed at [facility];[address] | | LAB | | | | [address];[place] | | | | | | [address] | | | | + + + + + + | MCH | 29.7Comment: Testing | 27.0 - 34.0 pg | EXTERNAL | | | | performed at [facility];[address] | | LAB | | | | [address];[place] | | | | | | [address] | | | | + + + + + + | MCHC | 34.3Comment: Testing | 32.0 - 35.5 | EXTERNAL | | | | performed at [facility];[address] | g/dL | LAB | | | | [address];[place] | | | | | | [address] | | | | + + + + + + | RDW-CV | 41.6Comment: Testing | 37 - 53 fl | EXTERNAL | | | | performed at [facility];[address] | | LAB | | | | [address];[place] | | | | | | [address] | | | | + + + + + + | Platelet | 161Comment: Testing | 150 - 400 K/uL | EXTERNAL | | | Count | performed at [facility];[address] | | LAB | | | Plasma | [address];[place] | | | | | | [address] | | | | + + + + + + | MPV | 7.3Comment: Testing | fl | EXTERNAL | | | | performed at [facility];[address] | | LAB | | | | [address];[place] | | | | | | [address] | | | | + + + + + + | Differentia | AUTOMATEDComment: | | EXTERNAL | | | l Type | Testing performed at | | LAB | | | | [facility];[address];[place] [address] | | | | + + + + + + | % Segmented | 65.98Comment: Testing | % | EXTERNAL | | | | performed at [facility];[address] | | LAB | | | Neutrophils | [address];[place] | | | | | | [address] | | | | + + + + + + | % | 23.19Comment: Testing | % | EXTERNAL | | | Lymphocytes | performed at [facility];[address] | | LAB | | | | [address];[place] | | | | | | [address] | | | | + + + + + + | % Monocytes | 8.43Comment: Testing | % | EXTERNAL | | | | performed at [facility];[address] | | LAB | | | | [address];[place] | | | | | | [address] | | | | + + + + + + | % | 1.53Comment: Testing | % | EXTERNAL | | | Eosinophils | performed at [facility];[address] | | LAB | | | | [address];[place] | | | | | | [address] | | | | + + + + + + | % Basophils | 0.87Comment: Testing | % | EXTERNAL | | | | performed at [facility];[address] | | LAB | | | | [address];[place] | | | | | | [address] | | | | + + + + + + | Absolute | 3.48Comment: Testing | 1.90 - 7.40 | EXTERNAL | | | Segmented | performed at [facility];[address] | K/uL | LAB | | | Neutrophils | [address];[place] | | | | | | [address] | | | | + + + + + + | Absolute | 1.23Comment: Testing | 1.00 - 3.90 | EXTERNAL | | | Lymphocytes | performed at [facility];[address] | K/uL | LAB | | | | [address];[place] | | | | | | [address] | | | | + + + + + + | Absolute | 0.45Comment: Testing | 0.00 - 0.80 | EXTERNAL | | | Monocytes | performed at [facility];[address] | K/uL | LAB | | | | [address];[place] | | | | | | [address] | | | | + + + + + + | Absolute | 0.08Comment: Testing | 0.00 - 0.50 | EXTERNAL | | | Eosinophils | performed at [facility];[address] | K/uL | LAB | | | | [address];[place] | | | | | | [address] | | | | + + + + + + | Absolute | 0.05Comment: Testing | 0.00 - 0.10 | EXTERNAL | | | Basophils | performed at [facility];[address] | K/uL | LAB | | | | [address];[place] | | | | | | [address] | | | | + + + [...] EXTERNAL | | | | performed at [facility];[address] | | LAB | | | | [address];[place], [place] | | | | | | [address] | | | | + + + [...] EXTERNAL | | | | performed at [facility];[address] | | LAB | | | | [address];[place] | | | | | | [address] | | | | + + + [...] | | | Total | performed at [facility];[address] | | LAB | | | | [address];[place] | | | | | | [address] | | | | + + + + + + | Albumin | 2.8 (L)Comment: Testing | 3.6 - 5.0 g/dL | EXTERNAL | | | | performed at [facility];[address] | | LAB | | | | [address];[place] | | | | | | [address] | | | | + + + + + + | Bilirubin | 2.4 (H)Comment: Testing | 0.1 - 1.5 mg/dL | EXTERNAL | | | Total | performed at [facility];[address] | | LAB | | | | [address];[place] | | | | | | [address] | | | | + + + + + + | Bilirubin | 1.5 (H)Comment: Testing | 0.0 - 0.3 mg/dL | EXTERNAL | | | Direct | performed at [facility];[address] | | LAB | | | | [address];[place] | | | | | | [address] | | | | + + + + + + | ALP, | 111Comment: Testing | 35 - 115 U/L | EXTERNAL | | | External | performed at [facility];[address] | | LAB | | | | [address];[place] | | | | | | [address] | | | | + + + + + + | AST | 240 (H)Comment: Testing | 10 - 45 U/L | EXTERNAL | | | | performed at [facility];[address] | | LAB | | | | [address];[place] | | | | | | [address] | | | | + + + + + + | ALT | 383 (H)Comment: Testing | 10 - 65 U/L | EXTERNAL | | | | performed at [facility];[address] | | LAB | | | | [address];[place] | | | | | | [address] | | | | + + + [...] EXTERNAL | | | | performed at [facility];888 | mmol/L | LAB | | | | [address];[place] | | | | | | [address] | | | | + + + + + + | K | 3.6Comment: Testing | 3.5 - 4.9 | EXTERNAL | | | | performed at [facility];888 | mmol/L | LAB | | | | [address];[place] | | | | | | [address] | | | | + + + + + + | Cl | 106Comment: Testing | 99 - 109 mmol/L | EXTERNAL | | | | performed at [facility];[address] | | LAB | | | | [address];[place] | | | | | | [address] | | | | + + + + + + | CO2 | 27Comment: Testing | 23 - 32 mmol/L | EXTERNAL | | | | performed at [facility];[address] | | LAB | | | | [address];[place] | | | | | | [address] | | | | + + + + + + | Anion Gap | 11Comment: Testing | 5 - 20 mmol/L | EXTERNAL | | | | performed at [facility];[address] | | LAB | | | | [address];[place] | | | | | | [address] | | | | + + + + + + | Glucose, | 100 (H)Comment: Testing | 65 - 99 mg/dL | EXTERNAL | | | Fasting | performed at [facility];[address] | | LAB | | | | [address];[place] | | | | | | [address] | | | | + + + + + + | BUN | 5 (L)Comment: Testing | 8 - 25 mg/dL | EXTERNAL | | | | performed at [facility];[address] | | LAB | | | | [address];[place] | | | | | | [address] | | | | + + + + + + | Creatinine | 0.75Comment: Testing | 0.70 - 1.30 | EXTERNAL | | | | performed at [facility];888 | mg/dL | LAB | | | | [address];[place] | | | | | | [address] | | | | + + + + + + | BUN/Creatin | 6Comment: Testing | | EXTERNAL | | | ine Ratio | performed at [facility];[address] | | LAB | | | | [address];[place] | | | | | | [address] | | | | + + + + + + | Calcium | 7.9 (L)Comment: Testing | 8.5 - 10.5 | EXTERNAL | | | | performed at [facility];888 | mg/dL | LAB | | | | [address];[place] | | | | | | [address] | | | | + + + [...] | | | | | | at [facility];[address];[place] [address] | | | | + + + [...] | | | | | [place] [address] | | | | + + + [...] EXTERNAL | | | | performed at [facility], [address] | | LAB | | | | [address], | | | | | | [place] [address] | | | | + + + [...] + +---------+ + + US Abdomen Limited (11/06/2015 6:43 PM PST) + [...] + + | Didier Pichardo Conversion - 05/04/2019 2:10 PM PDT JASON VERN ABDOMEN | | LIMITED11/06/2015 6:43 PM HISTORY:Elevated [...] | | LAB | | | | [facility];[address] [place] [address] | | | | | | [address];[place] [address] | | | | + + + [...] | | | | | | DETERMINEDBY [facility] | | | | | | DIVISION [...] | | | | | performed at [facility], [address] | | | | | | [facility] | | | | | | [place] [address] | | | | + + + [...] EXTERNAL | | | | performed at [facility], [address] | | LAB | | | | [facility] | | | | | | [place] [address] | | | | + + + + + + | HCV | [phone] (A)Comment: | IU/mL | EXTERNAL | | [...] | | | | | performed at [facility], [address] | | | | | | [place] | | | | | | [place] [address] | | | | + + + [...] | | | | | performed at [facility] | | | | | | [facility];[place], [place] | | | | | | [address] | | | | + + + [...] [place] | | | | | | [address] | | | | + + + + + + | HEP B | NON REACTIVEComment: | | EXTERNAL | | | SURFACE | Testing performed at | | LAB | | | ANTIBODY | [facility], [address] | | | | | | [place] | | | | | | [address] | | | | + + + + + + | HEP B CORE | NON REACTIVEComment: | | EXTERNAL | | | IgM | Testing performed at | | LAB | | | | [facility], [address] | | | | | | [place] | | | | | | [address] | | | | + + + + + + | HCV Ab | REACTIVE (A)Comment: | | EXTERNAL | | | | THIS IS A REPORTABLE | | LAB | | | | DISEASE. PLEASE | | | | | | CONTACT YOUR | | | | | | [facility] | | | | | | DEPARTMENT.Testing | | | | | | performed at [facility], [address] | | | | [address], | | | | | | [place] [address] | | | | + + + [...] at | | | | | | [facility], [address] | | | | | | [place] | | | | | | [address] | | | | + + + [...] EXTERNAL | | | | performed at [facility], [address] | K/uL | LAB | | | | [address] [place], | | | | | | [place] [address] | | | | + + + + + + | Red Blood | 4.19 (L)Comment: Testing | 4.20 - 5.70 | EXTERNAL | | | Cells | performed at [facility], [address] | M/uL | LAB | | | Counted | [address] [place], | | | | | | [place] [address] | | | | + + + + + + | Hemoglobin | 12.5 (L)Comment: Testing | 13.2 - 17.0 | EXTERNAL | | | | performed at [facility], [address] | g/dL | LAB | | | | [address] [place], | | | | | | [place] [address] | | | | + + + + + + | Hematocrit, | 37.1 (L)Comment: Testing | 39.0 - 50.0 % | EXTERNAL | | | POC | performed at [facility], [address] | | LAB | | | | [address] [place], | | | | | | [place] [address] | | | | + + + + + + | MCV | 88.5Comment: Testing | 80.0 - 100.0 fl | EXTERNAL | | | | performed at [facility], [address] | | LAB | | | | [address], | | | | | | [place] [address] | | | | + + + + + + | MCH | 29.9Comment: Testing | 27.0 - 34.0 pg | EXTERNAL | | | | performed at [facility], [address] | | LAB | | | | [address], | | | | | | [place] [address] | | | | + + + + + + | MCHC | 33.8Comment: Testing | 32.0 - 35.5 | EXTERNAL | | | | performed at [facility], [address] | g/dL | LAB | | | | [address], | | | | | | [place] [address] | | | | + + + + + + | RDW-CV | 42.4Comment: Testing | 37 - 53 fl | EXTERNAL | | | | performed at [facility], [address] | | LAB | | | | [address], | | | | | | [place] [address] | | | | + + + + + + | Platelet | 111 (L)Comment: Testing | 150 - 400 K/uL | EXTERNAL | | | Count | performed at [facility], [address] | | LAB | | | Plasma | [address] [place], | | | | | | [place] [address] | | | | + + + + + + | MPV | 7.9Comment: Testing | fl | EXTERNAL | | | | performed at [facility], [address] | | LAB | | | | [address], | | | | | | [place] [address] | | | | + + + + + + | Differentia | AUTOMATEDComment: | | EXTERNAL | | | l Type | Testing performed at | | LAB | | | | [facility], [address] | | | | | | [place] | | | | | | [address] | | | | + + + + + + | % Segmented | 79.24Comment: Testing | % | EXTERNAL | | | | performed at [facility], [address] | | LAB | | | Neutrophils | [address], | | | | | | [place] [address] | | | | + + + + + + | % | 14.46Comment: Testing | % | EXTERNAL | | | Lymphocytes | performed at [facility], [address] | | LAB | | | | [address], | | | | | | [place] [address] | | | | + + + + + + | % Monocytes | 5.58Comment: Testing | % | EXTERNAL | | | | performed at [facility], [address] | | LAB | | | | [address], | | | | | | [place] [address] | | | | + + + + + + | % | 0.32Comment: Testing | % | EXTERNAL | | | Eosinophils | performed at [facility], [address] | | LAB | | | | [address], | | | | | | [place] [address] | | | | + + + + + + | % Basophils | 0.40Comment: Testing | % | EXTERNAL | | | | performed at [facility], [address] | | LAB | | | | [address], | | | | | | [place] [address] | | | | + + + + + + | Absolute | 7.56 (H)Comment: Testing | 1.90 - 7.40 | EXTERNAL | | | Segmented | performed at [facility], [address] | [address]/u[address] | LAB | | | Neutrophils | [address], | | | | | | [place] [address] | | | | + + + + + + | Absolute | 1.38Comment: Testing | 1.00 - 3.90 | EXTERNAL | | | Lymphocytes | performed at [facility], [address] | K/uL | LAB | | | | [address], | | | | | | [place] [address] | | | | + + + + + + | Absolute | 0.53Comment: Testing | 0.00 - 0.80 | EXTERNAL | | | Monocytes | performed at [facility], [address] | K/uL | LAB | | | | [address], | | | | | | [place] [address] | | | | + + + + + + | Absolute | 0.03Comment: Testing | 0.00 - 0.50 | EXTERNAL | | | Eosinophils | performed at [facility], [address] | K/uL | LAB | | | | [address], | | | | | | [place] [address] | | | | + + + + + + | Absolute | 0.04Comment: Testing | 0.00 - 0.10 | EXTERNAL | | | Basophils | performed at [facility], [address] | K/uL | LAB | | | | [address], | | | | | | [place] [address] | | | | + + + [...] EXTERNAL | | | | performed at [facility], [address] | | LAB | | | | [address] [place], | | | | | | [place] [address] | | | | + + + [...] EXTERNAL | | | | performed at [facility], [address] | | LAB | | | | [address], | | | | | | [place] [address] | | | | + + + [...] | | | Total | performed at [facility], [address] | | LAB | | | | [address] [place], | | | | | | [place] [address] | | | | + + + + + + | Albumin | 3.0 (L)Comment: Testing | 3.6 - 5.0 g/dL | EXTERNAL | | | | performed at [facility], [address] | | LAB | | | | [address], | | | | | | [place] [address] | | | | + + + + + + | Bilirubin | 2.2 (H)Comment: Testing | 0.1 - 1.5 mg/dL | EXTERNAL | | | Total | performed at [facility], [address] | | LAB | | | [address], | | | | | | [place] [address] | | | | + + + + + + | Bilirubin | 1.5 (H)Comment: Testing | 0.0 - 0.3 mg/dL | EXTERNAL | | | Direct | performed at [facility], [address] | | LAB | | | [address], | | | | | | [place] [address] | | | | + + + + + + | ALP, | 81Comment: Testing | 35 - 115 U/L | EXTERNAL | | | External | performed at [facility], [address] | | LAB | | | | [address], | | | | | | [place] [address] | | | | + + + + + + | AST | 93 (H)Comment: Testing | 10 - 45 U/L | EXTERNAL | | | | performed at [facility], [address] | | LAB | | | [address], | | | | | | [place] [address] | | | | + + + + + + | ALT | 214 (H)Comment: Testing | 10 - 65 U/L | EXTERNAL | | | | performed at [facility], [address] | | LAB | | | | [address], | | | | | | [place] [address] | | | | + + + [...] | | | | | [place] [address] | | | | + + + + + + | K | 3.4 (L)Comment: Testing | 3.5 - 4.9 | EXTERNAL | | | | performed at [facility], [address] | mmol/L | LAB | | | | [address] [place], | | | | | | [place] [address] | | | | + + + + + + | Cl | 108Comment: Testing | 99 - 109 mmol/L | EXTERNAL | | | | performed at [facility], [address] | | LAB | | | | [address], | | | | | | [place] [address] | | | | + + + + + + | CO2 | 24Comment: Testing | 23 - 32 mmol/L | EXTERNAL | | | | performed at [facility], [address] | | LAB | | | | [address], | | | | | | [place] [address] | | | | + + + + + + | Anion Gap | 9Comment: Testing | 5 - 20 mmol/L | EXTERNAL | | | | performed at [facility], [address] | | LAB | | | | [address], | | | | | | [place] [address] | | | | + + + + + + | Glucose, | 90Comment: Testing | 65 - 99 mg/dL | EXTERNAL | | | Fasting | performed at [facility], [address] | | LAB | | | | [address], | | | | | | [place] [address] | | | | + + + + + + | BUN | 4 (L)Comment: Testing | 8 - 25 mg/dL | EXTERNAL | | | | performed at [facility], [address] | | LAB | | | | [address], | | | | | | [place] [address] | | | | + + + + + + | Creatinine | 0.69 (L)Comment: Testing | 0.70 - 1.30 | EXTERNAL | | | | performed at [facility], [address] | mg/dL | LAB | | | | [address], | | | | | | [place] [address] | | | | + + + + + + | BUN/Creatin | 6Comment: Testing | | EXTERNAL | | | ine Ratio | performed at [facility], [address] | | LAB | | | | [address] [place], | | | | | | [place] [address] | | | | + + + + + + | Calcium | 8.1 (L)Comment: Testing | 8.5 - 10.5 | EXTERNAL | | | | performed at [facility], [address] | mg/dL | LAB | | | | [address] [place], | | | | | | [place] [address] | | | | + + + [...] | | | | | | at [facility], [address] | | | | | | [address] [place], | | | | | | [place] [address] | | | | + + + [...] [place], | | | | | | [place] [address] | | | | + + [...] EXTERNAL | | | | performed at [facility], [address] | | LAB | | | | [address] [place], | | | | | | [place] [address] | | | | + + + [...] | | | | | [place] [address] | | | | + + + [...] | | | | | performed at [facility] | | | | | | [facility];[place], [place] | | | | | | [address] | | | | + + + [...] K/uL | LAB | | | | [facility], [address] | | | | | | [place] | | | | | | [address] | | | | + + + + + + | Red Blood | 4.23Comment: Testing | 4.20 - 5.70 | EXTERNAL | | | Cells | performed at [facility], [address] | M/uL | LAB | | | Counted | [address], | | | | | | [place] [address] | | | | + + + + + + | Hemoglobin | 12.6 (L)Comment: Testing | 13.2 - 17.0 | EXTERNAL | | | | performed at [facility], [address] | g/dL | LAB | | | | [address], | | | | | | [place] [address] | | | | + + + + + + | Hematocrit, | 37.5 (L)Comment: Testing | 39.0 - 50.0 % | EXTERNAL | | | POC | performed at [facility], [address] | | LAB | | | | [address], | | | | | | [place] [address] | | | | + + + + + + | MCV | 88.6Comment: Testing | 80.0 - 100.0 fl | EXTERNAL | | | | performed at [facility], [address] | | LAB | | | | [address], | | | | | | [place] [address] | | | | + + + + + + | MCH | 29.6Comment: Testing | 27.0 - 34.0 pg | EXTERNAL | | | | performed at [facility], [address] | | LAB | | | | [address], | | | | | | [place] [address] | | | | + + + + + + | MCHC | 33.4Comment: Testing | 32.0 - 35.5 | EXTERNAL | | | | performed at [facility], [address] | g/dL | LAB | | | | [address], | | | | | | [place] [address] | | | | + + + + + + | RDW-CV | 42.0Comment: Testing | 37 - 53 fl | EXTERNAL | | | | performed at [facility], [address] | | LAB | | | | [address], | | | | | | [place] [address] | | | | + + + + + + | Platelet | 111 (L)Comment: Testing | 150 - 400 K/uL | EXTERNAL | | | Count | performed at [facility], [address] | | LAB | | | Plasma | [address] [place], | | | | | | [place] [address] | | | | + + + + + + | MPV | 8.0Comment: Testing | fl | EXTERNAL | | | | performed at [facility], [address] | | LAB | | | | [address], | | | | | | [place] [address] | | | | + + + + + + | Differentia | AUTOMATEDComment: | | EXTERNAL | | | l Type | Testing performed at | | LAB | | | | [facility], [address] | | | | | | [place] | | | | | | [address] | | | | + + + + + + | % Segmented | 82.63Comment: Testing | % | EXTERNAL | | | | performed at [facility], [address] | | LAB | | | Neutrophils | [address], | | | | | | [place], [place] [address] | | | | + + + + + + | % | 9.49Comment: Testing | % | EXTERNAL | | | Lymphocytes | performed at [facility], [address] | | LAB | | | | [address], | | | | | | [place], [place] [address] | | | | + + + + + + | % Monocytes | 6.50Comment: Testing | % | EXTERNAL | | | | performed at [facility], [address] | | LAB | | | | [address], | | | | | | [place], [place] [address] | | | | + + + + + + | % | 1.02Comment: Testing | % | EXTERNAL | | | Eosinophils | performed at [facility], [address] | | LAB | | | | [address], | | | | | | [place], [place] [address] | | | | + + + + + + | % Basophils | 0.36Comment: Testing | % | EXTERNAL | | | | performed at [facility], [address] | | LAB | | | | [address], | | | | | | [place] [address] | | | | + + + + + + | Absolute | 13.13 (H)Comment: | 1.90 - 7.40 | EXTERNAL | | | Segmented | Testing performed at | K/uL | LAB | | | Neutrophils | [facility], [address] | | | | | | [place] | | | | | | [address] | | | | + + + + + + | Absolute | 1.51Comment: Testing | 1.00 - 3.90 | EXTERNAL | | | Lymphocytes | performed at [facility], [address] | K/uL | LAB | | | | [address], | | | | | | [place] [address] | | | | + + + + + + | Absolute | 1.03 (H)Comment: Testing | 0.00 - 0.80 | EXTERNAL | | | Monocytes | performed at [facility], [address] | K/uL | LAB | | | | [address] [place], | | | | | | [place] [address] | | | | + + + + + + | Absolute | 0.16Comment: Testing | 0.00 - 0.50 | EXTERNAL | | | Eosinophils | performed at [facility], [address] | K/uL | LAB | | | | [address] [place], | | | | | | [place] [address] | | | | + + + + + + | Absolute | 0.06Comment: Testing | 0.00 - 0.10 | EXTERNAL | | | Basophils | performed at [facility], [address] | K/uL | LAB | | | | [address] [place], | | | | | | [place] [address] | | | | + + + [...] EXTERNAL | | | | performed at [facility], [address] | | LAB | | | | [address], | | | | | | [place] [address] | | | | + + + [...] EXTERNAL | | | | performed at [facility], [address] | | LAB | | | | [address] [place], | | | | | | [place] [address] | | | | + + + [...] | | | Total | performed at [facility], [address] | | LAB | | | | [address] [place], | | | | | | [place] [address] | | | | + + + + + + | Albumin | 3.0 (L)Comment: Testing | 3.6 - 5.0 g/dL | EXTERNAL | | | | performed at [facility], [address] | | LAB | | | | [address], | | | | | | [place] [address] | | | | + + + + + + | Bilirubin | 2.9 (H)Comment: Testing | 0.1 - 1.5 mg/dL | EXTERNAL | | | Total | performed at [facility], [address] | | LAB | | | | [address], | | | | | | [place] [address] | | | | + + + + + + | Bilirubin | 2.0 (H)Comment: Testing | 0.0 - 0.3 mg/dL | EXTERNAL | | | Direct | performed at [facility], [address] | | LAB | | | | [address], | | | | | | [place] [address] | | | | + + + + + + | ALP, | 88Comment: Testing | 35 - 115 U/L | EXTERNAL | | | External | performed at [facility], [address] | | LAB | | | | [address], | | | | | | [place] [address] | | | | + + + + + + | AST | 128 (H)Comment: Testing | 10 - 45 U/L | EXTERNAL | | | | performed at [facility], [address] | | LAB | | | | [address] [place], | | | | | | [place] [address] | | | | + + + + + + | ALT | 268 (H)Comment: Testing | 10 - 65 U/L | EXTERNAL | | | | performed at [facility], [address] | | LAB | | | [address], | | | | | | [place] [address] | | | | + + + [...] | LAB | | | | [address] | | | | | | [place] [address] | | | | + + + + + + | K | 3.4 (L)Comment: Testing | 3.5 - 4.9 | EXTERNAL | | | | performed at [facility], [address] | mmol/L | LAB | | | | [address], | | | | | | [place] [address] | | | | + + + + + + | Cl | 107Comment: Testing | 99 - 109 mmol/L | EXTERNAL | | | | performed at [facility], [address] | | LAB | | | | [address], | | | | | | [place] [address] | | | | + + + + + + | CO2 | 22 (L)Comment: Testing | 23 - 32 mmol/L | EXTERNAL | | | | performed at [facility], [address] | | LAB | | | | [address], | | | | | | [place] [address] | | | | + + + + + + | Anion Gap | 10Comment: Testing | 5 - 20 mmol/L | EXTERNAL | | | | performed at [facility], [address] | | LAB | | | | [address], | | | | | | [place] [address] | | | | + + + + + + | Glucose, | 79Comment: Testing | 65 - 99 mg/dL | EXTERNAL | | | Fasting | performed at [facility], [address] | | LAB | | | | [address], | | | | | | [place], [place] [address] | | | | + + + + + + | BUN | 9Comment: Testing | 8 - 25 mg/dL | EXTERNAL | | | | performed at [facility], [address] | | LAB | | | | [address], | | | | | | [place] [address] | | | | + + + + + + | Creatinine | 0.81Comment: Testing | 0.70 - 1.30 | EXTERNAL | | | | performed at [facility], [address] | mg/dL | LAB | | | | [address], | | | | | | [place] [address] | | | | + + + + + + | BUN/Creatin | 11Comment: Testing | | EXTERNAL | | | ine Ratio | performed at [facility], [address] | | LAB | | | | [facility], | | | | | | [place] [address] | | | | + + + + + + | Calcium | 8.2 (L)Comment: Testing | 8.5 - 10.5 | EXTERNAL | | | | performed at [facility], [address] | mg/dL | LAB | | | | [address], | | | | | | [place] [address] | | | | + + + [...] | | | | | [place] [address] | | | | + + + [...] EXTERNAL | | | | performed at [facility];888 | mmol/L | LAB | | | | [address] [place] | | | | | | [address] | | | | + + + [...] At | + + + | [facility]CK 11/04/2015 1:28 PM [...] Marino, Rad Conversion - 05/04/2019 2:10 PM [facility] JASON BURRELLNJ HEPATOBILIARY SCAN | | WITH CCK11/04/2015 1:28 [...] EXTERNAL | | | | performed at [facility];888 | mmol/L | LAB | | | | [address];[place], [place] | | | | | | [address] | | | | + + + [...] EXTERNAL | | | | performed at [facility];888 | mmol/L | LAB | | | | [address] [place] | | | | | | [address] | | | | + + + [...] | | | | | performed at [facility] | | | | | | [address] [facility];[place], [place] | | | | | | [address] | | | | + + + [...] EXTERNAL | | | | performed at [facility] | | LAB | | | | [address] [facility];[place], [place] | | | | | | [address] | | | | + + + [...] EXTERNAL | | | | performed at [facility];[address] | | LAB | | | | [address];[place], [place] | | | | | | [address] | | | | + + + [...] | | | Total | performed at [facility];[address] | | LAB | | | | [address];[place] | | | | | | [address] | | | | + + + + + + | Albumin | 2.5 (L)Comment: Testing | 3.6 - 5.0 g/dL | EXTERNAL | | | | performed at [facility];[address] | | LAB | | | | [address];[place] | | | | | | [address] | | | | + + + + + + | Bilirubin | 3.0 (H)Comment: Testing | 0.1 - 1.5 mg/dL | EXTERNAL | | | Total | performed at [facility];[address] | | LAB | | | | [address];[place] | | | | | | [address] | | | | + + + + + + | Bilirubin | 2.0 (H)Comment: Testing | 0.0 - 0.3 mg/dL | EXTERNAL | | | Direct | performed at [facility];[address] | | LAB | | | | [address];[place] | | | | | | [address] | | | | + + + + + + | ALP, | 85Comment: Testing | 35 - 115 U/L | EXTERNAL | | | External | performed at [facility];[address] | | LAB | | | | [address];[place] | | | | | | [address] | | | | + + + + + + | AST | 168 (H)Comment: Testing | 10 - 45 U/L | EXTERNAL | | | | performed at [facility];[address] | | LAB | | | | [address];[place] | | | | | | [address] | | | | + + + + + + | ALT | 371 (H)Comment: Testing | 10 - 65 U/L | EXTERNAL | | | | performed at [facility];[address] | | LAB | | | | [address];[place] | | | | | | [address] | | | | + + + [...] EXTERNAL | | | | performed at [facility];888 | mmol/L | LAB | | | | [address];[place] | | | | | | [address] | | | | + + + [...] | JASON BURRELL XR CHEST 1 VIEW HISTORY: 25 years. [...] Conversion - 05/04/2019 2:10 PM PDT JASON JOLEENXR CHEST 1 VIEW | | HISTORY:25 years. [...] NEGATIVE Testing | | | performed at [facility];[address] [place] [address];[place] [address] | | + + + + +---------+ [...] LAC | | | Testing performed at [facility];[address] [facility] | | | Blvd;[place] [address] CULTURE | | | NO GROWTH 6 DAYS | | | Testing performed at [facility], [address] [place] [address], [place], [place] | | | [address] | | + + + + +---------+ [...] RAC | | | Testing performed at [facility];[address] | | [address];[place] [address] CULTURE | | | NO GROWTH 6 DAYS | | | Testing performed at [facility], [address], [place], [place] | | | [address] | | + + + + +---------+ [...] EXTERNAL | | | | performed at [facility];888 | mmol/L | LAB | | | | [address];[place], [place] | | | | | | [address] | | | | + + + [...] | | | | | | at [facility];[address] [place] [address] | | | | | | [facility];[place] [address] | | | | + + + [...] K/uL | LAB | | | | [facility];[address] | | | | | | [address];[place] [address] | | | | + + + + + -+ | Red Blood | 4.42Comment: Testing | 4.20 - 5.70 | EXTERNAL | | | Cells | performed at [facility];[address] | M/uL | LAB | | | Counted | [address];[place] | | | | | | [address] | | | | + + + + + -+ | Hemoglobin | 12.8 (L)Comment: Testing | 13.2 - 17.0 | EXTERNAL | | | | performed at [facility];888 | g/dL | LAB | | | | [address];[place] | | | | | | [address] | | | | + + + + + -+ | Hematocrit, | 38.8 (L)Comment: Testing | 39.0 - 50.0 % | EXTERNAL | | | POC | performed at [facility] [place];888 | | LAB | | | | [address];[place] | | | | | | [address] | | | | + + + + + -+ | MCV | 87.7Comment: Testing | 80.0 - 100.0 fl | EXTERNAL | | | | performed at [facility] [place];888 | | LAB | | | | [address];[place] | | | | | | [address] | | | | + + + + + -+ | MCH | 29.0Comment: Testing | 27.0 - 34.0 pg | EXTERNAL | | | | performed at [facility] [place];888 | | LAB | | | | [address];[place] | | | | | | [address] | | | | + + + + + -+ | MCHC | 33.1Comment: Testing | 32.0 - 35.5 | EXTERNAL | | | | performed at [facility] [place];888 | g/dL | LAB | | | | [address];[place] | | | | | | [address] | | | | + + + + + -+ | RDW-CV | 42.0Comment: Testing | 37 - 53 fl | EXTERNAL | | | | performed at [facility] [place];888 | | LAB | | | | [address];[place] | | | | | | [address] | | | | + + + + + -+ | Platelet | 138 (L)Comment: Testing | 150 - 400 K/uL | EXTERNAL | | | Count | performed at [facility] [place];888 | | LAB | | | Plasma | [address];[place] | | | | | | [address] | | | | + + + + + -+ | MPV | 7.0Comment: Testing | fl | EXTERNAL | | | | performed at [facility] [place];888 | | LAB | | | | [address];[place] | | | | | | [address] | | | | + + + + + -+ | Differentia | MANUALComment: Testing | | EXTERNAL | | | l Type | performed at [facility] [place];888 | | LAB | | | | [address];[place] | | | | | | [address] | | | | + + + + + -+ | Segmented | 80Comment: Testing | % | EXTERNAL | | | Neutrophils | performed at [facility] [place];888 | | LAB | | | Manual | [address];[place] | | | | | | [address] | | | | + + + + + -+ | % Bands | 7Comment: Testing | % | EXTERNAL | | | | performed at [facility] [place];888 | | LAB | | | | [address];[place] | | | | | | [address] | | | | + + + + + -+ | Lymphocytes | 8Comment: Testing | % | EXTERNAL | | | Manual | performed at [facility] [place];888 | | LAB | | | | [address];[place] | | | | | | [address] | | | | + + + + + -+ | Monocytes | 5Comment: Testing | % | EXTERNAL | | | Manual | performed at [facility] [place];888 | | LAB | | | | [address];[place] | | | | | | [address] | | | | + + + + + -+ | Absolute | 15.35 (H)Comment: | 1.90 - 7.40 | EXTERNAL | | | Neutrophils | Testing performed at | K/uL | LAB | | | | [facility] [facility] [facility];[address];[place] [address] | | | | + + + + + -+ | Bands | 1.34 (H)Comment: Testing | 0.00 - 0.20 | EXTERNAL | | | Manual | performed at [facility] [place];[address] | K/uL | LAB | | | | [address];[place] | | | | | | [address] | | | | + + + + + -+ | Absolute | 1.53Comment: Testing | 1.00 - 3.90 | EXTERNAL | | | Lymphocytes | performed at [facility] [place];[address] | K/uL | LAB | | | | [address];[place] | | | | | | [address] | | | | + + + + + -+ | Absolute | 0.96 (H)Comment: Testing | 0.00 - 0.80 | EXTERNAL | | | Monocytes | performed at [facility] [place];[address] | K/uL | LAB | | | | [address];[place] | | | | | | [address] | | | | + + + + + -+ | Platelet | ADEQUATEComment: Testing | | EXTERNAL | | | Estimate | performed at [facility] [place];[address] | | LAB | | | [address];[place] | | | | | | [address] | | | | + + + + + -+ | RBC | RBC AND PLT MORPHOLOGY | | EXTERNAL | | | Morphology | APPEAR NORMALComment: | | LAB | | | | Testing performed at | | | | | | [facility] [place];[address];[place] [address] | | | | + + + + + -+ | Na | 141Comment: Testing | 135 - 143 | EXTERNAL | | | | performed at [facility] [place];888 | mmol/L | LAB | | | | [address];[place] | | | | | | [address] | | | | + + + + + -+ | K | 4.3Comment: Testing | 3.5 - 4.9 | EXTERNAL | | | | performed at [facility] [place];888 | mmol/L | LAB | | | | [address];[place] | | | | | | [address] | | | | + + + + + -+ | Cl | 112 (H)Comment: Testing | 99 - 109 mmol/L | EXTERNAL | | | | performed at [facility] [place] [facility];[address] | | LAB | | | | [address];[place] | | | | | | [address] | | | | + + + + + -+ | CO2 | 21 (L)Comment: Testing | 23 - 32 mmol/L | EXTERNAL | | | | performed at [facility] [place];[address] | | LAB | | | [address];[place] | | | | | | [address] | | | | + + + + + -+ | Anion Gap | 11Comment: Testing | 5 - 20 mmol/L | EXTERNAL | | | | performed at [facility] [place] [facility];[address] | | LAB | | | | [address];[place] | | | | | | [address] | | | | + + + + + -+ | Glucose, | 96Comment: Testing | 65 - 99 mg/dL | EXTERNAL | | | Fasting | performed at [facility] [place];[address] | | LAB | | | | [address];[place] | | | | | | [address] | | | | + + + + + -+ | BUN | 17Comment: Testing | 8 - 25 mg/dL | EXTERNAL | | | | performed at [facility] [place] [facility];[address] | | LAB | | | | [address];[place] | | | | | | [address] | | | | + + + + + -+ | Creatinine | 1.4 (H)Comment: Testing | 0.70 - 1.30 | EXTERNAL | | | | performed at [facility] [place] [facility];888 | mg/dL | LAB | | | | [address];[place] | | | | | | [address] | | | | + + + + + -+ | BUN/Creatin | 12Comment: Testing | | EXTERNAL | | | ine Ratio | performed at [facility] [place];[address] | | LAB | | | | [address];[place] | | | | | | [address] | | | | + + + + + -+ | Calcium | 6.3 (L)Comment: Testing | 8.5 - 10.5 | EXTERNAL | | | | performed at [facility] [place];888 | mg/dL | LAB | | | | [address];[place] | | | | | | [address] | | | | + + + + + -+ | Protein, | 5.5 (L)Comment: Testing | 6.3 - 8.2 g/dL | EXTERNAL | | | Total | performed at [facility] [place] [facility];[address] | | LAB | | | | [address];[place] | | | | | | [address] | | | | + + + + + -+ | Albumin | 2.7 (L)Comment: Testing | 3.6 - 5.0 g/dL | EXTERNAL | | | | performed at [facility] [place];[address] | | LAB | | | | [address];[place] | | | | | | [address] | | | | + + + + + -+ | Globulin | 2.7Comment: Testing | 1.3 - 4.9 g/dL | EXTERNAL | | | | performed at [facility] [place] [facility];[address] | | LAB | | | | [address];[place] | | | | | | [address] | | | | + + + + + -+ | A/G Ratio | 1.0Comment: Testing | 1.0 - 2.4 | EXTERNAL | | | | performed at [facility] [place] [facility];[address] | | LAB | | | | [address];[place] | | | | | | [address] | | | | + + + + + -+ | Bilirubin | 1.9 (H)Comment: Testing | 0.1 - 1.5 mg/dL | EXTERNAL | | | Total | performed at [facility] [place];[address] | | LAB | | | | [address];[place] | | | | | | [address] | | | | + + + + + -+ | ALP, | 91Comment: Testing | 35 - 115 U/L | EXTERNAL | | | External | performed at [facility] [facility];[address] | | LAB | | | | [address];[place] | | | | | | [address] | | | | + + + + + -+ | AST | 197 (H)Comment: Testing | 10 - 45 U/L | EXTERNAL | | | | performed at [facility] [place] [facility];[address] | | LAB | | | | [address];[place] | | | | | | [address] | | | | + + + + + -+ | ALT | 415 (H)Comment: Testing | 10 - 65 U/L | EXTERNAL | | | | performed at [facility] [facility];[address] | | LAB | | | | [address];[place] | | | | | | [address] | | | | + + + [...] | | | | | | at [facility] [place] [facility];[address];[place] [address] | | | | + + + + + -+ | CK, Total | 358Comment: Testing | 55 - 400 U/L | EXTERNAL | | | | performed at [facility] [place] [facility];[address] | | LAB | | | | [address];[place] | | | | | | [address] | | | | + + + [...] | | | | | performed at [facility] [facility];[address] | | | | | | [address];[place] | | | | | | [address] | | | | + + + + + -+ | aPTT, | 33 (H)Comment: Testing | 23 - 32 seconds | EXTERNAL | | | Patient | performed at [facility] [place] [facility];[address] | | LAB | | | | [address];[place] | | | | | | [address] | | | | + + + + + -+ | CK-MB | 2.4Comment: Testing | 0.5 - 3.6 ng/mL | EXTERNAL | | | | performed at [facility] [place] [facility];[address] | | LAB | | | | [address];[place], [place] | | | | | | [address] | | | | + + + [...] EXTERNAL | | | | performed at [facility] [facility];[address] | | LAB | | | | [address];[place], [place] | | | | | | [address] | | | | + + + [...] EXTERNAL | | | | performed at [facility];[address] | | LAB | | | | [address];[place], [place] | | | | | | [address] | | | | + + + [...] EXTERNAL | | | | performed at [facility];[address] | | LAB | | | | [address];[place] | | | | | | [address] | | | | + + + [...] | | | | | performed at [facility] | | | | | | [address];[place] | | | | | | [address] | | | | + + + [...] GROWTH | | | Testing performed at [facility], [address] | | | [place] [address] | | + + + + +---------+ [...] EXTERNAL | | | | performed at [facility] [facility];[address] | | LAB | | | | [address];[place] | | | | | | [address] | | | | + + + + + + | Clarity | CLEARComment: Testing | | EXTERNAL | | | | performed at [facility] [facility];[address] | | LAB | | | | [address];[place] | | | | | | [address] | | | | + + + + + + | Specific | 1.017Comment: Testing | 1.002 - 1.030 | EXTERNAL | | | Kake, | performed at [facility] [facility];888 | | LAB | | | Urine | [address];[place] | | | | | | [address] | | | | + + + + + + | Leukocyte | NEGATIVEComment: Testing | | EXTERNAL | | | Esterase, | performed at [facility] [facility];[address] | | LAB | | | Urine | [address];[place] | | | | | | [address] | | | | + + + + + + | Nitrite, | NEGATIVEComment: Testing | | EXTERNAL | | | Urine | performed at [facility] [facility];[address] | | LAB | | | | [address];[place] | | | | | | [address] | | | | + + + + + + | Urobilinoge | NORMALComment: Testing | mg/dL | EXTERNAL | | | n, Urine | performed at [facility] [place] [facility];[address] | | LAB | | | | [address];[place] | | | | | | [address] | | | | + + + + + + | Protein, | NEGATIVEComment: Testing | mg/dL | EXTERNAL | | | Urine | performed at [facility] [facility];[address] | | LAB | | | | [address];[place] | | | | | | [address] | | | | + + + + + + | pH, Urine | 5.0Comment: Testing | 5.0 - 8.0 | EXTERNAL | | | | performed at [facility];[address] | | LAB | | | | [address];[place] | | | | | | [address] | | | | + + + + + + | Blood, | MODERATE (A)Comment: | | EXTERNAL | | | Urine | Testing performed at | | LAB | | | | [facility];[address];[place] [address] | | | | + + + + + + | Ketones | NEGATIVEComment: Testing | mg/dL | EXTERNAL | | | | performed at [facility] [facility];[address] | | LAB | | | | [address];[place] | | | | | | [address] | | | | + + + + + + | Bilirubin, | NEGATIVEComment: Testing | | EXTERNAL | | | Urine | performed at [facility] [facility];[address] | | LAB | | | | [address];[place] | | | | | | [address] | | | | + + + + + + | Glucose, | NEGATIVEComment: Testing | mg/dL | EXTERNAL | | | Urine | performed at [facility] [facility];[address] | | LAB | | | | [address];[place] | | | | | | [address] | | | | + + + + + + | WBC, UA | 0-2Comment: Testing | 0 - 5 /hpf | EXTERNAL | | | | performed at [facility] [facility];[address] | | LAB | | | | [address];[place] | | | | | | [address] | | | | + + + + + + | RBC, UA | 0-2Comment: Testing | 0 - 2 /hpf | EXTERNAL | | | | performed at [facility] [facility];[address] | | LAB | | | | [address];[place] | | | | | | [address] | | | | + + + + + + | Bacteria, | NONE SEENComment: | | EXTERNAL | | | UA | Testing performed at | | LAB | | | | [facility];[address];[place] [address] | | | | + + + + + + | Epithelial | NONE SEENComment: | /lpf | EXTERNAL | | | Cells | Testing performed at | | LAB | | | | [facility];[address];[place] [address] | | | | + + + + + + | Mucus, | 1+Comment: Testing | | EXTERNAL | | | Urine | performed at [facility] [facility];[address] | | LAB | | | | [address];[place] | | | | | | [address] | | | | + + + + + + + + | Specimen | + + | | + + + +---------+ + + | Performing | Address | City/State/Zipcode | Phone Number | | Organization | | | | + +---------+ + + | EXTERNAL LAB | | | | + +---------+ + + ECG 12 lead (11/03/2015 7:57 PM PST) + + + + + + | Component | Value | Ref Range | Performed | Pathologist | | | | | At | Signature | + + + + + + | DIAGNOSIS: | Normal sinus | | EXTERNAL | | | | rhythmNormal ECGWhen | | LAB | | | | compared with ECG of | | | | | | 19-MARIANGEL-2015 13:41,No | | | | | | significant change was | | | | | | foundThis ECG contains | | | | | | Unconfirmed | | | | | | Interpretation | | | | | | Statements. See ED | | | | | | Record for Physician | | | | | | Interpretation. | | | | | | Confirmed by MUSE READ | | | | | | ONLY, -COMPUTER ([id number]), | | | | | | acquisition editor Sienna Reddy | | | | | | (18) on 11/04/2015 | | | | | | 11:01:48 AM | | | | + + + + + + + + | Specimen | + + | | + + + + + | Narrative | Performed At | + + + | Historically converted procedure from [facility] environment | EXTERNAL LAB | + + [...] Rad Conversion - 05/04/2019 2:10 PM PDT This is [...]
--- OUTSIDE RECORDS SUMMARY | ~2020-02-06 | XMS | Clinical Summary ---
Demographics + + + | Address | [address] | | | [place] [address] | + + + | Home Phone | [email or web address] | + + + | Preferred Language | Unknown | + + + | Marital Status | Single | + + + | Sikhism Affiliation | Unknown | + + + | Race | Unknown | + + + | Ethnic Group | Unknown | + + + Author + + + | Author | [facility] | | | and [place] | + + + | Organization | [facility] | | | and [place] [...] Team Providers + +------+ + | Care Sde Name | Role | Phone | + +------+ + | Chelle Nelson PACKAGING SUPERVISOR | PCP | | + +------+ + [...] Patient | Explanation | | | | 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
--- OUTSIDE RECORDS SUMMARY | ~2020-02-06 | XMS | Encounter Summary ---
Demographics + + + | Address | [address] | | | [place] [address] | + + + | Home Phone | [email or web address] | + + + | Preferred Language | Unknown | + + + | Marital Status | Single | + + + | Congregation Affiliation | Unknown | + + + | Race | Unknown | + + + | Ethnic Group | Unknown | + + + Author + + + | Author | [facility] | | | and [place] | + + + | Organization | [facility] | | | and [place] [...] Team Providers + +------+ + | Care Resource Room Teacher Name | Role | Phone | + +------+ + | No, Physician | PCP | Unavailable | + +------+ + Encounter Details +--------+ + + + + | Date | Type | Department | Care Team | Description | +--------+ + + + + | 11/03/ | Hospital | [facility] | Arnulfo Torres, | Transaminasemia; | | 2016 - | Encounter | [facility] | MD Luis GILLETTE | Septic shock (HCC); | | | | CLINICAL DECISION | [facility] [facility] [place] [address] | Acute renal failure, | | 11/07/ | | [address] | [phone] | unspecified acute | | 2016 | | [place] | | renal failure type | | | | [id number] | | (HCC); Lactic | | | | [phone] | | acidosis; | | | | [...] Service: Hospitalist Author Type: Physician Filed: 11/07/15 3953 Date of Service: 11/07/15 1220 Status: Addendum Chief Controller Tower: Isaiah Powell MD (Physician) Related Notes: Original Note by Isaiah Powell MD (Physician) filed at 11/07/15 1556 [facility] Service: Hospitalist Discharge Summary Date of [...] our facility on November 03, 2015, from [facility] emergency department. The patient indicates that he had been injecting IV methamphetamine a nd had obtained the drug from a new provider. Approximately 4 hours after, he began feeling unwell. He consumed some alcohol, approximately 1 third of a bottle of whisky, then began de veloping generalized myalgias, shivers, shakes, and abdominal discomfort. He presented to [facility] emergency department. He was noted [...] was discussed over the phone with ID cone chocolate dipper, being that there is no source th [...] subsequently could schedu le a referral to [facility] ID for evaluation. He again understood [...] Value Units Date/Time Blood Culture Set 2 [[id number]] Collected: 11/03/152158 Specimen Information: Blood / Blood Updated: 11/05/15 07 Specimen Description BLOOD SPECIAL REQUESTS LAC SPECIAL REQUESTS Result: Testing performed at [facility];[address] [place] [address] CULTURE NO GROWTH AT THIS TIME Result: Testing performed at [facility], [address] [place] [address] Blood Culture Set 1 [[id number]] Collected: 11/03/152021 Specimen Information: Blood / Blood Updated: 11/05/15 0703 Specimen Description BLOOD SPECIAL REQUESTS RAC SPECIAL REQUESTS Result: Testing performed at [facility];[address] [facility];[place] [address] CULTURE NO GROWTH 2 DAYS Result: Testing performed at [facility], [address] [place] [address] Urine culture [[id number]] Collected: 11/03/152008 Specimen Information: Urine / Urine, Clean Catch Updated: 11/04/151925 Specimen Description URINE,CLEAN CATCH CULTURE NO GROWTH Result: Testing performed at [facility], [address] [place] [address] Disposition: Home Condition: Stable Code Status: Full Code No discharge procedures on file. Follow up: Chelle Nelson, STEPHANIE [address] [place] [address] Follow-up with your family doctor for hepatitis C ( for future referral to [facility] for tr eatment) Medication List START taking [...] are the prescriptions that you need to hop picker. You may get the following medications [...] Date of Service: 11/08/15 1115 Status: Signed Chief Controller Tower: Corine Uribe RN (Registered Nurse) Patient case HCV reported to [facility]. Positive serology 11-06-15 onver misty Transaction, Provider Unknown - 11/07/2015 12:32 PM PST Nurse Progress Note by Tamika Ramirez RN at 11/07/15 1232 Author: Tamika Ramirez RN Service: (none) Author Type: Registered Nurse Filed: 11/07/15 1232 Date of Service: 11/07/15 1232 Status: Signed Chief Controller Tower: Tamika Ramirez RN (Registered Nurse) Pt appears stable and ready for discharge. Tamika Calhoun onver misty Transaction, Provider Unknown - 11/06/2015 12:49 PM PST Case Management by Michaela Mckenzie RN at 11/06/15 4356 Author: Michaela Mckenzie RN Service: (none) Author Type: Registered Nurse Filed: 11/06/15 4609 Date of Service: 11/06/15 0189 Status: Signed Chief Controller Tower: Michaela Mckenzie RN (Registered Nurse) Met with patient regarding drug and ETOH cessation and rehab facility resources. Patient s tates he has information regarding rehab facilities and declines additional information at t his time but is aware CM is available if needed. Patient denies additional discharge needs, stating family will provided transportation at d ischarge home to [place]. Isaiah Leung MD - 11/06/2015 12:40 PM PST Progress Notes by Isaiah Powell MD at 11/06/15 1240 Author: Isaiah Powell MD Service: Hospitalist Author Type: Physician Filed: 11/06/15 2314 Date of Service: 11/06/15 1247 Status: Signed Chief Controller Tower: Isaiah Powell MD (Physician) Related Notes: Original Note by Isaiah Powell MD (Physician) filed at 11/06/15 7801 [facility] Service: Hospitalist Progress Note Hospital Day: LOS: 3 days Post-Op Day: * No surgery found * SUBJECTIVE Patient Summary: Per ICUH&P "The patient is a 25 y.o. male with significant past med ical history of Polysubstance abuse (alcohol, cocaine and IV methamphetamine use) presents with abdominal pain radiating to back and right shoulder, accompanied with nausea and vomiti ng. At [facility]'s ED he was afebrile but hypotensive (SBP 70-80) despite 8 liters of IVF. A CT of the abdomen showed periportal fluid and gallbladder fluid collection. An US With com plex fluid collection measuring 15 mm in thickness with multiple septations with concerns fo r infection. The gallbladder wall is mildly thickened and echogenic.Images reviewed with rad iologist cone chocolate dipper at [facility]. At outside ED he received 8 [...] and ibuprofen. The patient was transferred from [facility] emergency department on . Limited records are available from [facility]. The patient indicates that he had been clean for approximately 1 to 2 weeks and then on November 03, 2015, he had injected methamphetamine IV. Then a few hours after he began feeling ill, he described the illness a s nausea, lower back pain, chills. He then presented to [facility] emergency depar tment where he was found [...] will attempt to obtain blood cultures from [facility]. At this point we will empirically continue [...] Progress Note by Graciela Bowie RN at 11/06/1565 Author: Graciela Bowie RN Service: (none) Author Type: Registered Nurse Filed: 11/06/1535 Date of Service: 11/06/15732 Status: Signed Chief Controller Tower: Graciela Bowie RN (Registered Nurse) Patient resting [...] Notes by Azam Avilez MD at 11/05/15 4678 Author: Azam Avilez MD Service: Hospitalist Author Type: Physician Filed: 11/05/15 143 Date of Service: 11/05/151407 Status: Addendum Chief Controller Tower: Azam Avilez MD (Physician) Related Notes: Original Note by Azam Avilez MD (Physician) filed at 11/05/15 1432 [facility] Service: Hospitalist Progress Note Hospital Day: LOS: 2 days Post-Op Day: * No surgery found * SUBJECTIVE Patient Summary: Per H&P "The patient is a 25 y.o. male with significant past medical history of Polysubstance abuse (alcohol, cocaine and IV methamphetamine use) presents with abdominal pain radiating to back and right shoulder, accompanied with nausea and vomiting. At [facility] ED he was afebrile but hypotensive (SBP 70-80) despite 8 liters of IVF. A CT of the abdomen showed periportal fluid and gallbladder fluid collection. An US With complex fluid collection measuring 15 mm in thickness with multiple septations with concerns for in fection. The gallbladder wall is mildly thickened and echogenic.Images reviewed with radiolo gist cone chocolate dipper at [facility]. At outside ED he received 8 [...] 1243 Date of Service: 11/05/150 Status: Signed Chief Controller Tower: Valerie Cunningham RN (Registered Nurse) Report called to Lead RN on 3OP. Assessment unchanged at this time. No c/o pain or discomf ort at this time. Pt transferred to [facility] via w/c and accompanied by MARKET INVESTIGATOR. VALERIE CUNNINGHAM RN onver misty Transaction, Provider Unknown - 11/05/2015 8:04 AM PST Progress Notes by Rebeca Galindo RPH at 11/05/15 0804 Author: Rebeca Galindo RPH Service: (none) Author Type: Pharmacist Filed: 11/05/15803 Date of Service: 11/05/15803 Status: Signed Chief Controller Tower: Rebeca Galindo RPH (Pharmacist) vancomcyin day 3. [...] (none) Author Type: Registered Nurse Filed: 11/04/15 1307 Date of Service: 11/04/151249 Status: Signed Chief Controller Tower: Alexia Harkins RN (Registered Nurse) Currently in nuclear medicine completing hyda scan. Patient's VSS. Levo weaned off at this time. onver misty Transaction, Provider Unknown - 11/04/2015 4:25 AM PST Progress Notes by Freddy Villalpando RPH at 11/04/15424 Author: Freddy Villalpando RPH Service: (none) Author Type: Pharmacist Filed: 11/04/15424 Date of Service: 11/04/15424 Status: Signed Chief Controller Tower: Freddy Villalpando RPH (Pharmacist) Pharmacy vancomycin note [...] 11/04/1522 Date of Service: 11/04/1522 Status: Signed Chief Controller Tower: Freddy Villalpando RPH (Pharmacist) Note ccl 72.9ml/min meds reviewed Pharmacy will follow [facility]dc 0023 onver misty Transaction, Provider Unknown - 11/04/2015 12:21 AM PST Progress Notes by Freddy Villalpando RPH at 11/04/1520 Author: Freddy Villalpando RPH Service: (none) Author Type: Pharmacist Filed: 11/04/1520 Date of Service: 11/04/1520 Status: Signed Chief Controller Tower: Freddy Villalpando RPH (Pharmacist) Zosyn Extended Infusion Initial Consult Jason Burrell 25 y.o. male Estimated Creatinine Clearance: 72.9 mL/min (by C-G formula based on Cr of 1.4). NEUTROPHILS ABS Date Value Ref Range Status 03/11/2015 3.72 1.90 - 7.40 K/uL Final Comment: Testing performed at [facility], [address] [place] [address] CREATININE Date Value Ref Range Status 11/03/2015 1.4* 0.70 - 1.30 mg/dL Final Comment: Testing performed at [facility];[address] [facility];[place] [address] Zosyn extended Infusion loading and maintenance dose guidelines Loading Dose 4.5 g IV Over 30 minutes CrCl >20 ml/min 3.375 g IV Q 8 hours Over 4 hours CrCl 10-20 ml/min 3.375 g IV Q 12 hours Over 4 hours CrCl <10, HD, PD Follow [facility] Dosage Adjustments in Renal Dysfunction Protocol [...] by WOODY Barrow LICSW at 11/03/152209 Author: WOOYD Barrow LICSW Service: (none) Author Type: Lasting Machine Operator Filed: 11/03/152213 Date of Service: 11/03/152209 Status: Signed Chief Controller Tower: WOODY Barrow, JAVA SYSTEMS ANALYST (Lasting Machine Operator) 11/03/152206 Discharge Planning Evaluation Admitting Diagnosis Transaminasemia,Septic shock, Acute renal failure, unspecified acute r enal failure type, Lactic acidosis, Leukocytosis Readmission No Living Arrangements Family members Support Systems Family members Type of Residence Private residence House type House-1 story Independent with ADL's Yes Independent with Mobility Yes Home Care Services No Caregiver after Discharge No Mental Status Oriented Power of Sterile Technician No Anticipated Discharge Plan Post Acute Care Needs None at this time Plan communicated to patient/family Yes Resources Financial concerns No Transportation issues No Prescription Plan Yes Name of Pharmacy [facility] in [place] Anticipated Disposition Facility Type Home Met with: patient and discussed discharge planning, Pt is a 25 y.o., male who was life flig hted into [facility] for emergent care. Lynne Burrell, , Patient's PCP is: Chelle Nelson Patient's [place] Coverage concerns:none expressed for medical, but he is concerned about the Life Flight. Medication coverage/concerns:none expressed [facility] Bedside Delivery: Community resources utilized / needed: [...] | | | | | performed at [facility] | | | | | | [facility];[place], [place] | | | | | | [address] | | | | + + + [...] | | | | | | at [facility];[address] [place] [address] | | | | | | [facility];[place] [address] | | | | + + + [...] EXTERNAL | | | | performed at [facility];[address] | K/uL | LAB | | | | [address];[place] | | | | | | [address] | | | | + + + + + + | Red Blood | 4.58Comment: Testing | 4.20 - 5.70 | EXTERNAL | | | Cells | performed at [facility];[address] | M/uL | LAB | | | Counted | [address];[place] | | | | | | [address] | | | | + + + + + + | Hemoglobin | 13.6Comment: Testing | 13.2 - 17.0 | EXTERNAL | | | | performed at [facility];[address] | g/dL | LAB | | | | [address];[place] | | | | | | [address] | | | | + + + + + + | Hematocrit, | 39.6Comment: Testing | 39.0 - 50.0 % | EXTERNAL | | | POC | performed at [facility];[address] | | LAB | | | | [address];[place] | | | | | | [address] | | | | + + + + + + | MCV | 86.5Comment: Testing | 80.0 - 100.0 fl | EXTERNAL | | | | performed at [facility];[address] | | LAB | | | | [address];[place] | | | | | | [address] | | | | + + + + + + | MCH | 29.7Comment: Testing | 27.0 - 34.0 pg | EXTERNAL | | | | performed at [facility];[address] | | LAB | | | | [address];[place] | | | | | | [address] | | | | + + + + + + | MCHC | 34.3Comment: Testing | 32.0 - 35.5 | EXTERNAL | | | | performed at [facility];[address] | g/dL | LAB | | | | [address];[place] | | | | | | [address] | | | | + + + + + + | RDW-CV | 41.6Comment: Testing | 37 - 53 fl | EXTERNAL | | | | performed at [facility];[address] | | LAB | | | | [address];[place] | | | | | | [address] | | | | + + + + + + | Platelet | 161Comment: Testing | 150 - 400 K/uL | EXTERNAL | | | Count | performed at [facility];[address] | | LAB | | | Plasma | [address];[place] | | | | | | [address] | | | | + + + + + + | MPV | 7.3Comment: Testing | fl | EXTERNAL | | | | performed at [facility];[address] | | LAB | | | | [address];[place] | | | | | | [address] | | | | + + + + + + | Differentia | AUTOMATEDComment: | | EXTERNAL | | | l Type | Testing performed at | | LAB | | | | [facility];[address];[place] [address] | | | | + + + + + + | % Segmented | 65.98Comment: Testing | % | EXTERNAL | | | | performed at [facility];[address] | | LAB | | | Neutrophils | [address];[place] | | | | | | [address] | | | | + + + + + + | % | 23.19Comment: Testing | % | EXTERNAL | | | Lymphocytes | performed at [facility];[address] | | LAB | | | | [address];[place] | | | | | | [address] | | | | + + + + + + | % Monocytes | 8.43Comment: Testing | % | EXTERNAL | | | | performed at [facility];[address] | | LAB | | | | [address];[place] | | | | | | [address] | | | | + + + + + + | % | 1.53Comment: Testing | % | EXTERNAL | | | Eosinophils | performed at [facility];[address] | | LAB | | | | [address];[place] | | | | | | [address] | | | | + + + + + + | % Basophils | 0.87Comment: Testing | % | EXTERNAL | | | | performed at [facility];[address] | | LAB | | | | [address];[place] | | | | | | [address] | | | | + + + + + + | Absolute | 3.48Comment: Testing | 1.90 - 7.40 | EXTERNAL | | | Segmented | performed at [facility];[address] | K/uL | LAB | | | Neutrophils | [address];[place] | | | | | | [address] | | | | + + + + + + | Absolute | 1.23Comment: Testing | 1.00 - 3.90 | EXTERNAL | | | Lymphocytes | performed at [facility];[address] | K/uL | LAB | | | | [address];[place] | | | | | | [address] | | | | + + + + + + | Absolute | 0.45Comment: Testing | 0.00 - 0.80 | EXTERNAL | | | Monocytes | performed at [facility];[address] | K/uL | LAB | | | | [address];[place] | | | | | | [address] | | | | + + + + + + | Absolute | 0.08Comment: Testing | 0.00 - 0.50 | EXTERNAL | | | Eosinophils | performed at [facility];[address] | K/uL | LAB | | | | [address];[place] | | | | | | [address] | | | | + + + + + + | Absolute | 0.05Comment: Testing | 0.00 - 0.10 | EXTERNAL | | | Basophils | performed at [facility];[address] | K/uL | LAB | | | | [address];[place] | | | | | | [address] | | | | + + + [...] EXTERNAL | | | | performed at [facility];[address] | | LAB | | | | [address];[place], [place] | | | | | | [address] | | | | + + + [...] EXTERNAL | | | | performed at [facility];[address] | | LAB | | | | [address];[place] | | | | | | [address] | | | | + + + [...] | | | Total | performed at [facility];[address] | | LAB | | | | [address];[place] | | | | | | [address] | | | | + + + + + + | Albumin | 2.8 (L)Comment: Testing | 3.6 - 5.0 g/dL | EXTERNAL | | | | performed at [facility];[address] | | LAB | | | | [address];[place] | | | | | | [address] | | | | + + + + + + | Bilirubin | 2.4 (H)Comment: Testing | 0.1 - 1.5 mg/dL | EXTERNAL | | | Total | performed at [facility];[address] | | LAB | | | | [address];[place] | | | | | | [address] | | | | + + + + + + | Bilirubin | 1.5 (H)Comment: Testing | 0.0 - 0.3 mg/dL | EXTERNAL | | | Direct | performed at [facility];[address] | | LAB | | | | [address];[place] | | | | | | [address] | | | | + + + + + + | ALP, | 111Comment: Testing | 35 - 115 U/L | EXTERNAL | | | External | performed at [facility];[address] | | LAB | | | | [address];[place] | | | | | | [address] | | | | + + + + + + | AST | 240 (H)Comment: Testing | 10 - 45 U/L | EXTERNAL | | | | performed at [facility];[address] | | LAB | | | | [address];[place] | | | | | | [address] | | | | + + + + + + | ALT | 383 (H)Comment: Testing | 10 - 65 U/L | EXTERNAL | | | | performed at [facility];[address] | | LAB | | | | [address];[place] | | | | | | [address] | | | | + + + [...] EXTERNAL | | | | performed at [facility];[address] | mmol/L | LAB | | | | [address];[place] | | | | | | [address] | | | | + + + + + + | K | 3.6Comment: Testing | 3.5 - 4.9 | EXTERNAL | | | | performed at [facility];[address] | mmol/L | LAB | | | | [address];[place] | | | | | | [address] | | | | + + + + + + | Cl | 106Comment: Testing | 99 - 109 mmol/L | EXTERNAL | | | | performed at [facility];[address] | | LAB | | | | [address];[place] | | | | | | [address] | | | | + + + + + + | CO2 | 27Comment: Testing | 23 - 32 mmol/L | EXTERNAL | | | | performed at [facility];[address] | | LAB | | | | [address];[place] | | | | | | [address] | | | | + + + + + + | Anion Gap | 11Comment: Testing | 5 - 20 mmol/L | EXTERNAL | | | | performed at [facility];[address] | | LAB | | | | [address];[place] | | | | | | [address] | | | | + + + + + + | Glucose, | 100 (H)Comment: Testing | 65 - 99 mg/dL | EXTERNAL | | | Fasting | performed at [facility];[address] | | LAB | | | | [address];[place] | | | | | | [address] | | | | + + + + + + | BUN | 5 (L)Comment: Testing | 8 - 25 mg/dL | EXTERNAL | | | | performed at [facility];[address] | | LAB | | | | [address];[place] | | | | | | [address] | | | | + + + + + + | Creatinine | 0.75Comment: Testing | 0.70 - 1.30 | EXTERNAL | | | | performed at [facility];[address] | mg/dL | LAB | | | | [address];[place] | | | | | | [address] | | | | + + + + + + | BUN/Creatin | 6Comment: Testing | | EXTERNAL | | | ine Ratio | performed at [facility];[address] | | LAB | | | | [address];[place] | | | | | | [address] | | | | + + + + + + | Calcium | 7.9 (L)Comment: Testing | 8.5 - 10.5 | EXTERNAL | | | | performed at [facility];[address] | mg/dL | LAB | | | | [address];[place] | | | | | | [address] | | | | + + + [...] | | | | | | at [facility];[address];[place] [address] | | | | + + + [...] | | | | | [place] [address] | | | | + + + [...] EXTERNAL | | | | performed at [facility], [address] | | LAB | | | | [address], | | | | | | [place] [address] | | | | + + + [...] | | LAB | | | | [facility];[address] [place] [address] | | | | | | [address];[place] [address] | | | | + + + [...] | | | | | | DETERMINEDBY [facility] | | | | | | DIVISION [...] | | | | | performed at [facility], [address] | | | | | | [facility] | | | | | | [place] [address] | | | | + + + [...] EXTERNAL | | | | performed at [facility], [address] | | LAB | | | | [facility] | | | | | | [place] [address] | | | | + + + + + + | HCV | [id number] (A)Comment: | IU/mL | EXTERNAL | | [...] | | | | | performed at [facility], [address] | | | | | | [place] | | | | | | [place] [address] | | | | + + + [...] | | | | | performed at [facility] | | | | | | [facility];[place], [place] | | | | | | [address] | | | | + + + [...] [place] | | | | | | [address] | | | | + + + + + + | HEP B | NON REACTIVEComment: | | EXTERNAL | | | SURFACE | Testing performed at | | LAB | | | ANTIBODY | [facility], [address] | | | | | | [place] | | | | | | [address] | | | | + + + + + + | HEP B CORE | NON REACTIVEComment: | | EXTERNAL | | | IgM | Testing performed at | | LAB | | | | [facility], [address] | | | | | | [place] | | | | | | [address] | | | | + + + + + + | HCV Ab | REACTIVE (A)Comment: | | EXTERNAL | | | | THIS IS A REPORTABLE | | LAB | | | | DISEASE. PLEASE | | | | | | CONTACT YOUR | | | | | | [facility] | | | | | | DEPARTMENT.Testing | | | | | | performed at [facility], [address] | | | | | [address], | | | | | | [place] [address] | | | | + + + [...] at | | | | | | [facility], [address] | | | | | | [place] | | | | | | [address] | | | | + + + [...] EXTERNAL | | | | performed at [facility], [address] | K/uL | LAB | | | | [address], | | | | | | [place] [address] | | | | + + + + + + | Red Blood | 4.19 (L)Comment: Testing | 4.20 - 5.70 | EXTERNAL | | | Cells | performed at [facility], [address] | M/uL | LAB | | | Counted | [address], | | | | | | [place] [address] | | | | + + + + + + | Hemoglobin | 12.5 (L)Comment: Testing | 13.2 - 17.0 | EXTERNAL | | | | performed at [facility], [address] | g/dL | LAB | | | | [address], | | | | | | [place] [address] | | | | + + + + + + | Hematocrit, | 37.1 (L)Comment: Testing | 39.0 - 50.0 % | EXTERNAL | | | POC | performed at [facility], [address] | | LAB | | | | [address], | | | | | | [place] [address] | | | | + + + + + + | MCV | 88.5Comment: Testing | 80.0 - 100.0 fl | EXTERNAL | | | | performed at [facility], [address] | | LAB | | | | [address], | | | | | | [place] [address] | | | | + + + + + + | MCH | 29.9Comment: Testing | 27.0 - 34.0 pg | EXTERNAL | | | | performed at [facility], [address] | | LAB | | | | [address], | | | | | | [place] [address] | | | | + + + + + + | MCHC | 33.8Comment: Testing | 32.0 - 35.5 | EXTERNAL | | | | performed at [facility], [address] | g/dL | LAB | | | | [address], | | | | | | [place] [address] | | | | + + + + + + | RDW-CV | 42.4Comment: Testing | 37 - 53 fl | EXTERNAL | | | | performed at [facility], [address] | | LAB | | | | [address], | | | | | | [place] [address] | | | | + + + + + + | Platelet | 111 (L)Comment: Testing | 150 - 400 K/uL | EXTERNAL | | | Count | performed at [facility], [address] | | LAB | | | Plasma | [address], | | | | | | [place] [address] | | | | + + + + + + | MPV | 7.9Comment: Testing | fl | EXTERNAL | | | | performed at [facility], [address] | | LAB | | | | [address], | | | | | | [place] [address] | | | | + + + + + + | Differentia | AUTOMATEDComment: | | EXTERNAL | | | l Type | Testing performed at | | LAB | | | | [facility], [address] | | | | | | [place] | | | | | | [address] | | | | + + + + + + | % Segmented | 79.24Comment: Testing | % | EXTERNAL | | | | performed at [facility], [address] | | LAB | | | Neutrophils | [address], | | | | | | [place] [address] | | | | + + + + + + | % | 14.46Comment: Testing | % | EXTERNAL | | | Lymphocytes | performed at [facility], [address] | | LAB | | | | [address], | | | | | | [place] [address] | | | | + + + + + + | % Monocytes | 5.58Comment: Testing | % | EXTERNAL | | | | performed at [facility], [address] | | LAB | | | | [address], | | | | | | [place] [address] | | | | + + + + + + | % | 0.32Comment: Testing | % | EXTERNAL | | | Eosinophils | performed at [facility], [address] | | LAB | | | | [address], | | | | | | [place] [address] | | | | + + + + + + | % Basophils | 0.40Comment: Testing | % | EXTERNAL | | | | performed at [facility], [address] | | LAB | | | | [address], | | | | | | [place] [address] | | | | + + + + + + | Absolute | 7.56 (H)Comment: Testing | 1.90 - 7.40 | EXTERNAL | | | Segmented | performed at [facility], [address] | K/uL | LAB | | | Neutrophils | [address], | | | | | | [place] [address] | | | | + + + + + + | Absolute | 1.38Comment: Testing | 1.00 - 3.90 | EXTERNAL | | | Lymphocytes | performed at [facility], [address] | K/uL | LAB | | | | [address], | | | | | | [place] [address] | | | | + + + + + + | Absolute | 0.53Comment: Testing | 0.00 - 0.80 | EXTERNAL | | | Monocytes | performed at [facility], [address] | K/uL | LAB | | | | [address], | | | | | | [place] [address] | | | | + + + + + + | Absolute | 0.03Comment: Testing | 0.00 - 0.50 | EXTERNAL | | | Eosinophils | performed at [facility], [address] | K/uL | LAB | | | | [address], | | | | | | [place] [address] | | | | + + + + + + | Absolute | 0.04Comment: Testing | 0.00 - 0.10 | EXTERNAL | | | Basophils | performed at [facility], [address] | K/uL | LAB | | | | [address], | | | | | | [place] [address] | | | | + + + [...] EXTERNAL | | | | performed at [facility], [address] | | LAB | | | | [address], | | | | | | [place] [address] | | | | + + + [...] EXTERNAL | | | | performed at [facility], [address] | | LAB | | | | [address], | | | | | | [place] [address] | | | | + + + [...] | | | Total | performed at [facility], [address] | | LAB | | | | [address], | | | | | | [place] [address] | | | | + + + + + + | Albumin | 3.0 (L)Comment: Testing | 3.6 - 5.0 g/dL | EXTERNAL | | | | performed at [facility], [address] | | LAB | | | | [address], | | | | | | [place] [address] | | | | + + + + + + | Bilirubin | 2.2 (H)Comment: Testing | 0.1 - 1.5 mg/dL | EXTERNAL | | | Total | performed at [facility], [address] | | LAB | | | [address], | | | | | | [place] [address] | | | | + + + + + + | Bilirubin | 1.5 (H)Comment: Testing | 0.0 - 0.3 mg/dL | EXTERNAL | | | Direct | performed at [facility], [address] | | LAB | | | [address], | | | | | | [place] [address] | | | | + + + + + + | ALP, | 81Comment: Testing | 35 - 115 U/L | EXTERNAL | | | External | performed at [facility], [address] | | LAB | | | | [address], | | | | | | [place] [address] | | | | + + + + + + | AST | 93 (H)Comment: Testing | 10 - 45 U/L | EXTERNAL | | | | performed at [facility], [address] | | LAB | | | [address], | | | | | | [place] [address] | | | | + + + + + + | ALT | 214 (H)Comment: Testing | 10 - 65 U/L | EXTERNAL | | | | performed at [facility], [address] | | LAB | | | | [address], | | | | | | [place] [address] | | | | + + + [...] | | | | | [place] [address] | | | | + + + + + + | K | 3.4 (L)Comment: Testing | 3.5 - 4.9 | EXTERNAL | | | | performed at [facility], [address] | mmol/L | LAB | | | | [address], | | | | | | [place] [address] | | | | + + + + + + | Cl | 108Comment: Testing | 99 - 109 mmol/L | EXTERNAL | | | | performed at [facility], [address] | | LAB | | | | [address], | | | | | | [place] [address] | | | | + + + + + + | CO2 | 24Comment: Testing | 23 - 32 mmol/L | EXTERNAL | | | | performed at [facility], [address] | | LAB | | | | [address], | | | | | | [place] [address] | | | | + + + + + + | Anion Gap | 9Comment: Testing | 5 - 20 mmol/L | EXTERNAL | | | | performed at [facility], [address] | | LAB | | | | [address], | | | | | | [place] [address] | | | | + + + + + + | Glucose, | 90Comment: Testing | 65 - 99 mg/dL | EXTERNAL | | | Fasting | performed at [facility], [address] | | LAB | | | | [address], | | | | | | [place] [address] | | | | + + + + + + | BUN | 4 (L)Comment: Testing | 8 - 25 mg/dL | EXTERNAL | | | | performed at [facility], [address] | | LAB | | | | [address], | | | | | | [place] [address] | | | | + + + + + + | Creatinine | 0.69 (L)Comment: Testing | 0.70 - 1.30 | EXTERNAL | | | | performed at [facility], [address] | mg/dL | LAB | | | | [address], | | | | | | [place] [address] | | | | + + + + + + | BUN/Creatin | 6Comment: Testing | | EXTERNAL | | | ine Ratio | performed at [facility], [address] | | LAB | | | | [address], | | | | | | [place] [address] | | | | + + + + + + | Calcium | 8.1 (L)Comment: Testing | 8.5 - 10.5 | EXTERNAL | | | | performed at [facility], [address] | mg/dL | LAB | | | | [address], | | | | | | [place] [address] | | | | + + + [...] | | | | | | [place] [address] | | | | + + + [...] [place], | | | | | | [place] [address] | | | | + + + [...] EXTERNAL | | | | performed at [facility], [address] | | LAB | | | | [address], | | | | | | [place] [address] | | | | + + + [...] | | | | | [place] [address] | | | | + + + [...] | | | | | performed at [facility] | | | | | | [facility];[place], [place] | | | | | | [address] | | | | + + + [...] [place] | | | | | | [address] | | | | + + + + + + | Red Blood | 4.23Comment: Testing | 4.20 - 5.70 | EXTERNAL | | | Cells | performed at [facility], [address] | M/uL | LAB | | | Counted | [address], | | | | | | [place] [address] | | | | + + + + + + | Hemoglobin | 12.6 (L)Comment: Testing | 13.2 - 17.0 | EXTERNAL | | | | performed at [facility], [address] | g/dL | LAB | | | | [address], | | | | | | [place] [address] | | | | + + + + + + | Hematocrit, | 37.5 (L)Comment: Testing | 39.0 - 50.0 % | EXTERNAL | | | POC | performed at [facility], [address] | | LAB | | | | [address], | | | | | | [place] [address] | | | | + + + + + + | MCV | 88.6Comment: Testing | 80.0 - 100.0 fl | EXTERNAL | | | | performed at [facility], [address] | | LAB | | | | [address], | | | | | | [place] [address] | | | | + + + + + + | MCH | 29.6Comment: Testing | 27.0 - 34.0 pg | EXTERNAL | | | | performed at [facility], [address] | | LAB | | | | [address], | | | | | | [place] [address] | | | | + + + + + + | MCHC | 33.4Comment: Testing | 32.0 - 35.5 | EXTERNAL | | | | performed at [facility], [address] | g/dL | LAB | | | | [address], | | | | | | [place] [address] | | | | + + + + + + | RDW-CV | 42.0Comment: Testing | 37 - 53 fl | EXTERNAL | | | | performed at [facility], [address] | | LAB | | | | [address], | | | | | | [place] [address] | | | | + + + + + + | Platelet | 111 (L)Comment: Testing | 150 - 400 K/uL | EXTERNAL | | | Count | performed at [facility], [address] | | LAB | | | Plasma | [address], | | | | | | [place] [address] | | | | + + + + + + | MPV | 8.0Comment: Testing | fl | EXTERNAL | | | | performed at [facility], [address] | | LAB | | | | [address], | | | | | | [place] [address] | | | | + + + + + + | Differentia | AUTOMATEDComment: | | EXTERNAL | | | l Type | Testing performed at | | LAB | | | | [facility], [address] | | | | | | [place] | | | | | | [address] | | | | + + + + + + | % Segmented | 82.63Comment: Testing | % | EXTERNAL | | | | performed at [facility], [address] | | LAB | | | Neutrophils | [address], | | | | | | [place], [place] [address] | | | | + + + + + + | % | 9.49Comment: Testing | % | EXTERNAL | | | Lymphocytes | performed at [facility], [address] | | LAB | | | | [address], | | | | | | [place], [place] [address] | | | | + + + + + + | % Monocytes | 6.50Comment: Testing | % | EXTERNAL | | | | performed at [facility], [address] | | LAB | | | | [address], | | | | | | [place], [place] [address] | | | | + + + + + + | % | 1.02Comment: Testing | % | EXTERNAL | | | Eosinophils | performed at [facility], [address] | | LAB | | | | [address], | | | | | | [place], [place] [address] | | | | + + + + + + | % Basophils | 0.36Comment: Testing | % | EXTERNAL | | | | performed at [facility], [address] | | LAB | | | | [address], | | | | | | [place] [address] | | | | + + + + + + | Absolute | 13.13 (H)Comment: | 1.90 - 7.40 | EXTERNAL | | | Segmented | Testing performed at | K/uL | LAB | | | Neutrophils | [facility], [address] | | | | | | [place] | | | | | | [address] | | | | + + + + + + | Absolute | 1.51Comment: Testing | 1.00 - 3.90 | EXTERNAL | | | Lymphocytes | performed at [facility], [address] | K/uL | LAB | | | | [address], | | | | | | [place] [address] | | | | + + + + + + | Absolute | 1.03 (H)Comment: Testing | 0.00 - 0.80 | EXTERNAL | | | Monocytes | performed at [facility], [address] | K/uL | LAB | | | | [address], | | | | | | [place] [address] | | | | + + + + + + | Absolute | 0.16Comment: Testing | 0.00 - 0.50 | EXTERNAL | | | Eosinophils | performed at [facility], [address] | K/uL | LAB | | | | [address], | | | | | | [place] [address] | | | | + + + + + + | Absolute | 0.06Comment: Testing | 0.00 - 0.10 | EXTERNAL | | | Basophils | performed at [facility], [address] | K/uL | LAB | | | | [address], | | | | | | [place] [address] | | | | + + + [...] EXTERNAL | | | | performed at [facility], [address] | | LAB | | | | [address], | | | | | | [place] [address] | | | | + + + [...] EXTERNAL | | | | performed at [facility], [address] | | LAB | | | | [address], | | | | | | [place] [address] | | | | + + + [...] | | | Total | performed at [facility], [address] | | LAB | | | | [address], | | | | | | [place] [address] | | | | + + + + + + | Albumin | 3.0 (L)Comment: Testing | 3.6 - 5.0 g/dL | EXTERNAL | | | | performed at [facility], [address] | | LAB | | | | [address], | | | | | | [place] [address] | | | | + + + + + + | Bilirubin | 2.9 (H)Comment: Testing | 0.1 - 1.5 mg/dL | EXTERNAL | | | Total | performed at [facility], [address] | | LAB | | | | [address], | | | | | | [place] [address] | | | | + + + + + + | Bilirubin | 2.0 (H)Comment: Testing | 0.0 - 0.3 mg/dL | EXTERNAL | | | Direct | performed at [facility], [address] | | LAB | | | | [address], | | | | | | [place] [address] | | | | + + + + + + | ALP, | 88Comment: Testing | 35 - 115 U/L | EXTERNAL | | | External | performed at [facility], [address] | | LAB | | | | [address], | | | | | | [place] [address] | | | | + + + + + + | AST | 128 (H)Comment: Testing | 10 - 45 U/L | EXTERNAL | | | | performed at [facility], [address] | | LAB | | | | [address], | | | | | | [place] [address] | | | | + + + + + + | ALT | 268 (H)Comment: Testing | 10 - 65 U/L | EXTERNAL | | | | performed at [facility], [address] | | LAB | | | [address], | | | | | | [place] [address] | | | | + + + [...] | | | | | [place] [address] | | | | + + + + + + | K | 3.4 (L)Comment: Testing | 3.5 - 4.9 | EXTERNAL | | | | performed at [facility], [address] | mmol/L | LAB | | | | [address], | | | | | | [place] [address] | | | | + + + + + + | Cl | 107Comment: Testing | 99 - 109 mmol/L | EXTERNAL | | | | performed at [facility], [address] | | LAB | | | | [address], | | | | | | [place] [address] | | | | + + + + + + | CO2 | 22 (L)Comment: Testing | 23 - 32 mmol/L | EXTERNAL | | | | performed at [facility], [address] | | LAB | | | | [address], | | | | | | [place] [address] | | | | + + + + + + | Anion Gap | 10Comment: Testing | 5 - 20 mmol/L | EXTERNAL | | | | performed at [facility], [address] | | LAB | | | | [address], | | | | | | [place] [address] | | | | + + + + + + | Glucose, | 79Comment: Testing | 65 - 99 mg/dL | EXTERNAL | | | Fasting | performed at [facility], [address] | | LAB | | | | [address], | | | | | | [place], [place] [address] | | | | + + + + + + | BUN | 9Comment: Testing | 8 - 25 mg/dL | EXTERNAL | | | | performed at [facility], [address] | | LAB | | | | [address], | | | | | | [place] [address] | | | | + + + + + + | Creatinine | 0.81Comment: Testing | 0.70 - 1.30 | EXTERNAL | | | | performed at [facility], [address] | mg/dL | LAB | | | | [address], | | | | | | [place] [address] | | | | + + + + + + | BUN/Creatin | 11Comment: Testing | | EXTERNAL | | | ine Ratio | performed at [facility], [address] | | LAB | | | | [facility], | | | | | | [place] [address] | | | | + + + + + + | Calcium | 8.2 (L)Comment: Testing | 8.5 - 10.5 | EXTERNAL | | | | performed at [facility], [address] | mg/dL | LAB | | | | [address], | | | | | | [place] [address] | | | | + + + [...] | | | | | [place] [address] | | | | + + + [...] EXTERNAL | | | | performed at [facility];[address] | mmol/L | LAB | | | | [address];[place] | | | | | | [address] [...] At | + + + | [facility]CK 11/04/2015 1:28 PM [...] Marino, Rad Conversion - 05/04/2019 2:[address] [facility] | | WITH CCK11/04/2015 1:28 [...] EXTERNAL | | | | performed at [facility];[address] | mmol/L | LAB | | | | [address];[place], [place] | | | | | | [address] | | | | + + + [...] EXTERNAL | | | | performed at [facility];[address] | mmol/L | LAB | | | | [address];[place] | | | | | | [address] | | | | + + + [...] | | | | | performed at [facility] | | | | | | [facility];[place], [place] | | | | | | [address] | | | | + + + [...] EXTERNAL | | | | performed at [facility] | | LAB | | | | [facility];[place], [place] | | | | | | [address] | | | | + + + [...] EXTERNAL | | | | performed at [facility];[address] | | LAB | | | | [address];[place], [place] | | | | | | [address] | | | | + + + [...] | | | Total | performed at [facility];[address] | | LAB | | | | [address] [place] | | | | | | [address] | | | | + + + + + + | Albumin | 2.5 (L)Comment: Testing | 3.6 - 5.0 g/dL | EXTERNAL | | | | performed at [facility];[address] | | LAB | | | | [address];[place] | | | | | | [address] | | | | + + + + + + | Bilirubin | 3.0 (H)Comment: Testing | 0.1 - 1.5 mg/dL | EXTERNAL | | | Total | performed at [facility];[address] | | LAB | | | | [address];[place] | | | | | | [address] | | | | + + + + + + | Bilirubin | 2.0 (H)Comment: Testing | 0.0 - 0.3 mg/dL | EXTERNAL | | | Direct | performed at [facility];[address] | | LAB | | | | [address];[place] | | | | | | [address] | | | | + + + + + + | ALP, | 85Comment: Testing | 35 - 115 U/L | EXTERNAL | | | External | performed at [facility];[address] | | LAB | | | | [address];[place] | | | | | | [address] | | | | + + + + + + | AST | 168 (H)Comment: Testing | 10 - 45 U/L | EXTERNAL | | | | performed at [facility];[address] | | LAB | | | | [address];[place] | | | | | | [address] | | | | + + + + + + | ALT | 371 (H)Comment: Testing | 10 - 65 U/L | EXTERNAL | | | | performed at [facility];[address] | | LAB | | | | [address];[place] | | | | | | [address] | | | | + + + [...] EXTERNAL | | | | performed at [facility];[address] | mmol/L | LAB | | | | [address];[place] | | | | | | [address] | | | | + + + [...] NEGATIVE Testing | | | performed at [facility];[address] [place] [address];[place] [address] | | + + + + +---------+ [...] LAC | | | Testing performed at [facility];[address] [facility] | | | Blvd;[place] [address] CULTURE | | | NO GROWTH 6 DAYS | | | Testing performed at [facility], [address] [place] [address], [place], [place] | | | [address] | | + + + + +---------+ [...] RAC | | | Testing performed at [facility];[address] | | [address];[place] [address] CULTURE | | | NO GROWTH 6 DAYS | | | Testing performed at [facility], [address], [place], [place] | | | [address] | | + + + + +---------+ [...] EXTERNAL | | | | performed at [facility];[address] | mmol/L | LAB | | | | [address];[place], [place] | | | | | | [address] | | | | + + + [...] | | | | | | at [facility];[address] [place] [address] | | | | | | [facility];[place] [address] | | | | + + + [...] K/uL | LAB | | | | [facility];[address] | | | | | | [address];[place] [address] | | | | + + + + + -+ | Red Blood | 4.42Comment: Testing | 4.20 - 5.70 | EXTERNAL | | | Cells | performed at [facility];[address] | M/uL | LAB | | | Counted | [address];[place] | | | | | | [address] | | | | + + + + + -+ | Hemoglobin | 12.8 (L)Comment: Testing | 13.2 - 17.0 | EXTERNAL | | | | performed at [facility];[address] | g/dL | LAB | | | | [address];[place] | | | | | | [address] | | | | + + + + + -+ | Hematocrit, | 38.8 (L)Comment: Testing | 39.0 - 50.0 % | EXTERNAL | | | POC | performed at [facility];[address] | | LAB | | | | [address];[place] | | | | | | [address] | | | | + + + + + -+ | MCV | 87.7Comment: Testing | 80.0 - 100.0 fl | EXTERNAL | | | | performed at [facility];[address] | | LAB | | | | [address];[place] | | | | | | [address] | | | | + + + + + -+ | MCH | 29.0Comment: Testing | 27.0 - 34.0 pg | EXTERNAL | | | | performed at [facility];[address] | | LAB | | | | [address];[place] | | | | | | [address] | | | | + + + + + -+ | MCHC | 33.1Comment: Testing | 32.0 - 35.5 | EXTERNAL | | | | performed at [facility];[address] | g/dL | LAB | | | | [address];[place] | | | | | | [address] | | | | + + + + + -+ | RDW-CV | 42.0Comment: Testing | 37 - 53 fl | EXTERNAL | | | | performed at [facility];[address] | | LAB | | | | [address];[place] | | | | | | [address] | | | | + + + + + -+ | Platelet | 138 (L)Comment: Testing | 150 - 400 K/uL | EXTERNAL | | | Count | performed at [facility];[address] | | LAB | | | Plasma | [address];[place] | | | | | | [address] | | | | + + + + + -+ | MPV | 7.0Comment: Testing | fl | EXTERNAL | | | | performed at [facility];[address] | | LAB | | | | [address];[place] | | | | | | [address] | | | | + + + + + -+ | Differentia | MANUALComment: Testing | | EXTERNAL | | | l Type | performed at [facility];[address] | | LAB | | | | [address];[place] | | | | | | [address] | | | | + + + + + -+ | Segmented | 80Comment: Testing | % | EXTERNAL | | | Neutrophils | performed at [facility];[address] | | LAB | | | Manual | [address];[place] | | | | | | [address] | | | | + + + + + -+ | % Bands | 7Comment: Testing | % | EXTERNAL | | | | performed at [facility];[address] | | LAB | | | | [address];[place] | | | | | | [address] | | | | + + + + + -+ | Lymphocytes | 8Comment: Testing | % | EXTERNAL | | | Manual | performed at [facility];[address] | | LAB | | | | [address];[place] | | | | | | [address] | | | | + + + + + -+ | Monocytes | 5Comment: Testing | % | EXTERNAL | | | Manual | performed at [facility];[address] | | LAB | | | | [address];[place] | | | | | | [address] | | | | + + + + + -+ | Absolute | 15.35 (H)Comment: | 1.90 - 7.40 | EXTERNAL | | | Neutrophils | Testing performed at | K/uL | LAB | | | | [facility];[address];[place] [address] | | | | + + + + + -+ | Bands | 1.34 (H)Comment: Testing | 0.00 - 0.20 | EXTERNAL | | | Manual | performed at [facility];[address] | [address] | LAB | | | | [address];[place] | | | | | | [address] | | | | + + + + + -+ | Absolute | 1.53Comment: Testing | 1.00 - 3.90 | EXTERNAL | | | Lymphocytes | performed at [facility];[address] | [address] | LAB | | | | [address];[place] | | | | | | [address] | | | | + + + + + -+ | Absolute | 0.96 (H)Comment: Testing | 0.00 - 0.80 | EXTERNAL | | | Monocytes | performed at [facility];[address] | [address] | LAB | | | | [address];[place] | | | | | | [address] | | | | + + + + + -+ | Platelet | ADEQUATEComment: Testing | | EXTERNAL | | | Estimate | performed at [facility];[address] | | LAB | | | [address];[place] | | | | | | [address] | | | | + + + + + -+ | RBC | RBC AND PLT MORPHOLOGY | | EXTERNAL | | | Morphology | APPEAR NORMALComment: | | LAB | | | | Testing performed at | | | | | | [facility];[address];[place] [address] | | | | + + + + + -+ | Na | 141Comment: Testing | 135 - 143 | EXTERNAL | | | | performed at [facility];[address] | mmol/L | LAB | | | | [address];[place] | | | | | | [address] | | | | + + + + + -+ | K | 4.3Comment: Testing | 3.5 - 4.9 | EXTERNAL | | | | performed at [facility];[address] | mmol/L | LAB | | | | [address];[place] | | | | | | [address] | | | | + + + + + -+ | Cl | 112 (H)Comment: Testing | 99 - 109 mmol/L | EXTERNAL | | | | performed at [facility];[address] | | LAB | | | | [address];[place] | | | | | | [address] | | | | + + + + + -+ | CO2 | 21 (L)Comment: Testing | 23 - 32 mmol/L | EXTERNAL | | | | performed at [facility];[address] | | LAB | | | | [address];[place] | | | | | | [address] | | | | + + + + + -+ | Anion Gap | 11Comment: Testing | 5 - 20 mmol/L | EXTERNAL | | | | performed at [facility];[address] | | LAB | | | | [address];[place] | | | | | | [address] | | | | + + + + + -+ | Glucose, | 96Comment: Testing | 65 - 99 mg/dL | EXTERNAL | | | Fasting | performed at [facility];[address] | | LAB | | | | [address];[place] | | | | | | [address] | | | | + + + + + -+ | BUN | 17Comment: Testing | 8 - 25 mg/dL | EXTERNAL | | | | performed at [facility];[address] | | LAB | | | | [address];[place] | | | | | | [address] | | | | + + + + + -+ | Creatinine | 1.4 (H)Comment: Testing | 0.70 - 1.30 | EXTERNAL | | | | performed at [facility];[address] | mg/dL | LAB | | | | [address];[place] | | | | | | [address] | | | | + + + + + -+ | BUN/Creatin | 12Comment: Testing | | EXTERNAL | | | ine Ratio | performed at [facility];[address] | | LAB | | | | [address];[place] | | | | | | [address] | | | | + + + + + -+ | Calcium | 6.3 (L)Comment: Testing | 8.5 - 10.5 | EXTERNAL | | | | performed at [facility];888 | mg/dL | LAB | | | | [address];[place] | | | | | | [address] | | | | + + + + + -+ | Protein, | 5.5 (L)Comment: Testing | 6.3 - 8.2 g/dL | EXTERNAL | | | Total | performed at [facility];[address] | | LAB | | | | [address];[place] | | | | | | [address] | | | | + + + + + -+ | Albumin | 2.7 (L)Comment: Testing | 3.6 - 5.0 g/dL | EXTERNAL | | | | performed at [facility];[address] | | LAB | | | | [address];[place] | | | | | | [address] | | | | + + + + + -+ | Globulin | 2.7Comment: Testing | 1.3 - 4.9 g/dL | EXTERNAL | | | | performed at [facility];[address] | | LAB | | | | [address];[place] | | | | | | [address] | | | | + + + + + -+ | A/G Ratio | 1.0Comment: Testing | 1.0 - 2.4 | EXTERNAL | | | | performed at [facility];[address] | | LAB | | | | [address];[place] | | | | | | [address] | | | | + + + + + -+ | Bilirubin | 1.9 (H)Comment: Testing | 0.1 - 1.5 mg/dL | EXTERNAL | | | Total | performed at [facility];[address] | | LAB | | | | [address];[place] | | | | | | [address] | | | | + + + + + -+ | ALP, | 91Comment: Testing | 35 - 115 U/L | EXTERNAL | | | External | performed at [facility];[address] | | LAB | | | | [address];[place] | | | | | | [address] | | | | + + + + + -+ | AST | 197 (H)Comment: Testing | 10 - 45 U/L | EXTERNAL | | | | performed at [facility];[address] | | LAB | | | | [address];[place] | | | | | | [address] | | | | + + + + + -+ | ALT | 415 (H)Comment: Testing | 10 - 65 U/L | EXTERNAL | | | | performed at [facility];[address] | | LAB | | | | [address];[place] | | | | | | [address] | | | | + + + [...] | | | | | | at [facility];[address];[place] [address] | | | | + + + + + -+ | CK, Total | 358Comment: Testing | 55 - 400 U/L | EXTERNAL | | | | performed at [facility];[address] | | LAB | | | | [address];[place] | | | | | | [address] | | | | + + + [...] | | | | | performed at [facility];[address] | | | | | | [address];[place] | | | | | | [address] | | | | + + + + + -+ | aPTT, | 33 (H)Comment: Testing | 23 - 32 seconds | EXTERNAL | | | Patient | performed at [facility];[address] | | LAB | | | | [address];[place] | | | | | | [address] | | | | + + + + + -+ | CK-MB | 2.4Comment: Testing | 0.5 - 3.6 ng/mL | EXTERNAL | | | | performed at [facility];[address] | | LAB | | | | [address];[place], [place] | | | | | | [address] | | | | + + + [...] EXTERNAL | | | | performed at [facility];[address] | | LAB | | | | [address];[place], [place] | | | | | | [address] | | | | + + + [...] EXTERNAL | | | | performed at [facility];[address] | | LAB | | | | [address];[place], [place] | | | | | | [address] | | | | + + + [...] EXTERNAL | | | | performed at [facility];[address] | | LAB | | | | [address];[place] | | | | | | [address] | | | | + + + [...] | | | | | performed at [facility] | | | | | | [address];[place] | | | | | | [address] | | | | + + + [...] GROWTH | | | Testing performed at [facility], [address] | | | [place] [address] | | + + + + +---------+ [...] EXTERNAL | | | | performed at [facility];[address] | | LAB | | | | [address];[place] | | | | | | [address] | | | | + + + + + + | Clarity | CLEARComment: Testing | | EXTERNAL | | | | performed at [facility];[address] | | LAB | | | | [address];[place] | | | | | | [address] | | | | + + + + + + | Specific | 1.017Comment: Testing | 1.002 - 1.030 | EXTERNAL | | | [place], | performed at [facility];[address] | | LAB | | | Urine | [address];[place] | | | | | | [address] | | | | + + + + + + | Leukocyte | NEGATIVEComment: Testing | | EXTERNAL | | | Esterase, | performed at [facility];[address] | | LAB | | | Urine | [address];[place] | | | | | | [address] | | | | + + + + + + | Nitrite, | NEGATIVEComment: Testing | | EXTERNAL | | | Urine | performed at [facility];[address] | | LAB | | | | [address];[place] | | | | | | [address] | | | | + + + + + + | Urobilinoge | NORMALComment: Testing | mg/dL | EXTERNAL | | | n, Urine | performed at [facility];[address] | | LAB | | | | [address];[place] | | | | | | [address] | | | | + + + + + + | Protein, | NEGATIVEComment: Testing | mg/dL | EXTERNAL | | | Urine | performed at [facility];[address] | | LAB | | | | [address];[place] | | | | | | [address] | | | | + + + + + + | pH, Urine | 5.0Comment: Testing | 5.0 - 8.0 | EXTERNAL | | | | performed at [facility];[address] | | LAB | | | | [address];[place] | | | | | | [address] | | | | + + + + + + | Blood, | MODERATE (A)Comment: | | EXTERNAL | | | Urine | Testing performed at | | LAB | | | | [facility];[address];[place] [address] | | | | + + + + + + | Ketones | NEGATIVEComment: Testing | mg/dL | EXTERNAL | | | | performed at [facility];[address] | | LAB | | | | [address];[place] | | | | | | [address] | | | | + + + + + + | Bilirubin, | NEGATIVEComment: Testing | | EXTERNAL | | | Urine | performed at [facility];[address] | | LAB | | | | [address];[place] | | | | | | [address] | | | | + + + + + + | Glucose, | NEGATIVEComment: Testing | mg/dL | EXTERNAL | | | Urine | performed at [facility];[address] | | LAB | | | | [address];[place] | | | | | | [address] | | | | + + + + + + | WBC, UA | 0-2Comment: Testing | 0 - 5 /hpf | EXTERNAL | | | | performed at [facility];[address] | | LAB | | | | [address];[place] | | | | | | [address] | | | | + + + + + + | RBC, UA | 0-2Comment: Testing | 0 - 2 /hpf | EXTERNAL | | | | performed at [facility];[address] | | LAB | | | | [address];[place] | | | | | | [address] | | | | + + + + + + | Bacteria, | NONE SEENComment: | | EXTERNAL | | | UA | Testing performed at | | LAB | | | | [facility];[address];[place] [address] | | | | + + + + + + | Epithelial | NONE SEENComment: | /lpf | EXTERNAL | | | Cells | Testing performed at | | LAB | | | | [facility];[address];[place] [address] | | | | + + + + + + | Mucus, | 1+Comment: Testing | | EXTERNAL | | | Urine | performed at [facility];[address] | | LAB | | | | [address];[place] | | | | | | [address] | | | | + + + [...] (500), | | | | | | newspaper photo editor Sienna Reddy | | | | | | (18) on 11/04/2015 | | | | | | 11:01:48 AM | | | | + + + + + + + + | Specimen | + + | | + + + + + | Narrative | Performed At | + + + | Historically converted procedure from [facility] environment | EXTERNAL LAB | + + [...]
--- OUTSIDE RECORDS SUMMARY | ~2020-02-06 | XMS | Clinical Summary ---
Demographics + + + | Address | [address] | | | [place] [address] | + + + | Home Phone | | + + + | Preferred Language | Unknown | + + + | Marital Status | Single | + + + | Zoroastrianism Affiliation | Unknown | + + + | Race | Unknown | + + + | Ethnic Group | Unknown | + + + Author + + + | Author | [facility] (Historical as of | | | 05-06-19) | + + + | Organization | [facility] (Historical as of | | | 05-06-19) [...] Team Providers + +------+ + | Care Cold Roll Inspector Name | Role | Phone | [...] +------+-------+ + | MEDICAID | [place] | [id number] | | | [address] | | | [address] | | | | [place] | | | [place] | | | | [phone] | | | [employer] | | | | | + +--------+ [...] | [place] | | | [phone] | [phone] | + +--------+ +--------+ + +
--- OUTSIDE RECORDS SUMMARY | ~2020-02-06 | XMS | Encounter Summary ---
Demographics + + + | Address | [address] | | | [place] [address] | + + + | Home Phone | [email or web address] | + + + | Preferred Language | Unknown | + + + | Marital Status | Single | + + + | Mandaeism Affiliation | Unknown | + + + | Race | Unknown | + + + | Ethnic Group | Unknown | + + + Author + + + | Author | [facility] | | | and [place] | + + + | Organization | [facility] | | | and [place] [...] Team Providers + +------+ + | Care Mechanotherapist Name | Role | Phone | + [...] + + | 07/23/ | Office | [facility] | Everardo Lopez | Acne (Primary Dx); | | 2013 | Visit | [facility] [address] | Ziggy Rodriguez MD | Hand dermatitis | | | | [place] | [address] | | | | | [phone] | [place] | | | | | [phone] | [address] | | | | | | | [...] + | [facility] | [address] | [place] | [phone] | | [facility] | | [address] | | | - LABORATORY | | | | + + + + + | [facility] | [address] | [place], [place] | | | [facility] | | [phone] [place] [address] | | | - LABORATORY | | [...] | Basophils | | K/uL | [facility] | | | | | | MEDICAL [...] + | [facility] | [address] | [place] | [phone] | | [facility] | | [address] | | | - LABORATORY | | | | + + + + + | [facility] | [address] | [place] | | | [facility] | | [phone] | | | - LABORATORY | | | | + + + + + documented in this encounter Visit Diagnoses + + | Diagnosis | + + | Acne - Primary Other acne | + + | Hand dermatitis Contact dermatitis and other eczema, due to unspecified cause | + + documented in this encounter
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
== END 2020-02-06 05:05 | disposition home or self-care (01) ==
LOC: ED 04:19
DX: L29.9 Pruritus, unspecified (principal); F15.10 Other stimulant abuse, uncomplicated; Z59.0 Homelessness; F17.200 Nicotine dependence, unspecified, uncomplicated; Z79.899 Other long term (current) drug therapy
CPT/HCPCS: 99282